=== PATIENT | female | born 1930 | race Caucasian/White ===

== ENCOUNTER 2016-05-05 07:53 | Emergency (ER) | payer OTHER ==
[2016-05-05 07:58] VITALS: BP 165/114; O2SAT 92
--- NOTE | 2016-05-05 08:16 | EDPHY ---
H & P Time Seen by Provider: 05/05/16 08:13 HPI/ROS: CHIEF COMPLAINT: Having problems breathing HISTORY OF PRESENT ILLNESS: This 86-year-old woman does not have a history of lung disease or heart disease. She has had a cough over the last week and has been exposed to a small child with similar symptoms. She used to smoke but does not anymore. Today she awakened with dyspnea and feeling she is having trouble breathing which is not changed by exertion or position. Her cough is nonproductive. It is not associated with chest pain or leg swelling or fever or chills. Symptoms mild to moderate. REVIEW OF SYSTEMS: Eye: no change in vision ENT: no sore throat Cardiac: no chest pain or syncope Pulmonary: HPI, no hemoptysis Abdomen: no vomiting, diarrhea, abdominal pain Musculoskeletal: no back pain or leg pain Skin: no rash Neuro: no headache Constitutional: no fever : no urinary symptoms A comprehensive 10 point review of systems is otherwise negative aside from elements mentioned in the history of present illness. PAST MEDICAL HISTORY: Hypertension and cataract surgery Social history: Currently nonsmoker General Appearance: Alert and conversant, cooperative. Eyes: No scleral icterus. ENT, Mouth: Normal mucous membranes. Normal pharynx without trismus or stridor. Respiratory: Slight expiratory wheezes but normal respiratory effort no focal lung sounds. Cardiovascular: Regular rate and rhythm. Gastrointestinal: Abdomen is soft and non tender. Neurological: Alert and oriented x3. Normally conversant. Face symmetric, normal movement and sensation in all extremities. Skin: Warm and dry, no rashes. Musculoskeletal: No peripheral edema and no joint swelling. No calf tenderness. Psychiatric: Not agitated. Emergency Department course/MDM: Chest x-ray, EKG, labs to include troponin and D-dimer. DuoNeb. Flu testing. 1011: EKG shows sinus rhythm without ischemic changes, D-dimer slightly elevated and CT angiogram discussed and consented 1110: Results discussed with patient and with Dr. Leavitt from surgery will come to see the patient, she does not have any gastrointestinal symptoms so significance of CT finding is unclear to me. Seen by Dr. Leavitt in the emergency department. He feels the CT finding does not require emergent surgical evaluation or hospitalization. Likely URI. Mild bronchospasm. Vital signs normal at discharge. Patient states she is comfortable with outpatient treatment and follow-up. Smoking Status: Former smoker Constitutional: Initial Vital Signs Temperature (C) 36.6 C 05/05/16 07:55 Heart Rate 89 05/05/16 07:55 Respiratory Rate 18 05/05/16 07:55 Blood Pressure 165/114 H 05/05/16 07:55 O2 Sat (%) 92 05/05/16 07:55 O2 Delivery Mode Room Air Allergies/Adverse Reactions: No Known Allergies Allergy (Unverified 05/05/16 07:55) Home Medications: Medication Instructions Recorded Dont Remember 05/05/16 Medical Decision Making - Diagnostics EKG Interpretation: 12-lead EKG interpreted by me; official reading is in trace master. My interpretation is sinus rhythm, no acute ischemic changes. Rate 74. Imaging: CT per Lash[place] no PE, has question of diverticulum versus posterior perforation from stomach 1104am. Reviewed by me. Differential Diagnosis: Differential diagnosis considered for shortness of breath including but not limited to pulmonary infectious process, COPD, asthma, pulmonary embolus and congestive heart failure. - Data Points Laboratory Results: Laboratory Results 05/05/16 09:30 05/05/16 09:30 05/05/16 05/05/16 05/05/16 09:30 09:30 09:30 WBC RBC Hgb Hct MCV MCH MCHC RDW Plt Count MPV Neut % (Auto) Lymph % (Auto) Wood[place] % (Auto) Eos % (Auto) Baso % (Auto) Nucleat RBC Rel Count Absolute Neuts (auto) Absolute Lymphs (auto) Absolute Monos (auto) Absolute Eos (auto) Absolute Basos (auto) Absolute Nucleated RBC Immature Gran % Immature Gran # D-Dimer 0.55 ug/mLFEU H ug/mLFEU (0.00-0.50) Sodium 137 mEq/L mEq/L (134-144) Potassium 5.1 mEq/L mEq/L (3.5-5.2) Chloride 102 mEq/L mEq/L (97-110) Carbon Dioxide 29 mEq/l mEq/l (22-31) Anion Gap 6 mEq/L L mEq/L (8-16) BUN 13 mg/dL mg/dL (7-23) Creatinine 0.5 mg/dL L mg/dL (0.6-1.0) Estimated GFR > 60 Glucose 98 mg/dL mg/dL (70-100) Calcium 10.1 mg/dL mg/dL (8.5-10.4) Troponin I < 0.012 ng/mL ng/mL (0-0.034) Specimen Hemolysis 103 Influenza Typ A,B (DFA) NEGATIVE FOR FLU (NEGATIVE) 05/05/16 09:30 WBC 9.92 10^3/uL H 10^3/uL (3.80-9.50) RBC 4.64 10^6/uL 10^6/uL (4.18-5.33) Hgb 15.5 g/dL g/dL (12.6-16.3) Hct 44.7 % % (38.0-47.0) MCV 96.3 fL fL (81.5-99.8) MCH 33.4 pg pg (27.9-34.1) MCHC 34.7 g/dL g/dL (32.4-36.7) RDW 13.1 % % (11.5-15.2) Plt Count 277 10^3/uL 10^3/uL (150-400) MPV 9.6 fL fL (8.7-11.7) Neut % (Auto) 72.7 % % (39.3-74.2) Lymph % (Auto) 14.8 % L % (15.0-45.0) Woodward % (Auto) 5.3 % % (4.5-13.0) Eos % (Auto) 6.3 % % (0.6-7.6) Baso % (Auto) 0.5 % % (0.3-1.7) Nucleat RBC Rel Count 0.0 % % (0.0-0.2) Absolute Neuts (auto) 7.21 10^3/uL H 10^3/uL (1.70-6.50) Absolute Lymphs (auto) 1.47 10^3/uL 10^3/uL (1.00-3.00) Absolute Monos (auto) 0.53 10^3/uL 10^3/uL (0.30-0.80) Absolute Eos (auto) 0.62 10^3/uL H 10^3/uL (0.03-0.40) Absolute Basos (auto) 0.05 10^3/uL 10^3/uL (0.02-0.10) Absolute Nucleated RBC 0.00 10^3/uL 10^3/uL (0-0.01) Immature Gran % 0.4 % % (0.0-1.1) Immature Gran # 0.04 10^3/uL 10^3/uL (0.00-0.10) D-Dimer Sodium Potassium Chloride Carbon Dioxide Anion Gap BUN Creatinine Estimated GFR Glucose Calcium Troponin I Specimen Hemolysis Influenza Typ A,B (DFA) Medications Given: Discontinued Medications Albuterol Sulfate (Proventil Inh Prepack) 1 mdi TAKEHOME EDNOW ONE Stop: 05/05/16 11:51 Last Admin: 05/05/16 12:08 Dose: 1 mdi Albuterol/Ipratropium (Duoneb) 3 ml IH EDNOW ONE Stop: 05/05/16 08:28 Last Admin: 05/05/16 08:49 Dose: 3 ml Departure - Departure Disposition: Home, Routine, Self-Care Clinical Impression: Upper respiratory infection Qualifiers: URI type: unspecified viral URI Qualified Code(s): J06.9 - Acute upper respiratory infection, unspecified Condition: Good Instructions: Albuterol (By breathing), Upper Respiratory Infection (ED) Referrals: Chelsea Monteiro [Primary Care Provider] - As per Instructions
[2016-05-05] MEDS ORDERED: IPRATROPIUM/ALBUTEROL 3 ML DEYVIAL IH ONE (08:27)
[2016-05-05 09:46] LABS: % IMMATURE GRANULYOCYTES 0.4 % (0.0-1.1); ABSOLUTE IMMATURE GRANULOCYTES 0.04 10^3/uL (0.00-0.10); ADD DIFF? NO; ADD MORPH? NO; ADD SCAN? NO; ATYPICAL LYMPHOCYTE FLAG 0 (0-99); FRAGMENT RBC FLAG 0 (0-99); HEMATOCRIT 44.7 % (38.0-47.0); HEMOGLOBIN 15.5 g/dL (12.6-16.3); LEFT SHIFT FLG 0 (0-99); LIPEMIA HEMOLYSIS FLAG 90 (0-99); MEAN CELL HEMOGLOBIN 33.4 pg (27.9-34.1); MEAN CELL HEMOGLOBIN CONCENTR. 34.7 g/dL (32.4-36.7); MEAN CELL VOLUME 96.3 fL (81.5-99.8); MEAN PLATELET VOLUME 9.6 fL (8.7-11.7); PLATELET CLUMPS FLAG 0 (0-99); PLATELET COUNT 277 10^3/uL (150-400); RED BLOOD CELL COUNT 4.64 10^6/uL (4.18-5.33); RED CELL DISTRIBUTION WIDTH 13.1 % (11.5-15.2)
--- NOTE | 2016-05-05 09:47 | CPEKG ---
Heart Rate: 74 RR Interval: 811 P-R Interval: 180 QRSD Interval: 86 QT Interval: 372 QTC Interval: 413 QRS [place]: 17 T Wave [place]: 61 EKG Severity - ABNORMAL ECG - EKG Impression: SINUS RHYTHM Electronically Signed By: Louis Forrest 05-May-2016 12:06:41
[2016-05-05 09:53] LABS: SPECIMEN HEMOLYSIS 103
[2016-05-05 09:58] LABS: ANION GAP 6 mEq/L (8-16); CALCIUM 10.1 mg/dL (8.5-10.4); CARBON DIOXIDE 29 mEq/l (22-31); CHLORIDE 102 mEq/L (97-110); CREATININE 0.5 mg/dL (0.6-1.0); GLOMERULAR FILTRATION RATE > 60; GLUCOSE 98 mg/dL (70-100); POTASSIUM 5.1 mEq/L (3.5-5.2); SODIUM 137 mEq/L (134-144)
[2016-05-05 10:11] LABS: TROPONIN I < 0.012 ng/mL (0-0.034)
[2016-05-05] MEDS ORDERED: IOPAMIDOL (ISOVUE-370) 150 ML BTL IV ONE (10:27)
[2016-05-05] MEDS ORDERED: ALBUTEROL INH PREPACK MDI TAKEHOME ONE (11:50)
[2016-05-05 12:26] VITALS: PULSE 80; RESP 16; TEMP 98.1
--- NOTE | 2016-05-05 17:36 | GCON ---
This is an 86-year-old woman who has recently moved to [place] presents with 1 week of cough and acute shortness of breath. This morning, she was apprehensive about her shortness of breath and presented to the emergency room. Workup including chest x-ray and CT angiogram for pulmonary embolus were negative, but showed a possible perforation on the posterior aspect of her stomach. My evaluation of the CT scan, it is unclear whether this is a duodenal diverticulum, diverticulum of the stomach, mass in the stomach, or a contained perforation based on the limited views that we have. The patient denies any nausea, vomiting, any recent change in eating habits. She has no early satiety. No hematemesis. No other signs of upper abdominal discomfort. She would like to hold off on any further imaging studies or any other workup if possible today and would prefer to come back as an outpatient if at all possible. REVIEW OF SYSTEMS: Significant for a cough, otherwise negative. ALLERGIES: She has no known drug allergies. MEDICATIONS: She does not remember any of her home medications. PAST SURGICAL HISTORY: She denies any previous surgical history. SOCIAL HISTORY: Former smoker; quit many years ago. Denies alcohol use. She is , a stable relationship with her . Recently moved from [place]. PHYSICAL EXAMINATION: VITAL SIGNS: The patient has a temperature of 36.6, heart rate of 89, blood pressure of 165/114 with a respiratory rate of 18, saturation of 92% on room air. GENERAL: She is alert, oriented to person, place, and time. HEENT: Extraocular motions intact. Pupils are 4 mm and equal. She has no scleral icterus. Oropharynx is moist. NECK: She has no JVD , thyromegaly, or cervical adenopathy. Trachea is midline. LUNGS: Clear bilaterally. HEART: Regular heart tones. S1, S2 without murmur. ABDOMEN: Soft, nontender to palpation. No scars. No hepatosplenomegaly. EXTREMITIES: 2+/2+ femoral and radial pulses. She has no peripheral edema. Skin has normal turgor and tone. No adenopathy is noted cervical, supraclavicular, or inguinal. LABORATORY DATA: Review of her CT scan, personally, does not show a demarcation of this retroperitoneal air fluid level; possible duodenal diverticulum is there. White blood cell count is 9.9 without a left shift, hemoglobin 15, hematocrit 44, platelet count of 277. D-dimer 0.55. Sodium 137 , potassium 5.1, chloride 102, bicarb of 29, BUN of 13, creatinine is 0.5, glucose of 98, calcium of 10.1. Troponin is 0.012. 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 I would recommend followup with formal GI study. CT scan of the abdomen and pelvis would be best. The patient declines any further work up today. I have given her my card as well as a followup visit, and my office will be giving her a call, and I have advised the patient also to return for any increase of any gastrointestinal symptoms, any increased shortness of breath, any malaise. Patient and her verbalized understanding. /[id number]/MODL MTDD
== END 2016-05-05 12:26 | disposition home or self-care (01) ==
DX: J06.9 Acute upper respiratory infection, unspecified (principal); I10 Essential (primary) hypertension; Z87.891 Personal history of nicotine dependence
CPT/HCPCS: 71020; 71275; 93005; 99285; Q9967

== ENCOUNTER → 2016-05-23 | Outpatient (CLI) | payer OTHER | LOC: FIMAGING 12:01 | PROVIDERS: ATTEND Family Medicine Geriatric Medicine | DX: K25.5 Chronic or unspecified gastric ulcer with perforation (principal); K31.4 Gastric diverticulum; K57.32 Diverticulitis of large intestine without perforation or abscess without bleeding ==

== ENCOUNTER → 2016-06-07 | Outpatient (CLI) | payer OTHER | LOC: FIMAGING 09:50 | DX: Z12.31 Encounter for screening mammogram for malignant neoplasm of breast (principal) | CPT/HCPCS: G0202 ==

== ENCOUNTER → 2016-11-26 | Outpatient (CLI) | payer OTHER | LOC: FIMAGING 12:49 | PROVIDERS: ATTEND Nurse Practitioner Family | DX: K38.9 Disease of appendix, unspecified (principal); K57.30 Diverticulosis of large intestine without perforation or abscess without bleeding; K59.00 Constipation, unspecified; I71.4 Abdominal aortic aneurysm, without rupture ==

== ENCOUNTER 2016-12-20 09:05 | Inpatient (IN) | payer OTHER ==
[2016-12-20 10:56] LABS: PLATELET COUNT 219 10^3/uL (150-400)
[2016-12-20] MEDS ORDERED: cefOXitin SODIUM 2 GM in D5W 100 ML IV ONE (11:26)
--- NOTE | 2016-12-20 11:27 | PDHPUP ---
History & Physical Update H&P update statement: This history and physical update is based on an assessment of the patient which was completed after admission or registration (within 24 hours), but prior to the surgery/procedure. H&P update: H&P reviewed & patient examined, no change in patient's condition since H&P completed
[2016-12-20] MEDS ORDERED: LR 1,000 ML IV ONE (11:32)
[2016-12-20] MEDS ORDERED: PROPOFOL/EMULSION 500 MG/50 ML BOTTLE IV ONE (11:46)
[2016-12-20] MEDS ORDERED: fentaNYL 100 MCG/2 ML INJ ONE ×2 (11:46→12:14)
[2016-12-20] MEDS ORDERED: DEXMEDETOMIDINE HCL 200 MCG/2 ML VIAL IV ONE (12:23)
[2016-12-20] MEDS ORDERED: ROCURONIUM 50 MG/5 ML VIAL ONE (12:29)
[2016-12-20] MEDS ORDERED: LIDOCAINE 2% 5 ML SDV ONE (12:29)
[2016-12-20] MEDS ORDERED: ONDANSETRON 4 MG/2 ML VIAL ONE (12:29)
[2016-12-20] MEDS ORDERED: SUGAMMADEX SODIUM 200 MG/2 ML VIAL IVP ONE (12:29)
--- NOTE | 2016-12-20 12:30 | PDANEPAE ---
ANE Past Medical History - Cardiovascular History Hx Hypertension: Yes Hx Arrhythmias: No Hx Chest Pain: No Hx Coronary Artery / Peripheral Vascular Disease: No Hx CHF / Valvular Disease: No Hx Palpitations: No - Pulmonary History Hx COPD: No Hx Asthma/Reactive Airway Disease: No Hx Recent Upper Respiratory Infection: No Hx Oxygen in Use at Home: No Hx Sleep Apnea: No Sleep Apnea Screening Result - Last Documented: Negative - Neurologic History Hx Cerebrovascular Accident: No Hx Seizures: No Hx Dementia: No - Endocrine History Hx Diabetes: No - Renal History Hx Renal Disorders: Yes Renal History Comment: STRESS URGENCY - Liver History Hx Hepatic Disorders: No - Neurological & Psychiatric Hx Hx Neurological and Psychiatric Disorders: No - Cancer History Hx Cancer: No - Congenital Disorder History Hx Congenital Disorders: No - GI History Hx Gastrointestinal Disorders: Yes Gastrointestinal History Comment: TESTING SHOWS MASS COLON REGION. CONSTIPATION. PREV REMVL COLON POLYPS - Other Health History Other Health History: GLAUCOMA. MACULAR DEGENERATION - Surgical History Prior Surgeries: BROOKE CATARACT. COLONOSCOPY ANE Review of Systems Review of Systems: - Exercise capacity METS (RN): 4 METS ANE Patient History - Allergies Allergies/Adverse Reactions: No Known Allergies Allergy (Verified 12/19/16 15:57) - Home Medications Home Medications: Amlodipine Besylate/Benazepril [Amlodipine-Benazepril 5-20 mg] 1 each PO DAILY 12/19/16 [Last Taken 12/19/16] Aspirin [Aspirin 81mg (*)] 81 mg PO DAILY 12/19/16 [Last Taken 12/16/16] Brimonidine 0.15% [ALPHAGAN P 0.15% (RX)] 1 drops EACHEYE BID 12/19/16 [Last Taken 12/20/16] C/E/Zn/Cu/OM3/DHA/EPA/LUT/ZEAX [Preservision Areds 2 Softgel] 2 each PO BID 02/23 [Last Taken 12/19/16] Calcium Carbonate [Oyster Shell Calcium 500 mg (*)] 500 mg PO BID 12/19/16 [ Last Taken Unknown] Herbals/Supplements -Info Only 1 ea PO DAILY 12/19/16 [Last Taken 12/19/16] Multivitamins [Multivitamin (*)] 1 each PO DAILY 12/19/16 [Last Taken 12/15/16] Propranolol HCl [Inderal Xl] 80 mg PO DAILY@20 12/19/16 [Last Taken 12/19/16] Simvastatin [Zocor] 20 mg PO DAILY@20 12/19/16 [Last Taken 12/19/16] Travoprost Z 0.004% [Travatan Z 0.004% (*)] 1 drops EACHEYE HS 12/19/16 [Last Taken 12/20/16] - NPO status NPO Since - Liquids (Date): 12/19/16 NPO Since - Solids (Date): 12/19/16 - Smoking Hx Smoking Status: Former smoker - Family Anes Hx Family Hx Anesthesia Complications: NEPHEW AT AGE 4 CODED ? RELATED TO [place] ANE Labs/Vital Signs - Labs Result Diagrams: 12/20/16 10:27 - Vital Signs Blood Pressure: 151/83 Heart Rate: 72 Respiratory Rate: 16 O2 Sat (%): 94 Height: 157.48 cm Weight: 64.41 kg ANE Physical Exam - Airway Neck exam: FROM Mallampati Score: Class 2 Mouth exam: normal dental/mouth exam - Pulmonary Pulmonary: no respiratory distress, no rales or rhonchi, clear to auscultation - Cardiovascular Cardiovascular: regular rate and rhythym, no murmur, rub, or gallop, pulses symmetric bilaterally ANE Anesthesia Plan Anesthesia Plan: general endotracheal anesthesia
[2016-12-20] MEDS ORDERED: DEXAMETHASONE 4 MG/ML VIAL IVP PRN (12:37)
[2016-12-20] MEDS ORDERED: ALBUTEROL 3 ML DEYVIAL IH PRN (12:37)
[2016-12-20] MEDS ORDERED: NALOXONE HCL 0.4 MG/ML INJ IVP PRN (12:37)
[2016-12-20] MEDS ORDERED: fentaNYL 100 MCG/2 ML INJ IVP PRN (12:37)
[2016-12-20] MEDS ORDERED: LR 500 ML IV PRN (12:37)
[2016-12-20] MEDS ORDERED: ONDANSETRON 4 MG/2 ML VIAL IVP PRN ×2 (12:37→16:01)
[2016-12-20] MEDS ORDERED: ENALAPRILAT DIHYDRATE 1.25 MG/ML VIAL IVP PRN (12:37)
[2016-12-20] MEDS ORDERED: ENALAPRILAT DIHYDRATE 1.25 MG/ML VIAL ONE (12:43)
[2016-12-20] MEDS ORDERED: BUPIVACAINE 0.5% 30 ML SDV ONE (12:43)
[2016-12-20] MEDS ORDERED: ACETAMINOPHEN 325 MG TAB PO PRN (16:01)
--- NOTE | 2016-12-20 16:09 | POSTOPPROG ---
Post Op Note Date of Operation: 12/20/16 Surgeon: Andrew Mccracken Anesthesiologist: Snehal Medeiros Anesthesia: GET(General Endotracheal) Pre-op Diagnosis: Appendiceal Neoplasm Post-op Diagnosis: Same Procedure: Lap R David Inf/Abcess present in the surg proc area at time of surgery?: No EBL: Minimal Specimen(s): Right colon
[2016-12-20] MEDS ORDERED: LR 1,000 ML IV SCH (16:30)
[2016-12-20] MEDS: HYDROmorphONE/DILAUDID 1 MG/ML INJ IVP PRN ×2 (17:45→18:49)
--- NOTE | 2016-12-20 18:48 | GOP ---
[f rep st] OPERATIVE REPORT DATE OF OPERATION: 12/20/2016 SURGEON: nAdrew Mccracken MD ANESTHESIA: General. 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 PROCEDURE PERFORMED: Laparoscopic right hemicolectomy. FINDINGS: Distal appendical lesion. 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 She is undergoing laparoscopic right hemicolectomy at this time. Risks and benefits were explained of bleeding, infection, open conversion, ureter injury, anastomotic leak, differential diagnoses as well as untoward cardiorespiratory complications. All questions were answered. She desires to proceed. DESCRIPTION OF PROCEDURE: General anesthesia was induced. The abdomen was pre- injected with 0.5% Marcaine with epinephrine. A vertical infraumbilical cutdown was created. A 10 mm trocar was placed under direct visualization. The abdomen was insufflated to 15 mmHg. Two additional 5 mm ports were placed in the hypogastrium and the left lower quadrant. Abdominal exploration showed normal peritoneal surfaces other than 1 granular nodular area along the cecal fold. No ascites was present. The omentum appeared normal. Visualized portions of the liver appeared normal as were remaining peritoneal surfaces. The pelvis also appeared normal. The area of question corresponded to a mass at the distal aspect of the appendix. This was focally adherent to the sigmoid colon mesentery as well as coursing back into the cecal mesentery itself. No appreciable adenopathy was identified. Using the LigaSure device, the colon was mobilized off the white line of T[place]t. The right ureter was identified and preserved throughout the dissection. The mass was divided off of the sigmoid colon mesentery. The colon was mobilized up to the hepatic flexure. Adhesions were lysed off the liver and gallbladder allowing for the colon to be easily brought down toward the pelvis without any undue tension. The ileocolic vessels were circumferentially encompassed and divided with the LigaSure device as was the remaining mesenteric dissection up to the level of the duodenum. The infraumbilical incision was partially extended. A wound protector was applied and the specimen brought ex vivo. The colon was transected using surgical staplers and a stapled sthm-od-[id number] anastomosis was created. Excellent luminal patency was assured. There was excellent blood flow noted at all cut edges. Hemostasis was assured. The visceral contents were returned back to the abdominal cavity. The midline fascia was closed with running Vicryl suture. The scope was reinserted in the abdominal cavity showing no evidence of bleeding and no torsion of the hookup. The sigmoid colon was reconfirmed normal at the site of mesenteric adherence. Trocars were removed under direct visualization. The wounds were closed with Monocryl sutures followed by Dermabond. The patient was taken to recovery room awake, uneventfully. /[id number]/MODL MTDD
[2016-12-20] MEDS: HYDROCODONE/APAP 5/325 TAB PO PRN ×2 (20:37→22:15)
[2016-12-20] MEDS: PROPRANOLOL SR 80 MG CAP PO SCH (20:37)
[2016-12-20] MEDS: cefOXitin SODIUM 1 GM in D5W 50 ML IV SCH (21:35)
[2016-12-20] MEDS: BRIMONIDINE 0.15% 5 ML OPHT.BTL EACHEYE SCH (21:40)
[2016-12-20] MEDS: ATORVASTATIN CALCIUM 10 MG TAB PO SCH (21:40)
[2016-12-20] MEDS: TRAVOPROST Z 0.004% 2.5 ML OPHT.BTL EACHEYE SCH (22:06)
[2016-12-20] MEDS: IBUPROFEN 600 MG TAB PO SCH (22:06)
[2016-12-21] MEDS: HYDROCODONE/APAP 5/325 TAB PO PRN ×5 (01:40→21:33)
[2016-12-21] MEDS: HYDROmorphONE/DILAUDID 1 MG/ML INJ IVP PRN (02:30)
[2016-12-21] MEDS: cefOXitin SODIUM 1 GM in D5W 50 ML IV SCH ×2 (03:37→07:28)
[2016-12-21] MEDS: IBUPROFEN 600 MG TAB PO SCH ×3 (06:01→20:32)
[2016-12-21] MEDS ORDERED: cefOXitin SODIUM 1 GM in D5W 50 ML IV SCH (09:00)
[2016-12-21] MEDS: ASPIRIN 81 MG CHEWABLE TAB PO SCH (09:33)
[2016-12-21] MEDS: AMLODIPINE BESYLATE 5/BENAZEPRIL 20MG 1 EACH CAP PO SCH (09:33)
--- NOTE | 2016-12-21 10:08 | SOAPPROG ---
SOAP Progress Note Assessment/Plan: Assessment:pod#1 s/p lap r ja. doing great. pain controlled. no nausea. some ambulation. small void with catheter out. afebrile. comfortable. abd soft, dist, incis clean. doing well. adv diet. buffcap. po meds. ambulate in halls. family at bedside. Plan: 12/21/16 10:07 Objective: Vital Signs Temp Pulse Resp BP Pulse Ox 37.1 C 79 18 118/58 L 90 L 12/21/16 09:27 12/21/16 09:27 12/21/16 09:27 12/21/16 09:33 12/21/16 09:27 Laboratory Results 12/21/16 04:48 12/21/16 04:48 12/20/16 12/21/16 12/22/16 05:59 05:59 05:59 Intake Total 1670 Output Total 995 Balance 675 ICD10 Worksheet Patient Problems: Problems Problem Status Onset Appendiceal tumor Acute - ICD10 Problem Qualifiers (1) Appendiceal tumor
[2016-12-21] MEDS: BRIMONIDINE 0.15% 5 ML OPHT.BTL EACHEYE SCH ×2 (10:50→20:35)
--- NOTE | 2016-12-21 17:18 | ASMTCMCOM ---
CM Note CM Note Notes: Patient will most likely discharge home Independent when medically clear. Case management will follow. Date Signed: 12/21/2016 05:18 PM Electronically Signed By:MYCHAL Carroll
[2016-12-21] MEDS: PROPRANOLOL SR 80 MG CAP PO SCH (20:31)
[2016-12-21] MEDS: CALCIUM CARBONATE 500 MG CHEWABLE TAB PO PRN ×2 (20:31→21:52)
[2016-12-21] MEDS: ATORVASTATIN CALCIUM 10 MG TAB PO SCH (20:31)
[2016-12-21] MEDS: TRAVOPROST Z 0.004% 2.5 ML OPHT.BTL EACHEYE SCH (20:35)
[2016-12-22] MEDS: HYDROCODONE/APAP 5/325 TAB PO PRN ×2 (02:01→13:47)
[2016-12-22] MEDS: CALCIUM CARBONATE 500 MG CHEWABLE TAB PO PRN ×2 (02:06→08:06)
[2016-12-22] MEDS: IBUPROFEN 600 MG TAB PO SCH ×3 (05:19→22:42)
[2016-12-22] MEDS ORDERED: ONDANSETRON 4 MG/2 ML VIAL ONE (05:59)
[2016-12-22] MEDS ORDERED: NS BOLUS 1000 ML (Wide open) IV ONE (06:00)
[2016-12-22] MEDS: ONDANSETRON 4 MG/2 ML VIAL IVP PRN ×2 (06:06→14:56)
[2016-12-22] MEDS ORDERED: ONDANSETRON 4 MG/2 ML VIAL IVP ONE (08:30)
[2016-12-22] MEDS: D5W 1/2 NS W/ 20 KCl/L 1,000 ML IV SCH ×2 (08:51→19:28)
[2016-12-22] MEDS: AMLODIPINE BESYLATE 5/BENAZEPRIL 20MG 1 EACH CAP PO SCH (09:16)
[2016-12-22] MEDS: ASPIRIN 81 MG CHEWABLE TAB PO SCH (09:17)
--- NOTE | 2016-12-22 11:18 | SOAPPROG ---
SOAP Progress Note Assessment/Plan: Assessment:pod#2 s/p lap r ja. rough night. nausea. no flatus. pain adeq controlled. some ambulation. voiding ok - smaller volume - bolus given earlier today am. afebrile, vss. uncomfortable. abd soft, incr dist, incis clean. approp tenderness. postop ileus. restart ivf. diet as able. supportive care. antiemetics prn. d/w staff and daughter Plan: 12/21/16 10:07 12/22/16 11:16 Objective: Vital Signs Temp Pulse Resp BP Pulse Ox 36.6 C 75 16 112/60 98 12/22/16 08:01 12/22/16 08:01 12/22/16 08:01 12/22/16 08:01 12/22/16 08:01 Laboratory Results 12/21/16 04:48 12/21/16 04:48 12/21/16 12/22/16 12/23/16 05:59 05:59 05:59 Intake Total 1670 2400 Output Total 995 100 50 Balance 675 2300 -50 ICD10 Worksheet Patient Problems: Problems Problem Status Onset Appendiceal tumor Acute - ICD10 Problem Qualifiers (1) Appendiceal tumor
[2016-12-22] MEDS: BRIMONIDINE 0.15% 5 ML OPHT.BTL EACHEYE SCH ×2 (15:33→22:45)
[2016-12-22] MEDS: HYDROmorphONE/DILAUDID 1 MG/ML INJ IVP PRN ×2 (16:19→20:06)
[2016-12-22] MEDS ORDERED: LORazepam 0.5 MG TAB PO ONE (21:15)
[2016-12-22] MEDS: TRAVOPROST Z 0.004% 2.5 ML OPHT.BTL EACHEYE SCH (22:14)
--- NOTE | 2016-12-22 22:18 | SOAPPROG ---
SOAP Progress Note Assessment/Plan: Assessment:called to see patient regarding acute pain earlier this evening. nauseated. no flatus - sensation of gas only. received one dose of ativan since call. afebrile, vs unchanged. uop 600 - bladder scan 40. resting comfortably at present time. abd dist, soft, min tenderness. no rebound or guarding. moved easily for xray just prior to my arrival. kub with gastric distention, ileus pattern, approp free air 2 days postop. prob acute gastric distention/ileus rather than anast leak - clinically feeling better now. will add reglan. NG if worsens or vomits. follow serial exams. d/w nursing staff and daughter (via phone). pod#2 s/p lap r ja. rough night. nausea. no flatus. pain adeq controlled. some ambulation. voiding ok - smaller volume - bolus given earlier today am. afebrile, vss. uncomfortable. abd soft, incr dist, incis clean. approp tenderness. postop ileus. restart ivf. diet as able. supportive care. antiemetics prn. d/w staff and daughter Plan: 12/21/16 10:07 12/22/16 11:16 12/22/16 22:14 Objective: Vital Signs Temp Pulse Resp BP Pulse Ox 36.4 C 85 16 131/80 H 95 12/22/16 20:37 12/22/16 20:37 12/22/16 20:37 12/22/16 20:37 12/22/16 20:37 Laboratory Results 12/21/16 04:48 12/21/16 04:48 12/21/16 12/22/16 12/23/16 05:59 05:59 05:59 Intake Total 1670 2400 500 Output Total 995 100 600 Balance 675 2300 -100 ICD10 Worksheet Patient Problems: Problems Problem Status Onset Appendiceal tumor Acute - ICD10 Problem Qualifiers (1) Appendiceal tumor
[2016-12-22] MEDS: ATORVASTATIN CALCIUM 10 MG TAB PO SCH (22:41)
[2016-12-22] MEDS: METOCLOPRAMIDE 10 MG/2 ML VIAL IVP SCH (23:10)
[2016-12-22] MEDS: PROPRANOLOL SR 80 MG CAP PO SCH (23:21)
[2016-12-23] MEDS: D5W 1/2 NS W/ 20 KCl/L 1,000 ML IV SCH (04:09)
[2016-12-23 04:31] LABS: PLATELET COUNT 157 10^3/uL (150-400)
[2016-12-23] MEDS: IBUPROFEN 600 MG TAB PO SCH ×3 (05:11→20:17)
[2016-12-23] MEDS: METOCLOPRAMIDE 10 MG/2 ML VIAL IVP SCH ×3 (05:11→19:31)
[2016-12-23] MEDS ORDERED: NS 1,000 ML IV SCH (07:00)
--- NOTE | 2016-12-23 07:16 | CPEKG ---
Heart Rate: 141 RR Interval: 426 QRSD Interval: 84 QT Interval: 300 QTC Interval: 460 QRS [place]: 44 T Wave [place]: 33 EKG Severity - ABNORMAL ECG - EKG Impression: ATRIAL FIBRILLATION EKG Impression: MULTIFORM VENTRICULAR PREMATURE COMPLEXES EKG Impression: MINIMAL ST DEPRESSION, INFERIOR LEADS EKG Impression: ATRIAL FIBRILLATION IS NEW IN COMPARISON TO PRIOR Electronically Signed By: Figueroa Pereira 26-Dec-2016 13:46:36
[2016-12-23] MEDS ORDERED: METOPROLOL TARTRATE 5 MG/5 ML INJ ONE (07:26)
[2016-12-23] MEDS ORDERED: MAGNESIUM SULF 2 GM/WATER 50 ML IV ONE (07:45)
[2016-12-23] MEDS ORDERED: METOPROLOL TARTRATE 5 MG/5 ML INJ IVP ONE (07:45)
[2016-12-23] MEDS ORDERED: METOPROLOL TARTRATE 5 MG/5 ML INJ IV ONE (07:45)
--- NOTE | 2016-12-23 07:45 | SOAPPROG ---
SOAP Progress Note Assessment/Plan: Assessment:pod#3 s/p lap r ja - patient with new onset tachy just prior to my floor arrival - patient with c/o mild nausea. no cp or sob. min abd pain. afebrile bp 120's. p 140's (EKG atrial fib). resting quietly. heart tachy. lungs clear. abd dist, tympanitic, soft, min tender. incis clean. Na 127. WBC 8 with left shift/bands. postop afib -HD normal at present - will transfer to tele - check troponin - cards eval (saw Dr. Stone preop) - lopressor given on floor for initial numbers. Hyponatremia - fluids changed to normal saline, fluid restriction. Abd dist - ileus, left shift/bandemia, ?leak - will reassess later this am after afib addressed - if any concern, will consider CT vs lap re-exploration. called to see patient regarding acute pain earlier this evening. nauseated. no flatus - sensation of gas only. received one dose of ativan since call. afebrile, vs unchanged. uop 600 - bladder scan 40. resting comfortably at present time. abd dist, soft, min tenderness. no rebound or guarding. moved easily for xray just prior to my arrival. kub with gastric distention, ileus pattern, approp free air 2 days postop. prob acute gastric distention/ileus rather than anast leak - clinically feeling better now. will add reglan. NG if worsens or vomits. follow serial exams. d/w nursing staff and daughter (via phone). pod#2 s/p lap r ja. rough night. nausea. no flatus. pain adeq controlled. some ambulation. voiding ok - smaller volume - bolus given earlier today am. afebrile, vss. uncomfortable. abd soft, incr dist, incis clean. approp tenderness. postop ileus. restart ivf. diet as able. supportive care. antiemetics prn. d/w staff and daughter Plan: 12/21/16 10:07 12/22/16 11:16 12/22/16 22:14 12/23/16 07:39 Objective: Vital Signs Temp Pulse Resp BP Pulse Ox 36.4 C 128 H 16 104/67 96 12/23/16 04:56 12/23/16 07:34 12/23/16 07:34 12/23/16 07:34 12/23/16 07:34 Laboratory Results 12/23/16 04:10 12/23/16 04:10 12/22/16 12/23/16 12/24/16 05:59 05:59 05:59 Intake Total 2400 1950 Output Total 100 700 200 Balance 2300 1250 -200 ICD10 Worksheet Patient Problems: Problems Problem Status Onset Appendiceal tumor Acute - ICD10 Problem Qualifiers (1) Appendiceal tumor
[2016-12-23] MEDS: ASPIRIN 81 MG CHEWABLE TAB PO SCH (08:50)
[2016-12-23] MEDS: BRIMONIDINE 0.15% 5 ML OPHT.BTL EACHEYE SCH ×2 (08:55→22:40)
[2016-12-23] MEDS: HYDROCODONE/APAP 5/325 TAB PO PRN ×3 (09:20→20:18)
[2016-12-23] MEDS: AMLODIPINE BESYLATE 5/BENAZEPRIL 20MG 1 EACH CAP PO SCH (09:24)
[2016-12-23] MEDS ORDERED: DILTIAZEM 125 MG in D5W 125 ML IV SCH (09:45)
[2016-12-23] MEDS ORDERED: DILTIAZEM 25 MG/5 ML VIAL IVP ONE (09:45)
[2016-12-23] MEDS ORDERED: AMIODARONE HCL 100 ML IV ONE ×2 (10:11→11:00)
[2016-12-23] MEDS ORDERED: PROPRANOLOL SR 80 MG CAP PO ONE (10:30)
[2016-12-23] MEDS ORDERED: AMIODARONE HCL 200 ML IV ONE (11:36)
--- NOTE | 2016-12-23 11:58 | GCON ---
[f rep st] CONSULTATION CARDIOLOGY CONSULT. DATE OF CONSULTATION: 12/23/2016 PRIMARY CLOSED CIRCUIT SCREEN WATCHER: Luis Stone MD. SURGEON: Andrew Mccracken MD CHIEF COMPLAINT: Atrial fibrillation. HISTORY OF PRESENT ILLNESS: We were asked by Dr. Mccracken to visit with the patient. The patient is an [age]-year-old female with past medical history of hypertension and dyslipidemia, but no known coronary d isease or arrhythmia. She was seen by Dr. Stone on December 16 for preoperative cardiac evaluation rica or to planned surgical resection of a pelvic mass. At that time, she was stable with no cardiovascul ar symptoms and had a normal EKG. 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 Pura coronado has not felt well in terms of nausea and has eaten very little since surgery. She reports that she has not passed gas or had a bowel movement. Early this morning, she was found to be tachycardiac an d EKG confirmed atrial fibrillation with rapid ventricular response. She was therefore transferred t o telemetry for further evaluation and management. Upon my evaluation, she reports that is just, in general, uncomfortable. She cannot clarify further. She currently denies chest pressure, angina, or lightheadedness. ALLERGIES: No known drug allergies. PAST MEDICAL HISTORY: 1. Hypertension. 2. Dyslipidemia. 3. Essential tremor. 4. Pelvic mass. OUTPATIENT MEDICATIONS: Amlodipine/benazepril 5/20 once daily, aspirin 81 mg daily, propranolol 80 m g daily, simvastatin 20 mg daily, Travatan Z eyedrops, calcium, fish oil, multivitamin. SOCIAL HISTORY: The patient does not smoke cigarettes. She does drink at least 2 glasses of wine ni ghtly and states that she never has a day when she does not drink. FAMILY HISTORY: Not applicable to the current case. PHYSICAL EXAM: VITAL SIGNS: Blood pressure 108/69, heart rate 123, oxygen saturation 99% on 2 L cheryle al cannula, respiratory rate 16. She is currently afebrile. GENERAL: Mildly ill-appearing fatigued, elderly woman. HEENT: Normocephalic, atraumatic. Sclerae clear and free of jaundice. Mucous membranes are moist. CARDIOVASCULAR: JVP is less than 10. Nava tids equal 2+ bilaterally without bruit, tachy irregular rhythm without S3 or murmur. LUNGS: Bibasi lar rales, otherwise clear to auscultation without wheezes or rhonchi. ABDOMEN: Mildly distended. Decreased bowel sounds, but the bowel sounds are present. Minimally tender diffusely. Her laparosco pic incision appears clean, dry and intact. EXTREMITIES: Warm and well perfused without cyanosis, c lubbing, or edema. NEURO: Alert and oriented x3 without gross focal neurologic deficits. Appropria te mood and affect. LABORATORY DATA: White count 8 with a slight left shift. Hematocrit 33.5, platelets 157. Sodium 12 7, potassium 4.6, chloride 95, bicarb 25, BUN 33, creatinine 0.9, and calcium is 10.6, magnesium 1.6. Troponin is negative and TSH is normal. EKG reviewed by me shows atrial fibrillation with rapid ventricular response. No ischemic changes. Echocardiogram is pending. ASSESSMENT AND PLAN: An 86-year-old female with new onset atrial fibrillation on postoperative day 3 status post right hemicolectomy. She is hemodynamically stable, but appears generally uncomfortable . Would like to avoid cardioversion as I think she has a high likelihood of recurrence given her louie oing issues with nausea and relatively recent surgery. 1. Atrial fibrillation: She is currently on a diltiazem drip. She has occasional sinus beats on te lemetry. We will try a single bolus of IV amiodarone. I think this is safe as her atrial fibrillati on has started within the past couple of hours. We will also give her oral beta magdalena. It is poss ible that the combination of missing a dose of beta magdalena, her daily drinking, and postoperative st ate triggered the atrial fibrillation. I have discussed with Dr. Mccracken. He would like to wait a few m ore hours before starting anticoagulation in case he needs to go back to the operating room to make s ure there is no anastomotic leak. Echocardiogram is pending. Ideally she would be a candidate for l louie-term Eliquis therapy when she is stable from a surgical standpoint. TSH is normal. She may requ lee some treatment for alcohol withdrawal, although at this point, she does appear stable, but before she would be on Eliquis, we could use IV heparin once cleared by Dr. Mccracken. 2. Hypertension: Currently well controlled. Start oral beta blockers. 3. Hyponatremia: This may be related to postoperative fluid resuscitation. She is now fluid restri cted and her IV fluids have been changed to normal saline. 4. Dyslipidemia: She takes atorvastatin as an outpatient. The case discussed with Dr. Andrew Mccracken as well as the patient's family. We will follow with you. Perez villalta for this consult. /[id number]/MODL
[2016-12-23] MEDS: CALCIUM CARBONATE 500 MG CHEWABLE TAB PO PRN (12:26)
--- NOTE | 2016-12-23 13:35 | SOAPPROG ---
SOAP Progress Note Assessment/Plan: Assessment:up in chair - cardioverted with meds - apprec cards assist here. no abd c/o. no chest c/o. bp 120. p 90 - reg. abd soft, nontender. labs pending. will reassess later today - lower suspicion for leak remains. assuming continued progress, ok to start heparin this tennille - i will return later today to determine. d/w dr. frazier, nursing staff and family. pod#3 s/p lap r ja - patient with new onset tachy just prior to my floor arrival - patient with c/o mild nausea. no cp or sob. min abd pain. afebrile bp 120's. p 140's (EKG atrial fib). resting quietly. heart tachy. lungs clear. abd dist, tympanitic, soft, min tender. incis clean. Na 127. WBC 8 with left shift/bands. postop afib -HD normal at present - will transfer to tele - check troponin - cards eval (saw Dr. Stone preop) - lopressor given on floor for initial numbers. Hyponatremia - fluids changed to normal saline, fluid restriction. Abd dist - ileus, left shift/bandemia, ?leak - will reassess later this am after afib addressed - if any concern, will consider CT vs lap re-exploration. called to see patient regarding acute pain earlier this evening. nauseated. no flatus - sensation of gas only. received one dose of ativan since call. afebrile, vs unchanged. uop 600 - bladder scan 40. resting comfortably at present time. abd dist, soft, min tenderness. no rebound or guarding. moved easily for xray just prior to my arrival. kub with gastric distention, ileus pattern, approp free air 2 days postop. prob acute gastric distention/ileus rather than anast leak - clinically feeling better now. will add reglan. NG if worsens or vomits. follow serial exams. d/w nursing staff and daughter (via phone). pod#2 s/p lap r ja. rough night. nausea. no flatus. pain adeq controlled. some ambulation. voiding ok - smaller volume - bolus given earlier today am. afebrile, vss. uncomfortable. abd soft, incr dist, incis clean. approp tenderness. postop ileus. restart ivf. diet as able. supportive care. antiemetics prn. d/w staff and daughter Plan: 12/21/16 10:07 12/22/16 11:16 12/22/16 22:14 12/23/16 07:39 12/23/16 13:34 Objective: Vital Signs Temp Pulse Resp BP Pulse Ox 36.6 C 74 16 127/51 H 92 12/23/16 12:00 12/23/16 12:00 12/23/16 12:00 12/23/16 12:00 12/23/16 12:00 Laboratory Results 12/23/16 04:10 12/23/16 04:10 12/22/16 12/23/16 12/24/16 05:59 05:59 05:59 Intake Total 2400 1950 150 Output Total 100 700 901 Balance 2300 1250 -751 ICD10 Worksheet Patient Problems: Problems Problem Status Onset Appendiceal tumor Acute - ICD10 Problem Qualifiers (1) Appendiceal tumor
--- NOTE | 2016-12-23 13:35 | ECHO ---
[email or web address] [address] [address] Main: [phone] Fax: Transthoracic Echocardiogram Name: JAMEE GUZMAN MR#: [id number] Study Date: 12/23/2016 Study Time: 10:31 AM Date of : 1930 Age: 86 year(s) Height: 157.5 cm (62 in.) Weight: 64.41 kg (142 lb.) BSA: 1.65 m2 Gender: Female Examination: Echo Indication: Atrial Fibrillation Image Quality: Technically Difficult Contrast: Requested by: Araseli Kelly BP: 108 mmHg/69 mmHg Heart Rate: Rhythm: Indication: Atrial Fibrillation Procedure Staff Market Development Executive: Sugey Monterroso Reading Physician: Araseli Kelly Requesting Provider: Conclusions: Normal size left ventricle. Normal global systolic LV function. The ejection fraction is visually estimated to be 60 %. All scored wall segments are normal. The left atrium is mildly dilated. Mild to moderate mitral regurgitation. Mild tricuspid regurgitation is present. The pulmonary artery pressure is normal. There is no previous echocardiogram for comparison. Measurements: Chambers Valvular Assessment AV/MV Valvular Assessment TV/PV Normal Normal Normal Name Value Range Name Value Range Name Value Range Ao Marissa (MM): 2.5 cm (2.2 cm-3.7 AV Vmax: 1.29 m/s (1 m/s-1.7 TR Vmax: 2.66 mm/s ( - ) cm) m/s) TR PGmax: 28 mmHg ( - ) LVDd (2D): 3.8 cm (3.9 cm-5.3 AV maxP mmHg ( - ) syst. PAP: 33 mmHg ( - ) cm) LVOT Vmax: 0.87 m/s (0.7 m/s-1.1 PV Vmax: 0.63 m/s (0.6 m/s-0.9 LVDs (2D): 2.8 cm (2.1 cm-4 m/s) m/s) cm) MV E Vmax: 0.91 m/s ( - ) PV PGmax: 2 mmHg ( - ) LVEF (2D): 54 (>=54 %) MV A Vmax: 1.03 m/s ( - ) Visual EF: 60 % MV E/A: 0.88 ( - ) Continued Measurements: Chambers Valvular Assessment AV/MV Valvular Assessment TV/PV Name Value Name Value Name Value LADs Lon.5 cm MV DecTime: 187 m/s CVP (est.): 5 mmHg LA Area: 21.1 cm2 MV E/E' Lateral: 12.60 Patient: JAMEE GUZMAN Study Date: 12/23/2016 Page 1 of 2 10:31 AM LA Volume: 59 ml LA Volume Index: 35.8 ml/m2 Additional Vessels Name Value Ao Ascendin.0 cm Findings: Left Ventricle: Normal size left ventricle. Normal global systolic LV function. The ejection fraction is visually estimated to be 60 %. All scored wall segments are normal. Right Ventricle: Normal size right ventricle. Normal RV function. Left Atrium: The left atrium is mildly dilated. Right Atrium: The right atrium is not well visualized. Mitral Valve: The mitral valve is normal in appearance and function. Mild to moderate mitral regurgitation. Aortic Valve: The aortic valve is tri-leaflet. There is no aortic valve regurgitation. No aortic valve stenosis is present. Tricuspid Valve: The tricuspid valve is normal in appearance and function. Mild tricuspid regurgitation is present. The pulmonary artery pressure is normal. Pulmonic Valve: The pulmonic valve is normal in appearance and function. Aorta: The aorta is normal. Normal size aortic root measuring 2.5 cm. Normal size ascending aorta measuring 3.0 cm. Pericardium: No pericardial effusion. (No Signature Object) Wall Motion Scores -1 - Not Scored, 0 - Unknown, 1 - Normal or hyperkinesia, 2 - Hypokinesia, 3 - Akinesia, 4 - Dyskinesia, 5 - Aneurysm Patient: JAMEE GUZMAN Study Date: 12/23/2016 Page 2 of 2 10:31 AM [id number]
--- NOTE | 2016-12-23 13:35 | ECHO ---
[email or web address] [address] [address] Main: [phone] Fax: Transthoracic Echocardiogram Name: JAMEE GUZMAN MR#: [id number] Study Date: 12/23/2016 Study Time: 10:31 AM Date of : 1930 Age: 86 year(s) Height: 157.5 cm (62 in.) Weight: 64.41 kg (142 lb.) BSA: 1.65 m2 Gender: Female Examination: Echo Indication: Atrial Fibrillation Image Quality: Technically Difficult Contrast: Requested by: Araseli Kelly BP: 108 mmHg/69 mmHg Heart Rate: Rhythm: Indication: Atrial Fibrillation Procedure Staff Plasterer Stucco: Sugey Monterroso Reading Physician: Araseli Kelly Requesting Provider: Conclusions: Normal size left ventricle. Normal global systolic LV function. The ejection fraction is visually estimated to be 60 %. All scored wall segments are normal. The left atrium is mildly dilated. Mild to moderate mitral regurgitation. Mild tricuspid regurgitation is present. The pulmonary artery pressure is normal. There is no previous echocardiogram for comparison. Measurements: Chambers Valvular Assessment AV/MV Valvular Assessment TV/PV Normal Normal Normal Name Value Range Name Value Range Name Value Range Ao Marissa (MM): 2.5 cm (2.2 cm-3.7 AV Vmax: 1.29 m/s (1 m/s-1.7 TR Vmax: 2.66 mm/s ( - ) cm) m/s) TR PGmax: 28 mmHg ( - ) LVDd (2D): 3.8 cm (3.9 cm-5.3 AV maxP mmHg ( - ) syst. PAP: 33 mmHg ( - ) cm) LVOT Vmax: 0.87 m/s (0.7 m/s-1.1 PV Vmax: 0.63 m/s (0.6 m/s-0.9 LVDs (2D): 2.8 cm (2.1 cm-4 m/s) m/s) cm) MV E Vmax: 0.91 m/s ( - ) PV PGmax: 2 mmHg ( - ) LVEF (2D): 54 (>=54 %) MV A Vmax: 1.03 m/s ( - ) Visual EF: 60 % MV E/A: 0.88 ( - ) Continued Measurements: Chambers Valvular Assessment AV/MV Valvular Assessment TV/PV Name Value Name Value Name Value LADs Lon.5 cm MV DecTime: 187 m/s CVP (est.): 5 mmHg LA Area: 21.1 cm2 MV E/E' Lateral: 12.60 Patient: JAMEE GUZMAN Study Date: 12/23/2016 Page 1 of 2 10:31 AM LA Volume: 59 ml LA Volume Index: 35.8 ml/m2 Additional Vessels Name Value Ao Ascendin.0 cm Findings: Left Ventricle: Normal size left ventricle. Normal global systolic LV function. The ejection fraction is visually estimated to be 60 %. All scored wall segments are normal. Right Ventricle: Normal size right ventricle. Normal RV function. Left Atrium: The left atrium is mildly dilated. Right Atrium: The right atrium is not well visualized. Mitral Valve: The mitral valve is normal in appearance and function. Mild to moderate mitral regurgitation. Aortic Valve: The aortic valve is tri-leaflet. There is no aortic valve regurgitation. No aortic valve stenosis is present. Tricuspid Valve: The tricuspid valve is normal in appearance and function. Mild tricuspid regurgitation is present. The pulmonary artery pressure is normal. Pulmonic Valve: The pulmonic valve is normal in appearance and function. Aorta: The aorta is normal. Normal size aortic root measuring 2.5 cm. Normal size ascending aorta measuring 3.0 cm. Pericardium: No pericardial effusion. (No Signature Object) Wall Motion Scores -1 - Not Scored, 0 - Unknown, 1 - Normal or hyperkinesia, 2 - Hypokinesia, 3 - Akinesia, 4 - Dyskinesia, 5 - Aneurysm Patient: JAMEE GUZMAN Study Date: 12/23/2016 Page 2 of 2 10:31 AM [id number]
--- NOTE | 2016-12-23 13:35 | ECHO ---
[email or web address] [address] [address] Main: [phone] Fax: Transthoracic Echocardiogram Name: JAMEE GUZMAN MR#: [id number] Study Date: 12/23/2016 Study Time: 10:31 AM Date of : 1930 Age: 86 year(s) Height: 157.5 cm (62 in.) Weight: 64.41 kg (142 lb.) BSA: 1.65 m2 Gender: Female Examination: Echo Indication: Atrial Fibrillation Image Quality: Technically Difficult Contrast: Requested by: Araseli Kelly BP: 108 mmHg/69 mmHg Heart Rate: Rhythm: Indication: Atrial Fibrillation Procedure Staff Dietary Services Director: Sugey Monterroso Reading Physician: Arsaeli Kelly Requesting Provider: Conclusions: Normal size left ventricle. Normal global systolic LV function. The ejection fraction is visually estimated to be 60 %. All scored wall segments are normal. The left atrium is mildly dilated. Mild to moderate mitral regurgitation. Mild tricuspid regurgitation is present. The pulmonary artery pressure is normal. There is no previous echocardiogram for comparison. Measurements: Chambers Valvular Assessment AV/MV Valvular Assessment TV/PV Normal Normal Normal Name Value Range Name Value Range Name Value Range Ao Marissa (MM): 2.5 cm (2.2 cm-3.7 AV Vmax: 1.29 m/s (1 m/s-1.7 TR Vmax: 2.66 mm/s ( - ) cm) m/s) TR PGmax: 28 mmHg ( - ) LVDd (2D): 3.8 cm (3.9 cm-5.3 AV maxP mmHg ( - ) syst. PAP: 33 mmHg ( - ) cm) LVOT Vmax: 0.87 m/s (0.7 m/s-1.1 PV Vmax: 0.63 m/s (0.6 m/s-0.9 LVDs (2D): 2.8 cm (2.1 cm-4 m/s) m/s) cm) MV E Vmax: 0.91 m/s ( - ) PV PGmax: 2 mmHg ( - ) LVEF (2D): 54 (>=54 %) MV A Vmax: 1.03 m/s ( - ) Visual EF: 60 % MV E/A: 0.88 ( - ) Continued Measurements: Chambers Valvular Assessment AV/MV Valvular Assessment TV/PV Name Value Name Value Name Value LADs Lon.5 cm MV DecTime: 187 m/s CVP (est.): 5 mmHg LA Area: 21.1 cm2 MV E/E' Lateral: 12.60 Patient: JAMEE GUZMAN Study Date: 12/23/2016 Page 1 of 2 10:31 AM LA Volume: 59 ml LA Volume Index: 35.8 ml/m2 Additional Vessels Name Value Ao Ascendin.0 cm Findings: Left Ventricle: Normal size left ventricle. Normal global systolic LV function. The ejection fraction is visually estimated to be 60 %. All scored wall segments are normal. Right Ventricle: Normal size right ventricle. Normal RV function. Left Atrium: The left atrium is mildly dilated. Right Atrium: The right atrium is not well visualized. Mitral Valve: The mitral valve is normal in appearance and function. Mild to moderate mitral regurgitation. Aortic Valve: The aortic valve is tri-leaflet. There is no aortic valve regurgitation. No aortic valve stenosis is present. Tricuspid Valve: The tricuspid valve is normal in appearance and function. Mild tricuspid regurgitation is present. The pulmonary artery pressure is normal. Pulmonic Valve: The pulmonic valve is normal in appearance and function. Aorta: The aorta is normal. Normal size aortic root measuring 2.5 cm. Normal size ascending aorta measuring 3.0 cm. Pericardium: No pericardial effusion. (No Signature Object) Wall Motion Scores -1 - Not Scored, 0 - Unknown, 1 - Normal or hyperkinesia, 2 - Hypokinesia, 3 - Akinesia, 4 - Dyskinesia, 5 - Aneurysm Patient: JAMEE GUZMAN Study Date: 12/23/2016 Page 2 of 2 10:31 AM [id number]
[2016-12-23] MEDS ORDERED: ALTEPLASE 2 MG VIAL IVP PRN (16:17)
[2016-12-23] MEDS ORDERED: AMIODARONE HCL 540 MG in D5W 300 ML IV ONE (17:30)
--- NOTE | 2016-12-23 18:10 | SOAPPROG ---
SOAP Progress Note Assessment/Plan: Assessment:noon labs difficult to obtain -all IV attempts blown - awaiting PICC. patient in bed, confused, comfortable. back in NSR. abd soft, nontender. repeat Na pending (unclear legitimacy of earlier pm labs - na 117, gluc 570). will repeat KUB after PICC. hospitalist consult to assist with med mgmnt. further plans to follow. d/w dr frazier up in chair - cardioverted with meds - apprec cards assist here. no abd c/o. no chest c/o. bp 120. p 90 - reg. abd soft, nontender. labs pending. will reassess later today - lower suspicion for leak remains. assuming continued progress, ok to start heparin this tennille - i will return later today to determine. d/w dr. frazier, nursing staff and family. pod#3 s/p lap r ja - patient with new onset tachy just prior to my floor arrival - patient with c/o mild nausea. no cp or sob. min abd pain. afebrile bp 120's. p 140's (EKG atrial fib). resting quietly. heart tachy. lungs clear. abd dist, tympanitic, soft, min tender. incis clean. Na 127. WBC 8 with left shift/bands. postop afib -HD normal at present - will transfer to tele - check troponin - cards eval (saw Dr. Stone preop) - lopressor given on floor for initial numbers. Hyponatremia - fluids changed to normal saline, fluid restriction. Abd dist - ileus, left shift/bandemia, ?leak - will reassess later this am after afib addressed - if any concern, will consider CT vs lap re-exploration. called to see patient regarding acute pain earlier this evening. nauseated. no flatus - sensation of gas only. received one dose of ativan since call. afebrile, vs unchanged. uop 600 - bladder scan 40. resting comfortably at present time. abd dist, soft, min tenderness. no rebound or guarding. moved easily for xray just prior to my arrival. kub with gastric distention, ileus pattern, approp free air 2 days postop. prob acute gastric distention/ileus rather than anast leak - clinically feeling better now. will add reglan. NG if worsens or vomits. follow serial exams. d/w nursing staff and daughter (via phone). pod#2 s/p lap r ja. rough night. nausea. no flatus. pain adeq controlled. some ambulation. voiding ok - smaller volume - bolus given earlier today am. afebrile, vss. uncomfortable. abd soft, incr dist, incis clean. approp tenderness. postop ileus. restart ivf. diet as able. supportive care. antiemetics prn. d/w staff and daughter Plan: 12/21/16 10:07 12/22/16 11:16 12/22/16 22:14 12/23/16 07:39 12/23/16 13:34 12/23/16 18:07 12/23/16 18:10 Objective: Vital Signs Temp Pulse Resp BP Pulse Ox 36.6 C 75 18 130/56 H 90 L 12/23/16 16:00 12/23/16 16:00 12/23/16 16:00 12/23/16 16:00 12/23/16 16:00 Laboratory Results 12/23/16 04:10 12/23/16 15:30 12/22/16 12/23/16 12/24/16 05:59 05:59 05:59 Intake Total 2400 1950 450 Output Total 722 436 7184 Balance 2300 1250 -576 ICD10 Worksheet Patient Problems: Problems Problem Status Onset Appendiceal tumor Acute - ICD10 Problem Qualifiers (1) Appendiceal tumor
[2016-12-23 19:32] LABS: PLATELET COUNT 195 10^3/uL (150-400)
[2016-12-23] MEDS: PROPRANOLOL SR 80 MG CAP PO SCH (20:18)
[2016-12-23] MEDS: ATORVASTATIN CALCIUM 10 MG TAB PO SCH (20:18)
--- NOTE | 2016-12-23 20:31 | PDGENHP ---
History and Physical - Chief Complaint Acute abdominal pain - History of Present Illness Primary service: General surgery, Dr. Andrew Mccracken Primary synthetic department supervisor: Dr. 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 Andrew Mccracken on 12/20/2016. The patient experienced some pain located in the abdomen following her surgery, it has been alleviated well today with 2 doses of [place]. She has had some associated postoperative ileus with no bowel movements, reduced flatus. She has also had resultant poor oral intake of solids and liquids, secondary to abdominal discomfort exacerbated by eating or drinking. She has not been taking a significant amount of free water. She experienced postoperative atrial fibrillation with rapid ventricular response, and this was managed with amiodarone drip, reintroduction of patient's beta- magdalena, she has chemically cardioverted into a normal sinus mechanism. Her sister does note some cognitive slowing but overall the patient is interacting in a similar fashion to her baseline. Of note, the patient had labs this afternoon which demonstrated severely worsening hyponatremia and hyperglycemia, and Dr. Mccracken consulted us for further assessment. History Information - Allergies/Home Medication List Allergies/Adverse Reactions: No Known Allergies Allergy (Verified 12/19/16 15:57) Home Medications: Amlodipine Besylate/Benazepril [Amlodipine-Benazepril 5-20 mg] 1 each PO DAILY 12/19/16 [Last Taken 12/19/16] Aspirin [Aspirin 81mg (*)] 81 mg PO DAILY 12/19/16 [Last Taken 12/16/16] Brimonidine 0.15% [ALPHAGAN P 0.15% (RX)] 1 drops EACHEYE BID 12/19/16 [Last Taken 12/20/16] C/E/Zn/Cu/OM3/DHA/EPA/LUT/ZEAX [Preservision Areds 2 Softgel] 2 each PO BID 02/23 [Last Taken 12/19/16] Calcium Carbonate [Oyster Shell Calcium 500 mg (*)] 500 mg PO BID 12/19/16 [ Last Taken Unknown] Herbals/Supplements -Info Only 1 ea PO DAILY 12/19/16 [Last Taken 12/19/16] Multivitamins [Multivitamin (*)] 1 each PO DAILY 12/19/16 [Last Taken 12/15/16] Propranolol HCl [Inderal Xl] 80 mg PO DAILY@20 12/19/16 [Last Taken 12/19/16] Simvastatin [Zocor] 20 mg PO DAILY@20 12/19/16 [Last Taken 12/19/16] Travoprost Z 0.004% [Travatan Z 0.004% (*)] 1 drops EACHEYE HS 12/19/16 [Last Taken 12/20/16] I have personally reviewed and updated: family history, medical history, social history, surgical history - Past Medical History hypertension, hyperlipidemia Additional medical history: Benign essential tremor, beta-magdalena baseline - Surgical History Additional surgical history: 12/20/2014 right hemicolectomy - Family History Additional family history: No family history of end-stage renal disease or electrolyte abnormalities - Social History Smoking Status: Former smoker Alcohol Use: Other (Patient has 2 alcoholic beverages nightly, she has never experienced acute alcohol withdrawal) Drug Use: None Additional social history: 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 Review of Systems Review of Systems: ROS: 10pt was reviewed & negative except for what was stated in HPI & below Constitutional: Reports: weakness Gastrointestinal: Reports: abdominal pain, constipation Neurological: Reports: other (Mild cognitive slowing) Physical Exam Physical Exam: Temp Pulse Resp BP Pulse Ox 36.6 C 74 16 127/91 H 90 L 12/23/16 20:00 12/23/16 20:00 12/23/16 20:00 12/23/16 20:00 12/23/16 20:00 O2 (L/minute) 2 Constitutional: no apparent distress, not in pain, obese, No uncomfortable Eyes: PERRL, anicteric sclera, EOMI Ears, Nose, Mouth, Throat: hearing normal, other (Dry mucous membranes) Cardiovascular: regular rate and rhythym, no murmur, rub, or gallop, No edema Respiratory: no respiratory distress, no rales or rhonchi, clear to auscultation , reduced air movement (Bilateral bases) Gastrointestinal: tenderness (Very mild tenderness to moderate palpation) , distension (Moderately), No normoactive bowel sounds (Hypoactive bowel sounds) , No guarding Skin: other (Surgical site is nonerythematous, no surrounding ecchymoses, no wound breakdown, very minimal tenderness) Neurologic: AAOx3, sensation intact bilaterally, other (No tremulousness in the upper extremities but she does intermittently have an intention tremor), No weakness, No asterixes Psychiatric: interacting appropriately, not anxious, not encephalopathic, thought process linear, other (Concentration 09/13, she does have some mild cognitive delay) Lab Data & Imaging Review 12/23/16 19:20 12/23/16 19:20 WBC 7.22 10^3/uL (3.80-9.50) 12/23/16 19:20 RBC 3.63 10^6/uL (4.18-5.33) L 12/23/16 19:20 Hgb 11.9 g/dL (12.6-16.3) L 12/23/16 19:20 Hct 34.3 % (38.0-47.0) L 12/23/16 19:20 MCV 94.5 fL (81.5-99.8) 12/23/16 19:20 MCH 32.8 pg (27.9-34.1) 12/23/16 19:20 MCHC 34.7 g/dL (32.4-36.7) 12/23/16 19:20 RDW 13.2 % (11.5-15.2) 12/23/16 19:20 Plt Count 195 10^3/uL (150-400) 12/23/16 19:20 MPV 10.4 fL (8.7-11.7) 12/23/16 19:20 Neut % (Auto) Not Reported 12/23/16 19:20 Lymph % (Auto) Not Reported 12/23/16 19:20 [place] % (Auto) Not Reported 12/23/16 19:20 Eos % (Auto) Not Reported 12/23/16 19:20 Baso % (Auto) Not Reported 12/23/16 19:20 Nucleat RBC Rel Count 0.0 % (0.0-0.2) 12/23/16 19:20 Absolute Neuts (auto) Not Reported 12/23/16 19:20 Absolute Lymphs (auto) Not Reported 12/23/16 19:20 Absolute Monos (auto) Not Reported 12/23/16 19:20 Absolute Eos (auto) Not Reported 12/23/16 19:20 Absolute Basos (auto) Not Reported 12/23/16 19:20 Absolute Nucleated RBC 0.00 10^3/uL (0-0.01) 12/23/16 19:20 Immature Gran % Not Reported 12/23/16 19:20 Seg Neutrophils % 61 % 12/23/16 19:20 Band Neutrophils % 21 % 12/23/16 19:20 Lymphocytes % 8 % 12/23/16 19:20 Monocytes % 9 % 12/23/16 19:20 Eosinophils % 1 % 12/23/16 19:20 Immature Gran # Not Reported 12/23/16 19:20 Absolute Seg Neuts 4.40 10^/uL (1.70-6.50) 12/23/16 19:20 Absolute Band Neuts 1.52 10^3/uL (0.00-0.70) H 12/23/16 19:20 Absolute Lymphocytes 0.58 10^3/uL (1.00-3.00) L 12/23/16 19:20 Absolute Monocytes 0.65 10^3/uL (0.30-0.80) 12/23/16 19:20 Absolute Eosinophils 0.07 10^3/uL (0.03-0.40) 12/23/16 19:20 RBC/WBC/PLT Morphology NORMAL (NORMAL) 12/23/16 19:20 Platelet Estimate ADEQUATE (ADEQ) 12/23/16 19:20 Sodium 126 mEq/L (134-144) L 12/23/16 19:20 Potassium 4.3 mEq/L (3.5-5.2) 12/23/16 19:20 Chloride 92 mEq/L (97-110) L D 12/23/16 19:20 Carbon Dioxide 27 mEq/l (22-31) 12/23/16 19:20 Anion Gap 7 mEq/L (8-16) L 12/23/16 19:20 BUN 30 mg/dL (7-23) H 12/23/16 19:20 Creatinine 0.8 mg/dL (0.6-1.0) 12/23/16 19:20 Estimated GFR > 60 12/23/16 19:20 Glucose 88 mg/dL (70-100) D 12/23/16 19:20 POC Glucose 95 mg/dL (70-100) 12/22/16 06:11 Calcium 11.3 mg/dL (8.5-10.4) H 12/23/16 19:20 Magnesium 2.1 mg/dL (1.6-2.3) 12/23/16 19:20 Troponin I < 0.012 ng/mL (0.000-0.034) 12/23/16 15:30 TSH 1.590 uIU/mL (0.465-4.680) 12/23/16 04:10 Visualized and Interpreted EKG results: Yes EKG Interpretation: Positive for: other (Atrial fibrillation without any ST depressions) Assessment & Plan Assessment: 86-year-old female presents with appendiceal tumor, complicated by acute atrial fibrillation with rapid ventricular response and worsening hyponatremia Plan: 1. Hyponatremia. Acute, worsening, new problem this provider, further workup indicated. Patient's serum sodium level was normal on presentation and review of outside records from 05/05/2016 demonstrates a normal baseline of 137 -suspect that her decline during this hospitalization has been secondary to poor oral intake as well as some hypovolemia postoperatively -I discussed with Dr. Andrew Mccracken, and he reported to me that the labs were being rechecked with PICC line placement, and I have followed up those labs which do demonstrate that the lab earlier this afternoon was most likely an error -she is currently receiving normal saline at 75 cc an hour, and this can continue at this rate -I would recommend repeating serum sodium level overnight to determine whether it is improving or declining, and adjust the fluids at that time -we can also get a urine sodium level to ascertain whether the patient is experiencing an SIADH response, or if she is purely hypo-perfusing 2. Atrial fibrillation. Acute rapid ventricular response, provoked postoperatively in the setting of hypovolemia and surgical pain, currently in normal sinus mechanism on telemetry -appreciate Cardiology consultation by Dr. Araseli Kelly -continue amiodarone drip at her discretion -patient continues on propranolol beta-magdalena dosing from home -further use of systemic anticoagulation at the discretion of Dr. Kelly and Dr. Mccracken, may not be indicated if the patient was experiencing acute provoked episode and she does not have any further subsequent paroxysmal event, may warrant outpatient 30 day or longer monitoring 3. Acute blood loss anemia. Anticipated postop, patient does not have any evidence of ongoing bleeding, hemoglobin level stable at 11.9, continue to monitor 4. Suspected atelectasis. Reduced air movement bilateral bases, placed on incentive spirometer, SpO2 63% on room air, continue to monitor closely and get chest x-ray to evaluate for overt effusions if worsening 5. Suspected postoperative ileus. Hypoactive bowel sounds, not passing significant flatus, under the management of Dr. Mccracken -abdominal x-ray obtained this evening I discussed medical [id number] and code status with the patient, she wishes for her and child to be her medical power of assistant prosecuting attorney and for her resuscitation status to be listed as do not resuscitate while she is in the hospital. The Hospital Medicine service will continue to consult in this patient's daily care.
[2016-12-23] MEDS ORDERED: FUROSEMIDE 40 MG/4 ML VIAL IVP ONE (21:09)
[2016-12-23] MEDS ORDERED: FUROSEMIDE 40 MG/4 ML VIAL ONE (21:11)
[2016-12-23] MEDS ORDERED: fentaNYL 250 MCG/5 ML INJ ONE (22:09)
[2016-12-23] MEDS ORDERED: PROPOFOL/EMULSION 500 MG/50 ML BOTTLE IV ONE (22:10)
--- NOTE | 2016-12-23 22:10 | SOAPPROG ---
SOAP Progress Note Assessment/Plan: Assessment:repeat wbc 7, na 126, kub with persistent subdiaph air, sent for CT - rectosigmoid colon leak. patient with resp distress after moving from CT back to room - stat team called - bipap placed - tx ICU - NG placed. needs re- exploration - suspect leak from devascularized sigmoid colon where mass initially adherent. d/w sister at bedside and dtr via phone. code status had been discussed at length pre-op with family. will proceed with all appropriate periop measures. if care were to become futile, she would like to consider withdrawal of any life sustaining measures. plan d/w dr. mims - appreciative of medicine involvement this evening. noon labs difficult to obtain -all IV attempts blown - awaiting PICC. patient in bed, confused, comfortable. back in NSR. abd soft, nontender. repeat Na pending (unclear legitimacy of earlier pm labs - na 117, gluc 570). will repeat KUB after PICC. hospitalist consult to assist with med mgmnt. further plans to follow. d/w dr frazier up in chair - cardioverted with meds - apprec cards assist here. no abd c/o. no chest c/o. bp 120. p 90 - reg. abd soft, nontender. labs pending. will reassess later today - lower suspicion for leak remains. assuming continued progress, ok to start heparin this tennille - i will return later today to determine. d/w dr. frazier, nursing staff and family. pod#3 s/p lap r ja - patient with new onset tachy just prior to my floor arrival - patient with c/o mild nausea. no cp or sob. min abd pain. afebrile bp 120's. p 140's (EKG atrial fib). resting quietly. heart tachy. lungs clear. abd dist, tympanitic, soft, min tender. incis clean. Na 127. WBC 8 with left shift/bands. postop afib -HD normal at present - will transfer to tele - check troponin - cards eval (saw Dr. Stone preop) - lopressor given on floor for initial numbers. Hyponatremia - fluids changed to normal saline, fluid restriction. Abd dist - ileus, left shift/bandemia, ?leak - will reassess later this am after afib addressed - if any concern, will consider CT vs lap re-exploration. called to see patient regarding acute pain earlier this evening. nauseated. no flatus - sensation of gas only. received one dose of ativan since call. afebrile, vs unchanged. uop 600 - bladder scan 40. resting comfortably at present time. abd dist, soft, min tenderness. no rebound or guarding. moved easily for xray just prior to my arrival. kub with gastric distention, ileus pattern, approp free air 2 days postop. prob acute gastric distention/ileus rather than anast leak - clinically feeling better now. will add reglan. NG if worsens or vomits. follow serial exams. d/w nursing staff and daughter (via phone). pod#2 s/p lap r ja. rough night. nausea. no flatus. pain adeq controlled. some ambulation. voiding ok - smaller volume - bolus given earlier today am. afebrile, vss. uncomfortable. abd soft, incr dist, incis clean. approp tenderness. postop ileus. restart ivf. diet as able. supportive care. antiemetics prn. d/w staff and daughter Plan: 12/21/16 10:07 12/22/16 11:16 12/22/16 22:14 12/23/16 07:39 12/23/16 13:34 12/23/16 18:07 12/23/16 18:10 12/23/16 22:06 12/23/16 22:10 Objective: Vital Signs Temp Pulse Resp BP Pulse Ox 36.6 C 74 16 127/91 H 90 L 12/23/16 20:00 12/23/16 20:00 12/23/16 20:00 12/23/16 20:00 12/23/16 20:00 Laboratory Results 12/23/16 19:20 12/23/16 19:20 12/22/16 12/23/16 12/24/16 05:59 05:59 05:59 Intake Total 2400 1950 675 Output Total 524 896 8539 Balance 2300 1250 -351 ICD10 Worksheet Patient Problems: Problems Problem Status Onset Appendiceal tumor Acute - ICD10 Problem Qualifiers (1) Appendiceal tumor
[2016-12-23] MEDS ORDERED: ERTAPENEM 1 GM in NS 100 ML IV ONE (22:15)
[2016-12-23] MEDS: TRAVOPROST Z 0.004% 2.5 ML OPHT.BTL EACHEYE SCH (22:40)
[2016-12-23] MEDS ORDERED: NOREPINEPHRINE/NS 500 ML IV ONE (23:00)
[2016-12-23] MEDS: IPRATROPIUM/ALBUTEROL 3 ML DEYVIAL IH SCH (23:01)
[2016-12-23] MEDS ORDERED: NALOXONE HCL 0.4 MG/ML INJ IVP PRN (23:14)
[2016-12-23] MEDS ORDERED: LABETALOL HCL 5 MG/ML 20 ML MDV IVP PRN (23:14)
[2016-12-23] MEDS ORDERED: fentaNYL 100 MCG/2 ML INJ IVP PRN (23:14)
--- NOTE | 2016-12-23 23:20 | PDANEPAE ---
ANE History of Present Illness 86 year old woman with necrotic bowel for laparotomy and bowel resection. Recent resection secondary to tumor. Now with necrotic bowel. In ICU in respiratory distress and decreased mental status. ANE Past Medical History - Cardiovascular History Hx Hypertension: Yes Hx Arrhythmias: Yes Hx Chest Pain: No Hx Coronary Artery / Peripheral Vascular Disease: No Hx CHF / Valvular Disease: No Hx Palpitations: No - Pulmonary History Hx COPD: No Hx Asthma/Reactive Airway Disease: No Hx Recent Upper Respiratory Infection: No Hx Oxygen in Use at Home: No Hx Sleep Apnea: No Sleep Apnea Screening Result - Last Documented: Negative - Neurologic History Hx Cerebrovascular Accident: No Hx Seizures: No Hx Dementia: No - Endocrine History Hx Diabetes: No - Renal History Hx Renal Disorders: Yes Renal History Comment: STRESS URGENCY - Liver History Hx Hepatic Disorders: No - Neurological & Psychiatric Hx Hx Neurological and Psychiatric Disorders: No - Cancer History Hx Cancer: No - Congenital Disorder History Hx Congenital Disorders: No - GI History Hx Gastrointestinal Disorders: Yes Gastrointestinal History Comment: TESTING SHOWS MASS COLON REGION. CONSTIPATION. PREV REMVL COLON POLYPS - Other Health History Other Health History: GLAUCOMA. MACULAR DEGENERATION - Surgical History Prior Surgeries: BROOKE CATARACT. COLONOSCOPY ANE Review of Systems Review of Systems: - Exercise capacity METS (RN): 4 METS ANE Patient History - Allergies Allergies/Adverse Reactions: No Known Allergies Allergy (Verified 12/19/16 15:57) - Home Medications Home Medications: Amlodipine Besylate/Benazepril [Amlodipine-Benazepril 5-20 mg] 1 each PO DAILY 12/19/16 [Last Taken 12/19/16] Aspirin [Aspirin 81mg (*)] 81 mg PO DAILY 12/19/16 [Last Taken 12/16/16] Brimonidine 0.15% [ALPHAGAN P 0.15% (RX)] 1 drops EACHEYE BID 12/19/16 [Last Taken 12/20/16] C/E/Zn/Cu/OM3/DHA/EPA/LUT/ZEAX [Preservision Areds 2 Softgel] 2 each PO BID 02/23 [Last Taken 12/19/16] Calcium Carbonate [Oyster Shell Calcium 500 mg (*)] 500 mg PO BID 12/19/16 [ Last Taken Unknown] Herbals/Supplements -Info Only 1 ea PO DAILY 12/19/16 [Last Taken 12/19/16] Multivitamins [Multivitamin (*)] 1 each PO DAILY 12/19/16 [Last Taken 12/15/16] Propranolol HCl [Inderal Xl] 80 mg PO DAILY@20 12/19/16 [Last Taken 12/19/16] Simvastatin [Zocor] 20 mg PO DAILY@20 12/19/16 [Last Taken 12/19/16] Travoprost Z 0.004% [Travatan Z 0.004% (*)] 1 drops EACHEYE HS 12/19/16 [Last Taken 12/20/16] - NPO status NPO Since - Liquids (Date): 12/19/16 NPO Since - Solids (Date): 12/19/16 - Smoking Hx Smoking Status: Former smoker - Alcohol Use Alcohol Use: Other (Patient has 2 alcoholic beverages nightly, she has never experienced acute alcohol withdrawal) - Family Anes Hx Family Hx Anesthesia Complications: NEPHEW AT AGE 4 CODED ? RELATED TO [place] ANE Labs/Vital Signs - Labs Result Diagrams: 12/23/16 19:20 12/23/16 19:20 - Vital Signs Blood Pressure: 128/97 Heart Rate: 126 Respiratory Rate: 26 O2 Sat (%): 100 Height: 157.48 cm Weight: 64.41 kg ANE Physical Exam - Airway Mallampati Score: Class 2 - Pulmonary Pulmonary: respiratory distress - Cardiovascular Cardiovascular: regular rate and rhythym - ASA Status ASA Status: IV, E
--- NOTE | 2016-12-24 00:25 | POSTOPPROG ---
Post Op Note Date of Operation: 12/24/16 Surgeon: Andrew Mccracken [employer] Architect: Juan Leavitt Anesthesiologist: Sarai Siddiqi Anesthesia: GET(General Endotracheal) Pre-op Diagnosis: Peritonitis Post-op Diagnosis: Ischemic colitis Procedure: Ex lap, left hemicolectomy with end colostomy, splenic flexure mobilization Findings: Necrotic left colon from splenic flexure to rectosigmoid junction Inf/Abcess present in the surg proc area at time of surgery?: Yes Depth: Organ Space EBL: Minimal Total fluids administered: 3L Complications: No immediate Specimen(s): left colon with proximal and distal margins
[2016-12-24] MEDS ORDERED: PROPOFOL/EMULSION 1,000 MG/100 ML BOTTLE IV ONE (00:47)
[2016-12-24] MEDS: NS 1,000 ML IV SCH (00:53)
[2016-12-24] MEDS: PROPOFOL/EMULSION 100 ML IV SCH ×2 (00:54→19:36)
[2016-12-24] MEDS: fentaNYL/NACL 100 ML IV SCH (00:55)
[2016-12-24] MEDS: FAMOTIDINE 20 MG/NACL 50 ML IV SCH ×3 (00:55→20:34)
[2016-12-24] MEDS: IPRATROPIUM/ALBUTEROL 3 ML DEYVIAL IH SCH (01:38)
[2016-12-24] MEDS: IBUPROFEN 600 MG TAB PO SCH (02:16)
[2016-12-24] MEDS: ASPIRIN 81 MG CHEWABLE TAB PO SCH (02:17)
[2016-12-24] MEDS: ALBUTEROL 200 PUFFS/18 GM MDI IH SCH ×5 (04:16→20:32)
--- NOTE | 2016-12-24 04:36 | GOP ---
[f rep st] OPERATIVE REPORT DATE OF OPERATION: 12/22/2016 SURGEON: Andrew Mccracken MD [employer] TECHNICIAN: Juan Leavitt MD. ANESTHESIA: General. ANESTHESIOLOGIST: Sarai Siddiqi MD PREOPERATIVE DIAGNOSIS: Peritonitis. POSTOPERATIVE DIAGNOSIS: Ischemic colitis. PROCEDURE PERFORMED: 1. Exploratory laparotomy. 2. Left hemicolectomy with end colostomy. 3. Splenic flexure mobilization. FINDINGS: 1. Ischemic colitis. 2. Intact prior ileocolic anastomosis with a nicely vascularized right colon and transverse colon. INDICATIONS: 86-year-old female, 3 days status post a laparoscopic right hemicolectomy for an appendiceal neoplasm. Postoperatively, the patient has developed atrial fibrillation with new hyponatremia today. Repeat KUB shows persistent free intraabdominal air, more than expected compared to prior day's films, despite no abdominal complaints. A rectal contrast CT shows contrast extravasation to the abdominal cavity through the descending colon. She is undergoing an exploratory laparotomy at this time. Risks and benefits were explained of bleeding, infection, need for stoma placement, respiratory failure , need for prolonged ventilation, as well as others. All questions were entertained. Her family consents for her to proceed. DESCRIPTION OF PROCEDURE: General anesthesia was induced. The patient became immediately hypotense after induction. Additional fluids and pressors were provided. The abdomen was explored through a midline vertical laparotomy. A large volume of free air was encountered. Foul smelling feculent ascites was present. This fluid was all evacuated from the abdominal cavity. There was no significant stool noted throughout. Immediately evident was a completely necrotic left colon starting from the level of the splenic flexure coursing toward the rectosigmoid junction. The small bowel was run from the ligament of Treitz showing only fibrinous exudative changes only. The proximal colon and ileocolonic anastomosis were pink and viable without evidence of leak. The left colon was mobilized off the white line of [place]. The rectosigmoid colon was bluntly encompassed and transected with a LILLIANA 75 stapler. The mesenteric dissection was divided using the ultrasonic dissector down toward the level of the splenic flexure where the bowel was beginning to show faint areas of viability. The splenic flexure was completely mobilized, allowing for this to be further elevated from the retroperitoneum. At approximately the mid to descending transverse colon, the bowel appeared pink, healthy, and viable. After having completed the mesenteric dissection, the splenic flexure was also noted to be pinking up nicely. This portion of bowel was ultimately chosen for colostomy placement. The prior left mid abdominal trocar incision was reopened. The rectus muscle was partially divided and the opening stretched to 2 finger breaths. The colon was easily brought ex vivo. The abdomen was copiously irrigated with 6 L of fluid until clear. The colon was secured to the underside of the abdominal wall with multiple interrupted Vicryl sutures. The rectosigmoid junction was transected back further a couple centimeters given the poor viability of the initially chosen cut segment. This was tagged with 2 Prolene sutures for possible future identification if indicated. The omentum was replaced over the visceral contents. The midline fascia was closed with a running PDS suture, followed by skin vin. The colostomy was matured with multiple interrupted Vicryl sutures. The stoma itself appeared pink and viable at this point. A colostomy appliance was applied. The patient had hemodynamically normalized rapidly after excision of the necrotic segment of colon. She was taken to the intensive care unit intubated, in serious condition. /[id number]/MODL MTDD
[2016-12-24] MEDS: NOREPINEPHRINE/NS 500 ML IV SCH ×3 (05:10→19:35)
[2016-12-24] MEDS ORDERED: PROTOCOL POTASSIUM 1 DOSE MISC PRN (05:46)
[2016-12-24] MEDS ORDERED: PROTOCOL MAGNESIUM 1 DOSE IV PRN (05:46)
[2016-12-24] MEDS ORDERED: MAGNESIUM SULF 1 GM/DEXTROSE 100 ML IV ONE ×2 (05:47→09:07)
[2016-12-24] MEDS: POTASSIUM Cl (KCl) 100 ML IV SCH ×3 (05:56→09:41)
[2016-12-24] MEDS: BRIMONIDINE 0.15% 5 ML OPHT.BTL EACHEYE SCH ×2 (09:33→20:36)
[2016-12-24] MEDS: ERTAPENEM 1 GM in NS 100 ML IV SCH (09:37)
[2016-12-24] MEDS ORDERED: NS 1,900 ML IV ONE (10:45)
--- NOTE | 2016-12-24 14:32 | PDCARPN ---
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 Her course was complicated by postoperative ileus, atrial fibrillation with rapid ventricular response, and acute respiratory failure and sepsis related to anastomotic leak and requirement for reoperation on 12/24 and left hemicolectomy. Left ventricular ejection fraction is preserved. Troponins have been negative. 1. Atrial fibrillation: She initially responded yesterday to IV amiodarone. She is now in an out of atrial fibrillation. Given her hypotension I would continue the IV amiodarone, but we are likely not going to be able to use diltiazem or metoprolol for rate control. She is currently not anticoagulated due to recent surgery. Once she is stable from that standpoint, would consider IV heparin. 2. Right hemicolectomy on December 20 and reoperation for ischemic colitis on December 24. Complicated by respiratory failure and sepsis. Under the care of Dr. Mccracken, Dr. Anthony, and Hospital Medicine. On antibiotic therapy and, at this point, single pressor. 3. Respiratory failure: Currently managed with ventilator. 4. Hyponatremia: This is improving. Followed by Hospital Medicine. 5. History of alcohol use daily: Alcohol withdrawal may have contributed to atrial fibrillation. 12/24/16 14:37 Subjective: Intubated and sedated. Reviewed/Discussed With: family (Dr. Anthony), other Objective: Vital Signs (8 Hrs) Temp Pulse Resp BP Pulse Ox 12/24/16 13:00 88 16 96/49 L 98 12/24/16 12:00 37.3 C 73 16 96/48 L 100 12/24/16 11:51 81 16 96 12/24/16 09:00 36.4 C 81 16 101/51 L 94 12/24/16 08:00 127 H 14 97 12/24/16 07:00 128 H 16 90/59 L 95 Intake/Output (24 Hrs) 12/23/16 12/24/16 12/25/16 05:59 05:59 05:59 Intake Total 1950 3007 Output Total 700 1875 160 Balance 3530 -4507 -160 Intake: Oral (ml) 850 IV Infused (ml) 1100 3007 Amiodarone HCl 100 ml @ 200 600 mls/hr IV ONCE ONE Rx #:[id number] Amiodarone HCl 200 ml @ 200 33.333 mls/hr IV ONCE ONE Rx#:[id number] Amiodarone HCl 540 mg In 65 D5w 300 ml @ 16.667 mls/ hr IV ONCE ONE Rx#: [id number] D5W 1/2 NS W/ 20 KCl/L 1, 1100 000 ml @ 125 mls/hr IV CONT [facility]ERA Rx#:[id number] Magnesium Sulf 2 gm/Water 50 50 ml @ 50 mls/hr IV ONCE ONE Rx#:[id number] Norepinephrine/Ns 500 ml 623 @ Per Protocol IV ONCALL ONE Rx#:[id number] Ns 1,000 ml @ 75 mls/hr 225 IV CONT MEERA Rx#: [id number] Ns 1,000 ml @ 75 mls/hr 1600 IV CONT MEERA Rx#: [id number] Propofol/Emulsion 100 ml 20 @ Titrate IV CONT [facility] Rx# :[id number] fentaNYL/NACL 100 ml @ As 24 Directed IV CONT [facility] Rx# :[id number] Output: Urine (ml) 700 2326 160 Bedside Commode 100 1025 Catheter 1300 160 Incontinence 1 Toilet 600 Emesis (ml) 400 NG Tube Output (ml) 2800 Left Naris Stomach [place] 2800 Sump Other: Weight 64.41 kg Number of Voids Bedside Commode 1 1 Incontinence 1 1 Toilet 1 Number of Stools Colostomy 0 Bladder Scan Volume (ml) Toilet 44 Intubated and sedated. Appears comfortable Tachycardic regular rhythm without murmur. No S3 lungs clear anteriorly and laterally. No edema Review chest x-ray: CHF. Intubated. Result Diagrams: 12/24/16 05:00 12/24/16 05:00 Cardiac Labs: Cardiac Lab Results (72 Hrs) 12/24/16 12/23/16 12/23/16 05:00 15:30 07:15 Troponin I < 0.012 < 0.012 < 0.012 12/23/16 04:10 Troponin I Cancelled Telemetry: Paroxysmal atrial fibrillation with rapid ventricular response. Periods of sinus rhythm. Echocardiogram: Reviewed by me. Normal LV systolic function with normal wall motion. Mild to moderate mitral regurgitation. Mild tricuspid regurgitation with normal estimated pulmonary pressure. ICD10 Worksheet Patient Problems: Problems Problem Status Onset Appendiceal tumor Acute
--- NOTE | 2016-12-24 14:32 | PDCARPN ---
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 Her course was complicated by postoperative ileus, atrial fibrillation with rapid ventricular response, and acute respiratory failure and sepsis related to anastomotic leak and requirement for reoperation on 12/24 and left hemicolectomy. Left ventricular ejection fraction is preserved. Troponins have been negative. 1. Atrial fibrillation: She initially responded yesterday to IV amiodarone. She is now in an out of atrial fibrillation. Given her hypotension I would continue the IV amiodarone, but we are likely not going to be able to use diltiazem or metoprolol for rate control. She is currently not anticoagulated due to recent surgery. Once she is stable from that standpoint, would consider IV heparin. 2. Right hemicolectomy on December 20 and reoperation for ischemic colitis on December 24. Complicated by respiratory failure and sepsis. Under the care of Dr. Mccracken, Dr. Anthony, and Hospital Medicine. On antibiotic therapy and, at this point, single pressor. 3. Respiratory failure: Currently managed with ventilator. 4. Hyponatremia: This is improving. Followed by Hospital Medicine. 5. History of alcohol use daily: Alcohol withdrawal may have contributed to atrial fibrillation. 12/24/16 14:37 Subjective: Intubated and sedated. Reviewed/Discussed With: family (Dr. Anthony), other Objective: Vital Signs (8 Hrs) Temp Pulse Resp BP Pulse Ox 12/24/16 13:00 88 16 96/49 L 98 12/24/16 12:00 37.3 C 73 16 96/48 L 100 12/24/16 11:51 81 16 96 12/24/16 09:00 36.4 C 81 16 101/51 L 94 12/24/16 08:00 127 H 14 97 12/24/16 07:00 128 H 16 90/59 L 95 Intake/Output (24 Hrs) 12/23/16 12/24/16 12/25/16 05:59 05:59 05:59 Intake Total 1950 3007 Output Total 700 0336 160 Balance 4160 -2656 -160 Intake: Oral (ml) 850 IV Infused (ml) 1100 3007 Amiodarone HCl 100 ml @ 200 600 mls/hr IV ONCE ONE Rx #:[id number] Amiodarone HCl 200 ml @ 200 33.333 mls/hr IV ONCE ONE Rx#:[id number] Amiodarone HCl 540 mg In 65 D5w 300 ml @ 16.667 mls/ hr IV ONCE ONE Rx#: [id number] D5W 1/2 NS W/ 20 KCl/L 1, 1100 000 ml @ 125 mls/hr IV CONT [facility] Rx#:[id number] Magnesium Sulf 2 gm/Water 50 50 ml @ 50 mls/hr IV ONCE ONE Rx#:[id number] Norepinephrine/Ns 500 ml 623 @ Per Protocol IV ONCALL ONE Rx#:[id number] Ns 1,000 ml @ 75 mls/hr 225 IV CONT [facility] Rx#: [id number] Ns 1,000 ml @ 75 mls/hr 1600 IV CONT [facility] Rx#: [id number] Propofol/Emulsion 100 ml 20 @ Titrate IV CONT [facility] Rx# :[id number] fentaNYL/NACL 100 ml @ As 24 Directed IV CONT [facility] Rx# :[id number] Output: Urine (ml) 700 2326 160 Bedside Commode 100 1025 Catheter 1300 160 Incontinence 1 Toilet 600 Emesis (ml) 400 NG Tube Output (ml) 2800 Left Naris Stomach [place] 2800 Sump Other: Weight 64.41 kg Number of Voids Bedside Commode 1 1 Incontinence 1 1 Toilet 1 Number of Stools Colostomy 0 Bladder Scan Volume (ml) Toilet 44 Intubated and sedated. Appears comfortable Tachycardic regular rhythm without murmur. No S3 lungs clear anteriorly and laterally. No edema Review chest x-ray: CHF. Intubated. Result Diagrams: 12/24/16 05:00 12/24/16 05:00 Cardiac Labs: Cardiac Lab Results (72 Hrs) 12/24/16 12/23/16 12/23/16 05:00 15:30 07:15 Troponin I < 0.012 < 0.012 < 0.012 12/23/16 04:10 Troponin I Cancelled Telemetry: Paroxysmal atrial fibrillation with rapid ventricular response. Periods of sinus rhythm. Echocardiogram: Reviewed by me. Normal LV systolic function with normal wall motion. Mild to moderate mitral regurgitation. Mild tricuspid regurgitation with normal estimated pulmonary pressure. ICD10 Worksheet Patient Problems: Problems Problem Status Onset Appendiceal tumor Acute
--- NOTE | 2016-12-24 14:32 | PDCARPN ---
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 Her course was complicated by postoperative ileus, atrial fibrillation with rapid ventricular response, and acute respiratory failure and sepsis related to anastomotic leak and requirement for reoperation on 12/24 and left hemicolectomy. Left ventricular ejection fraction is preserved. Troponins have been negative. 1. Atrial fibrillation: She initially responded yesterday to IV amiodarone. She is now in an out of atrial fibrillation. Given her hypotension I would continue the IV amiodarone, but we are likely not going to be able to use diltiazem or metoprolol for rate control. She is currently not anticoagulated due to recent surgery. Once she is stable from that standpoint, would consider IV heparin. 2. Right hemicolectomy on December 20 and reoperation for ischemic colitis on December 24. Complicated by respiratory failure and sepsis. Under the care of Dr. Mccracken, Dr. Anthony, and Hospital Medicine. On antibiotic therapy and, at this point, single pressor. 3. Respiratory failure: Currently managed with ventilator. 4. Hyponatremia: This is improving. Followed by Hospital Medicine. 5. History of alcohol use daily: Alcohol withdrawal may have contributed to atrial fibrillation. 12/24/16 14:37 Subjective: Intubated and sedated. Reviewed/Discussed With: family (Dr. Anthony), other Objective: Vital Signs (8 Hrs) Temp Pulse Resp BP Pulse Ox 12/24/16 13:00 88 16 96/49 L 98 12/24/16 12:00 37.3 C 73 16 96/48 L 100 12/24/16 11:51 81 16 96 12/24/16 09:00 36.4 C 81 16 101/51 L 94 12/24/16 08:00 127 H 14 97 12/24/16 07:00 128 H 16 90/59 L 95 Intake/Output (24 Hrs) 12/23/16 12/24/16 12/25/16 05:59 05:59 05:59 Intake Total 1950 3007 Output Total 700 5347 160 Balance 5860 -8878 -160 Intake: Oral (ml) 850 IV Infused (ml) 1100 3007 Amiodarone HCl 100 ml @ 200 600 mls/hr IV ONCE ONE Rx #:[id number] Amiodarone HCl 200 ml @ 200 33.333 mls/hr IV ONCE ONE Rx#:[id number] Amiodarone HCl 540 mg In 65 D5w 300 ml @ 16.667 mls/ hr IV ONCE ONE Rx#: [id number] D5W 1/2 NS W/ 20 KCl/L 1, 1100 000 ml @ 125 mls/hr IV CONT [facility] Rx#:[id number] Magnesium Sulf 2 gm/Water 50 50 ml @ 50 mls/hr IV ONCE ONE Rx#:[id number] Norepinephrine/Ns 500 ml 623 @ Per Protocol IV ONCALL ONE Rx#:[id number] Ns 1,000 ml @ 75 mls/hr 225 IV CONT [facility] Rx#: [id number] Ns 1,000 ml @ 75 mls/hr 1600 IV CONT [facility] Rx#: [id number] Propofol/Emulsion 100 ml 20 @ Titrate IV CONT [facility] Rx# :[id number] fentaNYL/NACL 100 ml @ As 24 Directed IV CONT [facility] Rx# :[id number] Output: Urine (ml) 700 2326 160 Bedside Commode 100 1025 Catheter 1300 160 Incontinence 1 Toilet 600 Emesis (ml) 400 NG Tube Output (ml) 2800 Left Naris Stomach [place] 2800 Sump Other: Weight 64.41 kg Number of Voids Bedside Commode 1 1 Incontinence 1 1 Toilet 1 Number of Stools Colostomy 0 Bladder Scan Volume (ml) Toilet 44 Intubated and sedated. Appears comfortable Tachycardic regular rhythm without murmur. No S3 lungs clear anteriorly and laterally. No edema Review chest x-ray: CHF. Intubated. Result Diagrams: 12/24/16 05:00 12/24/16 05:00 Cardiac Labs: Cardiac Lab Results (72 Hrs) 12/24/16 12/23/16 12/23/16 05:00 15:30 07:15 Troponin I < 0.012 < 0.012 < 0.012 12/23/16 04:10 Troponin I Cancelled Telemetry: Paroxysmal atrial fibrillation with rapid ventricular response. Periods of sinus rhythm. Echocardiogram: Reviewed by me. Normal LV systolic function with normal wall motion. Mild to moderate mitral regurgitation. Mild tricuspid regurgitation with normal estimated pulmonary pressure. ICD10 Worksheet Patient Problems: Problems Problem Status Onset Appendiceal tumor Acute
--- NOTE | 2016-12-24 14:54 | HOSPPROG ---
Hospitalist Progress Note Assessment/Plan: * Septic shock -on high dose Levophed, consider add vasopressin -lactate elevated - give appropriate fluid bolus -send BC, although has already been on Invanz * Acute respiratory failure s/p intubation -witnesses aspiration event due to emesis in CT * Colon perf s/p colostomy/washout - suspect peritonitis as source of sepsis * Afib -IV amiodarone per cardiology * Cancer of appendix s/p laparoscopic hemicolectomy * Pancytopenia - suspect due to sepsis * Etoh - no evidence for withdrawal * Essential tremor -holding propranolol due to hypotension * Hyponatremia -given acuity of drop and recovery suspect low risk CC time - 45 minutes Subjective: Critically ill overnight, now on high dose pressors, intubated, clammy. Septic shock had not been declared. Objective: Vital Signs Temp Pulse Resp BP Pulse Ox 37.3 C 88 16 96/49 L 98 12/24/16 12:00 12/24/16 13:00 12/24/16 13:00 12/24/16 13:00 12/24/16 13:00 Microbiology 12/24/16 13:40 - Final Sputum, Induced/Suctioned Laboratory Results 12/24/16 05:00 12/24/16 05:00 12/23/16 12/24/16 12/25/16 05:59 05:59 05:59 Intake Total 1950 3007 Output Total 700 5522 160 Balance 1250 -7207 -160 - Physical Exam Constitutional: no apparent distress, appears nourished, not in pain, other ( intubated, sedated) Cardiovascular: regular rate and rhythym, no murmur, rub, or gallop Respiratory: no respiratory distress, no rales or rhonchi, clear to auscultation Gastrointestinal: soft, non-tender abdomen, distension, No normoactive bowel sounds, No ascites, No guarding, No rebound Skin: no rashes or abrasions, no fluctuance, no induration Psychiatric: encephalopathic, poor insight, poor judgement, poor memory, No interacting appropriately, No agitated ICD10 Worksheet Patient Problems: Problems Problem Status Onset Appendiceal tumor Acute
[2016-12-24] MEDS ORDERED: ALBUMIN 5% 500 ML BOTTLE IV ONE (15:17)
[2016-12-24] MEDS ORDERED: ALBUMIN 5% 250 ML IV ONE (15:30)
[2016-12-24] MEDS ORDERED: AMIODARONE A.FIB-18HR INFSN (ORDER 3/3) IV SCH (15:30)
--- NOTE | 2016-12-24 15:38 | ASMTCMCOM ---
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 Had a resection of the colon, perforation, wash out, colostomy, post op afib and ileus, hyponatremia, anemia, vented. Patient has a hx of ETOH, HTN, HLD. Seriously ill- Appraiser Timber at bedside this afternoon. Patient's sister is MPOA at this time. Date Signed: 12/24/2016 03:37 PM Electronically Signed By:Ewa Oliver LCSW
--- NOTE | 2016-12-24 15:38 | ASMTCMCOM ---
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 Had a resection of the colon, perforation, wash out, colostomy, post op afib and ileus, hyponatremia, anemia, vented. Patient has a hx of ETOH, HTN, HLD. Seriously ill- Fellmongering Machine Operator at bedside this afternoon. Patient's sister is MPOA at this time. Date Signed: 12/24/2016 03:37 PM Electronically Signed By:Ewa Oliver LCSW
--- NOTE | 2016-12-24 15:40 | GCON ---
[f rep st] CONSULTATION A PULMONARY CRITICAL CARE CONSULTATION. DATE OF CONSULTATION: 12/24/2016 REASON FOR CONSULTATION: Acute respiratory failure, sepsis following ischemic bowel with perforation and peritonitis, and associated bowel resection. HISTORY: The patient is an 86-year-old, who was admitted to the hospital on the . She had an appendiceal neoplasm, and was operated on at that time. Her postoperative course was characterized by persistent abdominal pain and ileus, atrial fibrillation with a rapid ventricular response. She was seen by Cardiology,and placed on amiodarone and converted. Yesterday, she acutely decompensated secondary to bowel perforation and peritonitis. She was taken to the operating room where an ischemic bowel segment was found and resected. A colostomy was required. She returned to the intensive care unit on the ventilator, and has remained on this. She does have a history of multiple medical problems as outlined below. Blood pressures since her admission to the intensive care unit have been low consistent with sepsis. She is on norepinephrine. She is being treated with Invanz. Amiodarone has recently been stopped. PAST MEDICAL HISTORY: Remarkable for systemic hypertension, a benign essential tremor, and hyperlipidemia. ALLERGIES: Drug allergies: None known. SOCIAL HISTORY: She is with a supportive family. She did smoke cigarettes in the past, not recently. She does have a couple of drinks per night, no problems per se with alcohol. 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 FAMILY HISTORY: Noncontributory. REVIEW OF SYSTEMS: Unobtainable. PHYSICAL EXAMINATION: GENERAL: An elderly woman who is sedated, on the ventilator. She appears comfortable. VITAL SIGNS: She is currently on 60% FiO2. Blood pressure is approximately 100/50, respiratory rate 16, heart rate 88, alternating between normal sinus rhythm and atrial fibrillation. Saturations are 96%. She is afebrile. CVP is 10. A Landry catheter is in place with adequate urine output currently. HEENT: Remarkable for an oral endotracheal tube and an NG tube to suction. Pupils appear equal. NECK: Unremarkable for lymphadenopathy or thyromegaly. There is no jugular venous distention. A PICC line is in place. CHEST: Clear bilaterally. Breath sounds are diminished at the bases. The heart tones are distant. The rhythm is irregular. There is no obvious gallop. ABDOMEN: Postoperative, distended, and quiet. A colostomy is present without air or stool at this time. A Landry catheter is in place. Current output is about 35 mL/h. EXTREMITIES: Unremarkable for edema, obvious cords. SCDs are in place. NEUROLOGIC: Difficult to assess at this time secondary to sedation. IMAGING: Chest x-ray shows right basilar atelectasis, infiltrate, and/or pleural effusion. There is minimal atelectasis of left base. There is possibly some vascular plethora versus hypoventilatory change. The endotracheal tube is somewhat deep, approximately 2 cm above the main byron. A PICC line and NG tube are in place. LABORATORY: Arterial blood gas on 60%, rate of 16 and a tidal volume of 600 shows a pH of 7.41, pCO2 of 29, and pO2 of 78. White blood cell count is 1300, hematocrit 32.6. Platelets are 148,000. Sodium is 131, up from 117 two days ago. Potassium is 3.1, BUN 25 with a creatinine of 0.8. Glucose is 65. Calcium is 9.1, magnesium 1.6. Troponin is negative. One blood culture has been obtained. No peritoneal cultures are reported. A sputum culture will be obtained. ASSESSMENT: 1. Ischemic bowel with perforation, peritonitis, and abdominal sepsis. The patient is on norepinephrine, and is being started on the sepsis protocol with appropriate fluids being given. Lactate is 2.4, MVO2 reportedly 36? 2. Hypotension secondary to sepsis and issues as outlined above. She is now on the sepsis protocol. Antibiotics would appear to be appropriate. Antifungal coverage may need to be considered. 3. Acute respiratory failure. Also secondary to #1 above. However, the patient does have infiltrates/consolidation at the right base, possibly consistent with pneumonia. Query possible aspiration. Bronchodilator treatments will be given, antibiotics will be continued. A sputum culture will be requested. 4. Hyponatremia. Improving. Sodium is currently 131, up from a low of 117. She is being given normal saline currently. Sodium will be followed. 5. Leukopenia. White blood cell count has dropped to 1.33, secondary to sepsis. This will be followed. 6. Acute blood-loss anemia. Delusional issues with intravenous fluids are also playing a role. Hematocrit will be followed. 7. Metabolic: Hypokalemia. Electrolyte replacement. will be ordered. Blood sugar is borderline low, also probably secondary to sepsis. This will be followed. D5 normal saline will be considered. PLAN AND RECOMMENDATIONS: The patient will be aggressively supported in the intensive care unit. Ventilatory support will be maintained. CVP will be monitored. Norepinephrine will be continued and titrated to keep a mean arterial pressure of approximately 65. A 2nd pressor may need to be considered. Intravenous fluids will be continued with colloid given if needed. I would like to keep her CVP approximately 12. A sputum culture will be obtained. Bronchopulmonary therapies will be continued. She will be sedated per ventilatory protocol. Laboratory, chest x-ray, and blood gas will all be followed. Greater than 1 hour of critical care time spent directly with the patient. Further plans and recommendations will be made based on her progress over the next 12-24 hours. /[id number]/MODL MTDD
--- NOTE | 2016-12-24 15:49 | SOAPPROG ---
SOAP Progress Note Assessment/Plan: Assessment:patient returned to OR last tennille for ischemic colitis 3 days s/p lap r ja for an appendiceal neoplasm. her anastomosis/r colon was intact - her watershed left colic artery colon distribution was completely ischemic. she remains intubated, sedated, hemodynamically labile overnight. afebrile. BP 90' s - on levophed. p 70-80. uop 2L. heart regular. lungs clear. abd soft, dist. dressing dry. stoma pink. ext scd. wbc 1. cont supportive care for now, invanz, pressors, ivf, vent. care plan reviewed with dr. graham and nursing staff as well as family at bedside. will be ok to restart heparin in the next 1- 2 days from my [facility]. Plan: 12/21/16 10:07 12/22/16 11:16 12/22/16 22:14 12/23/16 07:39 12/23/16 13:34 12/23/16 18:07 12/23/16 18:10 12/23/16 22:06 12/23/16 22:10 12/24/16 15:45 12/24/16 15:49 Objective: Vital Signs Temp Pulse Resp BP Pulse Ox 36.6 C 76 16 95/41 L 97 12/24/16 14:00 12/24/16 15:25 12/24/16 15:25 12/24/16 14:00 12/24/16 15:25 Microbiology 12/24/16 13:40 - Final Sputum, Induced/Suctioned Laboratory Results 12/24/16 05:00 12/23/16 12/24/16 12/25/16 05:59 05:59 05:59 Intake Total 0742 3009 Output Total 700 5526 310 Balance 1250 -2519 -310 ICD10 Worksheet Patient Problems: Problems Problem Status Onset Appendiceal tumor Acute - ICD10 Problem Qualifiers (1) Appendiceal tumor
[2016-12-24] MEDS ORDERED: ACETAMINOPHEN 325 MG TAB TUBE PRN (16:00)
[2016-12-24] MEDS ORDERED: HYDROCODONE/APAP 5/325 TAB TUBE PRN (16:00)
[2016-12-24] MEDS ORDERED: POTASSIUM Cl (KCl) 50 ML IV SCH (16:15)
[2016-12-24] MEDS: POTASSIUM Cl (KCl) 20 MEQ in D5W 50 ML IV SCH ×2 (16:24→17:47)
[2016-12-24] MEDS ORDERED: ALBUMIN 5% 500 ML IV ONE (16:30)
[2016-12-24] MEDS: VASOPRESSIN/DEXTROSE 250 ML IV SCH (19:36)
[2016-12-24] MEDS ORDERED: FUROSEMIDE 40 MG/4 ML VIAL IVP ONE (20:10)
[2016-12-24] MEDS: TRAVOPROST Z 0.004% 2.5 ML OPHT.BTL EACHEYE SCH (20:36)
[2016-12-25] MEDS: ALBUTEROL 200 PUFFS/18 GM MDI IH SCH ×4 (00:14→11:42)
[2016-12-25] MEDS: VASOPRESSIN/DEXTROSE 250 ML IV SCH ×2 (03:57→14:22)
[2016-12-25] MEDS: AMIODARONE HCL 200 ML IV SCH ×3 (03:57→15:39)
[2016-12-25 05:46] LABS: PLATELET COUNT 116 10^3/uL (150-400)
[2016-12-25] MEDS ORDERED: MAGNESIUM SULF 2 GM/WATER 50 ML IV ONE (07:58)
[2016-12-25] MEDS: NS 1,000 ML IV SCH (08:28)
[2016-12-25] MEDS: FAMOTIDINE 20 MG/NACL 50 ML IV SCH ×2 (08:42→21:59)
[2016-12-25] MEDS: PROPOFOL/EMULSION 100 ML IV SCH ×2 (08:55→20:05)
[2016-12-25] MEDS: ERTAPENEM 1 GM in NS 100 ML IV SCH (09:04)
[2016-12-25] MEDS: POTASSIUM Cl (KCl) 50 ML IV SCH ×6 (09:44→21:02)
[2016-12-25] MEDS: BRIMONIDINE 0.15% 5 ML OPHT.BTL EACHEYE SCH ×2 (10:19→21:10)
[2016-12-25] MEDS ORDERED: D10W 1,000 ML IV PRN (10:43)
[2016-12-25] MEDS: ASPIRIN 81 MG CHEWABLE TAB TUBE SCH (10:53)
[2016-12-25] MEDS: fentaNYL/NACL 100 ML IV SCH (11:09)
[2016-12-25] MEDS: MICAFUNGIN NA 100 MG in NS 100 ML IV SCH (11:27)
[2016-12-25 11:47] LABS: PLATELET COUNT 117 10^3/uL (150-400)
[2016-12-25] MEDS: ENOXAPARIN 40 MG/0.4 ML SYR SC SCH (11:51)
[2016-12-25 11:52] LABS: INR 1.37 (0.83-1.16); PROTIME(PATIENT) 16.9 SEC (12.0-15.0)
--- NOTE | 2016-12-25 12:29 | PDCARPN ---
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 Her course was complicated by postoperative ileus, atrial fibrillation with rapid ventricular response, and acute respiratory failure and sepsis related ischemic colitis requiring left hemicolectomy on 12/24. Left ventricular ejection fraction is preserved. Troponins have been negative. 1. Atrial fibrillation: continues to have brief periods of NSR and rapid AF. Given her hypotension I would continue the IV amiodarone, and we are likely not going to be able to use diltiazem or metoprolol for rate control. Consider digoxin IV if continued difficulty with rate control. She is currently not anticoagulated due to recent surgery. Once she is stable from that standpoint, would consider IV heparin. 2. Right hemicolectomy on December 20 and reoperation for ischemic colitis on December 24. Complicated by respiratory failure and sepsis. Under the care of Dr. Mccracken, Dr. Anthony, and Hospital Medicine. On antibiotic therapy and, at this point, single pressor. 3. Respiratory failure: apparently aspirated in CT. Currently managed with ventilator. 4. Hyponatremia: This has resolved 5. History of alcohol use daily 12/25/16 12:26 Subjective: intubated and sedated Reviewed/Discussed With: family, multidisciplinary team Objective: Vital Signs (8 Hrs) Temp Pulse Resp BP Pulse Ox 12/25/16 12:00 36.9 C 124 H 16 121/89 H 96 12/25/16 11:42 103 H 16 97 12/25/16 11:00 128 H 16 119/74 96 12/25/16 10:48 154/95 H 12/25/16 10:00 111 H 14 115/96 H 96 12/25/16 09:00 126 H 16 96/67 L 94 12/25/16 08:11 130 H 16 98 12/25/16 07:00 37.1 C 129 H 16 104/57 L 98 12/25/16 06:00 116 H 16 118/88 H 98 12/25/16 05:00 110 H 16 94/52 L 97 Intake/Output (24 Hrs) 12/24/16 12/25/16 12/26/16 05:59 05:59 05:59 Intake Total 6468 9874 Output Total [address] [place], [place] [address] 5517 Intake: IV Infused (ml) 3007 5529 Albumin 5% 500 ml @ As 500 Directed IV ONCE ONE Rx#: [id number] Amiodarone HCl 100 ml @ 200 600 mls/hr IV ONCE ONE Rx #:[id number] Amiodarone HCl 200 ml @ 200 33.333 mls/hr IV ONCE ONE Rx#:[id number] Amiodarone HCl 540 mg In 65 352 D5w 300 ml @ 16.667 mls/ hr IV ONCE ONE Rx#: [id number] Magnesium Sulf 2 gm/Water 50 50 ml @ 50 mls/hr IV ONCE ONE Rx#:[id number] Norepinephrine Bitartrate 104 16 mg In Ns 250 ml @ Per Protocol IV CONT MEERA Rx# :[id number] Norepinephrine/Ns 500 ml 244 @ Per Protocol IV CONT MEERA Rx#:[id number] Norepinephrine/Ns 500 ml 623 1746 @ Per Protocol IV ONCALL ONE Rx#:[id number] Ns 1,000 ml @ 125 mls/hr 1202 IV CONT MEERA Rx#: [id number] Ns 1,000 ml @ 75 mls/hr 225 IV CONT MEERA Rx#: [id number] Ns 1,000 ml @ 75 mls/hr 1600 830 IV CONT MEERA Rx#: [id number] Ns 1,900 ml @ 3800 mls/hr 1900 IV ONCE ONE Rx#: [id number] Propofol/Emulsion 100 ml 20 108 @ Titrate IV CONT MEERA Rx# :[id number] Vasopressin/Dextrose 250 249 ml @ 24 mls/hr IV CONT MEERA Rx#:[id number] fentaNYL/NACL 100 ml @ As 24 117 Directed IV CONT MEERA Rx# :[id number] Output: Urine (ml) 2326 1535 Bedside Commode 1025 Catheter 1300 1525 Colostomy 10 Incontinence 1 Emesis (ml) 400 NG Tube Output (ml) 2800 200 Left Naris Stomach [place] 2800 200 Sump OG Tube Output (ml) 100 Large Bore (>12 Setswana) 100 Non-weighted Oral Stomach Other: Weight 64.41 kg Number of Voids Bedside Commode 1 Incontinence 1 Number of Stools Colostomy 0 intubated and sedated IRreg, irreg tachy. No murmurs Lungs clear anteriorly (CXR with bilateral infiltrates No edema Decreased breath sounds Result Diagrams: 12/25/16 11:30 12/25/16 11:30 Cardiac Labs: Cardiac Lab Results (72 Hrs) 12/24/16 12/23/16 12/23/16 05:00 15:30 07:15 Troponin I < 0.012 < 0.012 < 0.012 12/23/16 04:10 Troponin I Cancelled Telemetry: AF with RVR ICD10 Worksheet Patient Problems: Problems Problem Status Onset Appendiceal tumor Acute
--- NOTE | 2016-12-25 12:29 | PDCARPN ---
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 Her course was complicated by postoperative ileus, atrial fibrillation with rapid ventricular response, and acute respiratory failure and sepsis related ischemic colitis requiring left hemicolectomy on 12/24. Left ventricular ejection fraction is preserved. Troponins have been negative. 1. Atrial fibrillation: continues to have brief periods of NSR and rapid AF. Given her hypotension I would continue the IV amiodarone, and we are likely not going to be able to use diltiazem or metoprolol for rate control. Consider digoxin IV if continued difficulty with rate control. She is currently not anticoagulated due to recent surgery. Once she is stable from that standpoint, would consider IV heparin. 2. Right hemicolectomy on December 20 and reoperation for ischemic colitis on December 24. Complicated by respiratory failure and sepsis. Under the care of Dr. Mccracken, Dr. Anthony, and Hospital Medicine. On antibiotic therapy and, at this point, single pressor. 3. Respiratory failure: apparently aspirated in CT. Currently managed with ventilator. 4. Hyponatremia: This has resolved 5. History of alcohol use daily 12/25/16 12:26 Subjective: intubated and sedated Reviewed/Discussed With: family, multidisciplinary team Objective: Vital Signs (8 Hrs) Temp Pulse Resp BP Pulse Ox 12/25/16 12:00 36.9 C 124 H 16 121/89 H 96 12/25/16 11:42 103 H 16 97 12/25/16 11:00 128 H 16 119/74 96 12/25/16 10:48 154/95 H 12/25/16 10:00 111 H 14 115/96 H 96 12/25/16 09:00 126 H 16 96/67 L 94 12/25/16 08:11 130 H 16 98 12/25/16 07:00 37.1 C 129 H 16 104/57 L 98 12/25/16 06:00 116 H 16 118/88 H 98 12/25/16 05:00 110 H 16 94/52 L 97 Intake/Output (24 Hrs) 12/24/16 12/25/16 12/26/16 05:59 05:59 05:59 Intake Total 7753 6893 Output Total [address] [place], [place] [address] 5517 Intake: IV Infused (ml) 3007 8251 Albumin 5% 500 ml @ As 500 Directed IV ONCE ONE Rx#: [id number] Amiodarone HCl 100 ml @ 200 600 mls/hr IV ONCE ONE Rx #:[id number] Amiodarone HCl 200 ml @ 200 33.333 mls/hr IV ONCE ONE Rx#:[id number] Amiodarone HCl 540 mg In 65 352 D5w 300 ml @ 16.667 mls/ hr IV ONCE ONE Rx#: [id number] Magnesium Sulf 2 gm/Water 50 50 ml @ 50 mls/hr IV ONCE ONE Rx#:[id number] Norepinephrine Bitartrate 104 16 mg In Ns 250 ml @ Per Protocol IV CONT MEERA Rx# :[id number] Norepinephrine/Ns 500 ml 244 @ Per Protocol IV CONT MEERA Rx#:[id number] Norepinephrine/Ns 500 ml 623 1746 @ Per Protocol IV ONCALL ONE Rx#:[id number] Ns 1,000 ml @ 125 mls/hr 1202 IV CONT MEERA Rx#: [id number] Ns 1,000 ml @ 75 mls/hr 225 IV CONT MEERA Rx#: [id number] Ns 1,000 ml @ 75 mls/hr 1600 830 IV CONT MEERA Rx#: [id number] Ns 1,900 ml @ 3800 mls/hr 1900 IV ONCE ONE Rx#: [id number] Propofol/Emulsion 100 ml 20 108 @ Titrate IV CONT MEERA Rx# :[id number] Vasopressin/Dextrose 250 249 ml @ 24 mls/hr IV CONT MEERA Rx#:[id number] fentaNYL/NACL 100 ml @ As 24 117 Directed IV CONT MEERA Rx# :[id number] Output: Urine (ml) 2326 1535 Bedside Commode 1025 Catheter 1300 1525 Colostomy 10 Incontinence 1 Emesis (ml) 400 NG Tube Output (ml) 2800 200 Left Naris Stomach [place] 2800 200 Sump OG Tube Output (ml) 100 Large Bore (>12 Greek) 100 Non-weighted Oral Stomach Other: Weight 64.41 kg Number of Voids Bedside Commode 1 Incontinence 1 Number of Stools Colostomy 0 intubated and sedated IRreg, irreg tachy. No murmurs Lungs clear anteriorly (CXR with bilateral infiltrates No edema Decreased breath sounds Result Diagrams: 12/25/16 11:30 12/25/16 11:30 Cardiac Labs: Cardiac Lab Results (72 Hrs) 12/24/16 12/23/16 12/23/16 05:00 15:30 07:15 Troponin I < 0.012 < 0.012 < 0.012 12/23/16 04:10 Troponin I Cancelled Telemetry: AF with RVR ICD10 Worksheet Patient Problems: Problems Problem Status Onset Appendiceal tumor Acute
--- NOTE | 2016-12-25 12:29 | PDCARPN ---
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 Her course was complicated by postoperative ileus, atrial fibrillation with rapid ventricular response, and acute respiratory failure and sepsis related ischemic colitis requiring left hemicolectomy on 12/24. Left ventricular ejection fraction is preserved. Troponins have been negative. 1. Atrial fibrillation: continues to have brief periods of NSR and rapid AF. Given her hypotension I would continue the IV amiodarone, and we are likely not going to be able to use diltiazem or metoprolol for rate control. Consider digoxin IV if continued difficulty with rate control. She is currently not anticoagulated due to recent surgery. Once she is stable from that standpoint, would consider IV heparin. 2. Right hemicolectomy on December 20 and reoperation for ischemic colitis on December 24. Complicated by respiratory failure and sepsis. Under the care of Dr. Mccracken, Dr. Anthony, and Hospital Medicine. On antibiotic therapy and, at this point, single pressor. 3. Respiratory failure: apparently aspirated in CT. Currently managed with ventilator. 4. Hyponatremia: This has resolved 5. History of alcohol use daily 12/25/16 12:26 Subjective: intubated and sedated Reviewed/Discussed With: family, multidisciplinary team Objective: Vital Signs (8 Hrs) Temp Pulse Resp BP Pulse Ox 12/25/16 12:00 36.9 C 124 H 16 121/89 H 96 12/25/16 11:42 103 H 16 97 12/25/16 11:00 128 H 16 119/74 96 12/25/16 10:48 154/95 H 12/25/16 10:00 111 H 14 115/96 H 96 12/25/16 09:00 126 H 16 96/67 L 94 12/25/16 08:11 130 H 16 98 12/25/16 07:00 37.1 C 129 H 16 104/57 L 98 12/25/16 06:00 116 H 16 118/88 H 98 12/25/16 05:00 110 H 16 94/52 L 97 Intake/Output (24 Hrs) 12/24/16 12/25/16 12/26/16 05:59 05:59 05:59 Intake Total 2874 3889 Output Total [address] [place], [place] [id number] 5517 Intake: IV Infused (ml) 3007 6107 Albumin 5% 500 ml @ As 500 Directed IV ONCE ONE Rx#: [id number] Amiodarone HCl 100 ml @ 200 600 mls/hr IV ONCE ONE Rx #:[id number] Amiodarone HCl 200 ml @ 200 33.333 mls/hr IV ONCE ONE Rx#:[id number] Amiodarone HCl 540 mg In 65 352 D5w 300 ml @ 16.667 mls/ hr IV ONCE ONE Rx#: [id number] Magnesium Sulf 2 gm/Water 50 50 ml @ 50 mls/hr IV ONCE ONE Rx#:[id number] Norepinephrine Bitartrate 104 16 mg In Ns 250 ml @ Per Protocol IV CONT MEERA Rx# :[id number] Norepinephrine/Ns 500 ml 244 @ Per Protocol IV CONT MEERA Rx#:[id number] Norepinephrine/Ns 500 ml 623 1746 @ Per Protocol IV ONCALL ONE Rx#:[id number] Ns 1,000 ml @ 125 mls/hr 1202 IV CONT MEERA Rx#: [id number] Ns 1,000 ml @ 75 mls/hr 225 IV CONT MEERA Rx#: [id number] Ns 1,000 ml @ 75 mls/hr 1600 830 IV CONT MEERA Rx#: [id number] Ns 1,900 ml @ 3800 mls/hr 1900 IV ONCE ONE Rx#: [id number] Propofol/Emulsion 100 ml 20 108 @ Titrate IV CONT MEERA Rx# :[id number] Vasopressin/Dextrose 250 249 ml @ 24 mls/hr IV CONT MEERA Rx#:[id number] fentaNYL/NACL 100 ml @ As 24 117 Directed IV CONT MEERA Rx# :[id number] Output: Urine (ml) 2326 1535 Bedside Commode 1025 Catheter 1300 1525 Colostomy 10 Incontinence 1 Emesis (ml) 400 NG Tube Output (ml) 2800 200 Left Naris Stomach [place] 2800 200 Sump OG Tube Output (ml) 100 Large Bore (>12 [place]) 100 Non-weighted Oral Stomach Other: Weight 64.41 kg Number of Voids Bedside Commode 1 Incontinence 1 Number of Stools Colostomy 0 intubated and sedated IRreg, irreg tachy. No murmurs Lungs clear anteriorly (CXR with bilateral infiltrates No edema Decreased breath sounds Result Diagrams: 12/25/16 11:30 12/25/16 11:30 Cardiac Labs: Cardiac Lab Results (72 Hrs) 12/24/16 12/23/16 12/23/16 05:00 15:30 07:15 Troponin I < 0.012 < 0.012 < 0.012 12/23/16 04:10 Troponin I Cancelled Telemetry: AF with RVR ICD10 Worksheet Patient Problems: Problems Problem Status Onset Appendiceal tumor Acute
--- NOTE | 2016-12-25 12:30 | GCON ---
[f rep st] CONSULTATION DATE OF CONSULTATION: 12/25/2016 PROVIDER REQUESTING CONSULTATION: Madisyn Figueroa MD. REASON FOR CONSULTATION: Sepsis. HISTORY OF PRESENT ILLNESS: An 86-year-old woman who was admitted to the hospital on February 19 to undergo lap laparotomy for right hemicolectomy for appendiceal neoplasm. Postoperatively, patient developed tachycardia and confusion approximately 2-3 days after surgery. Underwent a CT scan where she had witnessed aspiration requiring intubation. A CT scan showed extravasation of contrast. The patient was taken to the operating room that night, dated 12/24/2016, in which there was a large volume of free air identified, foul smelling feculent ascites, a necrotic left colon and underwent L hemicolectomy. White count was inappropriately low at time of surgery at 1.3. No cultures were taken in the OR. Patient was started on ertapenem perioperatively on 12/23 and patient received perioperative cefoxitin associated with initial surgery. Infectious Disease is asked to consult to help direct antibiotic therapy for sepsis due to peritonitis plus-minus aspiration pneumonia. PAST MEDICAL HISTORY: Hypertension, hyperlipidemia, benign essential tremor, on a beta magdalena. SURGICAL HISTORY: As per HPI. FAMILY HISTORY: Negative for prior renal disease. SOCIAL HISTORY: Former smoker. 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 Rare EtOH. They recently moved to [place] approximately 1 year ago. Patient's daughter and are at bedside and all data was reviewed with them. MEDICATIONS IN THE HOSPITAL: Currently ertapenem 1 g IV daily, Tylenol 650 NG tube q.6h via p.r.n., [place] 5/325 one to 2 per tube q.4 p.r.n., albuterol via vent 4 puffs q.4, amiodarone drip, Lipitor is on hold, Lovenox 40 subcu daily, fentanyl drip, vasopressin drip, propofol, fentanyl, norepinephrine drip, Zofran 4 mg IV push q.4h p.r.n., normal saline, travoprost 1 drop each eye. ALLERGIES: NKDA. REVIEW OF SYSTEMS: A complete 10-point review of systems was performed and is negative based on the review of records as well as history from the patient's daughter. Patient is unable to give a history due to sedation and intubation at the time of my exam. PHYSICAL EXAM: VITAL SIGNS: Blood pressure 119/74, HR 128 and irregular, respiratory rate 16, saturation 96% on FiO2 40%. GENERAL: This is a sedated, elderly woman lying in bed. HEENT: Pinpoint pupils that are reactive. No conjunctival hemorrhages. HEENT: ET tube, NG tube in place. NECK: Supple. CARDIOVASCULAR: Tachycardic, irregular. Systolic murmur. CHEST: Coarse breath sounds on the ventilator bilaterally. ABDOMEN: Slightly distended. Midline surgical incision is covered. Ostomy left lower quadrant with a small amount of fluid in the bag. No bowel sounds. EXTREMITIES: No clubbing, cyanosis, or edema noted. No joint swelling. SKIN: No rash was noted. NEUROLOGICAL: She is sedated but is spontaneously moving some of her extremities with an obvious upper extremity tremor. LABORATORY: White count 17,000, 16% neutrophils, 77% bands. Creatinine 0.8. Chest x-ray showed right lower lobe infiltrate. FiO2 is 40%. Hematocrit is 28 , platelets of 116, AST 25, ALT 31, alkaline phosphatase 66, total bili 1.9. ASSESSMENT AND PLAN: 86-year-old woman who recently had a right hemicolectomy for an appendiceal neoplasm whose course was complicated by severe sepsis due to a left-sided ischemic colitis and peritonitis. The patient remains critically ill on norepinephrine and vasopressin although minimal vent settings. Suspect typical pathogens associated with the gastrointestinal tract including Enterobacteriaceae, enterococcus and could also consider Anusha. The patient did have blood cultures that were collected at time of decompensation and are pending. Diagnosis 1. Peritonitis following right hemicolectomy and left-sided ischemic colitis. 2. Aspiration event. 3. Marked bandemia and thrombocytopenia. Likely related to sepsis. RECOMMENDATIONS: 1. Broaden antibiotic coverage to include Enterococcus. The patient has minimal risk for evolving ESBL E coli resistance or for PsA complicating abdominal infection. Therefore, would discontinue ertapenem and start standard dose Zosyn. At this point, there is no significant risk for Pseudomonas with minimal prior antibiotic exposure. In addition, patient is certainly at risk for yeast complicating a clinical picture and would start empiric coverage for yeast at this time. Would start micafungin. Fluconazole is relatively contraindicated in this setting with amiodarone therapy. 2. Continue to monitor blood cultures. TIME SPENT: 75 minutes with greater than 50% of the time spent with education and counseling of the patient's family including critical nature of her infection, risk of antibiotic use, including renal and liver toxicity as well as risk for C difficile. In addition, reviewed ongoing risks/complications from critical illness such as line infection, pneumonia, etc. Thank you for this consultation. We will continue to follow on a daily basis. /[id number]/MODL MTDD
[2016-12-25] MEDS: PIPERACILLIN/TAZO 3.375 GM/DEX 50 ML IV SCH ×2 (13:29→18:42)
--- NOTE | 2016-12-25 13:57 | ASMTCMCOM ---
CM Note CM Note Notes: Chart reviewed. Pt remains critically ill. Intubated. On multiple IV medications for support. To start TPN for nutritional support. NTBD. CM to follow. 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 Had a resection of the colon, perforation, wash out, colostomy, post op afib and ileus, hyponatremia, anemia, vented. Patient has a hx of ETOH, HTN, HLD. Seriously ill- Pulp House Supervisor at bedside this afternoon. Patient's sister is MPOA at this time. Page 1 of 1 Date Signed: 12/25/2016 01:56 PM Electronically Signed By:Denise Khan RN
--- NOTE | 2016-12-25 13:57 | ASMTCMCOM ---
CM Note CM Note Notes: Chart reviewed. Pt remains critically ill. Intubated. On multiple IV medications for support. To start TPN for nutritional support. NTBD. CM to follow. 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 Had a resection of the colon, perforation, wash out, colostomy, post op afib and ileus, hyponatremia, anemia, vented. Patient has a hx of ETOH, HTN, HLD. Seriously ill- Laundry Attendant at bedside this afternoon. Patient's sister is MPOA at this time. Page 1 of 1 Date Signed: 12/25/2016 01:56 PM Electronically Signed By:Denise Khan RN
[2016-12-25] MEDS: NOREPINEPHRINE BITARTRATE 16 MG in NS 250 ML IV SCH (14:02)
--- NOTE | 2016-12-25 14:39 | WOCRNPDOC ---
WOCRN Advanced Assessment Note - Skin Integrity Problem, Advanced Assess Left Knee Abrasion Dressing Type: Allevyn Life Dressing Description: Clean/Dry, Intact Exudate Amount: Scant Exudate Color: Reddish/Yellow Exudate Characteristic(s): Serosanguinous Integumentary Issue Intervention: Visualized Under Dressing [place] Wound Tissue: Erythema, Intact Skin Integrity Problem Comment: Patient with an abrasion to left knee received prior to admission. Orders for wound care placed. Wound care will not continue to follow this wound. Left Heel Dressing Type: Open to Air Skin Integrity Problem Comment: Patient with a large raised wart on the heel. Location of this wart raises concern for creating pressure to the heel area while the patient is confined to bed. Initiate bilateral heel boots as a preventative measure. Please reconsult wound care PRN with any new concerns.
--- NOTE | 2016-12-25 15:01 | PDINTPN ---
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 Peritonitis/abdominal sepsis: Antibiotics changed to Zosyn, Micafungin recheck added. Id following. Hypotension. On 2 pressors. CVP of 10-14 indicates adequate hydration. Acute respiratory failure. Secondary to the above. On ventilator 40%. Not weaning at this time. Has changes on x-ray consistent with aspiration pneumonia. Sputum negative thus far. May be developing pulmonary edema. Atrial fibrillation with rapid ventricular response. On amiodarone. Rapid rate tends to go up and down. Following for now. Cardiology also following. Anemia: Acute blood loss plus dilutional. Hematocrit stable at 27. No evidence of active bleeding currently. Metabolic: Hyponatremia. Improving. Leukopenia: Resolved. WBC now 18. DVT prophylaxis: On enoxaparin. Will need full-dose anticoagulation for stroke prevention with a peak atrial fibrillation at some point. Contraindicated now secondary to recent surgery. GI prophylaxis: Famotidine. Plan: Continue present care. Continue ventilatory support. Continue pressors. Continue antibiotics per Infectious Disease. Recheck chest x-ray this afternoon secondary to possible pulmonary edema. Lasix diuresis if indicated, may need drip. Continue amiodarone for atrial fibrillation. May need digoxin for better rate control, possibly low-dose beta-blockade?. Follow laboratory, chest x-ray, blood gas. 1 hour of critical care time spent directly with the patient. Discussed with the patient's family, RT, nursing, Infectious Disease, hospitalist, and the ICU multi disciplinary team. Subjective: Intubated, sedated, on the ventilator Objective: Vital Signs Temp Pulse Resp BP Pulse Ox 36.9 C 118 H 16 116/57 L 96 12/25/16 12:00 12/25/16 14:00 12/25/16 14:00 12/25/16 14:00 12/25/16 14:00 Microbiology 12/24/16 13:40 - Final Sputum, Induced/Suctioned Laboratory Results 12/25/16 11:30 12/25/16 11:30 12/24/16 12/25/16 12/26/16 05:59 05:59 05:59 Intake Total 3007 7352 Output Total 5534 9095 350 Balance -2519 5517 -350 PT 16.9 SEC (12.0-15.0) H 12/25/16 11:30 INR 1.37 (0.83-1.16) H 12/25/16 11:30 Laboratory Tests 12/25/16 12/25/16 12/25/16 05:40 11:30 11:30 PT 16.9 H INR 1.37 H APTT 33.1 pCO2 30 L pO2 76 H Total CO2 16 L ABG pH 7.33 L O2 Concentration % 50 Actual Respiration Rate 16 Tidal Volume 600 PEEP 5 Pressure Support 7 Calcium 7.8 L Phosphorus 2.4 L D Magnesium 1.7 Total Bilirubin 1.0 AST 25 ALT 25 Albumin 2.1 L CXR: Bibasilar pulmonary infiltrates, right greater than left. Lines and tubes in good position. Physical Exam - Physical Exam General Appearance: other (Sedated, on the ventilator.) EENT: PERRL/EOMI, ET tube, other (NG tube to suction) Neck: normal inspection (No obvious her venous, difficult to assess. CVP is 14. ) Respiratory: lungs clear (Anteriorly), decreased breath sounds (At bases), rales (Some basilar rales), other (Developed frothy secretions as the day progressed.) Cardiac/Chest: irregularly irregular (Atrial fibrillation with a ventricular response of approximately 110) Abdomen: other (Postoperative changes), No normal bowel sounds, No non-tender, No soft Pelvic Exam: other (Landry catheter in place, adequate urine output but somewhat decreased today. Did get Lasix last night.) Skin: warm/dry, pallor Neuro/Psych: no motor/sensory deficits (Moves all extremities), cognition abnormalities (Difficult to assess) ICD10 Worksheet Patient Problems: Problems Problem Status Onset Appendiceal tumor Acute
[2016-12-25] MEDS ORDERED: POTASSIUM Cl (KCl) 100 ML IV ONE (15:15)
--- NOTE | 2016-12-25 15:17 | HOSPPROG ---
Hospitalist Progress Note Assessment/Plan: * Septic shock due to peritonitis -remains on high dose levophed + vasopressin -lactate remains elevated - continue to follow -d/w Dr. Lagunas - IV Zosyn + IV micafungin * Acute respiratory failure s/p intubation * Aspiration PNA -witnessed aspiration event prior to OR * Colon perf (ischemic colitis) s/p colostomy/washout * Afib -IV amiodarone * Cancer of appendix s/p laparoscopic hemicolectomy * Pancytopenia - suspect due to sepsis - resolving * Etoh - no evidence for withdrawal * Essential tremor -holding propranolol due to hypotension * Hyponatremia -given acuity of drop and recovery suspect low risk cc time : 35 minutes Subjective: remains critically ill, 2 pressors, lactate still elevated Objective: Vital Signs Temp Pulse Resp BP Pulse Ox 36.9 C 118 H 16 116/57 L 96 12/25/16 12:00 12/25/16 14:00 12/25/16 14:00 12/25/16 14:00 12/25/16 14:00 Microbiology 12/24/16 13:40 - Final Sputum, Induced/Suctioned Laboratory Results 12/25/16 11:30 12/25/16 11:30 12/24/16 12/25/16 12/26/16 05:59 05:59 05:59 Intake Total 3007 7352 Output Total 5526 1835 350 Balance -2519 5517 -350 PT 16.9 SEC (12.0-15.0) H 12/25/16 11:30 INR 1.37 (0.83-1.16) H 12/25/16 11:30 - Physical Exam Constitutional: no apparent distress, appears nourished, not in pain, other (on vent) Cardiovascular: regular rate and rhythym, no murmur, rub, or gallop Respiratory: no respiratory distress, no rales or rhonchi, clear to auscultation Gastrointestinal: distension, No tenderness, No hepatosplenomegally Skin: no rashes or abrasions, no fluctuance, no induration Neurologic: No AAOx3 Psychiatric: encephalopathic, poor insight, poor judgement, poor memory, other ( intubated and sedated), No agitated ICD10 Worksheet Patient Problems: Problems Problem Status Onset Appendiceal tumor Acute
[2016-12-25] MEDS ORDERED: FUROSEMIDE 40 MG/4 ML VIAL IVP ONE (15:18)
[2016-12-25] MEDS ORDERED: DIGOXIN 500 MCG/2 ML AMP IVP ONE (15:45)
[2016-12-25] MEDS ORDERED: D50W 25 GM/50 ML SYR IVP PRN (15:54)
[2016-12-25] MEDS: LEVALBUTEROL INHALER 200 PUFFS/15 GM MDI IH SCH ×2 (16:03→19:51)
[2016-12-25] MEDS: INSULIN REGULAR HUMAN 100 UNIT/ML SC SCH (17:23)
--- NOTE | 2016-12-25 17:31 | SOAPPROG ---
SOAP Progress Note Assessment/Plan: Assessment: pod#2 s/p left colectomy/Kristal's procedure for ischemic colitis, pod#5 s/p lap r ja - benign mucinous appendiceal neoplasm. no overnight events. still on pressors. FiO2 down to 40%. intubated, sedated. abd soft, min dist. incis clean. stoma pink. NG - gastric. CV - afib, apprec cards input , ok to anticoag with heparin anytime from my vantage point - no evidence of bleeding. resp - asp pneum after CT - oxygen req less today - wean as able. GI - s/p resection - no postop issues noted - will consider starting tube feeds later this week if still vented/stoma productive - H2 blockade. - hyponatremia improved. ID - in zosyn, micafungin per ID reccs. Heme - decr Hb dilutional - no need for transfusion consideration. Plan: 12/21/16 10:07 12/22/16 11:16 12/22/16 22:14 12/23/16 07:39 12/23/16 13:34 12/23/16 18:07 12/23/16 18:10 12/23/16 22:06 12/23/16 22:10 12/24/16 15:45 12/24/16 15:49 12/25/16 17:26 Objective: Vital Signs Temp Pulse Resp BP Pulse Ox 37.2 C 145 H 15 114/54 L 97 12/25/16 16:00 12/25/16 17:00 12/25/16 17:00 12/25/16 17:00 12/25/16 17:00 Microbiology 12/24/16 13:40 - Final Sputum, Induced/Suctioned Laboratory Results 12/25/16 11:30 12/25/16 11:30 12/24/16 12/25/16 12/26/16 05:59 05:59 05:59 Intake Total 3399 7383 Output Total 7902 1835 410 Balance -7479 5517 -410 PT 16.9 SEC (12.0-15.0) H 12/25/16 11:30 INR 1.37 (0.83-1.16) H 12/25/16 11:30 ICD10 Worksheet Patient Problems: Problems Problem Status Onset Appendiceal tumor Acute - ICD10 Problem Qualifiers (1) Appendiceal tumor
--- NOTE | 2016-12-25 17:31 | SOAPPROG ---
SOAP Progress Note Assessment/Plan: Assessment: pod#2 s/p left colectomy/Kristal's procedure for ischemic colitis, pod#5 s/p lap r ja - benign mucinous appendiceal neoplasm. no overnight events. still on pressors. FiO2 down to 40%. intubated, sedated. abd soft, min dist. incis clean. stoma pink. NG - gastric. CV - afib, apprec cards input , ok to anticoag with heparin anytime from my vantage point - no evidence of bleeding. resp - asp pneum after CT - oxygen req less today - wean as able. GI - s/p resection - no postop issues noted - will consider starting tube feeds later this week if still vented/stoma productive - H2 blockade. - hyponatremia improved. ID - in zosyn, micafungin per ID reccs. Heme - decr Hb dilutional - no need for transfusion consideration. Plan: 12/21/16 10:07 12/22/16 11:16 12/22/16 22:14 12/23/16 07:39 12/23/16 13:34 12/23/16 18:07 12/23/16 18:10 12/23/16 22:06 12/23/16 22:10 12/24/16 15:45 12/24/16 15:49 12/25/16 17:26 Objective: Vital Signs Temp Pulse Resp BP Pulse Ox 37.2 C 145 H 15 114/54 L 97 12/25/16 16:00 12/25/16 17:00 12/25/16 17:00 12/25/16 17:00 12/25/16 17:00 Microbiology 12/24/16 13:40 - Final Sputum, Induced/Suctioned Laboratory Results 12/25/16 11:30 12/25/16 11:30 12/24/16 12/25/16 12/26/16 05:59 05:59 05:59 Intake Total 0675 7377 Output Total 4988 1835 410 Balance -8349 5517 -410 PT 16.9 SEC (12.0-15.0) H 12/25/16 11:30 INR 1.37 (0.83-1.16) H 12/25/16 11:30 ICD10 Worksheet Patient Problems: Problems Problem Status Onset Appendiceal tumor Acute - ICD10 Problem Qualifiers (1) Appendiceal tumor
--- NOTE | 2016-12-25 17:31 | SOAPPROG ---
SOAP Progress Note Assessment/Plan: Assessment: pod#2 s/p left colectomy/Kristal's procedure for ischemic colitis, pod#5 s/p lap r ja - benign mucinous appendiceal neoplasm. no overnight events. still on pressors. FiO2 down to 40%. intubated, sedated. abd soft, min dist. incis clean. stoma pink. NG - gastric. CV - afib, apprec cards input , ok to anticoag with heparin anytime from my vantage point - no evidence of bleeding. resp - asp pneum after CT - oxygen req less today - wean as able. GI - s/p resection - no postop issues noted - will consider starting tube feeds later this week if still vented/stoma productive - H2 blockade. - hyponatremia improved. ID - in zosyn, micafungin per ID reccs. Heme - decr Hb dilutional - no need for transfusion consideration. Plan: 12/21/16 10:07 12/22/16 11:16 12/22/16 22:14 12/23/16 07:39 12/23/16 13:34 12/23/16 18:07 12/23/16 18:10 12/23/16 22:06 12/23/16 22:10 12/24/16 15:45 12/24/16 15:49 12/25/16 17:26 Objective: Vital Signs Temp Pulse Resp BP Pulse Ox 37.2 C 145 H 15 114/54 L 97 12/25/16 16:00 12/25/16 17:00 12/25/16 17:00 12/25/16 17:00 12/25/16 17:00 Microbiology 12/24/16 13:40 - Final Sputum, Induced/Suctioned Laboratory Results 12/25/16 11:30 12/25/16 11:30 12/24/16 12/25/16 12/26/16 05:59 05:59 05:59 Intake Total 9292 7361 Output Total 1281 1835 410 Balance -4819 5517 -410 PT 16.9 SEC (12.0-15.0) H 12/25/16 11:30 INR 1.37 (0.83-1.16) H 12/25/16 11:30 ICD10 Worksheet Patient Problems: Problems Problem Status Onset Appendiceal tumor Acute - ICD10 Problem Qualifiers (1) Appendiceal tumor
[2016-12-25] MEDS: TRAVOPROST Z 0.004% 2.5 ML OPHT.BTL EACHEYE SCH (21:11)
[2016-12-26] MEDS: INSULIN REGULAR HUMAN 100 UNIT/ML SC SCH ×5 (00:12→23:20)
[2016-12-26] MEDS: PIPERACILLIN/TAZO 3.375 GM/DEX 50 ML IV SCH ×4 (00:13→18:03)
[2016-12-26] MEDS: AMIODARONE HCL 200 ML IV SCH (01:22)
[2016-12-26] MEDS: NS 1,000 ML IV SCH (01:47)
[2016-12-26] MEDS: POTASSIUM Cl (KCl) 50 ML IV SCH ×5 (01:48→21:23)
[2016-12-26] MEDS: fentaNYL/NACL 100 ML IV SCH ×2 (03:12→19:55)
[2016-12-26] MEDS: LEVALBUTEROL INHALER 200 PUFFS/15 GM MDI IH SCH ×4 (04:31→20:05)
[2016-12-26 06:02] LABS: PLATELET COUNT 92 10^3/uL (150-400)
[2016-12-26 06:11] LABS: INR 1.18 (0.83-1.16)
[2016-12-26] MEDS ORDERED: K PHOS 20 MMOL in D5W 250 ML IV ONE (09:00)
[2016-12-26] MEDS ORDERED: MAGNESIUM SULF 1 GM/DEXTROSE 100 ML IV ONE (09:11)
[2016-12-26] MEDS ORDERED: POTASSIUM Cl (KCl) 100 ML IV ONE (09:11)
--- NOTE | 2016-12-26 09:15 | SOAPPROG ---
SOAP Progress Note Assessment/Plan: Assessment/Plan: POD#3/6 s/p Renner's and right colectomy from ischemic bowel and appediceal tumor. Ventilator with goo p[arameters No ostomy output Ostomy viable Incision c/d Abd benign Leucocytosis rebound from og of 1 now 25 up from 18 yesterday U/O >0.5mg/kg/hr MAP >70 on levophed (acctively weaning) Afib moderately well controlled with amiodarone ID consulted Supportive care Continue Zosyn Await TF while on high dose vasopressive meds R brachial thrombosis likely due to PICC and intravascular vol depletion - start heparin gtt no bolus today 12/26/16 09:15 Objective: Vital Signs Temp Pulse Resp BP Pulse Ox 36.8 C 90 16 175/75 H 99 12/26/16 08:00 12/26/16 08:29 12/26/16 08:29 12/26/16 08:00 12/26/16 08:29 Microbiology 12/24/16 13:40 - Final Sputum, Induced/Suctioned Laboratory Results 12/26/16 05:45 12/26/16 05:45 12/25/16 12/26/16 12/27/16 05:59 05:59 05:59 Intake Total 7352 3609.9 Output Total 1835 3045 Balance 5517 564.9 PT 15.0 SEC (12.0-15.0) 12/26/16 05:45 INR 1.18 (0.83-1.16) H 12/26/16 05:45 ICD10 Worksheet Patient Problems: Problems Problem Status Onset Appendiceal tumor Acute
[2016-12-26] MEDS: BRIMONIDINE 0.15% 5 ML OPHT.BTL EACHEYE SCH ×2 (09:31→21:27)
[2016-12-26] MEDS: ENOXAPARIN 40 MG/0.4 ML SYR SC SCH (09:31)
[2016-12-26] MEDS: PROPOFOL/EMULSION 100 ML IV SCH (09:38)
[2016-12-26] MEDS ORDERED: AMIODARONE A.FIB-18HR INFSN (ORDER 3/3) IV SCH (10:00)
--- NOTE | 2016-12-26 11:18 | ASMTCMCOM ---
CM Note CM Note Notes: Chart reviewed. Met with family as they have questions regarding getting home care for patient's , Given list of agencies and directed to contact his PCP to provide orders. Confirmed advanced directives in chart. Discussed probable length of inpatient stay. Sister concerned about insurance notifications, CM to follow. Date Signed: 12/26/2016 11:18 AM Electronically Signed By:Denise Khan RN
--- NOTE | 2016-12-26 11:44 | WOCRNPDOC ---
WOCRN Advanced Assessment Note - Skin Integrity Problem, Advanced Assess Coccyx Unknown Dressing Type: Allevyn Life Exudate Amount: None Exudate Color: [place] Integumentary Issue Intervention: Visualized Under Dressing Yola Wound Tissue: Non-blanching Wound Bed Color: [place] Wound Bed Constitution: Smooth Tissue Site Measurement - Head-to-Toe Length X Width X Depth (cm): 1cmx0.8cmx0.1cm Pressure Injury Stage: Stage 2 Pressure Injury Present on Admit: No Skin Integrity Problem Comment: Patient with a partial thickness opening to to coccyx. Skin dry and non-blanching. Preventive measures in place. Wound care will round again late next week.
[2016-12-26] MEDS: HEPARIN/DEXTROSE 500 ML IV SCH (11:45)
[2016-12-26 11:46] LABS: PLATELET COUNT 92 10^3/uL (150-400)
--- NOTE | 2016-12-26 11:51 | PDINTPN ---
Product Marketing Director Progress Note Assessment/Plan: Assessment: Ischemic bowel, status post resection. Peritonitis/abdominal sepsis: On Zosyn, Micafungin. Id following. Hypotension. Improving. On vasopressin alone at this point in time. Weaning this down slowly.. Acute respiratory failure. Secondary to the above. On ventilator 40%. Can start CPAP wean. Has changes on x-ray consistent with aspiration pneumonia. Sputum negative thus far. No evidence of pulmonary edema. Atrial fibrillation with slow rates now. In sinus at times.. On amiodarone. Rapid rate tends to go up and down. Cardiology following. Anemia: Acute blood loss plus dilutional. Hematocrit stable at 25. No evidence of active bleeding currently. DVT: Catheter associated right upper extremity. Full-dose anticoagulation will be started with the PICC line catheter left in. Metabolic: Hyponatremia. Improving. Leukopenia: Resolved. WBC now 18. DVT prophylaxis: On enoxaparin. Will need full-dose anticoagulation for stroke prevention with a peak atrial fibrillation at some point. Contraindicated now secondary to recent surgery. GI prophylaxis: Famotidine. Nutrition: TPN to start today. Will need another line on the left. Plan: Continue present care. Continue ventilatory support, but start short CPAP trials. Continue vasopressin, wean as tolerated. Continue antibiotics per Infectious Disease. Continue intermittent Lasix diuresis as Is/Os indicate. Continue amiodarone for atrial fibrillation. Start full-dose aspirin today per follow closely for bleed. Repeat H/H this afternoon. Follow laboratory, chest x-ray, blood gas. 45 min of critical care time spent directly with the patient. Discussed with the patient's family, RT, nursing, hospitalist, and the ICU multi disciplinary team. Subjective: Sedated, on ventilator Objective: Vital Signs Temp Pulse Resp BP Pulse Ox 36.9 C 56 L 16 138/58 H 98 12/26/16 11:00 12/26/16 11:00 12/26/16 11:00 12/26/16 11:00 12/26/16 11:00 Microbiology 12/24/16 13:40 - Final Sputum, Induced/Suctioned Laboratory Results 12/26/16 11:35 12/26/16 05:45 12/25/16 12/26/16 12/27/16 05:59 05:59 05:59 Intake Total 7394 3609.9 Output Total 1835 3045 Balance 5517 564.9 PT 15.0 SEC (12.0-15.0) 12/26/16 05:45 INR 1.18 (0.83-1.16) H 12/26/16 05:45 Laboratory Tests 12/26/16 12/26/16 12/26/16 04:46 05:45 05:45 pCO2 27 L pO2 98 H ABG pH 7.43 ABG O2 Saturation 98 H VBG Lactic Acid 1.4 D O2 Concentration % 40 Actual Respiration Rate 16 Calcium 8.2 L Phosphorus 1.6 L D Magnesium 1.6 Total Bilirubin 1.1 AST 25 ALT 31 NT-Pro-B Natriuret Pep 5940 H Albumin 2.0 L CXR: None today Right upper extremity venous ultrasound: Positive for catheter associated DVT Physical Exam - Physical Exam General Appearance: other (Sedated, on the ventilator) EENT: PERRL/EOMI, ET tube, other (NG to suction) Neck: normal inspection Respiratory: lungs clear (Anteriorly), decreased breath sounds (At bases) Cardiac/Chest: regular rate, rhythm (Atrial fibrillation hers to have resolved. Bradycardic at times.) Abdomen: distended (Dressed), other (Colostomy with little output.), No normal bowel sounds (Decreased bowel sounds, some present) Pelvic Exam: other (Landry catheter is in place. Improving urinary output.) Skin: normal color, warm/dry Extremities: pedal edema (Trace) Neuro/Psych: no motor/sensory deficits, No cognition abnormalities ICD10 Worksheet Patient Problems: Problems Problem Status Onset Appendiceal tumor Acute
[2016-12-26 11:55] LABS: INR 1.18 (0.83-1.16)
[2016-12-26] MEDS: MICAFUNGIN NA 100 MG in NS 100 ML IV SCH (12:56)
--- NOTE | 2016-12-26 14:02 | PDCARPN ---
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 Her course was complicated by postoperative ileus, atrial fibrillation with rapid ventricular response, and acute respiratory failure and sepsis related ischemic colitis requiring left hemicolectomy on 12/24. Left ventricular ejection fraction is preserved. Troponins have been negative. 1. Atrial fibrillation: Currently in sinus rhythm on IV amiodarone. Would continue this. IV heparin has been started for her right upper extremity DVT and this is also appropriate for her atrial arrhythmia. 2. Right hemicolectomy on December 20 and reoperation for ischemic colitis on December 24. Complicated by respiratory failure and sepsis. Under the care of Dr. Mccracken, Dr. Anthony, and Hospital Medicine. 3. Respiratory failure: apparently aspirated in CT. Currently managed with ventilator. 4. Hyponatremia: This has resolved 5. History of alcohol use daily We will sign off. Please call questions. 12/26/16 14:05 Subjective: Intubated and sedated Reviewed/Discussed With: family Objective: Vital Signs (8 Hrs) Temp Pulse Resp BP Pulse Ox 12/26/16 13:00 57 L 16 115/46 L 99 12/26/16 12:30 58 L 16 99 12/26/16 12:00 66 13 117/93 H 99 12/26/16 11:00 36.9 C 56 L 16 138/58 H 98 12/26/16 10:00 36.9 C 61 16 127/54 H 99 12/26/16 09:00 62 16 119/53 L 98 12/26/16 08:29 90 16 99 12/26/16 08:00 36.8 C 92 416 H 175/75 H 12/26/16 07:00 36.4 C 90 16 129/65 H 99 12/26/16 06:00 86 16 103/53 L 99 Intake/Output (24 Hrs) 12/25/16 12/26/16 12/27/16 05:59 05:59 05:59 Intake Total 7352 3609.9 914.9 Output Total 1835 3045 775 Balance 5517 564.9 139.9 Intake: IV Infused (ml) 7352 3609.9 914.9 Albumin 5% 500 ml @ As 500 Directed IV ONCE ONE Rx#: [id number] Amiodarone HCl 200 ml @ 187 112 16.667 mls/hr IV CONT MEERA Rx#:[id number] Amiodarone HCl 540 mg In 352 206 D5w 300 ml @ 16.667 mls/ hr IV ONCE ONE Rx#: [id number] Magnesium Sulf 1 gm/ 107 Dextrose 100 ml @ 100 mls /hr IV ONCE ONE Rx#: [id number] Norepinephrine Bitartrate 104 254 42.8 16 mg In Ns 250 ml @ Per Protocol IV CONT MEERA Rx# :[id number] Norepinephrine/Ns 500 ml 244 @ Per Protocol IV CONT MEERA Rx#:[id number] Norepinephrine/Ns 500 ml 1746 @ Per Protocol IV ONCALL ONE Rx#:[id number] Ns 1,000 ml @ 125 mls/hr 1202 2307 483 IV CONT MEERA Rx#: [id number] Ns 1,000 ml @ 75 mls/hr 830 IV CONT MEERA Rx#: [id number] Ns 1,900 ml @ 3800 mls/hr 1900 IV ONCE ONE Rx#: [id number] POTASSIUM Cl (KCl) 100 ml 100 @ 100 mls/hr IV ONCE ONE Rx#:[id number] Propofol/Emulsion 100 ml 108 150.9 36.7 @ Titrate IV CONT MEERA Rx# :[id number] Vasopressin/Dextrose 250 249 379 ml @ 24 mls/hr IV CONT MEERA Rx#:[id number] fentaNYL/NACL 100 ml @ As 117 126 33.4 Directed IV CONT MEERA Rx# :[id number] Output: Urine (ml) 1535 2845 775 Catheter 1525 2835 775 Colostomy 10 10 NG Tube Output (ml) 200 200 Left Naris Stomach [place] 200 200 Sump OG Tube Output (ml) 100 Large Bore (>12 [place]) 100 Non-weighted Oral Stomach Other: Weight 73.9 kg Dated Regular rate and rhythm without murmur or gallop Lungs anteriorly Positive bowel sounds 1+ pedal edema and bilateral hand edema Result Diagrams: 12/26/16 11:35 12/26/16 05:45 Cardiac Labs: Cardiac Lab Results (72 Hrs) 12/24/16 12/23/16 05:00 15:30 Troponin I < 0.012 < 0.012 Telemetry: Normal sinus rhythm ICD10 Worksheet Patient Problems: Problems Problem Status Onset Appendiceal tumor Acute
--- NOTE | 2016-12-26 14:02 | PDCARPN ---
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 Her course was complicated by postoperative ileus, atrial fibrillation with rapid ventricular response, and acute respiratory failure and sepsis related ischemic colitis requiring left hemicolectomy on 12/24. Left ventricular ejection fraction is preserved. Troponins have been negative. 1. Atrial fibrillation: Currently in sinus rhythm on IV amiodarone. Would continue this. IV heparin has been started for her right upper extremity DVT and this is also appropriate for her atrial arrhythmia. 2. Right hemicolectomy on December 20 and reoperation for ischemic colitis on December 24. Complicated by respiratory failure and sepsis. Under the care of Dr. Mccracken, Dr. Anthony, and Hospital Medicine. 3. Respiratory failure: apparently aspirated in CT. Currently managed with ventilator. 4. Hyponatremia: This has resolved 5. History of alcohol use daily We will sign off. Please call questions. 12/26/16 14:05 Subjective: Intubated and sedated Reviewed/Discussed With: family Objective: Vital Signs (8 Hrs) Temp Pulse Resp BP Pulse Ox 12/26/16 13:00 57 L 16 115/46 L 99 12/26/16 12:30 58 L 16 99 12/26/16 12:00 66 13 117/93 H 99 12/26/16 11:00 36.9 C 56 L 16 138/58 H 98 12/26/16 10:00 36.9 C 61 16 127/54 H 99 12/26/16 09:00 62 16 119/53 L 98 12/26/16 08:29 90 16 99 12/26/16 08:00 36.8 C 92 416 H 175/75 H 12/26/16 07:00 36.4 C 90 16 129/65 H 99 12/26/16 06:00 86 16 103/53 L 99 Intake/Output (24 Hrs) 12/25/16 12/26/16 12/27/16 05:59 05:59 05:59 Intake Total 7352 3609.9 914.9 Output Total 1835 3045 775 Balance 5517 564.9 139.9 Intake: IV Infused (ml) 7352 3609.9 914.9 Albumin 5% 500 ml @ As 500 Directed IV ONCE ONE Rx#: [id number] Amiodarone HCl 200 ml @ 187 112 16.667 mls/hr IV CONT MEERA Rx#:[id number] Amiodarone HCl 540 mg In 352 206 D5w 300 ml @ 16.667 mls/ hr IV ONCE ONE Rx#: [id number] Magnesium Sulf 1 gm/ 107 Dextrose 100 ml @ 100 mls /hr IV ONCE ONE Rx#: [id number] Norepinephrine Bitartrate 104 254 42.8 16 mg In Ns 250 ml @ Per Protocol IV CONT MEERA Rx# :[id number] Norepinephrine/Ns 500 ml 244 @ Per Protocol IV CONT MEERA Rx#:[id number] Norepinephrine/Ns 500 ml 1746 @ Per Protocol IV ONCALL ONE Rx#:[id number] Ns 1,000 ml @ 125 mls/hr 1202 2307 483 IV CONT MEERA Rx#: [id number] Ns 1,000 ml @ 75 mls/hr 830 IV CONT MEERA Rx#: [id number] Ns 1,900 ml @ 3800 mls/hr 1900 IV ONCE ONE Rx#: [id number] POTASSIUM Cl (KCl) 100 ml 100 @ 100 mls/hr IV ONCE ONE Rx#:[id number] Propofol/Emulsion 100 ml 108 150.9 36.7 @ Titrate IV CONT MEERA Rx# :[id number] Vasopressin/Dextrose 250 249 379 ml @ 24 mls/hr IV CONT MEERA Rx#:[id number] fentaNYL/NACL 100 ml @ As 117 126 33.4 Directed IV CONT MEERA Rx# :[id number] Output: Urine (ml) 1535 2845 775 Catheter 1525 2835 775 Colostomy 10 10 NG Tube Output (ml) 200 200 Left Naris Stomach [place] 200 200 Sump OG Tube Output (ml) 100 Large Bore (>12 [place]) 100 Non-weighted Oral Stomach Other: Weight 73.9 kg Dated Regular rate and rhythm without murmur or gallop Lungs anteriorly Positive bowel sounds 1+ pedal edema and bilateral hand edema Result Diagrams: 12/26/16 11:35 12/26/16 05:45 Cardiac Labs: Cardiac Lab Results (72 Hrs) 12/24/16 12/23/16 05:00 15:30 Troponin I < 0.012 < 0.012 Telemetry: Normal sinus rhythm ICD10 Worksheet Patient Problems: Problems Problem Status Onset Appendiceal tumor Acute
--- NOTE | 2016-12-26 14:02 | PDCARPN ---
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 Her course was complicated by postoperative ileus, atrial fibrillation with rapid ventricular response, and acute respiratory failure and sepsis related ischemic colitis requiring left hemicolectomy on 12/24. Left ventricular ejection fraction is preserved. Troponins have been negative. 1. Atrial fibrillation: Currently in sinus rhythm on IV amiodarone. Would continue this. IV heparin has been started for her right upper extremity DVT and this is also appropriate for her atrial arrhythmia. 2. Right hemicolectomy on December 20 and reoperation for ischemic colitis on December 24. Complicated by respiratory failure and sepsis. Under the care of Dr. Mccracken, Dr. Anthony, and Hospital Medicine. 3. Respiratory failure: apparently aspirated in CT. Currently managed with ventilator. 4. Hyponatremia: This has resolved 5. History of alcohol use daily We will sign off. Please call questions. 12/26/16 14:05 Subjective: Intubated and sedated Reviewed/Discussed With: family Objective: Vital Signs (8 Hrs) Temp Pulse Resp BP Pulse Ox 12/26/16 13:00 57 L 16 115/46 L 99 12/26/16 12:30 58 L 16 99 12/26/16 12:00 66 13 117/93 H 99 12/26/16 11:00 36.9 C 56 L 16 138/58 H 98 12/26/16 10:00 36.9 C 61 16 127/54 H 99 12/26/16 09:00 62 16 119/53 L 98 12/26/16 08:29 90 16 99 12/26/16 08:00 36.8 C 92 416 H 175/75 H 12/26/16 07:00 36.4 C 90 16 129/65 H 99 12/26/16 06:00 86 16 103/53 L 99 Intake/Output (24 Hrs) 12/25/16 12/26/16 12/27/16 05:59 05:59 05:59 Intake Total 7352 3609.9 914.9 Output Total 1835 3045 775 Balance 5517 564.9 139.9 Intake: IV Infused (ml) 7352 3609.9 914.9 Albumin 5% 500 ml @ As 500 Directed IV ONCE ONE Rx#: [id number] Amiodarone HCl 200 ml @ 187 112 16.667 mls/hr IV CONT MEERA Rx#:[id number] Amiodarone HCl 540 mg In 352 206 D5w 300 ml @ 16.667 mls/ hr IV ONCE ONE Rx#: [id number] Magnesium Sulf 1 gm/ 107 Dextrose 100 ml @ 100 mls /hr IV ONCE ONE Rx#: [id number] Norepinephrine Bitartrate 104 254 42.8 16 mg In Ns 250 ml @ Per Protocol IV CONT MEERA Rx# :[id number] Norepinephrine/Ns 500 ml 244 @ Per Protocol IV CONT MEERA Rx#:[id number] Norepinephrine/Ns 500 ml 1746 @ Per Protocol IV ONCALL ONE Rx#:[id number] Ns 1,000 ml @ 125 mls/hr 1202 2307 483 IV CONT MEERA Rx#: [id number] Ns 1,000 ml @ 75 mls/hr 830 IV CONT MEERA Rx#: [id number] Ns 1,900 ml @ 3800 mls/hr 1900 IV ONCE ONE Rx#: [id number] POTASSIUM Cl (KCl) 100 ml 100 @ 100 mls/hr IV ONCE ONE Rx#:[id number] Propofol/Emulsion 100 ml 108 150.9 36.7 @ Titrate IV CONT MEERA Rx# :[id number] Vasopressin/Dextrose 250 249 379 ml @ 24 mls/hr IV CONT MEERA Rx#:[id number] fentaNYL/NACL 100 ml @ As 117 126 33.4 Directed IV CONT MEERA Rx# :[id number] Output: Urine (ml) 1535 2845 775 Catheter 1525 2835 775 Colostomy 10 10 NG Tube Output (ml) 200 200 Left Naris Stomach [place] 200 200 Sump OG Tube Output (ml) 100 Large Bore (>12 [place]) 100 Non-weighted Oral Stomach Other: Weight 73.9 kg Dated Regular rate and rhythm without murmur or gallop Lungs anteriorly Positive bowel sounds 1+ pedal edema and bilateral hand edema Result Diagrams: 12/26/16 11:35 12/26/16 05:45 Cardiac Labs: Cardiac Lab Results (72 Hrs) 12/24/16 12/23/16 05:00 15:30 Troponin I < 0.012 < 0.012 Telemetry: Normal sinus rhythm ICD10 Worksheet Patient Problems: Problems Problem Status Onset Appendiceal tumor Acute
[2016-12-26] MEDS: NOREPINEPHRINE BITARTRATE 16 MG in NS 250 ML IV SCH (15:12)
--- NOTE | 2016-12-26 16:20 | HOSPPROG ---
Hospitalist Progress Note Assessment/Plan: * Septic shock due to peritonitis -weaning levophed -lactate normalized -IV Zosyn + IV micafungin * Acute respiratory failure s/p intubation * Aspiration PNA -witnessed aspiration event prior to OR * Colon perf (ischemic colitis) s/p colostomy/washout * Afib -IV amiodarone -anticoagulation with IV heparin initiating * Cancer of appendix s/p laparoscopic hemicolectomy * Volume overload -start lasix when off pressors * PICC line associated DVT -d/w surgery - okay to start IV heparin -serial HH while initiating anticoag to ensure stability * Pancytopenia - suspect due to sepsis - resolving * Etoh - no evidence for withdrawal * Essential tremor -holding propranolol due to hypotension * Hyponatremia -given acuity of drop and recovery suspect low risk Subjective: no events Objective: Vital Signs Temp Pulse Resp BP Pulse Ox 36.9 C 59 L 16 111/42 L 99 12/26/16 11:00 12/26/16 15:00 12/26/16 15:00 12/26/16 15:00 12/26/16 15:00 Microbiology 12/24/16 13:40 - Final Sputum, Induced/Suctioned Laboratory Results 12/26/16 11:35 12/26/16 05:45 12/25/16 12/26/16 12/27/16 05:59 05:59 05:59 Intake Total 7352 3609.9 914.9 Output Total 1835 3045 775 Balance 5517 564.9 139.9 PT 15.0 SEC (12.0-15.0) 12/26/16 11:35 INR 1.18 (0.83-1.16) H 12/26/16 11:35 tele - intermittent afib d/w Dr. Leavitt and Dr. Anthony regarding anticoagulation plan - Physical Exam Constitutional: no apparent distress, appears nourished, not in pain Cardiovascular: regular rate and rhythym, no murmur, rub, or gallop, edema Respiratory: no respiratory distress, no rales or rhonchi, clear to auscultation Skin: no rashes or abrasions, no fluctuance, no induration Neurologic: No AAOx3 Psychiatric: encephalopathic, No interacting appropriately, No agitated ICD10 Worksheet Patient Problems: Problems Problem Status Onset Appendiceal tumor Acute
--- NOTE | 2016-12-26 16:33 | PCMIDPN ---
Assessment/Plan: Assessment: Septic shock-peritonitis status post ischemic colitis in the left side following right hemicolectomy for appendiceal neoplasm. Currently covered on both Zosyn and micafungin. White blood cell count elevated but appropriately so. Bandemia seems to be alleviating. Will continue current regimen and follow lab markers as well as patient's clinical response. Plan: 1. Continue Zosyn and micafungin. 2. Follow clinical improvement. 3. Follow up lab values most notably leukocytosis. 12/26/16 16:30 12/26/16 16:33 Subjective: Patient is in bed in the ICU. She is intubated and sedated. Hemodynamically she is stable. On minimal support by ventilator. No fevers. Objective: Zosyn # 1 Micafungin # 2 Vital Signs Temp Pulse Resp BP Pulse Ox 36.9 C 58 L 16 103/45 L 99 12/26/16 11:00 12/26/16 16:00 12/26/16 16:00 12/26/16 16:00 12/26/16 16:00 Microbiology 12/24/16 13:40 - Final Sputum, Induced/Suctioned Laboratory Results 12/26/16 11:35 12/26/16 05:45 12/25/16 12/26/16 12/27/16 05:59 05:59 05:59 Intake Total 7352 3609.9 914.9 Output Total 1835 3045 775 Balance 5517 564.9 139.9 - Physical Exam General Appearance: WD/WN, other (Intubated and sedated) Respiratory: lungs clear, normal breath sounds, No respiratory distress Cardiac/Chest: regular rate, rhythm, No tachycardia Extremities: normal inspection Abdomen: soft, distended (Mildly), other (Postoperative changes) Skin: normal color, warm/dry, No rash ICD10 Worksheet Patient Problems: Problems Problem Status Onset Appendiceal tumor Acute
[2016-12-26] MEDS: TPN W/ FAMOTIDINE 1 EA BAG IV SCH (21:24)
[2016-12-26] MEDS: TRAVOPROST Z 0.004% 2.5 ML OPHT.BTL EACHEYE SCH (21:27)
[2016-12-27] MEDS: PIPERACILLIN/TAZO 3.375 GM/DEX 50 ML IV SCH ×4 (00:29→18:04)
[2016-12-27] MEDS: PROPOFOL/EMULSION 100 ML IV SCH ×3 (00:30→20:53)
[2016-12-27] MEDS ORDERED: POTASSIUM Cl (KCl) 50 ML IV ONE ×3 (01:07→21:53)
[2016-12-27] MEDS ORDERED: AMIODARONE HCL 200 ML IV SCH (05:00)
[2016-12-27] MEDS: LEVALBUTEROL INHALER 200 PUFFS/15 GM MDI IH SCH ×4 (05:01→20:29)
[2016-12-27 05:24] LABS: PLATELET COUNT 84 10^3/uL (150-400)
[2016-12-27 05:35] LABS: INR 1.25 (0.83-1.16); PROTIME(PATIENT) 15.7 SEC (12.0-15.0)
[2016-12-27] MEDS: INSULIN REGULAR HUMAN 100 UNIT/ML SC SCH ×3 (05:58→18:03)
[2016-12-27] MEDS: HEPARIN 10,000 UNIT/10 ML MDV IVP PRN (06:31)
--- NOTE | 2016-12-27 07:47 | SOAPPROG ---
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 no overnight events. still on low dose levo. FiO2 down to 40%. still sleepy when attempting to wean. intubated, sedated. abd soft, min dist. incis clean. stoma pink. NG - gastric. CV - afib, current NSR 60, apprec cards input, on heparin for afib/UE DVT. RESP - asp pneum after CT - wean as able. GI - s/p resection benign appendiceal mucinous tumor - no postop issues noted - TPN started yesterday - okay to start tube feeds if remaining vented via NGT else TPN - H2 blockade. - lytes improve. ID - on zosyn, micafungin per ID reccs. Heme - decr Hb/PLT dilutional - no need for transfusion consideration. Care plan reviewed with nursing staff and sister at bedside Plan: 12/21/16 10:07 12/22/16 11:16 12/22/16 22:14 12/23/16 07:39 12/23/16 13:34 12/23/16 18:07 12/23/16 18:10 12/23/16 22:06 12/23/16 22:10 12/24/16 15:45 12/24/16 15:49 12/25/16 17:26 12/27/16 07:44 Objective: Vital Signs Temp Pulse Resp BP Pulse Ox 36.9 C 62 17 96/52 L 97 12/27/16 06:00 12/27/16 06:00 12/27/16 06:00 12/27/16 06:00 12/27/16 06:00 Microbiology 12/24/16 13:40 - Final Sputum, Induced/Suctioned Laboratory Results 12/27/16 05:10 12/27/16 05:10 12/26/16 12/27/16 12/28/16 05:59 05:59 05:59 Intake Total 3609.9 4183.9 Output Total 3045 2520 Balance 564.9 1663.9 PT 15.7 SEC (12.0-15.0) H 12/27/16 05:10 INR 1.25 (0.83-1.16) H 12/27/16 05:10 ICD10 Worksheet Patient Problems: Problems Problem Status Onset Appendiceal tumor Acute - ICD10 Problem Qualifiers (1) Appendiceal tumor
[2016-12-27] MEDS: HEPARIN/DEXTROSE 500 ML IV SCH (08:19)
--- NOTE | 2016-12-27 08:44 | PCMIDPN ---
Assessment/Plan: # Septic shock due to peritonitis status post ischemic colitis in the left side following right hemicolectomy for appendiceal neoplasm. Peritonitis presumed to be polymicrobial GI keyur with some concern for Anusha. Generally would characterize patient has stable today. Expected leukocytosis/bandemia slowly improving. Anusha in sputum reflect colonization. Still w post op ileus --continue Zosyn and micafungin --duration of antibiotics based on response to therapy and evidence for source control medication zosyn 3.375gm IV q6h, #2 micafungin 100mg IV daily, #3 microbiology blood cx 12/24 (2) NGTD sputum cx: anusha Subjective: Patient converted from AFib yesterday. She remains on a small amount of pressors. No ostomy output Objective: Vital Signs Temp Pulse Resp BP Pulse Ox 36.7 C 61 16 94/64 L 98 12/27/16 08:00 12/27/16 08:26 12/27/16 08:26 12/27/16 08:00 12/27/16 08:26 Microbiology 12/24/16 13:40 - Final Sputum, Induced/Suctioned Laboratory Results 12/27/16 05:10 12/27/16 05:10 12/26/16 12/27/16 12/28/16 05:59 05:59 05:59 Intake Total 3609.9 4183.9 Output Total 3045 2520 Balance 564.9 1663.9 - Physical Exam General Appearance: other (sedated, intubated) EENT: pale conjunctiva, ET Tube, NG Tube, dry mucous membranes, No scleral icterus, No thrush Respiratory: coarse breath sounds, No accessory muscle use Neck: supple Cardiac/Chest: regular rate, rhythm Extremities: No swelling Abdomen: soft, other (midline incision healthy appearing, LLQ ostomy, bag empty , very occasional bowel sound) Pelvic Exam: bishop Skin: pallor, No rash - Line/s RUE PICC Lines: No drainage, No erythema LUE PICC Lines: No drainage, No erythema - Time Spent With Patient Time Spent with Patient: greater than 25 minutes (sister and daughter updated at bedside) Time Spent with Patient: Greater than 25 minutes spent on this patients care, greater than 50% of time spent counseling, educating, and coordinating care regarding the above mentioned plan. ICD10 Worksheet Patient Problems: Problems Problem Status Onset Appendiceal tumor Acute
[2016-12-27] MEDS ORDERED: K PHOS 10 MMOL in D5W 250 ML IV ONE (09:00)
[2016-12-27] MEDS: MICAFUNGIN NA 100 MG in NS 100 ML IV SCH (09:44)
[2016-12-27] MEDS: BRIMONIDINE 0.15% 5 ML OPHT.BTL EACHEYE SCH ×2 (09:45→23:07)
[2016-12-27] MEDS ORDERED: FUROSEMIDE 20 MG/2 ML VIAL IVP ONE (09:49)
[2016-12-27] MEDS: NS 1,000 ML IV SCH (10:14)
[2016-12-27] MEDS: FUROSEMIDE 100 MG in D5W 100 ML IV SCH ×2 (10:47→16:11)
--- NOTE | 2016-12-27 11:17 | ASMTCMCOM ---
CM Note CM Note Notes: Status remains the same. Plans to decrease sedation today , Sister had questions about insurance notificaion of hospitalization. Information relayed to daughter that insurance is notified and no current issues are identified. CM to follow. Chart reviewed. Pt remains critically ill. Intubated. On multiple IV medications for support. To start TPN for nutritional support. NTBD. CM to follow. 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 Had a resection of the colon, perforation, wash out, colostomy, post op afib and ileus, hyponatremia, anemia, vented. Patient has a hx of ETOH, HTN, HLD. Seriously ill- Personal Injury Specialist at bedside this afternoon. Patient's sister is MPOA at this time. Date Signed: 12/27/2016 11:16 AM Electronically Signed By:Denise Khan RN
--- NOTE | 2016-12-27 16:03 | PDINTPN ---
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 Peritonitis/abdominal sepsis: On Zosyn, Micafungin. Id following. Hypotension. Improving. On levo. Weaning this down slowly.. Acute respiratory failure. Secondary to the above. On ventilator 40%. To sedated to tolerate CPAP weans. Has changes on x-ray consistent with aspiration pneumonia and probable volume overload with effusion on the right. Sputum. No evidence of pulmonary edema. Atrial fibrillation with slower rates now. In sinus at times. IV amiodarone to stop today. Cardiology following. Anemia: Acute blood loss plus dilutional. Hematocrit stable at 23. No evidence of active bleeding with full-dose anticoagulation. With slowly decreasing hematocrit may need blood at some point. DVT: Catheter associated right upper extremity. Full-dose anticoagulation will be started with the PICC line catheter left in. Metabolic: Hyponatremia. Improving. Leukopenia: Resolved. WBC now 18. DVT: Catheter associated on right, On full-dose heparin. Hematocrit stable. No evidence of active bleeding GI prophylaxis: Famotidine. Nutrition: TPN. Can start some trickle feeds with Vivonex. Plan: Continue present care. Continue ventilatory support, but start short CPAP trials when tolerated. Continue Levophed, wean as tolerated. I will DC amiodarone today and start a Lasix drip. Start trickle feeds with Vivonex today at 15, do not advance. Continue antibiotics per Infectious Disease. Continue heparin drip/full-dose anticoagulation. Repeat H/H this afternoon. Follow laboratory, chest x-ray, blood gas. 45 min of critical care time spent directly with the patient. Discussed with the patient's family, RT, nursing, hospitalist, and the ICU multi disciplinary team. Subjective: Sedated, on the ventilator. Not significantly arousable or responsive. Objective: Vital Signs Temp Pulse Resp BP Pulse Ox 36.9 C 82 16 109/49 L 98 12/27/16 12:00 12/27/16 15:11 12/27/16 15:11 12/27/16 15:00 12/27/16 15:11 Microbiology 12/24/16 13:40 - Final Sputum, Induced/Suctioned Sputum Culture - Final Anusha Albicans Laboratory Results 12/27/16 05:10 12/27/16 11:30 12/26/16 12/27/16 12/28/16 05:59 05:59 05:59 Intake Total 3609.9 4183.9 Output Total 3045 2520 2350 Balance 564.9 1663.9 -2350 PT 15.7 SEC (12.0-15.0) H 12/27/16 05:10 INR 1.25 (0.83-1.16) H 12/27/16 05:10 Laboratory Tests 12/27/16 12/27/16 12/27/16 04:48 05:10 11:30 Heparin Anti-Xa, Unfract 0.40 pCO2 31 L pO2 84 H Total CO2 19 L ABG pH 7.38 O2 Concentration % 40 Actual Respiration Rate 16 Tidal Volume 600 Calcium 7.6 L Phosphorus 2.0 L D Magnesium 1.9 Total Bilirubin 1.1 AST 23 ALT 26 Albumin 1.7 L CXR: Increasing infiltrates/atelectasis/effusion on the right. Minimal changes at the left base. Lines and tubes in good position. Physical Exam - Physical Exam General Appearance: obtunded (Sedated), other (On ventilator) EENT: PERRL/EOMI, ET tube, other (NG tube) Neck: normal inspection (No JVD) Respiratory: lungs clear, decreased breath sounds, rales (At bases), other ( Consolidative changes at right base), No rhonchi, No wheezing Cardiac/Chest: irregularly irregular (AFib alternating with sinus rhythm with PACs) Abdomen: non-tender, soft, No normal bowel sounds (Decreased, present now.) Pelvic Exam: other (Landry catheter in place but input greater than output over the last 3 days by approximately 6 L) Skin: warm/dry, pallor Extremities: pedal edema, swelling (Anasarca present) Neuro/Psych: no motor/sensory deficits (Moves all extremities weekly), cognition abnormalities (Can't assess, likely intact) ICD10 Worksheet Patient Problems: Problems Problem Status Onset Appendiceal tumor Acute
--- NOTE | 2016-12-27 17:12 | HOSPPROG ---
Hospitalist Progress Note Assessment/Plan: * Septic shock due to peritonitis -weaning levophed -lactate normalized -IV Zosyn + IV micafungin * Colon perf (ischemic colitis) s/p colostomy/washout * Acute respiratory failure s/p intubation * Aspiration PNA -witnessed aspiration event prior to OR * Afib -IV amiodarone -IV heparin - seems to be tolerating - change to alternative agent soon * Cancer of appendix s/p laparoscopic hemicolectomy * Volume overload -IV lasix gtt * PICC line associated DVT -d/w surgery - okay to start IV heparin -serial HH while initiating anticoag to ensure stability * Pancytopenia - suspect due to sepsis - resolving * Etoh - no evidence for withdrawal * Essential tremor -holding propranolol due to hypotension * Hyponatremia -given acuity of drop and recovery suspect low risk Subjective: no events Objective: Vital Signs Temp Pulse Resp BP Pulse Ox 37.5 C 88 16 109/52 L 98 12/27/16 16:00 12/27/16 16:00 12/27/16 16:00 12/27/16 16:00 12/27/16 16:00 Microbiology 12/24/16 13:40 - Final Sputum, Induced/Suctioned Sputum Culture - Final Anusha Albicans Laboratory Results 12/27/16 05:10 12/27/16 11:30 12/26/16 12/27/16 12/28/16 05:59 05:59 05:59 Intake Total 3609.9 4183.9 258 Output Total 3045 2520 2350 Balance 564.9 1663.9 -2092 PT 15.7 SEC (12.0-15.0) H 12/27/16 05:10 INR 1.25 (0.83-1.16) H 12/27/16 05:10 d/w Dr. Anthony ICU rounds - lasix gtt today tele - NSR with some PAC - Physical Exam Constitutional: no apparent distress, appears nourished, not in pain Cardiovascular: regular rate and rhythym, no murmur, rub, or gallop, edema Respiratory: no respiratory distress, no rales or rhonchi, clear to auscultation Gastrointestinal: normoactive bowel sounds, soft, non-tender abdomen, no palpable masses Skin: no rashes or abrasions, no fluctuance, no induration Neurologic: No AAOx3 Psychiatric: encephalopathic, poor insight, poor judgement, poor memory, No interacting appropriately, No thought process linear, No agitated ICD10 Worksheet Patient Problems: Problems Problem Status Onset Appendiceal tumor Acute
[2016-12-27] MEDS ORDERED: DIGOXIN 500 MCG/2 ML AMP IVP ONE (17:45)
[2016-12-27] MEDS ORDERED: METOPROLOL TARTRATE 5 MG/5 ML INJ IVP ONE (17:45)
[2016-12-27] MEDS: TPN W/ FAMOTIDINE 1 EA BAG IV SCH (20:53)
[2016-12-27] MEDS: TRAVOPROST Z 0.004% 2.5 ML OPHT.BTL EACHEYE SCH (23:07)
[2016-12-28] MEDS: PIPERACILLIN/TAZO 3.375 GM/DEX 50 ML IV SCH ×5 (01:34→23:48)
[2016-12-28] MEDS: INSULIN REGULAR HUMAN 100 UNIT/ML SC SCH ×4 (01:49→18:38)
[2016-12-28] MEDS: fentaNYL/NACL 100 ML IV SCH ×2 (01:53→19:33)
[2016-12-28 03:32] LABS: PLATELET COUNT 116 10^3/uL (150-400)
[2016-12-28 03:57] LABS: INR 1.22 (0.83-1.16); PROTIME(PATIENT) 15.4 SEC (12.0-15.0)
[2016-12-28] MEDS ORDERED: POTASSIUM Cl (KCl) 50 ML IV ONE ×2 (05:02→08:41)
[2016-12-28] MEDS: LEVALBUTEROL INHALER 200 PUFFS/15 GM MDI IH SCH ×4 (06:05→21:14)
[2016-12-28] MEDS: NOREPINEPHRINE BITARTRATE 16 MG in NS 250 ML IV SCH (07:54)
[2016-12-28] MEDS ORDERED: MAGNESIUM SULF 1 GM/DEXTROSE 100 ML IV ONE (08:41)
[2016-12-28] MEDS: MICAFUNGIN NA 100 MG in NS 100 ML IV SCH (09:17)
--- NOTE | 2016-12-28 09:49 | PCMIDPN ---
Assessment/Plan: # Septic shock due to peritonitis status post ischemic colitis in the left side following right hemicolectomy for appendiceal neoplasm. Peritonitis presumed to be polymicrobial GI keyur with some concern for Anusha. continued general stability to slight improvement in lung mechanics. Expected leukocytosis/ bandemia stable and thrombocytopenia improving. Anusha in sputum reflect colonization. post op ileus unchanged --continue Zosyn and micafungin --duration of antibiotics based on response to therapy and evidence for source control medication zosyn 3.375gm IV q6h, #3 micafungin 100mg IV daily, #4 microbiology blood cx 12/24 (2) NGTD sputum cx: anusha Subjective: still on a bit of [place] 1 episode of a fib overnight Objective: Vital Signs Temp Pulse Resp BP Pulse Ox 37.4 C 88 44 H 104/44 L 98 12/28/16 09:16 12/28/16 09:01 12/28/16 09:01 12/28/16 09:01 12/28/16 08:46 Microbiology 12/24/16 13:40 - Final Sputum, Induced/Suctioned Sputum Culture - Final Anusha Albicans Laboratory Results 12/28/16 03:25 12/28/16 03:25 12/27/16 12/28/16 12/29/16 05:59 05:59 05:59 Intake Total 4183.9 2747.5 Output Total 2520 4785 550 Balance 1663.9 -2037.5 -550 General Appearance: Sedated, intubated but eyes open to verbal stimulation EENT: pale conjunctiva, ET Tube, NG Tube, dry mucous membranes, No scleral icterus, No thrush Respiratory: coarse breath sounds, No accessory muscle use Neck: supple Cardiac/Chest: regular rate, rhythm Extremities: anasarca Abdomen: soft, midline incision healthy appearing, LLQ ostomy, bag empty, no bowel sounds Pelvic Exam: bishop Skin: pallor, No rash RUE PICC No drainage, No erythema LUE PICC No drainage, No erythema Time Spent with Patient: greater than 25 minutes (sister, daughter and updated at bedside) Time Spent with Patient: Greater than 25 minutes spent on this patients care, greater than 50% of time spent counseling, educating, and coordinating care regarding the above mentioned plan. ICD10 Worksheet Patient Problems: Problems Problem Status Onset Appendiceal tumor Acute
--- NOTE | 2016-12-28 09:59 | HOSPPROG ---
Hospitalist Progress Note Assessment/Plan: DIAGNOSES: * Septic shock due to peritonitis -remains on levophed -IV Zosyn + IV micafungin * Colon perf (ischemic colitis) s/p colostomy/washout -some ileus remains * Acute respiratory failure s/p intubation -remains mech vent dependent -planned bronchoscopy today to assess secretions * Aspiration PNA -witnessed aspiration event prior to OR * Afib - had been sinus initially this am but went back on rapid AFib; is not currently on amiodarone -on IV heparin at this time * Cancer of appendix s/p laparoscopic hemicolectomy * Volume overload ez to resuscitation -IV lasix gtt * PICC line associated DVT -IV heparin at present * Pancytopenia - suspect due to sepsis - resolving * Etoh - no evidence for withdrawal * Essential tremor -holding propranolol due to hypotension * Hyponatremia, now resolved -given acuity of drop and recovery suspect low risk PLANS: at this time remains on vent pressor, but appears stablizing, may be able to wean those over next couple days or so continue current antibx, antifungal skin care will give some digoxin now, and depending on BP/pressor will consider some dilt or BB DVT/AFib treatment currently hep drip, may change to lovenox reviewed with Hong Anthony and Bebo also seen on multidisc rounds SUBJECTIVE: on vent, unable to communicate OBJECTIVE: vitals: Initially sinus rhythm this morning, now rapid atrial flutter, otherwise stable at present without fever 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: Initially sinus rhythm this morning but subsequently has now developed rapid atrial flutter exam: on vent,sedated vent pressures and volumes good, tube secured central line looks good skin warm dry, good cap refill still w quite a bit of diffuse edema resps per vent lungs clear heart reg abd soft CXR, my reading: still with bilateral infiltrates, tubes in good position EKG done just now, my reading of the tracing: Rapid atrial flutter rate at 160 Objective: Vital Signs Temp Pulse Resp BP Pulse Ox 37.4 C 88 44 H 104/44 L 98 12/28/16 09:16 12/28/16 09:01 12/28/16 09:01 12/28/16 09:01 12/28/16 08:46 Microbiology 12/24/16 13:40 - Final Sputum, Induced/Suctioned Sputum Culture - Final Anusha Albicans Laboratory Results 12/28/16 03:25 12/28/16 03:25 12/27/16 12/28/16 12/29/16 06:59 06:59 06:59 Intake Total 4183.9 2747.5 Output Total 2520 4704 550 Balance 1663.9 -2037.5 -550 PT 15.4 SEC (12.0-15.0) H 12/28/16 03:25 INR 1.22 (0.83-1.16) H 12/28/16 03:25 - Time Spent With Patient Time Spent with Patient: greater than 35 minutes Time Spent with Patient: Greater than 35 minutes spent on this patients care, greater than 50% of time spent counseling, educating, and coordinating care regarding the above mentioned plan. ICD10 Worksheet Patient Problems: Problems Problem Status Onset Appendiceal tumor Acute
--- NOTE | 2016-12-28 10:37 | SOAPPROG ---
SOAP Progress Note Assessment/Plan: Assessment/Plan: POD#5/8 s/p Renner's and right colectomy from ischemic bowel and appediceal tumor. Ventilator better mechanics CPAP trial 20 in today went well Minimal ostomy output Ostomy viable Incision c/d Abd benign Leucocytosis 20K stable from yesterday U/O >0.5mg/kg/hr (on Lasix gtt) Levophed off Afib stopped post levophed cessation Supportive care Continue Zosyn/Micafungin Start trickle TF start heparin gtt no bolus today 12/28/16 10:37 Objective: Vital Signs Temp Pulse Resp BP Pulse Ox 37.4 C 83 18 101/43 L 95 12/28/16 09:16 12/28/16 10:00 12/28/16 10:00 12/28/16 10:00 12/28/16 10:00 Microbiology 12/24/16 13:40 - Final Sputum, Induced/Suctioned Sputum Culture - Final Anusha Albicans Laboratory Results 12/28/16 03:25 12/28/16 03:25 12/27/16 12/28/16 12/29/16 05:59 05:59 05:59 Intake Total 4183.9 2747.5 Output Total 2520 4785 675 Balance 1663.9 -2037.5 -675 PT 15.4 SEC (12.0-15.0) H 12/28/16 03:25 INR 1.22 (0.83-1.16) H 12/28/16 03:25 ICD10 Worksheet Patient Problems: Problems Problem Status Onset Appendiceal tumor Acute
--- NOTE | 2016-12-28 11:32 | CPEKG ---
Heart Rate: 97 RR Interval: 619 QRSD Interval: 94 QT Interval: 380 QTC Interval: 483 QRS [place]: 36 T Wave [place]: 53 EKG Severity - ABNORMAL ECG - EKG Impression: A-FLUTTER W/ PREDOM 3:1 AV BLOCK, A-RATE 0 Electronically Signed By: Jeremias Ocasio 28-Dec-2016 19:26:57
[2016-12-28] MEDS ORDERED: DIGOXIN 100 MCG/ML AMP *PEDIATRIC IVP ONE (11:42)
[2016-12-28] MEDS ORDERED: DIGOXIN 500 MCG/2 ML AMP IVP ONE (12:00)
[2016-12-28] MEDS: BRIMONIDINE 0.15% 5 ML OPHT.BTL EACHEYE SCH ×2 (12:01→21:38)
--- NOTE | 2016-12-28 14:02 | PDINTPN ---
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 Peritonitis/abdominal sepsis: On Zosyn, Micafungin. Id following. Hypotension. Improving. On and off levo. Back on low-dose Levophed today for lower blood pressures associated with atrial flutter and diltiazem. Acute respiratory failure. Secondary to the above. On ventilator 40%. Starting to tolerate CPAP weans. Has changes on x-ray consistent with aspiration pneumonia and probable volume overload with effusion on the right. Sputum culture negative. No evidence of pulmonary edema. Atrial fibrillation/flutter, off and on. In sinus at times. Off amiodarone. Given 1 dose of metoprolol and digoxin this morning. Cardiology following. Volume overload: Improving output on Lasix drip. Anemia: Acute blood loss plus dilutional. Hematocrit improved at 30. No evidence of active bleeding with full-dose anticoagulation. DVT: Catheter associated right upper extremity. On full-dose heparin, right PICC line left in, also has a nor PICC line on the left.. Metabolic: Hyponatremia resolved. Leukopenia: Resolved. WBC now 20. DVT: Catheter associated on right, On full-dose heparin. Hematocrit stable. No evidence of active bleeding GI prophylaxis: Famotidine. Nutrition: TPN. Can start some trickle feeds with Vivonex. Plan: Continue present care. Continue ventilatory support, CPAP trials. Continue Levophed as needed for episodic lower blood pressures. Continue Lasix drip. Start trickle feeds with pivot today. Vivonex not available yesterday. Reglan if needed. Continue antibiotics per Infectious Disease. Continue antiarrhythmics. Continue heparin drip/full-dose anticoagulation. Follow H/H. Follow laboratory, chest x-ray, blood gas. 50 min of critical care time spent directly with the patient. Discussed with the patient's family, RT, nursing, hospitalist, and the ICU multi disciplinary team. Subjective: Arousable, responsive, able to tolerate CPAP times 40 minutes. Objective: Vital Signs Temp Pulse Resp BP Pulse Ox 37.4 C 76 16 98/39 L 98 12/28/16 09:16 12/28/16 13:38 12/28/16 13:38 12/28/16 13:38 12/28/16 13:38 Microbiology 12/24/16 13:40 - Final Sputum, Induced/Suctioned Sputum Culture - Final Anusha Albicans Laboratory Results 12/28/16 03:25 12/28/16 03:25 12/27/16 12/28/16 12/29/16 05:59 05:59 05:59 Intake Total 4183.9 2747.5 Output Total 2520 4785 1025 Balance 1663.9 -2037.5 -1025 PT 15.4 SEC (12.0-15.0) H 12/28/16 03:25 INR 1.22 (0.83-1.16) H 12/28/16 03:25 Laboratory Tests 12/28/16 12/28/16 03:25 06:25 pCO2 37 pO2 88 H ABG pH 7.39 O2 Concentration % 40 Actual Respiration Rate 16 Tidal Volume 600 PEEP 5 Pressure Support 7 Phosphorus 3.0 D Magnesium 1.6 Total Bilirubin 1.3 AST 25 ALT 27 Albumin 1.8 L CXR: About the same with right basilar greater than left basilar infiltrates. Physical Exam - Physical Exam General Appearance: no apparent distress, other (On ventilator) EENT: PERRL/EOMI, ET tube, other (NG) Neck: normal inspection (No obvious JVD) Respiratory: lungs clear (Anteriorly), decreased breath sounds Cardiac/Chest: other (Today alternating between normal sinus rhythm and atrial flutter with a rapid ventricular response initially. Put on a diltiazem drip. Decreased blood pressure with this, back on low-dose Levophed.) Abdomen: non-tender (Little tenderness at this point), soft (Softer), distended (Less distended), No normal bowel sounds (Rare bowel sounds) Pelvic Exam: other (Landry catheter in place with much better urine output since starting Lasix drip) Skin: warm/dry, pallor Extremities: pedal edema (1+), swelling (Anasarca present) Neuro/Psych: no motor/sensory deficits (Moves all extremities), No cognition abnormalities ICD10 Worksheet Patient Problems: Problems Problem Status Onset Appendiceal tumor Acute
[2016-12-28] MEDS ORDERED: LIDOCAINE 1% 300 MG/30 ML SDV MISC ONE (14:48)
[2016-12-28] MEDS ORDERED: LIDOCAINE 2% JELLY 5 ML TUBE TP ONE (14:48)
[2016-12-28] MEDS: PROPOFOL/EMULSION 100 ML IV SCH ×2 (15:51→19:52)
[2016-12-28] MEDS: HEPARIN/DEXTROSE 500 ML IV SCH (17:37)
[2016-12-28] MEDS: TPN W/ FAMOTIDINE 1 EA BAG IV SCH (19:54)
--- NOTE | 2016-12-28 21:09 | GPN ---
[f rep st] PROCEDURE NOTE DATE OF PROCEDURE: 12/28/2016 PROCEDURE PERFORMED: Therapeutic bronchoscopy. INDICATIONS: Persistent infiltrates in a patient on a ventilator with pneumonia and abdominal sepsis . PROCEDURE NOTE: The procedure was performed in the patient's room in the intensive care unit. Infor med consent was obtained from the family. Appropriate time-out was performed. There was felt to be no risk of any communicable respiratory pathogens that could be aerosolized. N95 masks were not worn . Approximately 10 cc of 1% lidocaine was used for topical airway anesthesia. No additional conscio us sedation was needed, as the patient was on propofol and fentanyl at the time of the procedure. The fiberoptic bronchoscope was advanced via an adaptor on the end of the patient's endotracheal tube and into the distal trachea. There were relatively thick, mucoid secretions in the trachea and in t he mainstem bronchi. These were removed with suction and lavage prior to good visualization of the a irways. Once these were removed, the lower tracheobronchial tree was visualized. All areas were see n to at least the segmental level. There were scattered secretions found bilaterally. These were re moved with suction and lavage. A sputum trap sample was obtained. The patient tolerated the procedure well. There were no complications. Vital signs and oxygen satur ations on the ventilator were stable throughout the procedure. IMPRESSION: Moderate, relatively thick secretions were found and removed with suction and lavage. Thais schmidt were sent. /[id number]/MODL
[2016-12-28] MEDS: TRAVOPROST Z 0.004% 2.5 ML OPHT.BTL EACHEYE SCH (21:38)
[2016-12-28] MEDS: FUROSEMIDE 100 MG in D5W 100 ML IV SCH (21:41)
[2016-12-29] MEDS: INSULIN REGULAR HUMAN 100 UNIT/ML SC SCH ×4 (00:01→17:35)
[2016-12-29] MEDS ORDERED: POTASSIUM Cl (KCl) 50 ML IV ONE ×3 (01:25→18:03)
[2016-12-29] MEDS: LEVALBUTEROL INHALER 200 PUFFS/15 GM MDI IH SCH ×4 (04:33→20:58)
[2016-12-29] MEDS: PIPERACILLIN/TAZO 3.375 GM/DEX 50 ML IV SCH ×3 (06:27→17:35)
[2016-12-29] MEDS ORDERED: MAGNESIUM SULF 1 GM/DEXTROSE 100 ML IV ONE (07:53)
[2016-12-29] MEDS: PROPOFOL/EMULSION 100 ML IV SCH ×2 (08:59→20:20)
[2016-12-29] MEDS: MICAFUNGIN NA 100 MG in NS 100 ML IV SCH (09:15)
--- NOTE | 2016-12-29 09:37 | PCMIDPN ---
Assessment/Plan: # Septic shock due to peritonitis status post ischemic colitis in the left side following right hemicolectomy for appendiceal neoplasm. Peritonitis presumed to be polymicrobial GI keyur with some concern for Anusha. Gradual improvement , with improved hemodynamics and respiratory mechanics on vent. Bowel function has not returned --continue Zosyn and micafungin --duration of antibiotics based on response to therapy and evidence for source control --if persistent leukocytosis and slow to resume bowel function, may need repeat CT scan to eval for abscess # Concern for wound infection with purulent Distal wound drainage and lower abdominal erythema - suspect needs opening. --wound opened by surgery and culture sent medication zosyn 3.375gm IV q6h, #4 micafungin 100mg IV daily, #5 microbiology blood cx 12/24 (2) NGTD sputum cx: anusha Subjective: distal wound drainage started overnight low level pressor requirement persists Objective: Vital Signs Temp Pulse Resp BP Pulse Ox 37.9 C 81 17 99/66 L 100 12/29/16 08:00 12/29/16 09:00 12/29/16 09:00 12/29/16 09:00 12/29/16 09:00 Microbiology 12/28/16 16:30 Gram Stain - Final Lung Right Lower Lobe - Bronchial Washings Laboratory Results 12/28/16 03:25 12/29/16 05:25 12/28/16 12/29/16 12/30/16 05:59 05:59 05:59 Intake Total 2747.5 4649.8 Output Total 4785 4380 730 Balance -2037.5 269.8 -730 General Appearance: Sedated, intubated but eyes open to verbal stimulation EENT: pale conjunctiva, ET Tube, NG Tube, No scleral icterus, No thrush Respiratory: coarse breath sounds, No accessory muscle use Neck: supple Cardiac/Chest: regular rate, rhythm Extremities: anasarca Abdomen: soft, midline incision with purulent drainage distally and erythema over lower part of abdomen/inguinal area; L sided ostomy pink, no output Pelvic Exam: bishop Skin: pallor, No rash RUE PICC No drainage, No erythema LUE PICC No drainage, No erythema ICD10 Worksheet Patient Problems: Problems Problem Status Onset Appendiceal tumor Acute
[2016-12-29 10:59] LABS: PLATELET COUNT 190 10^3/uL (150-400)
[2016-12-29] MEDS: HEPARIN/DEXTROSE 500 ML IV SCH (11:02)
[2016-12-29] MEDS: BRIMONIDINE 0.15% 5 ML OPHT.BTL EACHEYE SCH ×2 (12:12→21:36)
--- NOTE | 2016-12-29 12:57 | SOAPPROG ---
SOAP Progress Note Assessment/Plan: Assessment/Plan: POD#6/9 s/p Renner's and right colectomy from ischemic bowel and appendiceal tumor. Ventilator better mechanics CPAP trials CXR better today Minimal ostomy output Ostomy viable Incision inferior drainage. dependent edema Wound opened cx sent Leucocytosis 20K stable from yesterday U/O >0.5mg/kg/hr (on Lasix gtt) Levophed back on Supportive care Continue Zosyn/Micafungin Started trickle TF heparin gtt at goal CT tomorrow with full feeds oral contrast 12/28/16 10:37 12/29/16 12:49 Objective: Vital Signs Temp Pulse Resp BP Pulse Ox 37.6 C 78 16 90/42 L 96 12/29/16 12:00 12/29/16 12:00 12/29/16 12:00 12/29/16 12:00 12/29/16 12:00 Microbiology 12/28/16 16:30 Gram Stain - Final Lung Right Lower Lobe - Bronchial Washings Laboratory Results 12/29/16 10:50 12/29/16 10:50 12/28/16 12/29/16 12/30/16 05:59 05:59 05:59 Intake Total 2747.5 4649.8 Output Total 4785 4380 930 Balance -2037.5 269.8 -930 PT 15.4 SEC (12.0-15.0) H 12/28/16 03:25 INR 1.22 (0.83-1.16) H 12/28/16 03:25 ICD10 Worksheet Patient Problems: Problems Problem Status Onset Appendiceal tumor Acute
--- NOTE | 2016-12-29 14:07 | PDINTPN ---
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 Peritonitis/abdominal sepsis: On Zosyn, Micafungin. Id following. Possible infection in the lower aspect of the wound. Opened, per surgery. Hypotension. Improving. On and off levo.. Acute respiratory failure. Day 6 on ventilator. Secondary to the above. On ventilator 40%. Tolerating longer CPAP weans. CXR improving, consistent with aspiration pneumonia and probable volume overload with effusion on the right. Sputum culture negative. No evidence of pulmonary edema. Status post therapeutic bronchoscopy 12/28. Culture negative to date, NOS. Atrial fibrillation/flutter, off and on. In sinus at times. Off amiodarone. Off diltiazem. Cardiology following. Volume overload: Improving output on Lasix drip. Weight down 4 kg over the last several days but still 10 kg up compared with baseline weight. Anemia: Acute blood loss plus dilutional. Hematocrit 23, down today. No evidence of active obvious bleeding but she is on full-dose anticoagulation. For repeat H&H this afternoon. DVT: Catheter associated right upper extremity. On full-dose heparin, right PICC line left in, also has a nor PICC line on the left. Metabolic: Hyponatremia resolved. Leukopenia: Resolved. WBC now 20, remains high possibly secondary to ongoing abdominal inflammation/infection. DVT: Catheter associated on right, On full-dose heparin. Hematocrit stable. No evidence of active bleeding GI prophylaxis: Famotidine. Nutrition: TPN plus trickle feeds per NG. However had large residuals this morning.. Plan: Continue present care. Continue ventilatory support, advance CPAP trials. Continue Levophed if needed for episodic lower blood pressures. Continue Lasix drip. Continue trickle feeds, will add Reglan. Continue antibiotics per Infectious Disease. Surgery has opened the lower part of the incision, sent culture. Follow chest x-ray, blood gas and laboratory. Hope to extubate in the next several days. I do not think she will need a tracheostomy. 40 min of critical care time spent directly with the patient. Discussed with the patient's family, RT, nursing, hospitalist, and the ICU multi disciplinary team. Subjective: Sedated but arouses. Tolerating longer CPAP trials. Objective: Vital Signs Temp Pulse Resp BP Pulse Ox 37.7 C 73 16 111/42 L 98 12/29/16 13:00 12/29/16 13:00 12/29/16 13:00 12/29/16 13:00 12/29/16 13:00 Microbiology 12/28/16 16:30 Gram Stain - Final Lung Right Lower Lobe - Bronchial Washings Laboratory Results 12/29/16 10:50 12/29/16 10:50 12/28/16 12/29/16 12/30/16 05:59 05:59 05:59 Intake Total 2747.5 4649.8 73 Output Total 4785 4380 1050 Balance -2037.5 269.8 -977 PT 15.4 SEC (12.0-15.0) H 12/28/16 03:25 INR 1.22 (0.83-1.16) H 12/28/16 03:25 Laboratory Tests 12/29/16 12/29/16 12/29/16 05:25 05:42 10:50 Heparin Anti-Xa, Unfract 0.35 pCO2 46 H pO2 75 Total CO2 28 H ABG pH 7.39 O2 Concentration % 40 Actual Respiration Rate 36 PEEP 5 Pressure Support 7 CPAP YES Calcium 7.2 L Total Bilirubin 1.5 H AST 33 ALT 32 Albumin 1.9 L CXR: Improving bibasilar infiltrates/atelectasis/effusions, right greater than left. Lines and tubes in acceptable position. Physical Exam - Physical Exam General Appearance: no apparent distress, other (Sedated, arouses) EENT: PERRL/EOMI, ET tube, other (NG) Neck: normal inspection (No obvious JVD) Respiratory: lungs clear (Anteriorly), decreased breath sounds (At bases), rales (Few), No rhonchi, No wheezing Cardiac/Chest: regular rate, rhythm Abdomen: non-tender, soft, other (Surgical incision with some drainage at the lower aspect: Serous comma brownish. Colostomy with only a small amount of stool.), No normal bowel sounds (Decreased, some present) Pelvic Exam: other (Landry catheter in place. Good urine output. Output greater than input on Lasix drip.) Extremities: pedal edema, swelling (Improving. Weight down 4 kg compared with the last few days however still up 10 kg overall.) Neuro/Psych: no motor/sensory deficits (Moves all extremities equally), No cognition abnormalities (Responsive and appropriate at times with sedation less. ) ICD10 Worksheet Patient Problems: Problems Problem Status Onset Appendiceal tumor Acute
--- NOTE | 2016-12-29 17:13 | HOSPPROG ---
Hospitalist Progress Note Assessment/Plan: DIAGNOSES: * Septic shock due to peritonitis -remains on levophed -IV Zosyn + IV micafungin * Colon perf (ischemic colitis) s/p colostomy/washout -some ileus remains * Acute respiratory failure s/p intubation -remains mech vent dependent -planned bronchoscopy today to assess secretions * Aspiration PNA -witnessed aspiration event prior to OR * Afib - had been sinus initially this am but went back on rapid AFib; is not currently on amiodarone -on IV heparin at this time * Cancer of appendix s/p laparoscopic hemicolectomy * Volume overload ez to resuscitation -IV lasix gtt * PICC line associated DVT -IV heparin at present * Pancytopenia - suspect due to sepsis - resolving * Etoh - no evidence for withdrawal * Essential tremor -holding propranolol due to hypotension * Hyponatremia, now resolved -given acuity of drop and recovery suspect low risk PLANS: at this time remains on vent, pressor, continue attempts to wean from both not yet tolerating tube feeds but will continue diuresis and attempts to get tube feeds going continue current antibx, antifungal skin care will give some digoxin now, and depending on BP/pressor will consider some dilt or BB DVT/AFib treatment currently hep drip, may change to lovenox reviewed with Hong Anthony also seen on multidisc rounds SUBJECTIVE: on vent, unable to communicate has tolerated a 2hour trial of cpap on vent today still dependent on pressor for BPs making ok urine has been having significant residuals w attempts at trickling NG feed OBJECTIVE: vitals: no fever, bps requiring pressor support, 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: Initially sinus rhythm this morning but subsequently has now developed rapid atrial flutter exam: on vent, partly sedated vent pressures and volumes good, tube secured central line looks good skin warm dry, good cap refill still w quite a bit of diffuse edema resps per vent lungs clear heart reg abd soft CXR, my reading: slight decrease in infiltrates Objective: Vital Signs Temp Pulse Resp BP Pulse Ox 36.8 C 80 16 94/37 L 98 12/29/16 16:00 12/29/16 17:00 12/29/16 17:00 12/29/16 17:00 12/29/16 17:00 Microbiology 12/28/16 16:30 Gram Stain - Final Lung Right Lower Lobe - Bronchial Washings Laboratory Results 12/29/16 10:50 12/29/16 10:50 12/28/16 12/29/16 12/30/16 06:59 06:59 06:59 Intake Total 2747.5 4649.8 73 Output Total 4785 4380 1370 Balance -2037.5 269.8 -1297 PT 15.4 SEC (12.0-15.0) H 12/28/16 03:25 INR 1.22 (0.83-1.16) H 12/28/16 03:25 - Time Spent With Patient Time Spent with Patient: greater than 35 minutes Time Spent with Patient: Greater than 35 minutes spent on this patients care, greater than 50% of time spent counseling, educating, and coordinating care regarding the above mentioned plan. ICD10 Worksheet Patient Problems: Problems Problem Status Onset Appendiceal tumor Acute
[2016-12-29] MEDS: METOCLOPRAMIDE 10 MG/2 ML VIAL IVP SCH (17:34)
[2016-12-29] MEDS: TPN W/ FAMOTIDINE 1 EA BAG IV SCH (20:20)
[2016-12-29] MEDS: fentaNYL/NACL 100 ML IV SCH (20:21)
[2016-12-29] MEDS: TRAVOPROST Z 0.004% 2.5 ML OPHT.BTL EACHEYE SCH (21:36)
[2016-12-30] MEDS: METOCLOPRAMIDE 10 MG/2 ML VIAL IVP SCH ×5 (00:15→23:54)
[2016-12-30] MEDS: PIPERACILLIN/TAZO 3.375 GM/DEX 50 ML IV SCH ×5 (00:15→23:54)
[2016-12-30] MEDS: NOREPINEPHRINE BITARTRATE 16 MG in NS 250 ML IV SCH (00:15)
[2016-12-30] MEDS: INSULIN REGULAR HUMAN 100 UNIT/ML SC SCH ×5 (00:26→23:56)
[2016-12-30] MEDS: HEPARIN/DEXTROSE 500 ML IV SCH ×2 (02:06→21:21)
[2016-12-30] MEDS: LEVALBUTEROL INHALER 200 PUFFS/15 GM MDI IH SCH ×4 (05:32→20:30)
[2016-12-30] MEDS: FUROSEMIDE 100 MG in D5W 100 ML IV SCH (05:36)
[2016-12-30 05:50] LABS: PLATELET COUNT 253 10^3/uL (150-400)
[2016-12-30 06:01] LABS: INR 1.37 (0.83-1.16); PROTIME(PATIENT) 16.9 SEC (12.0-15.0)
--- NOTE | 2016-12-30 07:37 | PDINTPN ---
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 Id following. Possible infection in the lower aspect of the wound. Opened, per surgery. * Hypotension. Improving. On and off levo.. * Acute respiratory failure. Day 7 on ventilator. Secondary to the above. On ventilator 40%. Tolerating longer CPAP weans. Chest x-ray pending. -not ready for extubation at this time * Atrial fibrillation/flutter, off and on. In sinus at times. Off amiodarone. Off diltiazem. Cardiology following. * Volume overload: Improving output on Lasix drip. Weight down 4 kg over the last several days but still 10 kg up compared with baseline weight. * Anemia: Acute blood loss plus dilutional. Transfused last night -follow * DVT: Catheter associated right upper extremity. On full-dose heparin, right PICC line left in, also has a nor PICC line on the left. * Metabolic: Stable * Leukopenia: Resolved. WBC now 20, remains high possibly secondary to ongoing abdominal inflammation/infection. * DVT: Catheter associated on right, On full-dose heparin. Hematocrit stable. No evidence of active bleeding * GI prophylaxis: Famotidine. * Nutrition: TPN plus trickle feeds per NG. However had large residuals this morning.. 35 minutes of critical care time spent with patient. Case discussed with Nursing and RT Subjective: Sedated on mechanical ventilation. Objective: Vital Signs Temp Pulse Resp BP Pulse Ox 36.7 C 61 16 124/52 H 98 12/30/16 04:00 12/30/16 07:00 12/30/16 07:00 12/30/16 07:00 12/30/16 07:00 Microbiology 12/29/16 12:45 Gram Stain - Final Abdomen - Aspirate 12/28/16 16:30 Gram Stain - Final Lung Right Lower Lobe - Bronchial Washings Laboratory Results 12/30/16 05:40 12/29/16 12/30/16 12/31/16 05:59 05:59 05:59 Intake Total 4649.8 2704 Output Total 4380 4195 Balance 269.8 -1491 PT 16.9 SEC (12.0-15.0) H 12/30/16 05:40 INR 1.37 (0.83-1.16) H 12/30/16 05:40 - Time Spent With Patient Time Spent With Patient: 35 minutes of critical care time spent with patient Physical Exam - Physical Exam General Appearance: no apparent distress, No alert EENT: PERRL/EOMI, ET tube Neck: non-tender, full range of motion Respiratory: crackles (Few basilar), No respiratory distress, No rhonchi Cardiac/Chest: normal peripheral pulses, regular rate, rhythm, systolic murmur Peripheral Pulses: 2+: carotid (R), carotid (L), femoral (R), femoral (L), dorsalis-pedis (R), dorsalis-pedis (L) Abdomen: distended, No normal bowel sounds, No non-tender Pelvic Exam: deferred Rectal: deferred Skin: normal color, warm/dry Neuro/Psych: other (Sedated), No alert ICD10 Worksheet Patient Problems: Problems Problem Status Onset Appendiceal tumor Acute
[2016-12-30] MEDS ORDERED: POTASSIUM Cl (KCl) 100 ML IV ONE (09:22)
[2016-12-30] MEDS: MICAFUNGIN NA 100 MG in NS 100 ML IV SCH (09:29)
[2016-12-30] MEDS: BRIMONIDINE 0.15% 5 ML OPHT.BTL EACHEYE SCH ×2 (09:30→21:03)
[2016-12-30] MEDS: PROPOFOL/EMULSION 100 ML IV SCH ×2 (10:00→20:27)
[2016-12-30] MEDS: ASPIRIN 81 MG CHEWABLE TAB TUBE SCH (10:30)
--- NOTE | 2016-12-30 12:29 | ASMTCMCOM ---
CM Note CM Note Notes: Patient doing c-pap trials today, NG to suction, to get a CT Scan of abdomen. Sister asked if she would like to attend a "Family Meeting"? She said that a Family Meeting might be better Friday, she would like to get some rest today. Date Signed: 12/30/2016 12:29 PM Electronically Signed By:Ewa Oliver LCSW
[2016-12-30] MEDS ORDERED: IOPAMIDOL (ISOVUE-300) 100 ML BTL ONE (13:25)
[2016-12-30] MEDS ORDERED: POTASSIUM Cl (KCl) 50 ML IV ONE ×2 (15:02→20:00)
[2016-12-30] MEDS: fentaNYL/NACL 100 ML IV SCH (15:27)
[2016-12-30] MEDS: HEPARIN 10,000 UNIT/10 ML MDV IVP PRN (15:57)
--- NOTE | 2016-12-30 16:50 | SOAPPROG ---
SOAP Progress Note Assessment/Plan: Assessment/Plan: POD#7/10 s/p Renner's and right colectomy from ischemic bowel and appendiceal tumor. Ventilator better mechanics CPAP trials CT pelvic collection without air. rectal contrast not extravasated Some ostomy output brown stool Ostomy viable Incision inferior drainage. dependent edema Wound opened cx sent minimal seropurulent drainage gm + rods on gm stain Leucocytosis 18K stable from yesterday U/O >0.5mg/kg/hr (on Lasix gtt) Levophed back on Anemia treated with transfusion to aid with vent wean and hemodynamic support Supportive care Continue Zosyn/Micafungin Started trickle TF heparin gtt at goal CT guided drainage of pelvic collection 12/28/16 10:37 12/29/16 12:49 12/30/16 16:47 Objective: Vital Signs Temp Pulse Resp BP Pulse Ox 36.8 C 66 16 88/33 L 99 12/30/16 16:00 12/30/16 16:00 12/30/16 16:00 12/30/16 16:00 12/30/16 16:00 Microbiology 12/28/16 16:30 Gram Stain - Final Lung Right Lower Lobe - Bronchial Washings 12/29/16 12:45 Gram Stain - Final Abdomen - Aspirate 12/24/16 15:30 Blood Culture - Final Blood 12/24/16 13:18 Blood Culture - Final Blood Laboratory Results 12/30/16 05:40 12/30/16 14:20 12/29/16 12/30/16 12/31/16 05:59 05:59 05:59 Intake Total 4649.8 2704 Output Total 4380 4195 1015 Balance 269.8 -1491 -1015 PT 16.9 SEC (12.0-15.0) H 12/30/16 05:40 INR 1.37 (0.83-1.16) H 12/30/16 05:40 ICD10 Worksheet Patient Problems: Problems Problem Status Onset Appendiceal tumor Acute
--- NOTE | 2016-12-30 17:38 | PCMIDPN ---
Assessment/Plan: Assessment: Septic shock-peritonitis status post ischemic colitis in the left side following right hemicolectomy for appendiceal neoplasm. Currently covered on both Zosyn and micafungin. White blood cell count continues to be elevated. Obtained abdominal pelvic CT scan which showed pelvic collection posterior to the rectal stump. Discussed with Dr. Mccracken in surgery. Will arrange for interventional Radiology to drain probably tomorrow. Plan: 1. Continue Zosyn and micafungin. 2. Arrange for IR drainage. 3. Follow up lab values most notably leukocytosis. Subjective: Patient remains intubated and sedated. Family is at bedside. No new changes. Continues to need a small amount of Levophed for pressure support Objective: Zosyn # 5 Micafungin # 6 Vital Signs Temp Pulse Resp BP Pulse Ox 36.8 C 66 16 88/33 L 99 12/30/16 16:00 12/30/16 16:00 12/30/16 16:00 12/30/16 16:00 12/30/16 16:00 Microbiology 12/28/16 16:30 Gram Stain - Final Lung Right Lower Lobe - Bronchial Washings 12/29/16 12:45 Gram Stain - Final Abdomen - Aspirate 12/24/16 15:30 Blood Culture - Final Blood 12/24/16 13:18 Blood Culture - Final Blood Laboratory Results 12/30/16 05:40 12/30/16 14:20 12/29/16 12/30/16 12/31/16 05:59 05:59 05:59 Intake Total 4649.8 2704 Output Total 4383 0119 1015 Balance 269.8 -1491 -1015 - Physical Exam General Appearance: WD/WN, alert, no apparent distress, non-toxic Respiratory: lungs clear, normal breath sounds, No respiratory distress Cardiac/Chest: regular rate, rhythm, No tachycardia Extremities: non-tender, normal inspection Skin: normal color, warm/dry, No rash ICD10 Worksheet Patient Problems: Problems Problem Status Onset Appendiceal tumor Acute
--- NOTE | 2016-12-30 17:47 | HOSPPROG ---
Hospitalist Progress Note Assessment/Plan: DIAGNOSES: * Septic shock due to peritonitis -remains on levophed -IV Zosyn + IV micafungin * Colon perf (ischemic colitis) s/p colostomy/washout -some ileus remains * Acute respiratory failure s/p intubation -remains mech vent dependent -planned bronchoscopy today to assess secretions * Aspiration PNA -witnessed aspiration event prior to OR * Afib - had been sinus initially this am but went back on rapid AFib; is not currently on amiodarone -on IV heparin at this time * Cancer of appendix s/p laparoscopic hemicolectomy * Volume overload ez to resuscitation -IV lasix gtt * PICC line associated DVT -IV heparin at present * Pancytopenia - suspect due to sepsis - resolving * Etoh - no evidence for withdrawal * Essential tremor -holding propranolol due to hypotension * Hyponatremia, now resolved -given acuity of drop and recovery suspect low risk PLANS: -CT scan of abdomen today to assess for any intraabd infection or other issues -at this time remains on vent, pressor, continue attempts to wean from both -not yet tolerating tube feeds so these stopped; continue tpn -continue current antibx, antifungal -skin care DVT/AFib treatment currently hep drip reviewed with Drs Vandana, Tree, and Harsha also seen on multidisc rounds SUBJECTIVE: on vent, unable to communicate again doing well w intermittent cpap still dependent on pressor for BPs making ok urine again last tennille had significant residuals w attempts at trickling NG feed OBJECTIVE: vitals: no fever, bps requiring pressor support, resps per vent pipe line repairer: atrial flutter exam: on vent, partly sedated vent pressures and volumes good, tube secured central line looks good skin warm dry, good cap refill still w quite a bit of diffuse edema resps per vent lungs clear heart reg abd soft Objective: Vital Signs Temp Pulse Resp BP Pulse Ox 36.8 C 66 16 88/33 L 99 12/30/16 16:00 12/30/16 16:00 12/30/16 16:00 12/30/16 16:00 12/30/16 16:00 Microbiology 12/28/16 16:30 Gram Stain - Final Lung Right Lower Lobe - Bronchial Washings 12/29/16 12:45 Gram Stain - Final Abdomen - Aspirate 12/24/16 15:30 Blood Culture - Final Blood 12/24/16 13:18 Blood Culture - Final Blood Laboratory Results 12/30/16 05:40 12/30/16 14:20 12/29/16 12/30/16 12/31/16 06:59 06:59 06:59 Intake Total 4649.8 2704 Output Total 4380 4195 1015 Balance 269.8 -1491 -1015 PT 16.9 SEC (12.0-15.0) H 12/30/16 05:40 INR 1.37 (0.83-1.16) H 12/30/16 05:40 - Time Spent With Patient Time Spent with Patient: greater than 35 minutes Time Spent with Patient: Greater than 35 minutes spent on this patients care, greater than 50% of time spent counseling, educating, and coordinating care regarding the above mentioned plan. ICD10 Worksheet Patient Problems: Problems Problem Status Onset Appendiceal tumor Acute
[2016-12-30] MEDS: TRAVOPROST Z 0.004% 2.5 ML OPHT.BTL EACHEYE SCH (21:02)
[2016-12-30] MEDS: TPN W/ FAMOTIDINE 1 EA BAG IV SCH (21:03)
[2016-12-31] MEDS: NOREPINEPHRINE BITARTRATE 16 MG in NS 250 ML IV SCH (00:18)
[2016-12-31] MEDS: LEVALBUTEROL INHALER 200 PUFFS/15 GM MDI IH SCH ×4 (04:15→20:45)
[2016-12-31] MEDS: FUROSEMIDE 100 MG in D5W 100 ML IV SCH (04:24)
[2016-12-31] MEDS: PIPERACILLIN/TAZO 3.375 GM/DEX 50 ML IV SCH ×4 (05:47→23:37)
[2016-12-31] MEDS: INSULIN REGULAR HUMAN 100 UNIT/ML SC SCH ×4 (05:47→23:43)
[2016-12-31] MEDS: METOCLOPRAMIDE 10 MG/2 ML VIAL IVP SCH ×4 (05:47→23:37)
[2016-12-31] MEDS: PROPOFOL/EMULSION 100 ML IV SCH ×2 (06:20→20:44)
[2016-12-31] MEDS: fentaNYL/NACL 100 ML IV SCH ×2 (06:20→20:44)
--- NOTE | 2016-12-31 08:50 | PDINTPN ---
Glass Science Engineer Progress Note Assessment/Plan: Assessment/Plan: * Peritonitis/abdominal sepsis: On Zosyn, Micafungin. Id following. Possible infection in the lower aspect of the wound. A CT scan of abdomen pelvis reveals small anterior abdominal fluid pocket, small amount of free fluid in the right mid abdomen. -to IR for drainage. * Hypotension. Improving. Off Levophed * Acute respiratory failure. Day 8 on ventilator. Secondary to the above. On ventilator 40%. Tolerating longer CPAP weans. Chest x-ray pending. -will assess for extubation with CPAP trial and weaning parameters once patient returns from Interventional Radiology. * Atrial fibrillation/flutter, off and on. In sinus at times. Off amiodarone. Off diltiazem. Cardiology following. * Volume overload: Improving output on Lasix drip. Weight down and chest x- ray improved * Anemia: Acute blood loss plus dilutional. -follow * DVT: Catheter associated right upper extremity. On full-dose heparin, right PICC line left in, also has a nor PICC line on the left. * Metabolic: Stable * Leukopenia: Resolved. WBC now 20, remains high possibly secondary to ongoing abdominal inflammation/infection. * DVT: Catheter associated on right, On full-dose heparin. Hematocrit stable. No evidence of active bleeding * GI prophylaxis: Famotidine. * Nutrition: TPN plus trickle feeds per NG. However had large residuals this morning.. 40 minutes of critical care time spent with patient. Case discussed with Nursing and RT and Subjective: Sitting up in chair. Appears somewhat uncomfortable. However she is breathing comfortably on the ventilator Objective: Vital Signs Temp Pulse Resp BP Pulse Ox 37.3 C 88 27 H 102/50 L 96 12/31/16 07:00 12/31/16 07:00 12/31/16 07:00 12/31/16 07:00 12/31/16 07:00 Microbiology 12/28/16 16:30 Gram Stain - Final Lung Right Lower Lobe - Bronchial Washings Bronchial Washings Culture - Final Anusha Albicans 12/29/16 12:45 Gram Stain - Final Abdomen - Aspirate 12/24/16 15:30 Blood Culture - Final Blood 12/24/16 13:18 Blood Culture - Final Blood Laboratory Results 12/31/16 05:45 12/30/16 12/31/16 01/01/17 05:59 05:59 05:59 Intake Total 2704 2267 Output Total 4192 3465 Balance -1491 -1198 PT 16.9 SEC (12.0-15.0) H 12/30/16 05:40 INR 1.37 (0.83-1.16) H 12/30/16 05:40 Laboratory Results 12/31/16 05:45 12/28/16 16:30 Gram Stain - Final Lung Right Lower Lobe - Bronchial Washings Bronchial Washings Culture - Final Anusha Albicans Chest [id number] by myself. Endotracheal tube is in good position. Left- sided PICC line in good position. Lung west appear clear with reduced pulmonary edema. - Time Spent With Patient Time Spent With Patient: 40 minutes of critical care time spent with patient Physical Exam - Physical Exam General Appearance: alert, mild distress EENT: PERRL/EOMI, ET tube Neck: non-tender, full range of motion Respiratory: crackles (Few basilar), No normal breath sounds, No respiratory distress, No accessory muscle use Cardiac/Chest: normal peripheral pulses, regular rate, rhythm, systolic murmur Peripheral Pulses: 2+: carotid (R), carotid (L), femoral (R), femoral (L), dorsalis-pedis (R), dorsalis-pedis (L) Abdomen: soft, No normal bowel sounds, No non-tender Pelvic Exam: deferred Rectal: deferred Skin: normal color, warm/dry Extremities: non-tender Neuro/Psych: alert ICD10 Worksheet Patient Problems: Problems Problem Status Onset Appendiceal tumor Acute
[2016-12-31] MEDS ORDERED: POTASSIUM Cl (KCl) 50 ML IV ONE (09:07)
[2016-12-31] MEDS: ASPIRIN 81 MG CHEWABLE TAB TUBE SCH (09:13)
[2016-12-31] MEDS: BRIMONIDINE 0.15% 5 ML OPHT.BTL EACHEYE SCH ×2 (09:14→20:45)
[2016-12-31] MEDS: MICAFUNGIN NA 100 MG in NS 100 ML IV SCH (09:14)
--- NOTE | 2016-12-31 09:43 | PCMIDPN ---
Assessment/Plan: Assessment/Plan: 1. Sepsis secondary to peritonitis/left ischemic colitis: - s/p ileostomy -Recent Ct abd reviewed. two collection posterior and anterior. For IR drainage of posterior drainage. Will order cultures to be sent to reevaluate culture data and ensure no adjustment are necessary. -wbc remains elevated, fluctuating. intermittent low grade temps. -gaps in coverage include mrsa, dosing for pseudomonas -care coordinated with Rn -care coordinated with medical billing service Micro: 12/24: blood cx ngtd 12/29: abdominal wound cx: 1+ GPR on GS, culture with ngtd Meds zosyn 3.375mg q6-12/25/16 micafungin 100mg daily- 12/25/16 -TPN s/p cefoxitin 3 bas 12/20-12/21 invanz 12/23-12/25 Subjective: Remains in icu, intubated, lightly sedated. on small amount of pressors. opens eyes and nods to questions. Denies abd pain. bishop. Objective: Vital Signs Temp Pulse Resp BP Pulse Ox 37.3 C 71 16 97/40 L 98 12/31/16 07:00 12/31/16 09:00 12/31/16 09:00 12/31/16 09:00 12/31/16 09:00 Microbiology 12/28/16 16:30 Gram Stain - Final Lung Right Lower Lobe - Bronchial Washings Bronchial Washings Culture - Final Anusha Albicans 12/29/16 12:45 Gram Stain - Final Abdomen - Aspirate 12/24/16 15:30 Blood Culture - Final Blood 12/24/16 13:18 Blood Culture - Final Blood Laboratory Results 12/31/16 05:45 12/31/16 08:15 12/30/16 12/31/16 01/01/17 05:59 05:59 05:59 Intake Total 7253 3409 Output Total 4850 2384 Balance -1491 -6108 - Physical Exam General Appearance: alert, no apparent distress EENT: ET Tube Respiratory: lungs clear Cardiac/Chest: regular rate, rhythm Extremities: No swelling Abdomen: normal bowel sounds, non-tender, soft, distended (mild), other ( incision site with serous drainage noted. mild erythema on edges, patchy. mild foul smell ) Skin: erythema (see below) ICD10 Worksheet Patient Problems: Problems Problem Status Onset Appendiceal tumor Acute
--- NOTE | 2016-12-31 09:43 | PCMIDPN ---
Assessment/Plan: Assessment/Plan: 1. Sepsis secondary to peritonitis/left ischemic colitis: - s/p ileostomy -Recent Ct abd reviewed. two collection posterior and anterior. For IR drainage of posterior drainage. Will order cultures to be sent to reevaluate culture data and ensure no adjustment are necessary. -wbc remains elevated, fluctuating. intermittent low grade temps. -gaps in coverage include mrsa, dosing for pseudomonas -care coordinated with Rn -care coordinated with dry roller Micro: 12/24: blood cx ngtd 12/29: abdominal wound cx: 1+ GPR on GS, culture with ngtd Meds zosyn 3.375mg q6-12/25/16 micafungin 100mg daily- 12/25/16 -TPN s/p cefoxitin 3 bas 12/20-12/21 invanz 12/23-12/25 Subjective: Remains in icu, intubated, lightly sedated. on small amount of pressors. opens eyes and nods to questions. Denies abd pain. bishop. Objective: Vital Signs Temp Pulse Resp BP Pulse Ox 37.3 C 71 16 97/40 L 98 12/31/16 07:00 12/31/16 09:00 12/31/16 09:00 12/31/16 09:00 12/31/16 09:00 Microbiology 12/28/16 16:30 Gram Stain - Final Lung Right Lower Lobe - Bronchial Washings Bronchial Washings Culture - Final Anusha Albicans 12/29/16 12:45 Gram Stain - Final Abdomen - Aspirate 12/24/16 15:30 Blood Culture - Final Blood 12/24/16 13:18 Blood Culture - Final Blood Laboratory Results 12/31/16 05:45 12/31/16 08:15 12/30/16 12/31/16 01/01/17 05:59 05:59 05:59 Intake Total 3572 1365 Output Total 8170 2504 Balance -1491 -0108 - Physical Exam General Appearance: alert, no apparent distress EENT: ET Tube Respiratory: lungs clear Cardiac/Chest: regular rate, rhythm Extremities: No swelling Abdomen: normal bowel sounds, non-tender, soft, distended (mild), other ( incision site with serous drainage noted. mild erythema on edges, patchy. mild foul smell ) Skin: erythema (see below) ICD10 Worksheet Patient Problems: Problems Problem Status Onset Appendiceal tumor Acute
--- NOTE | 2016-12-31 09:43 | PCMIDPN ---
Assessment/Plan: Assessment/Plan: 1. Sepsis secondary to peritonitis/left ischemic colitis: - s/p ileostomy -Recent Ct abd reviewed. two collection posterior and anterior. For IR drainage of posterior drainage. Will order cultures to be sent to reevaluate culture data and ensure no adjustment are necessary. -wbc remains elevated, fluctuating. intermittent low grade temps. -gaps in coverage include mrsa, dosing for pseudomonas -care coordinated with Rn -care coordinated with special education administrator Micro: 12/24: blood cx ngtd 12/29: abdominal wound cx: 1+ GPR on GS, culture with ngtd Meds zosyn 3.375mg q6-12/25/16 micafungin 100mg daily- 12/25/16 -TPN s/p cefoxitin 3 bas 12/20-12/21 invanz 12/23-12/25 Subjective: Remains in icu, intubated, lightly sedated. on small amount of pressors. opens eyes and nods to questions. Denies abd pain. bishop. Objective: Vital Signs Temp Pulse Resp BP Pulse Ox 37.3 C 71 16 97/40 L 98 12/31/16 07:00 12/31/16 09:00 12/31/16 09:00 12/31/16 09:00 12/31/16 09:00 Microbiology 12/28/16 16:30 Gram Stain - Final Lung Right Lower Lobe - Bronchial Washings Bronchial Washings Culture - Final Anusha Albicans 12/29/16 12:45 Gram Stain - Final Abdomen - Aspirate 12/24/16 15:30 Blood Culture - Final Blood 12/24/16 13:18 Blood Culture - Final Blood Laboratory Results 12/31/16 05:45 12/31/16 08:15 12/30/16 12/31/16 01/01/17 05:59 05:59 05:59 Intake Total 9101 1450 Output Total 1380 9903 Balance -1491 -4178 - Physical Exam General Appearance: alert, no apparent distress EENT: ET Tube Respiratory: lungs clear Cardiac/Chest: regular rate, rhythm Extremities: No swelling Abdomen: normal bowel sounds, non-tender, soft, distended (mild), other ( incision site with serous drainage noted. mild erythema on edges, patchy. mild foul smell ) Skin: erythema (see below) ICD10 Worksheet Patient Problems: Problems Problem Status Onset Appendiceal tumor Acute
[2016-12-31] MEDS ORDERED: ATROPINE SULFATE 1 MG/10 ML SYR ONE (13:04)
--- NOTE | 2016-12-31 14:04 | CPEKG ---
Heart Rate: 86 RR Interval: 698 P-R Interval: 160 QRSD Interval: 88 QT Interval: 356 QTC Interval: 426 P [place]: 37 QRS [place]: 48 T Wave [place]: 45 EKG Severity - NORMAL ECG - EKG Impression: SINUS RHYTHM EKG Impression: Possible left atrial abnormality EKG Impression: Some artifact EKG Impression: Resolution of atrial flutter since December 28, 2016 Electronically Signed By: David Mirza 31-Dec-2016 19:39:56
--- NOTE | 2016-12-31 14:47 | PDCARPN ---
Cardiology Progress Note Assessment/Plan: Called to see patient in the ICU after a Code Blue but in the CT scanner. She is an 86-year-old woman admitted for elective resection of appendiceal tumor. Postop course has been complicated by ischemic bowel and peritonitis. She was seen by the cardiology service earlier in her hospital stay for postoperative atrial fibrillation. Sinus rhythm was restored using intravenous amiodarone. She has not had any recurrent atrial fibrillation. She has no prior cardiac history. She does have issues of hypertension and hyperlipidemia. She was seen in our office by Dr. Stone for preoperative assessment prior to her surgery. She did not report any symptoms suggestive of angina, CHF, or arrhythmias. She was cleared for surgery on clinical grounds. Today, she was taken to the CT scanner for a study to assess her intra- abdominal fluid collections. She had been transferred from the stretcher to the CT table. As she was being placed supine, she was reported to have an asystolic event. She was pulseless and apneic. Immediate CPR was initiated and she received intravenous atropine. In less than 2 minutes, she had normal sinus rhythm with a good pulse. She is now in the ICU. Heart rate is in the 80s with a blood pressure of approximately 120 systolic. The nursing staff reports that she had some issues with bradycardia earlier today when her propofol was increased in anticipation of her trip to the CT scanner. In fact, atropine was taken preemptively with her to radiology. Unfortunately, her ICU telemetry does not allow for continuous data collection while she is off the unit. I reviewed her ICU telemetry full disclosure prior to and subsequent to the event in question. No significant arrhythmias identified. At the time I was assessing her , she was having a bedside echocardiogram performed. Preliminary review of that study reveals that she has normal to hyperdynamic LV systolic function without regional wall motion abnormalities. She has no significant valvular heart disease. Her current 12-lead ECG demonstrates sinus rhythm. There are no Q waves or conduction system disturbances. No ischemic ST-T wave changes. The cause of her asystole is unclear. Could have potentially been a profound vagal event. I had seen pauses up to 20 seconds in such circumstances. PE is a consideration. However, her right heart is not dilated on echo and a pulmonary embolism sufficient to cause asystole would not likely have responded to a single dose of atropine. Her ECG is not suggestive of underlying conduction system disease. Recommendation at this time is simply for continued monitoring. Her echocardiogram will be formally read shortly. No changes in medications at this time. 12/31/16 14:41 Subjective: Intubated and sedated. Reviewed/Discussed With: other (Bead Stringer and ICU nursing) Objective: Vital Signs (8 Hrs) Temp Pulse Resp BP Pulse Ox 12/31/16 11:25 79 100 12/31/16 11:00 75 16 107/29 L 100 12/31/16 10:00 77 16 102/49 L 100 12/31/16 09:00 71 16 97/40 L 98 12/31/16 08:30 90 97 12/31/16 08:00 85 16 95/43 L 96 12/31/16 07:00 37.3 C 88 27 H 102/50 L 96 Intake/Output (24 Hrs) 12/30/16 12/31/16 01/01/17 05:59 05:59 05:59 Intake Total 2704 2267 Output Total 4195 3465 450 Balance -1491 -1198 -450 Intake: IV Intake (ml) 200 IV Infused (ml) 2131 2267 Furosemide 100 mg In D5w 52 60 100 ml @ As Directed IV CONT MEERA Rx#:[id number] Heparin/Dextrose 500 ml @ 695 649 Per Protocol IV CONT MEERA Rx#:[id number] Norepinephrine Bitartrate 42 27 16 mg In Ns 250 ml @ Per Protocol IV CONT MEERA Rx# :[id number] Piperacillin/Tazo 3.375 100 200 gm/Dex 50 ml @ 100 mls/hr IV Q6HRS MEERA Rx#: [id number] Propofol/Emulsion 100 ml 159 185 @ Titrate IV CONT MEERA Rx# :[id number] TPN W/ Famotidine 1 ea IV 996 1002 DAILY21 MEERA Rx#: [id number] fentaNYL/NACL 100 ml @ As 87 144 Directed IV CONT MEERA Rx# :[id number] Tube Feeding (ml) 48 Tube Flush (ml) 25 Packed Red Blood Cells ( 300 ml) Output: Urine (ml) 3515 3190 450 Catheter 3515 3190 450 Colostomy 0 NG Tube Output (ml) 680 275 Left Naris Stomach [place] 680 275 Sump Other: Weight 72.3 kg 71.2 kg Result Diagrams: 12/31/16 05:45 12/31/16 12:00 Cardiac Labs: Cardiac Lab Results (72 Hrs) 12/31/16 13:42 Troponin I < 0.012 - Physical Exam Constitutional: other (Intubated patient in ICU.) Eyes: anicteric sclera Ears, Nose, Mouth, Throat: moist mucous membranes Cardiovascular: regular rate and rhythm, no murmurs, no rubs, no gallops Respiratory: clear to auscultate bilat (anteriorly) Gastrointestinal: no masses Skin: other (Mild generalized edema.) Neurologic: other (sedated.) ICD10 Worksheet Patient Problems: Problems Problem Status Onset Appendiceal tumor Acute
--- NOTE | 2016-12-31 14:47 | PDCARPN ---
Cardiology Progress Note Assessment/Plan: Called to see patient in the ICU after a Code Blue but in the CT scanner. She is an 86-year-old woman admitted for elective resection of appendiceal tumor. Postop course has been complicated by ischemic bowel and peritonitis. She was seen by the cardiology service earlier in her hospital stay for postoperative atrial fibrillation. Sinus rhythm was restored using intravenous amiodarone. She has not had any recurrent atrial fibrillation. She has no prior cardiac history. She does have issues of hypertension and hyperlipidemia. She was seen in our office by Dr. Stone for preoperative assessment prior to her surgery. She did not report any symptoms suggestive of angina, CHF, or arrhythmias. She was cleared for surgery on clinical grounds. Today, she was taken to the CT scanner for a study to assess her intra- abdominal fluid collections. She had been transferred from the stretcher to the CT table. As she was being placed supine, she was reported to have an asystolic event. She was pulseless and apneic. Immediate CPR was initiated and she received intravenous atropine. In less than 2 minutes, she had normal sinus rhythm with a good pulse. She is now in the ICU. Heart rate is in the 80s with a blood pressure of approximately 120 systolic. The nursing staff reports that she had some issues with bradycardia earlier today when her propofol was increased in anticipation of her trip to the CT scanner. In fact, atropine was taken preemptively with her to radiology. Unfortunately, her ICU telemetry does not allow for continuous data collection while she is off the unit. I reviewed her ICU telemetry full disclosure prior to and subsequent to the event in question. No significant arrhythmias identified. At the time I was assessing her , she was having a bedside echocardiogram performed. Preliminary review of that study reveals that she has normal to hyperdynamic LV systolic function without regional wall motion abnormalities. She has no significant valvular heart disease. Her current 12-lead ECG demonstrates sinus rhythm. There are no Q waves or conduction system disturbances. No ischemic ST-T wave changes. The cause of her asystole is unclear. Could have potentially been a profound vagal event. I had seen pauses up to 20 seconds in such circumstances. PE is a consideration. However, her right heart is not dilated on echo and a pulmonary embolism sufficient to cause asystole would not likely have responded to a single dose of atropine. Her ECG is not suggestive of underlying conduction system disease. Recommendation at this time is simply for continued monitoring. Her echocardiogram will be formally read shortly. No changes in medications at this time. 12/31/16 14:41 Subjective: Intubated and sedated. Reviewed/Discussed With: other (Turning Machine Set Up Operator and ICU nursing) Objective: Vital Signs (8 Hrs) Temp Pulse Resp BP Pulse Ox 12/31/16 11:25 79 100 12/31/16 11:00 75 16 107/29 L 100 12/31/16 10:00 77 16 102/49 L 100 12/31/16 09:00 71 16 97/40 L 98 12/31/16 08:30 90 97 12/31/16 08:00 85 16 95/43 L 96 12/31/16 07:00 37.3 C 88 27 H 102/50 L 96 Intake/Output (24 Hrs) 12/30/16 12/31/16 01/01/17 05:59 05:59 05:59 Intake Total 2704 2267 Output Total 4195 3465 450 Balance -1491 -1198 -450 Intake: IV Intake (ml) 200 IV Infused (ml) 2131 2267 Furosemide 100 mg In D5w 52 60 100 ml @ As Directed IV CONT MEERA Rx#:[id number] Heparin/Dextrose 500 ml @ 695 649 Per Protocol IV CONT MEERA Rx#:[id number] Norepinephrine Bitartrate 42 27 16 mg In Ns 250 ml @ Per Protocol IV CONT MEERA Rx# :[id number] Piperacillin/Tazo 3.375 100 200 gm/Dex 50 ml @ 100 mls/hr IV Q6HRS MEERA Rx#: [id number] Propofol/Emulsion 100 ml 159 185 @ Titrate IV CONT MEERA Rx# :[id number] TPN W/ Famotidine 1 ea IV 996 1002 DAILY21 MEERA Rx#: [id number] fentaNYL/NACL 100 ml @ As 87 144 Directed IV CONT MEERA Rx# :[id number] Tube Feeding (ml) 48 Tube Flush (ml) 25 Packed Red Blood Cells ( 300 ml) Output: Urine (ml) 3515 3190 450 Catheter 3515 3190 450 Colostomy 0 NG Tube Output (ml) 680 275 Left Naris Stomach [place] 680 275 Sump Other: Weight 72.3 kg 71.2 kg Result Diagrams: 12/31/16 05:45 12/31/16 12:00 Cardiac Labs: Cardiac Lab Results (72 Hrs) 12/31/16 13:42 Troponin I < 0.012 - Physical Exam Constitutional: other (Intubated patient in ICU.) Eyes: anicteric sclera Ears, Nose, Mouth, Throat: moist mucous membranes Cardiovascular: regular rate and rhythm, no murmurs, no rubs, no gallops Respiratory: clear to auscultate bilat (anteriorly) Gastrointestinal: no masses Skin: other (Mild generalized edema.) Neurologic: other (sedated.) ICD10 Worksheet Patient Problems: Problems Problem Status Onset Appendiceal tumor Acute
--- NOTE | 2016-12-31 14:47 | PDCARPN ---
Cardiology Progress Note Assessment/Plan: Called to see patient in the ICU after a Code Blue but in the CT scanner. She is an 86-year-old woman admitted for elective resection of appendiceal tumor. Postop course has been complicated by ischemic bowel and peritonitis. She was seen by the cardiology service earlier in her hospital stay for postoperative atrial fibrillation. Sinus rhythm was restored using intravenous amiodarone. She has not had any recurrent atrial fibrillation. She has no prior cardiac history. She does have issues of hypertension and hyperlipidemia. She was seen in our office by Dr. Stone for preoperative assessment prior to her surgery. She did not report any symptoms suggestive of angina, CHF, or arrhythmias. She was cleared for surgery on clinical grounds. Today, she was taken to the CT scanner for a study to assess her intra- abdominal fluid collections. She had been transferred from the stretcher to the CT table. As she was being placed supine, she was reported to have an asystolic event. She was pulseless and apneic. Immediate CPR was initiated and she received intravenous atropine. In less than 2 minutes, she had normal sinus rhythm with a good pulse. She is now in the ICU. Heart rate is in the 80s with a blood pressure of approximately 120 systolic. The nursing staff reports that she had some issues with bradycardia earlier today when her propofol was increased in anticipation of her trip to the CT scanner. In fact, atropine was taken preemptively with her to radiology. Unfortunately, her ICU telemetry does not allow for continuous data collection while she is off the unit. I reviewed her ICU telemetry full disclosure prior to and subsequent to the event in question. No significant arrhythmias identified. At the time I was assessing her , she was having a bedside echocardiogram performed. Preliminary review of that study reveals that she has normal to hyperdynamic LV systolic function without regional wall motion abnormalities. She has no significant valvular heart disease. Her current 12-lead ECG demonstrates sinus rhythm. There are no Q waves or conduction system disturbances. No ischemic ST-T wave changes. The cause of her asystole is unclear. Could have potentially been a profound vagal event. I had seen pauses up to 20 seconds in such circumstances. PE is a consideration. However, her right heart is not dilated on echo and a pulmonary embolism sufficient to cause asystole would not likely have responded to a single dose of atropine. Her ECG is not suggestive of underlying conduction system disease. Recommendation at this time is simply for continued monitoring. Her echocardiogram will be formally read shortly. No changes in medications at this time. 12/31/16 14:41 Subjective: Intubated and sedated. Reviewed/Discussed With: other (Applications Engineering Manager and ICU nursing) Objective: Vital Signs (8 Hrs) Temp Pulse Resp BP Pulse Ox 12/31/16 11:25 79 100 12/31/16 11:00 75 16 107/29 L 100 12/31/16 10:00 77 16 102/49 L 100 12/31/16 09:00 71 16 97/40 L 98 12/31/16 08:30 90 97 12/31/16 08:00 85 16 95/43 L 96 12/31/16 07:00 37.3 C 88 27 H 102/50 L 96 Intake/Output (24 Hrs) 12/30/16 12/31/16 01/01/17 05:59 05:59 05:59 Intake Total 2704 2267 Output Total 4195 3465 450 Balance -1491 -1198 -450 Intake: IV Intake (ml) 200 IV Infused (ml) 2131 2267 Furosemide 100 mg In D5w 52 60 100 ml @ As Directed IV CONT MEERA Rx#:[id number] Heparin/Dextrose 500 ml @ 695 649 Per Protocol IV CONT MEERA Rx#:[id number] Norepinephrine Bitartrate 42 27 16 mg In Ns 250 ml @ Per Protocol IV CONT MEERA Rx# :[id number] Piperacillin/Tazo 3.375 100 200 gm/Dex 50 ml @ 100 mls/hr IV Q6HRS MEERA Rx#: [id number] Propofol/Emulsion 100 ml 159 185 @ Titrate IV CONT MEERA Rx# :[id number] TPN W/ Famotidine 1 ea IV 996 1002 DAILY21 MEERA Rx#: [id number] fentaNYL/NACL 100 ml @ As 87 144 Directed IV CONT MEERA Rx# :[id number] Tube Feeding (ml) 48 Tube Flush (ml) 25 Packed Red Blood Cells ( 300 ml) Output: Urine (ml) 3515 3190 450 Catheter 3515 3190 450 Colostomy 0 NG Tube Output (ml) 680 275 Left Naris Stomach Todd 680 275 Sump Other: Weight 72.3 kg 71.2 kg Result Diagrams: 12/31/16 05:45 12/31/16 12:00 Cardiac Labs: Cardiac Lab Results (72 Hrs) 12/31/16 13:42 Troponin I < 0.012 - Physical Exam Constitutional: other (Intubated patient in ICU.) Eyes: anicteric sclera Ears, Nose, Mouth, Throat: moist mucous membranes Cardiovascular: regular rate and rhythm, no murmurs, no rubs, no gallops Respiratory: clear to auscultate bilat (anteriorly) Gastrointestinal: no masses Skin: other (Mild generalized edema.) Neurologic: other (sedated.) ICD10 Worksheet Patient Problems: Problems Problem Status Onset Appendiceal tumor Acute
[2016-12-31] MEDS ORDERED: ALBUMIN 5% 500 ML IV ONE (15:15)
--- NOTE | 2016-12-31 15:34 | ASMTCMCOM ---
CM Note CM Note Notes: Patient continues to be intubated but was following commands, A & O. "Family Meeting" today with her daughter, Dali, sister Karley and , Dhaval. 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 Family very concerned about the surgery and would like a 2nd opinion. Patient Rep involved. CM to continue to follow for discharge needs. Date Signed: 12/31/2016 03:34 PM Electronically Signed By:Ewa Oliver LCSW
--- NOTE | 2016-12-31 16:18 | SOAPPROG ---
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 patient coded momentarily while attempting CT guided drainage of pelvic abscess. still requiring intermittent low dose levo. FiO2 down to 40%. tolerating CPAP well. currently sitting up, comfortable. intubated. alert. abd soft, min dist. lower incision vin further removed. no further purulence, seromurky fluid in wound. no dehiscence noted. stoma pink. NG - gastric. CV - afib, current NSR 60, ECHO normal per verbal report, apprec cards input, on heparin for afib/ UE DVT - held for drainage. RESP - asp pneum after CT - wean as able - will plan for extubation in am if tolerates morning CPAP - rest today given code episode. GI - s/p resection benign appendiceal mucinous tumor - wound partially opened distally, cont TPN, TF when able, H2 blockade. - lytes normal. ID - on zosyn, micafungin per ID reccs. Heme - decr Hb/PLT dilutional - no need for transfusion consideration. Care plan reviewed with nursing staff and sister at bedside. Family's frustrations/concerns noted and addressed. Plan: 12/21/16 10:07 12/22/16 11:16 12/22/16 22:14 12/23/16 07:39 12/23/16 13:34 12/23/16 18:07 12/23/16 18:10 12/23/16 22:06 12/23/16 22:10 12/24/16 15:45 12/24/16 15:49 12/25/16 17:26 12/27/16 07:44 12/31/16 16:12 Objective: Vital Signs Temp Pulse Resp BP Pulse Ox 37.3 C 79 16 107/29 L 100 12/31/16 07:00 12/31/16 11:25 12/31/16 11:00 12/31/16 11:00 12/31/16 11:25 Microbiology 12/29/16 12:45 Gram Stain - Final Abdomen - Aspirate 12/31/16 12:25 Fungal Culture - Final Abdomen - Aspirate 12/31/16 12:25 Gram Stain - Final Abdomen - Aspirate Body Fluid Culture - Final 12/28/16 16:30 Gram Stain - Final Lung Right Lower Lobe - Bronchial Washings Bronchial Washings Culture - Final Anusha Albicans Laboratory Results 12/31/16 05:45 12/31/16 12:00 12/30/16 12/31/16 01/01/17 05:59 05:59 05:59 Intake Total 2704 2267 Output Total 4195 3465 450 Balance -1491 -1198 -450 PT 16.9 SEC (12.0-15.0) H 12/30/16 05:40 INR 1.37 (0.83-1.16) H 12/30/16 05:40 ICD10 Worksheet Patient Problems: Problems Problem Status Onset Appendiceal tumor Acute - ICD10 Problem Qualifiers (1) Appendiceal tumor
[2016-12-31] MEDS: POTASSIUM Cl (KCl) 50 ML IV SCH ×3 (16:20→17:26)
--- NOTE | 2016-12-31 17:04 | ECHO ---
[email or web address] [place] [id number] Main: [phone] Fax: Transthoracic Echocardiogram Name: JAMEE GUZMAN MR#: [id number] Study Date: 12/31/2016 Study Time: 01:47 PM Date of : 1930 Age: 86 year(s) Height: ( ) Weight: ( ) BSA: Gender: Female Examination: Limited Echo Indication: S/P Cor Image Quality: Technically Difficult Contrast: Requested by: Lemuel Ross BP: 115 mmHg/44 mmHg Heart Rate: Rhythm: Indication: S/P Cor Procedure Staff Museum Registrar: Sugey Monterroso Reading Physician: Jeremias Ocasio Requesting Provider: Measurements: Chambers Valvular Assessment AV/MV Valvular Assessment TV/PV Normal Normal Normal Name Value Range Name Value Range Name Value Range Ao Marissa (MM): 3.2 cm (2.2 cm-3.7 cm) LVDd (MM): 4.1 cm (3.9 cm-5.3 cm) LVDs (MM): 2.6 cm (2 cm-3.8 cm) LVEF (MM): 68 (>=55 %) Continued Measurements: Findings: Left Ventricle: LV cavity size appears small with grossly normal systolic function. It is difficult to rule out regional wall motion abnormalities due to poor endocardial definition.. Right Ventricle: Not well visualized.. Mitral Valve: There is mild thickening of the mitral valve leaflets. Aortic Valve: The aortic valve is tri-leaflet. Pericardium: No pericardial effusion. Patient: JAMEE GUZMAN Study Date: 12/31/2016 Page 1 of 2 01:47 PM (No Signature Object) Patient: JAMEE GUZMAN Study Date: 12/31/2016 Page 2 of 2 01:47 PM [id number]
--- NOTE | 2016-12-31 17:04 | ECHO ---
[email or web address] [place] [id number] Main: [phone] Fax: Transthoracic Echocardiogram Name: JAMEE GUZMAN MR#: [id number] Study Date: 12/31/2016 Study Time: 01:47 PM Date of : 1930 Age: 86 year(s) Height: ( ) Weight: ( ) BSA: Gender: Female Examination: Limited Echo Indication: S/P Cor Image Quality: Technically Difficult Contrast: Requested by: Lemuel Ross BP: 115 mmHg/44 mmHg Heart Rate: Rhythm: Indication: S/P Cor Procedure Staff Ear Mold Laboratory Technician: Sugey Monterroso Reading Physician: Jeremias Ocasio Requesting Provider: Measurements: Chambers Valvular Assessment AV/MV Valvular Assessment TV/PV Normal Normal Normal Name Value Range Name Value Range Name Value Range Ao Marissa (MM): 3.2 cm (2.2 cm-3.7 cm) LVDd (MM): 4.1 cm (3.9 cm-5.3 cm) LVDs (MM): 2.6 cm (2 cm-3.8 cm) LVEF (MM): 68 (>=55 %) Continued Measurements: Findings: Left Ventricle: LV cavity size appears small with grossly normal systolic function. It is difficult to rule out regional wall motion abnormalities due to poor endocardial definition.. Right Ventricle: Not well visualized.. Mitral Valve: There is mild thickening of the mitral valve leaflets. Aortic Valve: The aortic valve is tri-leaflet. Pericardium: No pericardial effusion. Patient: JAMEE GUZMAN Study Date: 12/31/2016 Page 1 of 2 01:47 PM (No Signature Object) Patient: JAMEE GUZMAN Study Date: 12/31/2016 Page 2 of 2 01:47 PM [id number]
--- NOTE | 2016-12-31 17:04 | ECHO ---
[email or web address] [place] [id number] Main: [phone] Fax: Transthoracic Echocardiogram Name: JAMEE GUZMAN MR#: [id number] Study Date: 12/31/2016 Study Time: 01:47 PM Date of : 1930 Age: 86 year(s) Height: ( ) Weight: ( ) BSA: Gender: Female Examination: Limited Echo Indication: S/P Cor Image Quality: Technically Difficult Contrast: Requested by: Lemuel Ross BP: 115 mmHg/44 mmHg Heart Rate: Rhythm: Indication: S/P Cor Procedure Staff Codifier: Sugey Monterroso Reading Physician: Jeremias Ocasio Requesting Provider: Measurements: Chambers Valvular Assessment AV/MV Valvular Assessment TV/PV Normal Normal Normal Name Value Range Name Value Range Name Value Range Ao Marissa (MM): 3.2 cm (2.2 cm-3.7 cm) LVDd (MM): 4.1 cm (3.9 cm-5.3 cm) LVDs (MM): 2.6 cm (2 cm-3.8 cm) LVEF (MM): 68 (>=55 %) Continued Measurements: Findings: Left Ventricle: LV cavity size appears small with grossly normal systolic function. It is difficult to rule out regional wall motion abnormalities due to poor endocardial definition.. Right Ventricle: Not well visualized.. Mitral Valve: There is mild thickening of the mitral valve leaflets. Aortic Valve: The aortic valve is tri-leaflet. Pericardium: No pericardial effusion. Patient: JAMEE GUZMAN Study Date: 12/31/2016 Page 1 of 2 01:47 PM (No Signature Object) Patient: JAMEE GUZMAN Study Date: 12/31/2016 Page 2 of 2 01:47 PM [id number]
[2016-12-31] MEDS: HEPARIN 10,000 UNIT/10 ML MDV IVP PRN (19:00)
--- NOTE | 2016-12-31 19:26 | HOSPPROG ---
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 * Septic shock due to peritonitis -remains on levophed -IV Zosyn + IV micafungin * Colon perf (ischemic colitis) s/p colostomy/washout -some ileus remains and she has been unable to take tube feeds but is moving some small amount of stool through to her ostomy * Acute respiratory failure s/p intubation -remains mech vent dependent * Aspiration PNA -witnessed aspiration event prior to OR * Afib - had been sinus initially this am but went back on rapid AFib; is not currently on amiodarone -on IV heparin at this time * Cancer of appendix s/p laparoscopic hemicolectomy * Volume overload ez to resuscitation -IV lasix gtt * PICC line associated DVT -IV heparin at present * Pancytopenia - suspect due to sepsis - resolving * Etoh - no evidence for withdrawal * Essential tremor -holding propranolol due to hypotension PLANS: -at this time remains on vent at least partly due to her overall level of illness with infection and other complications -not yet tolerating tube feeds so these stopped; continue tpn -continue current antibx, antifungal -skin care -continue current treatment for atrial fibrillation rate control -will need to determine a different approach toward doing with her in abdominal abscesses in the require surgical approach. -DVT/AFib treatment currently hep drip reviewed with Dr Ross also seen on multidisc rounds SUBJECTIVE: on vent, unable to communicate her symptoms Through the early day the patient did well with a long CPAP. On the vent. She remained hemodynamically stable. The patient was taken to CT scan today in order to attempt CT-guided percutaneous drainage of intra-abdominal abscesses. She had received some propofol and upon being supine for her study she promptly became asystolic. This was treated with CPR and she rapidly gained pulse pack within 20 seconds. She was already on mechanical ventilator so there was no respiratory issues. She has remained hemodynamically and rhythm rios stable since this time. The CT scan procedure was not performed and the patient was returned to her room. OBJECTIVE: vitals: no fever, bps now better off pressor support, resps per vent (see above under subjective) surveillance system monitor: atrial flutter exam: (prior to CT) on vent, partly sedated vent pressures and volumes good, tube secured central line looks good skin warm dry, good cap refill still w quite a bit of diffuse edema resps per vent lungs clear heart reg abd soft Objective: Vital Signs Temp Pulse Resp BP Pulse Ox 37.2 C 73 16 132/69 H 100 12/31/16 18:00 12/31/16 18:00 12/31/16 18:00 12/31/16 18:00 12/31/16 18:00 Microbiology 12/29/16 12:45 Gram Stain - Final Abdomen - Aspirate 12/31/16 12:25 Fungal Culture - Final Abdomen - Aspirate 12/31/16 12:25 Gram Stain - Final Abdomen - Aspirate Body Fluid Culture - Final 12/28/16 16:30 Gram Stain - Final Lung Right Lower Lobe - Bronchial Washings Bronchial Washings Culture - Final Anusha Albicans Laboratory Results 12/31/16 05:45 12/30/16 12/31/16 01/01/17 06:59 06:59 06:59 Intake Total 2704 2267 2063 Output Total 4195 3465 1750 Balance -1491 -1198 313 PT 16.9 SEC (12.0-15.0) H 12/30/16 05:40 INR 1.37 (0.83-1.16) H 12/30/16 05:40 - Time Spent With Patient Time Spent with Patient: greater than 35 minutes Time Spent with Patient: Greater than 35 minutes spent on this patients care, greater than 50% of time spent counseling, educating, and coordinating care regarding the above mentioned plan. ICD10 Worksheet Patient Problems: Problems Problem Status Onset Appendiceal tumor Acute
[2016-12-31] MEDS: TRAVOPROST Z 0.004% 2.5 ML OPHT.BTL EACHEYE SCH (20:45)
[2016-12-31] MEDS: TPN W/ FAMOTIDINE 1 EA BAG IV SCH (22:00)
[2017-01-01] MEDS: POTASSIUM Cl (KCl) 50 ML IV SCH ×6 (02:05→20:07)
[2017-01-01] MEDS: PROPOFOL/EMULSION 100 ML IV SCH ×2 (03:31→20:28)
[2017-01-01] MEDS: LEVALBUTEROL INHALER 200 PUFFS/15 GM MDI IH SCH ×4 (05:16→20:06)
[2017-01-01] MEDS: PIPERACILLIN/TAZO 3.375 GM/DEX 50 ML IV SCH ×3 (05:29→17:51)
[2017-01-01] MEDS: METOCLOPRAMIDE 10 MG/2 ML VIAL IVP SCH ×3 (05:29→17:51)
[2017-01-01 05:39] LABS: PLATELET COUNT 373 10^3/uL (150-400)
[2017-01-01] MEDS ORDERED: POTASSIUM Cl (KCl) 50 ML IV ONE (06:14)
[2017-01-01] MEDS: INSULIN REGULAR HUMAN 100 UNIT/ML SC SCH ×3 (06:16→17:47)
[2017-01-01] MEDS: HEPARIN 10,000 UNIT/10 ML MDV IVP PRN (06:47)
--- NOTE | 2017-01-01 08:14 | PDINTPN ---
Gynecological Assistant Progress Note Assessment/Plan: Assessment/Plan: * Peritonitis/abdominal sepsis: On Zosyn, Micafungin. Id following. Possible infection in the lower aspect of the wound. A CT scan of abdomen pelvis reveals small anterior abdominal fluid pocket, small amount of free fluid in the right mid abdomen. -will hold of IR trip today * Hypotension. Improved. Off pressors * Acute respiratory failure. Day 9 on ventilator. Secondary to the above. On ventilator 40%. Tolerating longer CPAP weans. Chest x-ray pending. -will assess for extubation with CPAP trial and weaning parameters . * Atrial fibrillation/flutter, off and on. In sinus at times. Off amiodarone. Off diltiazem. Cardiology following. * Status post cor with asystole-this required 1 amp of atropine and chest compressions. No further episodes since yesterday. Cardiology following * Volume overload-markedly improved. Lasix drip is off. * Anemia: Acute blood loss plus dilutional. -follow * DVT: Catheter associated right upper extremity. On full-dose heparin, right PICC line left in, also has a nor PICC line on the left. * Metabolic: Stable * Leukopenia: Resolved. WBC now 20, remains high possibly secondary to ongoing abdominal inflammation/infection. * DVT: Catheter associated on right, On full-dose heparin. Hematocrit stable. No evidence of active bleeding * GI prophylaxis: Famotidine. * Nutrition: TPN 35 minutes of critical care time spent with patient. Case discussed with Nursing and RT and Subjective: Sitting up in chair. Awake and alert. Comfortable on mechanical ventilation. Objective: Vital Signs Temp Pulse Resp BP Pulse Ox 37.5 C 68 16 96/37 L 99 01/01/17 04:00 01/01/17 07:00 01/01/17 07:00 01/01/17 07:00 01/01/17 07:00 Microbiology 12/31/16 18:30 Gram Stain - Final Abdomen - Swab 12/29/16 12:45 Gram Stain - Final Abdomen - Aspirate 12/31/16 12:25 Fungal Culture - Final Abdomen - Aspirate 12/31/16 12:25 Gram Stain - Final Abdomen - Aspirate Body Fluid Culture - Final Laboratory Results 01/01/17 05:30 01/01/17 05:30 12/31/16 01/01/17 01/02/17 05:59 05:59 05:59 Intake Total 2266 3554 Output Total 3465 2550 Balance -1198 1004 PT 16.9 SEC (12.0-15.0) H 12/30/16 05:40 INR 1.37 (0.83-1.16) H 12/30/16 05:40 Laboratory Results 01/01/17 05:30 01/01/17 05:30 01/01/17 05:30 Calcium 7.6 mg/dL L mg/dL (8.5 - 10.4) Phosphorus 3.3 mg/dL D mg/dL (2.5 - 4.5) Magnesium 2.3 mg/dL mg/dL (1.6 - 2.3) - Time Spent With Patient Time Spent With Patient: 35 minutes of critical care time spent with patient and family Physical Exam - Physical Exam General Appearance: alert, no apparent distress EENT: PERRL/EOMI, ET tube Neck: non-tender, full range of motion Respiratory: crackles (Few), No respiratory distress, No wheezing Cardiac/Chest: normal peripheral pulses, regular rate, rhythm, systolic murmur Peripheral Pulses: 2+: carotid (R), carotid (L), femoral (R), femoral (L), dorsalis-pedis (R), dorsalis-pedis (L) Abdomen: No non-tender Pelvic Exam: deferred Rectal: deferred Skin: normal color, warm/dry Extremities: normal range of motion, non-tender, normal inspection, normal capillary refill Neuro/Psych: alert ICD10 Worksheet Patient Problems: Problems Problem Status Onset Appendiceal tumor Acute
[2017-01-01] MEDS: HEPARIN 25,000 UNIT in D5W 500 ML IV SCH ×2 (08:15→17:05)
[2017-01-01] MEDS: MICAFUNGIN NA 100 MG in NS 100 ML IV SCH (08:38)
--- NOTE | 2017-01-01 09:33 | HOSPPROG ---
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 * Septic shock due to peritonitis -remains on levophed -IV Zosyn + IV micafungin * Colon perf (ischemic colitis) s/p colostomy/washout -some ileus remains and she has been unable to take tube feeds but is moving some small amount of stool through to her ostomy * Acute respiratory failure s/p intubation -remains mech vent dependent * Aspiration PNA -witnessed aspiration event prior to OR * Afib - had been sinus initially this am but went back on rapid AFib; is not currently on amiodarone -on IV heparin at this time * Cancer of appendix s/p laparoscopic hemicolectomy * Volume overload ez to resuscitation -IV lasix gtt * PICC line associated DVT -IV heparin at present * Pancytopenia - suspect due to sepsis - resolving * Etoh - no evidence for withdrawal * Essential tremor -holding propranolol due to hypotension PLANS: -will need to determine a different approach toward her intra-abdominal abscesses and may require surgical approach. -remains stable from a lung standpoint but likely too weak w her other illnesses for extubation, may need trach -not yet tolerating tube feeds so these stopped; continue tpn -continue current antibx, antifungal -skin care -continue current treatment for atrial fibrillation rate control -DVT/AFib treatment currently hep drip reviewed with Dr Ross also seen on multidisc rounds SUBJECTIVE: on vent, unable to communicate her symptoms Has done another long CPAP period this am no acute events overnight,no arrythmia OBJECTIVE: vitals: T max 37.5, bps remain good off pressor, on cpap via vent now resp mildly labored; wean parameters suggest significant weakness monitoring and evaluation advisor: back in NSR good rate exam: on vent w cpa, tube secured wide awake central line looks good skin warm dry, good cap refill lungs clear as best I can hear, very shallow resp heart reg abd soft abd still w some distension, tender Lab data: Hg dropped today to 7.5 sugars and renal fxn good Objective: Vital Signs Temp Pulse Resp BP Pulse Ox 37.1 C 97 27 H 132/68 H 96 01/01/17 08:00 01/01/17 09:00 01/01/17 09:00 01/01/17 09:00 01/01/17 09:00 Microbiology 12/31/16 18:30 Gram Stain - Final Abdomen - Swab 12/29/16 12:45 Gram Stain - Final Abdomen - Aspirate 12/31/16 12:25 Fungal Culture - Final Abdomen - Aspirate 12/31/16 12:25 Gram Stain - Final Abdomen - Aspirate Body Fluid Culture - Final Laboratory Results 01/01/17 05:30 01/01/17 05:30 12/31/16 01/01/17 01/02/17 06:59 06:59 06:59 Intake Total 2267 3554 Output Total 3465 2550 250 Balance -1198 1004 -250 PT 16.9 SEC (12.0-15.0) H 12/30/16 05:40 INR 1.37 (0.83-1.16) H 12/30/16 05:40 - Time Spent With Patient Time Spent with Patient: greater than 35 minutes Time Spent with Patient: Greater than 35 minutes spent on this patients care, greater than 50% of time spent counseling, educating, and coordinating care regarding the above mentioned plan. ICD10 Worksheet Patient Problems: Problems Problem Status Onset Appendiceal tumor Acute
--- NOTE | 2017-01-01 10:28 | PCMIDPN ---
Assessment/Plan: # Septic shock due to peritonitis status post ischemic colitis in the left side following right hemicolectomy for appendiceal neoplasm. Peritonitis presumed to be polymicrobial GI keyur with some concern for Anusha. Some gradual improvement, with improved hemodynamics and respiratory mechanics on vent but continued foul smelling drainage from wound, bowel function has not returned, several abscess, with dominant 9x6cm abscess in pelvis on CT, persistent leukocytosis and low grade fever, leaving us with ongoing concerns about source control --surgical consult today, defer to their eval regarding appropriate modality of drainage - discussed concerns for needed better drainage, but weighed against concern would ppt another cardiac event --continue zosyn, micafungin covering for standard enterics, including anusha. Gap in coverage more R GNR: PsA, steno, etc. --follow wound cultures medication zosyn 3.375gm IV q6h, #7 micafungin 100mg IV daily, #8 microbiology blood cx 12/24 (2) NGTD sputum cx: anusha wound aspirate 12/29 1+ GPR wound swab 12/31: 1+ GNR Subjective: patient had cardiac event when IR attempted to place drain remains off of pressors difficult weaning from vent follows simple commands Objective: Vital Signs Temp Pulse Resp BP Pulse Ox 37.1 C 84 16 96/54 L 95 01/01/17 08:00 01/01/17 10:00 01/01/17 10:00 01/01/17 10:00 01/01/17 10:00 Microbiology 12/31/16 18:30 Gram Stain - Final Abdomen - Swab 12/29/16 12:45 Gram Stain - Final Abdomen - Aspirate 12/31/16 12:25 Fungal Culture - Final Abdomen - Aspirate 12/31/16 12:25 Gram Stain - Final Abdomen - Aspirate Body Fluid Culture - Final Laboratory Results 01/01/17 05:30 01/01/17 05:30 12/31/16 01/01/17 01/02/17 05:59 05:59 05:59 Intake Total 2267 3554 Output Total 3465 2550 310 Balance -1198 1004 -310 Tm 38.1 General Appearance: Sedated, intubated but eyes open to verbal stimulation, follow commands EENT: pale conjunctiva, ET Tube, NG Tube, No scleral icterus, No thrush Respiratory: coarse breath sounds, No accessory muscle use Neck: supple Cardiac/Chest: regular rate, rhythm Extremities: anasarca Abdomen: soft, midline incision with purulent drainage distally and erythema over lower part of incision; L sided ostomy pink, no output Pelvic Exam: bishop Skin: pallor, No rash RUE PICC No drainage, No erythema LUE PICC No drainage, No erythema ICD10 Worksheet Patient Problems: Problems Problem Status Onset Appendiceal tumor Acute
[2017-01-01] MEDS: BRIMONIDINE 0.15% 5 ML OPHT.BTL EACHEYE SCH ×2 (11:17→20:38)
[2017-01-01] MEDS: ASPIRIN 81 MG CHEWABLE TAB TUBE SCH (11:17)
[2017-01-01] MEDS ORDERED: ATROPINE SULFATE 1 MG/10 ML SYR ONE (12:55)
--- NOTE | 2017-01-01 13:56 | SOAPPROG ---
SOAP Progress Note Assessment/Plan: Assessment/Plan: - 86yo F s/p RHC, LHC, a-fib, cardiac arrest. - Full note dictated for transfer of care. [facility] happy to take over surgical care at family request, case discussed with Dr Mccracken - Plans for the day - Abdominal wound opened the remainder of the length, fascia appears intact. Packing with 1/4 strength Dakins to help clean the area up - Abdomen otherwise appears soft, WBC 18 from 21 - Agree with Dr Lagunas that we need source control. Given recent cardiac arrest in CT I dont feel she is stable for OR and would want to proceed with another attempt at perc drainage if possible, will assess for this tomorrow versus Friday - Will discuss with Dr Ross but if fails vent wean again today I feel she would benefit from trach. 01/01/17 13:52 Subjective: Following commands Objective: Vital Signs Temp Pulse Resp BP Pulse Ox 36.8 C 57 L 16 124/41 H 99 01/01/17 12:00 01/01/17 13:00 01/01/17 13:00 01/01/17 13:00 01/01/17 13:00 Microbiology 12/31/16 18:30 Gram Stain - Final Abdomen - Swab 12/29/16 12:45 Gram Stain - Final Abdomen - Aspirate 12/31/16 12:25 Fungal Culture - Final Abdomen - Aspirate 12/31/16 12:25 Gram Stain - Final Abdomen - Aspirate Body Fluid Culture - Final Laboratory Results 01/01/17 05:30 01/01/17 11:54 12/31/16 01/01/17 01/02/17 05:59 05:59 05:59 Intake Total 2267 3554 Output Total 3465 2550 505 Balance -1198 1004 -505 PT 16.9 SEC (12.0-15.0) H 12/30/16 05:40 INR 1.37 (0.83-1.16) H 12/30/16 05:40 ICD10 Worksheet Patient Problems: Problems Problem Status Onset Appendiceal tumor Acute
--- NOTE | 2017-01-01 14:32 | GHP ---
[f rep st] HISTORY AND PHYSICAL DATE OF ADMISSION: 12/20/2016 CHIEF COMPLAINT: Transfer of care. HISTORY OF PRESENT ILLNESS: This is an 86-year-old female who has been admitted to the hospital now since the of this month. Briefly, the patient was evaluated by my colleague, Dr. Mccracken, on an outpatient basis, where at that time CT scan imaging performed incidentally found a mass in the cecum. The patient was subsequently taken to the operating room on the , where she underwent laparoscopic right colectomy for what, at that time, was an appendiceal neoplasm. The surgery went well. The patient was subsequently transferred from the operative suite to the general medical floor. 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 After that, the patient was subsequently progressing but decompensated over the next few days and had a repeat CT scan of her abdomen and pelvis performed on the evening of the , which showed contrast extravasation felt to represent a leak, and the patient was subsequently taken back to the operating room that evening for exploration, where the left colon was found to be necrotic, likely secondary to ischemic colitis from the level of the splenic flexure to the rectosigmoid junction. The anastomosis at that point in time was intact. The left colon was subsequently removed, the rectal stump was oversewn, and the distal transverse colon was subsequently brought out as an end colostomy. In the interim, the patient also developed new-onset rapid atrial fibrillation and was subsequently converted to normal sinus rhythm with amiodarone after a Cardiology consult. Since that time, she has remained intubated, on and off pressors, and in critical condition in the intensive care unit with consultations from Cardiology, Infectious Disease, and Pulmonology. The patient was taken down to the CT scanner 2 days ago, where a new pelvic fluid collection was identified, which was rim enhancing. She was subsequently taken down for CT-guided drainage yesterday, and at that time, it appears as though the patient had a cardiac arrest and did receive chest compressions and did end up getting a perfusing rhythm. She was subsequently brought back to the intensive care unit where cardiac workup was found to be unremarkable since then. In addition, the patient also has a superficial wound infection, which has been packed. She has a persistent leukocytosis and continues to have issues weaning off the ventilator. On my examination today, the patient is able to follow commands. She does squeeze my hand. She wiggles her toes. She does not really wince to deep abdominal palpation. She has been afebrile pretty much for her entire admission. PAST MEDICAL HISTORY: Hypertension, hypercholesterolemia, benign tremor, new- onset atrial fibrillation, cardiac arrest. PAST SURGICAL HISTORY: Laparoscopic right hemicolectomy performed on the , subsequent left colectomy performed on the , with end distal transverse colostomy and Kristal's procedure. ALLERGIES: None. REVIEW OF SYSTEMS: A full 10-point review was performed via chart review and family, and unless explicitly stated above, is otherwise negative. CURRENT MEDICATIONS: Reviewed in [facility]. FAMILY HISTORY: Noncontributory. SOCIAL HISTORY: Patient is retired, lives with her . Unclear whether or not she was a smoker. Does endorse occasional alcohol. No recreational drugs. PHYSICAL EXAMINATION: VITAL SIGNS: Temperature 36.8, blood pressure 118/42, heart rate 57. She remains on the ventilator at 40% FiO2. CONSTITUTIONAL: She does not appear to be in distress. She appears comfortable. She is ventilated but responsive. EYES: Pupils are equal, round, and reactive to light and accommodation. She has anicteric sclerae. Her extraocular movements appear intact. EARS, NOSE, MOUTH AND THROAT: She has moist mucous membranes. The ET tube is in appropriate position. Her hearing appears to be normal. She does not have any oral mucosal ulcers. CARDIOVASCULAR: She does appear to be in sinus rhythm, without any murmurs. RESPIRATORY: She has coarse lung sounds bilaterally, with equal breath sounds on either side, with adequate chest rise. GI: She has hypoactive bowel sounds. She is soft, minimally distended and nontender. She has a midline abdominal wound, which is completely open. The fascia was interrogated and is intact. SKIN: Warm, massive amount of edema throughout her entire body. Normal color. No rashes. MUSCULOSKELETAL: She appears to have full muscle strength and normal joint range of motion. NEUROLOGIC: She is alert and oriented. Does not appear as though she has any weakness. PSYCH: She is following commands. She does not appear anxious or encephalopathic. LYMPH, HEME, AND IMMUNOLOGIC: She has no cervical, supraclavicular or groin lymphadenopathy. LABS: Today, leukocytosis to 18,000. This is down from 20,000 yesterday. H and H 7.5 and 22.5, platelets 373. Heparin levels are normal. Chemistry is fairly unremarkable. Blood glass shows a normal pH, with a mildly elevated CO2 at 48. IMAGING: All of the patient's imaging was personally reviewed reviewed, including her CT scan from the emergency department, which initially found the mass to the CT scan prior to her take back, including the CT scan performed on the . The most recent CT scan does show a loculated fluid collection within the pelvis. There was also some nonspecific, nonenhancing fluid in the anterior lower abdomen which is less suspicious. ASSESSMENT AND PLAN: An 86-year-old female, status post right hemicolectomy with subsequent ischemic colitis, status post take back for left colectomy, now with end transverse colostomy and Kristal's pouch; status post atrial fibrillation, now converted with amiodarone; status post cardiac arrest in CT scanner, remaining critically ill in the intensive care unit. I have discussed this case with her operative surgeon, Dr. Alo Mccracken. Myself and partners from [facility] will plan to take over care from the surgical aspects for this patient moving forward. PROBLEM LIST: 1. Septic shock. The patient remains on and off pressors, currently off Levophed. She also is on broad-spectrum IV antibiotics, including Zosyn and micafungin. She does have a rim-enhancing abdominal abscess in the pelvis, which I do feel should be drained; however, given the patient's cardiac arrest in CT scanner, I would like her to be stable from a cardiac standpoint before proceeding back to imaging for this. The remainder of her abdomen at this point is soft. I do not see any other reasons which would prompt me for an urgent take back for a wash-out given the fact that the patient is now 8 days after, and I do not, at this point in time, feel her heart would be able to tolerate the stresses of an additional laparotomy. I feel that we should progress from percutaneous drainage when stable, and if requires it, reoperation and washout, but her abdomen is not her most pressing issue at this time. 2. Acute respiratory failure, status post intubation. She remains mechanically ventilator dependent. She is on low FiO2 but typically fails her weaning trials, I just dont think she is strong enough to successfully wean. Will discuss with the plow and boring machine tender, Dr. Ross, but I do feel though as if she continues to fail these wean trials, that tracheostomy would be in her best benefit. 3. Atrial fibrillation, in and out of atrial fibrillation, on amiodarone. She is also on an IV heparin drip. Continue cardiology management of this. She also had an episode of bradycardia into the 40s earlier today which was unprovoked. At this time, I feel her cardiac status is her most pressing and tenuous issue and focus on this needs to be primary. Cont to medically support as necessary. 4. Superficial wound infection. I opened the remainder of the vin at bedside today. The superior portion of the wound had some purulent fluid, as well as some fat necrosis as well. The fascia was probed and appears to be intact. I do not see any signs of evisceration. Will plan to wash this out with quarter-strength Dakin's, likely end up ultimately placing a wound VAC to the site. Dispo: Status remains critical. I discussed my findings with the patients daughter and and plans for management at this time. Will plan to re- eval for perc drainage in next day or so when she is possibly more stable from cardiac standpoint. /[id number]/MODL MTDD
[2017-01-01] MEDS: SODIUM HYPOCHLORITE (DAKINS 1/4 STR) 120 ML BTL TP SCH ×2 (16:15→20:38)
[2017-01-01] MEDS: fentaNYL/NACL 100 ML IV SCH (17:07)
[2017-01-01] MEDS: TPN W/ FAMOTIDINE 1 EA BAG IV SCH (20:37)
[2017-01-01] MEDS: TRAVOPROST Z 0.004% 2.5 ML OPHT.BTL EACHEYE SCH (20:38)
[2017-01-02] MEDS: METOCLOPRAMIDE 10 MG/2 ML VIAL IVP SCH ×4 (00:09→17:59)
[2017-01-02] MEDS: PIPERACILLIN/TAZO 3.375 GM/DEX 50 ML IV SCH ×4 (00:09→17:57)
[2017-01-02] MEDS: INSULIN REGULAR HUMAN 100 UNIT/ML SC SCH ×4 (00:18→18:12)
[2017-01-02] MEDS: fentaNYL/NACL 100 ML IV SCH ×2 (00:20→14:44)
[2017-01-02] MEDS: PROPOFOL/EMULSION 100 ML IV SCH (03:54)
[2017-01-02] MEDS: LEVALBUTEROL INHALER 200 PUFFS/15 GM MDI IH SCH ×4 (04:23→20:36)
[2017-01-02] MEDS: HEPARIN 25,000 UNIT in D5W 500 ML IV SCH ×2 (05:35→09:19)
[2017-01-02 06:16] LABS: PLATELET COUNT 528 10^3/uL (150-400)
--- NOTE | 2017-01-02 09:11 | PDINTPN ---
Transcription Manager Progress Note Assessment/Plan: Assessment/Plan: * Peritonitis/abdominal sepsis: On Zosyn, Micafungin. Id following. Possible infection in the lower aspect of the wound. A CT scan of abdomen pelvis reveals small anterior abdominal fluid pocket, small amount of free fluid in the right mid abdomen. -will schedule Interventional Radiology drainage for source control * Hypotension-on low-dose Levophed * Acute respiratory failure. Day 10 on ventilator. Secondary to the above. On ventilator 40%. -will schedule tracheostomy for tomorrow * Atrial fibrillation/flutter, off and on. In sinus at times. Off amiodarone. Off diltiazem. * Status post cor with asystole-this required 1 amp of atropine and chest compressions. No further episodes since yesterday. Cardiology following * Volume overload-markedly improved. Lasix drip is off. * Anemia: Acute blood loss plus dilutional. -follow * DVT: Catheter associated right upper extremity. On full-dose heparin, right PICC line left in, also has a nor PICC line on the left. * Metabolic: Stable * Leukopenia: Resolved. WBC now 20, remains high possibly secondary to ongoing abdominal inflammation/infection. * DVT: Catheter associated on right, On full-dose heparin. Hematocrit stable. No evidence of active bleeding * GI prophylaxis: Famotidine. * Nutrition: TPN 40 minutes of critical care time spent with patient. Case discussed with Nursing, surgery, RT and family Subjective: Sedated on mechanical ventilation Objective: Vital Signs Temp Pulse Resp BP Pulse Ox 38.3 C 64 16 132/34 H 99 01/02/17 07:00 01/02/17 08:45 01/02/17 08:45 01/02/17 08:00 01/02/17 08:45 Microbiology 12/31/16 18:30 Gram Stain - Final Abdomen - Swab 12/29/16 12:45 Gram Stain - Final Abdomen - Aspirate Body Fluid Culture - Final Enterococcus Faecium Laboratory Results 01/02/17 05:20 01/02/17 05:20 01/01/17 01/02/17 01/03/17 05:59 05:59 05:59 Intake Total 3554 3127.1 Output Total 2550 2285 Balance 1004 842.1 PT 16.9 SEC (12.0-15.0) H 12/30/16 05:40 INR 1.37 (0.83-1.16) H 12/30/16 05:40 Chest [id number] by myself. Endotracheal tube is in good position. Bilateral pleural effusions are appreciated. Some evidence of pulmonary edema is present - Time Spent With Patient Time Spent With Patient: 40 minutes of critical care time spent with patient Physical Exam - Physical Exam General Appearance: other (Sedated), No alert EENT: PERRL/EOMI, ET tube Neck: non-tender, full range of motion, supple Respiratory: crackles (Bibasilar), No respiratory distress, No wheezing Cardiac/Chest: normal peripheral pulses, regular rate, rhythm, systolic murmur Peripheral Pulses: 2+: carotid (R), carotid (L), femoral (R), femoral (L), dorsalis-pedis (R), dorsalis-pedis (L) Abdomen: soft, other (Midline wound), No non-tender Pelvic Exam: deferred Rectal: deferred Skin: normal color, warm/dry Extremities: normal range of motion, non-tender, normal inspection, normal capillary refill Neuro/Psych: No alert ICD10 Worksheet Patient Problems: Problems Problem Status Onset Appendiceal tumor Acute
[2017-01-02] MEDS: MICAFUNGIN NA 100 MG in NS 100 ML IV SCH (09:13)
[2017-01-02] MEDS: ASPIRIN 81 MG CHEWABLE TAB TUBE SCH (09:15)
[2017-01-02] MEDS: BRIMONIDINE 0.15% 5 ML OPHT.BTL EACHEYE SCH ×2 (09:16→20:45)
[2017-01-02] MEDS: SODIUM HYPOCHLORITE (DAKINS 1/4 STR) 120 ML BTL TP SCH ×2 (09:16→20:46)
--- NOTE | 2017-01-02 12:00 | ASMTCMCOM ---
CM Note CM Note Notes: Chart reviewed. Discussed in rounds. Family wishes to pursue another meeting tomorrow to review poc. Meeting to be held at [address] Ross and Dr. Rodriguez. Attempted to reach daughter Ann. YUNG for her to call CM at [phone]. in room and physician spoke to him directly regarding meeting and plan to place tracheostomy later tomorrow morning. CM to follow. Date Signed: 01/02/2017 11:59 AM Electronically Signed By:Denise Khan RN
--- NOTE | 2017-01-02 12:00 | ASMTCMCOM ---
CM Note CM Note Notes: Chart reviewed. Discussed in rounds. Family wishes to pursue another meeting tomorrow to review poc. Meeting to be held at [address] Ross and Dr. Rodriguez. Attempted to reach daughter Ann. YUNG for her to call CM at [phone]. in room and physician spoke to him directly regarding meeting and plan to place tracheostomy later tomorrow morning. CM to follow. Date Signed: 01/02/2017 11:59 AM Electronically Signed By:Denise Khan RN
--- NOTE | 2017-01-02 12:00 | ASMTCMCOM ---
CM Note CM Note Notes: Chart reviewed. Discussed in rounds. Family wishes to pursue another meeting tomorrow to review poc. Meeting to be held at [address] Ross and Dr. Rodriguez. Attempted to reach daughter Ann. YUNG for her to call CM at [phone]. in room and physician spoke to him directly regarding meeting and plan to place tracheostomy later tomorrow morning. CM to follow. Date Signed: 01/02/2017 11:59 AM Electronically Signed By:Denise Khan RN
--- NOTE | 2017-01-02 12:42 | PDCARPN ---
Cardiology Progress Note Assessment/Plan: Asystolic Arrest on 12/31- recovered quickly after IV atropine and chest compressions for less than 2 minutes. Possibly parasympathetically mediated. No further pauses. No evidence of underlying conduction system disease on her baseline 12-lead ECG. No episodes of high-grade AV block on telemetry. No indication at this time to consider pacemaker. Continue to monitor. Paroxysmal Atrial Fibrillation/Flutter-loaded with IV amiodarone earlier in her hospital course. GI route currently unavailable. Had recurrent atrial flutter with adequate rate control occurring approximately 19:40 last pm and lasting for a few minutes. Could reinstitute IV amiodarone if she has recurrent atrial arrhythmias. Would start tablet form of amiodarone once GI route is available. Not currently a candidate for systemic anticoagulation. 01/02/17 12:34 Subjective: Intubated and sedated. Reviewed/Discussed With: family Objective: Vital Signs (8 Hrs) Temp Pulse Resp BP Pulse Ox 01/02/17 11:23 66 16 99 01/02/17 11:00 70 16 105/35 L 98 01/02/17 10:00 69 16 134/41 H 98 01/02/17 09:00 63 16 119/38 L 99 01/02/17 08:45 64 16 99 01/02/17 08:00 63 16 132/34 H 99 01/02/17 07:00 38.3 C 64 16 119/39 L 99 01/02/17 06:00 69 16 120/42 L 99 01/02/17 05:00 67 16 109/37 L 98 Intake/Output (24 Hrs) 01/01/17 01/02/17 01/03/17 05:59 05:59 05:59 Intake Total 3554 3127.1 Output Total 2550 2285 250 Balance 1004 842.1 -250 Intake: IV Intake (ml) 1801 721 IV Infused (ml) 1753 2406.1 Albumin 5% 500 ml @ As 500 Directed IV ONCE ONE Rx#: [id number] Heparin/Dextrose 500 ml @ 641 885 Per Protocol IV CONT [facility] Rx#:[id number] Norepinephrine Bitartrate 14.1 16 mg In Ns 250 ml @ Per Protocol IV CONT [facility] Rx# :[id number] Propofol/Emulsion 100 ml 134 279 @ Titrate IV CONT [facility] Rx# :[id number] TPN W/ Famotidine 1 ea IV 428 1036 DAILY21 [facility] Rx#: [id number] fentaNYL/NACL 100 ml @ As 50 192 Directed IV CONT [facility] Rx# :[id number] Tube Feeding (ml) 0 Tube Flush (ml) 0 Output: Urine (ml) 2349 1984 250 Catheter 2350 1880 Colostomy 105 250 NG Tube Output (ml) 100 300 Left Naris Stomach [place] 100 300 Sump OG Tube Output (ml) 100 Large Bore (>12 Thai) 100 Non-weighted Oral Stomach Other: Weight 71.2 kg 75.7 kg 73 kg Result Diagrams: 01/02/17 05:20 01/02/17 05:20 Cardiac Labs: Cardiac Lab Results (72 Hrs) 12/31/16 13:42 Troponin I < 0.012 - Physical Exam Constitutional: other (Ill appearing woman intubated in ICU.) Eyes: anicteric sclera Ears, Nose, Mouth, Throat: moist mucous membranes Cardiovascular: regular rate and rhythm, no murmurs, no rubs, no gallops Respiratory: clear to auscultate bilat (anteriorly) Skin: no rashes, no edema Neurologic: other (Sedated) ICD10 Worksheet Patient Problems: Problems Problem Status Onset Appendiceal tumor Acute
--- NOTE | 2017-01-02 12:42 | PDCARPN ---
Cardiology Progress Note Assessment/Plan: Asystolic Arrest on 12/31- recovered quickly after IV atropine and chest compressions for less than 2 minutes. Possibly parasympathetically mediated. No further pauses. No evidence of underlying conduction system disease on her baseline 12-lead ECG. No episodes of high-grade AV block on telemetry. No indication at this time to consider pacemaker. Continue to monitor. Paroxysmal Atrial Fibrillation/Flutter-loaded with IV amiodarone earlier in her hospital course. GI route currently unavailable. Had recurrent atrial flutter with adequate rate control occurring approximately 19:40 last pm and lasting for a few minutes. Could reinstitute IV amiodarone if she has recurrent atrial arrhythmias. Would start tablet form of amiodarone once GI route is available. Not currently a candidate for systemic anticoagulation. 01/02/17 12:34 Subjective: Intubated and sedated. Reviewed/Discussed With: family Objective: Vital Signs (8 Hrs) Temp Pulse Resp BP Pulse Ox 01/02/17 11:23 66 16 99 01/02/17 11:00 70 16 105/35 L 98 01/02/17 10:00 69 16 134/41 H 98 01/02/17 09:00 63 16 119/38 L 99 01/02/17 08:45 64 16 99 01/02/17 08:00 63 16 132/34 H 99 01/02/17 07:00 38.3 C 64 16 119/39 L 99 01/02/17 06:00 69 16 120/42 L 99 01/02/17 05:00 67 16 109/37 L 98 Intake/Output (24 Hrs) 01/01/17 01/02/17 01/03/17 05:59 05:59 05:59 Intake Total 3554 3127.1 Output Total 2550 2285 250 Balance 1004 842.1 -250 Intake: IV Intake (ml) 1801 721 IV Infused (ml) 1753 2406.1 Albumin 5% 500 ml @ As 500 Directed IV ONCE ONE Rx#: [id number] Heparin/Dextrose 500 ml @ 641 885 Per Protocol IV CONT [facility] Rx#:[id number] Norepinephrine Bitartrate 14.1 16 mg In Ns 250 ml @ Per Protocol [facility] Rx# :[id number] Propofol/Emulsion 100 ml 134 279 @ Titrate IV [facility] Rx# :[id number] TPN W/ Famotidine 1 ea IV 428 1036 DAILY21 [facility] Rx#: [id number] fentaNYL/NACL 100 ml @ As 50 192 Directed IV CONT [facility] Rx# :[id number] Tube Feeding (ml) 0 Tube Flush (ml) 0 Output: Urine (ml) 2349 1984 250 Catheter 2350 1880 Colostomy 105 250 NG Tube Output (ml) 100 300 Left Naris Stomach [place] 100 300 Sump OG Tube Output (ml) 100 Large Bore (>12 [place]) 100 Non-weighted Oral Stomach Other: Weight 71.2 kg 75.7 kg 73 kg Result Diagrams: 01/02/17 05:20 01/02/17 05:20 Cardiac Labs: Cardiac Lab Results (72 Hrs) 12/31/16 13:42 Troponin I < 0.012 - Physical Exam Constitutional: other (Ill appearing woman intubated in ICU.) Eyes: anicteric sclera Ears, Nose, Mouth, Throat: moist mucous membranes Cardiovascular: regular rate and rhythm, no murmurs, no rubs, no gallops Respiratory: clear to auscultate bilat (anteriorly) Skin: no rashes, no edema Neurologic: other (Sedated) ICD10 Worksheet Patient Problems: Problems Problem Status Onset Appendiceal tumor Acute
--- NOTE | 2017-01-02 12:42 | PDCARPN ---
Cardiology Progress Note Assessment/Plan: Asystolic Arrest on 12/31- recovered quickly after IV atropine and chest compressions for less than 2 minutes. Possibly parasympathetically mediated. No further pauses. No evidence of underlying conduction system disease on her baseline 12-lead ECG. No episodes of high-grade AV block on telemetry. No indication at this time to consider pacemaker. Continue to monitor. Paroxysmal Atrial Fibrillation/Flutter-loaded with IV amiodarone earlier in her hospital course. GI route currently unavailable. Had recurrent atrial flutter with adequate rate control occurring approximately 19:40 last pm and lasting for a few minutes. Could reinstitute IV amiodarone if she has recurrent atrial arrhythmias. Would start tablet form of amiodarone once GI route is available. Not currently a candidate for systemic anticoagulation. 01/02/17 12:34 Subjective: Intubated and sedated. Reviewed/Discussed With: family Objective: Vital Signs (8 Hrs) Temp Pulse Resp BP Pulse Ox 01/02/17 11:23 66 16 99 01/02/17 11:00 70 16 105/35 L 98 01/02/17 10:00 69 16 134/41 H 98 01/02/17 09:00 63 16 119/38 L 99 01/02/17 08:45 64 16 99 01/02/17 08:00 63 16 132/34 H 99 01/02/17 07:00 38.3 C 64 16 119/39 L 99 01/02/17 06:00 69 16 120/42 L 99 01/02/17 05:00 67 16 109/37 L 98 Intake/Output (24 Hrs) 01/01/17 01/02/17 01/03/17 05:59 05:59 05:59 Intake Total 3554 3127.1 Output Total 2550 2285 250 Balance 1004 842.1 -250 Intake: IV Intake (ml) 1801 721 IV Infused (ml) 1753 2406.1 Albumin 5% 500 ml @ As 500 Directed IV ONCE ONE Rx#: [id number] Heparin/Dextrose 500 ml @ 641 885 Per Protocol IV CONT MEERA Rx#:[id number] Norepinephrine Bitartrate 14.1 16 mg In Ns 250 ml @ Per Protocol IV CONT MEERA Rx# :[id number] Propofol/Emulsion 100 ml 134 279 @ Titrate IV CONT MEERA Rx# :[id number] TPN W/ Famotidine 1 ea IV 428 1036 [id number] [facility]#: [id number] fentaNYL/NACL 100 ml @ As 50 192 Directed IV CONT [facility] Rx# :[id number] Tube Feeding (ml) 0 Tube Flush (ml) 0 Output: Urine (ml) 2349 1984 250 Catheter 2350 1880 Colostomy 105 250 NG Tube Output (ml) 100 300 Left Naris Stomach [place] 100 300 Sump OG Tube Output (ml) 100 Large Bore (>12 [place]) 100 Non-weighted Oral Stomach Other: Weight 71.2 kg 75.7 kg 73 kg Result Diagrams: 01/02/17 05:20 01/02/17 05:20 Cardiac Labs: Cardiac Lab Results (72 Hrs) 12/31/16 13:42 Troponin I < 0.012 - Physical Exam Constitutional: other (Ill appearing woman intubated in ICU.) Eyes: anicteric sclera Ears, Nose, Mouth, Throat: moist mucous membranes Cardiovascular: regular rate and rhythm, no murmurs, no rubs, no gallops Respiratory: clear to auscultate bilat (anteriorly) Skin: no rashes, no edema Neurologic: other (Sedated) ICD10 Worksheet Patient Problems: Problems Problem Status Onset Appendiceal tumor Acute
--- NOTE | 2017-01-02 13:15 | WOCRNPDOC ---
WOCRN Advanced Assessment Note - Skin Integrity Problem, Advanced Assess Generalized Abdomen Surgical Wound/Incision Dressing Type: Allevyn Life Dressing Description: Clean/Dry, Intact Exudate Amount: Scant Exudate Color: Clear, Yellow Exudate Characteristic(s): Serous Integumentary Issue Intervention: Visualized Under Dressing [place] Wound Tissue: Blanching, Erythema Wound Bed Color: [place] Wound Bed Constitution: Smooth Tissue (100%) Site Measurement - Head-to-Toe Length X Width X Depth (cm): 0.7cmx0.7cmx0.1cm Pressure Injury Stage: Stage 2 Pressure Injury Present on Admit: No Skin Integrity Problem Comment: Patient turned to right side with assistance of ROMULO Brady. Skin to coccyx pink and blanching with partial thickness opening to coccyx. Wound bed measured and decrease in size of wound noted. Continue with current plan. Wound care will round again late next week.
[2017-01-02] MEDS ORDERED: LIDOCAINE 1% 300 MG/30 ML SDV ONE (15:02)
[2017-01-02] MEDS ORDERED: PROPOFOL/EMULSION 500 MG/50 ML BOTTLE IV ONE (16:22)
--- NOTE | 2017-01-02 16:24 | PCMIDPN ---
Assessment/Plan: Assessment: Septic shock-peritonitis status post ischemic colitis in the left side following right hemicolectomy for appendiceal neoplasm. Currently covered on both Zosyn and micafungin. White blood cell count continues to be elevated. attempt at initial interventional radiology drain of pelvic collection complicated by cardiac asystole caused by unknown event. Patient does not appear to of suffered long-term effect from this episode. Agree with repeat attempt to drain pelvic collection once cleared by Cardiology. Plan: 1. Continue Zosyn and micafungin. 2. Arrange for IR drainage. 3. Follow up lab values most notably leukocytosis. 01/02/17 17:11 Subjective: Patient remains intubated. She is able to communicate with nurses and family members. no significant overnight events. Objective: Zosyn # 8 Micafungin # 9 Vital Signs Temp Pulse Resp BP Pulse Ox 38.1 C 68 16 138/61 H 98 01/02/17 15:58 01/02/17 15:58 01/02/17 15:58 01/02/17 15:58 01/02/17 15:58 Microbiology 12/31/16 18:30 Gram Stain - Final Abdomen - Swab 12/29/16 12:45 Gram Stain - Final Abdomen - Aspirate Body Fluid Culture - Final Enterococcus Faecium Laboratory Results 01/02/17 05:20 01/02/17 12:10 01/01/17 01/02/17 01/03/17 05:59 05:59 05:59 Intake Total 3554 3127.1 Output Total 2550 2285 250 Balance 1004 842.1 -250 - Physical Exam General Appearance: WD/WN, no apparent distress, non-toxic Respiratory: lungs clear, normal breath sounds, No respiratory distress Cardiac/Chest: regular rate, rhythm, No tachycardia Skin: normal color, warm/dry, No rash ICD10 Worksheet Patient Problems: Problems Problem Status Onset Appendiceal tumor Acute
--- NOTE | 2017-01-02 17:28 | PDANEPAE ---
ANE History of Present Illness 86 year old gravely ill woman with pelvic abscess for drain placement with CT guidance. ANE Past Medical History - Cardiovascular History Hx Hypertension: Yes Hx Arrhythmias: Yes Hx Chest Pain: No Hx Coronary Artery / Peripheral Vascular Disease: No Hx CHF / Valvular Disease: No Hx Palpitations: No - Pulmonary History Hx COPD: No Hx Asthma/Reactive Airway Disease: No Hx Recent Upper Respiratory Infection: No Hx Oxygen in Use at Home: No Hx Sleep Apnea: No Sleep Apnea Screening Result - Last Documented: Negative - Neurologic History Hx Cerebrovascular Accident: No Hx Seizures: No Hx Dementia: No - Endocrine History Hx Diabetes: No - Renal History Hx Renal Disorders: Yes Renal History Comment: STRESS URGENCY - Liver History Hx Hepatic Disorders: No - Neurological & Psychiatric Hx Hx Neurological and Psychiatric Disorders: No - Cancer History Hx Cancer: No - Congenital Disorder History Hx Congenital Disorders: No - GI History Hx Gastrointestinal Disorders: Yes Gastrointestinal History Comment: TESTING SHOWS MASS COLON REGION. CONSTIPATION. PREV REMVL COLON POLYPS - Other Health History Other Health History: GLAUCOMA. MACULAR DEGENERATION - Surgical History Prior Surgeries: BROOKE CATARACT. COLONOSCOPY ANE Review of Systems Review of Systems: - Exercise capacity METS (RN): 4 METS ANE Patient History - Allergies Allergies/Adverse Reactions: No Known Allergies Allergy (Verified 12/19/16 15:57) - Home Medications Home Medications: Amlodipine Besylate/Benazepril [Amlodipine-Benazepril 5-20 mg] 1 each PO DAILY 12/19/16 [Last Taken 12/19/16] Aspirin [Aspirin 81mg (*)] 81 mg PO DAILY 12/19/16 [Last Taken 12/16/16] Brimonidine 0.15% [ALPHAGAN P 0.15% (RX)] 1 drops EACHEYE BID 12/19/16 [Last Taken 12/20/16] C/E/Zn/Cu/OM3/DHA/EPA/LUT/ZEAX [Preservision Areds 2 Softgel] 2 each PO BID 02/23 [Last Taken 12/19/16] Calcium Carbonate [Oyster Shell Calcium 500 mg (*)] 500 mg PO BID 12/19/16 [ Last Taken Unknown] Herbals/Supplements -Info Only 1 ea PO DAILY 12/19/16 [Last Taken 12/19/16] Multivitamins [Multivitamin (*)] 1 each PO DAILY 12/19/16 [Last Taken 12/15/16] Propranolol HCl [Inderal Xl] 80 mg PO DAILY@20 12/19/16 [Last Taken 12/19/16] Simvastatin [Zocor] 20 mg PO DAILY@20 12/19/16 [Last Taken 12/19/16] Travoprost Z 0.004% [Travatan Z 0.004% (*)] 1 drops EACHEYE HS 12/19/16 [Last Taken 12/20/16] - NPO status NPO Since - Liquids (Date): 01/01/17 NPO Since - Liquids (Time): 00:00 NPO Since - Solids (Date): 01/01/17 NPO Since - Solids (Time): 00:00 - Smoking Hx Smoking Status: Former smoker - Alcohol Use Alcohol Use: Other (Patient has 2 alcoholic beverages nightly, she has never experienced acute alcohol withdrawal) - Family Anes Hx Family Hx Anesthesia Complications: NEPHEW AT AGE 4 CODED ? RELATED TO [place] ANE Labs/Vital Signs - Labs Result Diagrams: 01/02/17 05:20 01/02/17 12:10 - Vital Signs Blood Pressure: 138/61 Heart Rate: 68 Respiratory Rate: 16 O2 Sat (%): 98 Height: 157.48 cm Weight: 73 kg ANE Physical Exam - Airway Mallampati Score: Class 2 Mouth exam: ETT in situ - Pulmonary Pulmonary: no rales or rhonchi - Cardiovascular Cardiovascular: regular rate and rhythym - ASA Status ASA Status: IV
[2017-01-02] MEDS ORDERED: NALOXONE HCL 0.4 MG/ML INJ IVP PRN (17:29)
--- NOTE | 2017-01-02 17:29 | POSTANESTH ---
Post Anesthetic Evaluation Cardiovascular Status: Similar to Pre-Op Cond Respiratory Status: Requires Airway Assist Level of Consciousness/Mental Status: Other, See Comment Pain Control: Adequate, Prn Tx Ordered Nausea/Vomiting Control: Adequate, Prn Tx Ordered Complications Possibly Related to Anesthesia: None Noted (Patient with ongoing sedation with propofol and fentanyl.)
--- NOTE | 2017-01-02 18:46 | HOSPPROG ---
Hospitalist Progress Note Assessment/Plan: This patient initially presented for elective surgery for enlarging appendeceal mass. This was complicated by ischemic bowel and peritonitis requiring reoperation, and has had multiple other complications since then. DIAGNOSES: * large intra-abdominal abscess s/p perctaneous drain palcement 01/02 * Septic shock due to peritonitis, remains on low dose pressor -remains on levophed -IV Zosyn + IV micafungin * Asystole with brief CPR during attempt ad abscess drainage 12/31 * Colon perf (ischemic colitis) s/p colostomy/washout -some ileus remains and she has been unable to take tube feeds but is moving some small amount of stool through to her ostomy * Acute respiratory failure s/p intubation -remains mech vent dependent; plan for tracheostomy 01/03 * Aspiration PNA -witnessed aspiration event prior to OR * Surgical Wound infection * Afib - had been sinus initially this am but went back on rapid AFib; is not currently on amiodarone -on IV heparin at this time * 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) * Volume overload due to resuscitation -resolved after IV lasix gtt * PICC line associated DVT -IV heparin at present * Pancytopenia - suspect due to sepsis - resolving * Etoh - no evidence for withdrawal * Essential tremor -holding propranolol due to hypotension PLANS: -remains stable from a lung standpoint but likely too weak w her other illnesses for extubation, plan for tracheostomy 01/03 -not yet tolerating tube feeds so these stopped; continue tpn -percutaneous drain now in place for pelvic abscess -continue current antibx, antifungal -skin care -continue current treatment for atrial fibrillation rate control -DVT/AFib treatment currently hep drip reviewed with Dr Ross and Dr Cantor also seen on multidisc rounds SUBJECTIVE: on vent, unable to communicate her symptoms Has done another long CPAP period this am no acute events overnight,no arrythmia OBJECTIVE: vitals: T max 38.1 bps remain good off pressor, on cpap via vent now resp mildly labored; wean parameters suggest significant weakness quality assurance monitor: back in NSR good rate exam: on vent w cpa, tube secured wide awake central line looks good skin warm dry, good cap refill lungs clear as best I can hear, very shallow resp heart reg abd soft abd still w some distension, drainage from inferior protion of her incision Objective: Vital Signs Temp Pulse Resp BP Pulse Ox 38.1 C 84 16 94/44 L 97 01/02/17 15:58 01/02/17 18:00 01/02/17 18:00 01/02/17 18:00 01/02/17 18:00 Microbiology 12/31/16 18:30 Gram Stain - Final Abdomen - Swab 12/29/16 12:45 Gram Stain - Final Abdomen - Aspirate Body Fluid Culture - Final Enterococcus Faecium Laboratory Results 01/02/17 05:20 01/02/17 18:00 01/01/17 01/02/17 01/03/17 06:59 06:59 06:59 Intake Total 3554 3127.1 1133 Output Total 2550 2285 1780 Balance 1004 842.1 -647 PT 16.9 SEC (12.0-15.0) H 12/30/16 05:40 INR 1.37 (0.83-1.16) H 12/30/16 05:40 - Time Spent With Patient Time Spent with Patient: greater than 35 minutes Time Spent with Patient: Greater than 35 minutes spent on this patients care, greater than 50% of time spent counseling, educating, and coordinating care regarding the above mentioned plan. ICD10 Worksheet Patient Problems: Problems Problem Status Onset Appendiceal tumor Acute
[2017-01-02] MEDS: TRAVOPROST Z 0.004% 2.5 ML OPHT.BTL EACHEYE SCH (20:45)
[2017-01-02] MEDS: TPN W/ FAMOTIDINE 1 EA BAG IV SCH (20:45)
[2017-01-03] MEDS: INSULIN REGULAR HUMAN 100 UNIT/ML SC SCH ×5 (00:30→23:44)
[2017-01-03] MEDS: PIPERACILLIN/TAZO 3.375 GM/DEX 50 ML IV SCH ×5 (00:34→23:30)
[2017-01-03] MEDS: METOCLOPRAMIDE 10 MG/2 ML VIAL IVP SCH ×5 (00:34→23:31)
[2017-01-03] MEDS: HEPARIN 10,000 UNIT/10 ML MDV IVP PRN (01:26)
[2017-01-03] MEDS: fentaNYL/NACL 100 ML IV SCH ×2 (01:35→13:49)
[2017-01-03] MEDS: PROPOFOL/EMULSION 100 ML IV SCH ×3 (01:36→23:30)
[2017-01-03] MEDS: HEPARIN 25,000 UNIT in D5W 500 ML IV SCH (04:01)
[2017-01-03] MEDS: LEVALBUTEROL INHALER 200 PUFFS/15 GM MDI IH SCH ×4 (04:57→20:02)
[2017-01-03] MEDS: BRIMONIDINE 0.15% 5 ML OPHT.BTL EACHEYE SCH ×2 (08:14→20:59)
[2017-01-03] MEDS: MICAFUNGIN NA 100 MG in NS 100 ML IV SCH (08:14)
--- NOTE | 2017-01-03 09:53 | ASMTCMCOM ---
CM Note CM Note Notes: Family Meeting held in conference room on . Dr. Ross, Chris York from [facility] [employer], RN collins Le, Thelma Graf marketing segment manager,this RN and family in attendance. , daughter, two sisters and niece. Family discussed concerns regarding how to measure pt's progress, indications for further surgery, indications for tracheostomy placement, current ostomy viablity and function and potential outlook for step down. Physicians answered questions with plan in place to wean sedation for SNIFF test to see if extubation without a tracheostomy may be possible. Surgeon reported on status of drain placement and the current status of her bowels. Dolores, the patient's daughter also responded to the question of what would her mother want if she could speak. Dolores reports her mother and father has discussed a previous DNR order but when they discussed surgery they agreed to proceed and treat arising complications. The daughter is feeling that at this point the medical interventions may be beyond treatment of reasonable complications. The family is not ready to make any definitive changes in the provision of care just yet but will take everything into consideration and may plan another meeting with the physicians at some point in the next few days. Current plan of care consists of weaning blood pressure supportive medications and sedation to enable extubation, The family is aware the situation is too premature to regard entertaining discharge discussion. Sister Voicing concerns about insurance coverage. Will speak to financial services to reach out to family.CM to follow. Date Signed: 01/03/2017 09:52 AM Electronically Signed By:Denise Khan RN
--- NOTE | 2017-01-03 09:53 | ASMTCMCOM ---
CM Note CM Note Notes: Family Meeting held in conference room on . Dr. Ross, Chris York from [facility] [employer], RN collins Le, Thelma Graf associate store manager,this RN and family in attendance. , daughter, two sisters and niece. Family discussed concerns regarding how to measure pt's progress, indications for further surgery, indications for tracheostomy placement, current ostomy viablity and function and potential outlook for step down. Physicians answered questions with plan in place to wean sedation for SNIFF test to see if extubation without a tracheostomy may be possible. Surgeon reported on status of drain placement and the current status of her bowels. Dolores, the patient's daughter also responded to the question of what would her mother want if she could speak. Dolores reports her mother and father has discussed a previous DNR order but when they discussed surgery they agreed to proceed and treat arising complications. The daughter is feeling that at this point the medical interventions may be beyond treatment of reasonable complications. The family is not ready to make any definitive changes in the provision of care just yet but will take everything into consideration and may plan another meeting with the physicians at some point in the next few days. Current plan of care consists of weaning blood pressure supportive medications and sedation to enable extubation, The family is aware the situation is too premature to regard entertaining discharge discussion. Sister Voicing concerns about insurance coverage. Will speak to financial services to reach out to family.CM to follow. Date Signed: 01/03/2017 09:52 AM Electronically Signed By:Densie Khan RN
--- NOTE | 2017-01-03 09:53 | ASMTCMCOM ---
CM Note CM Note Notes: Family Meeting held in conference room on . Dr. Ross, Chris York from [facility] [employer], RN collins Le, Thelma Graf assistant fitness manager,this RN and family in attendance. , daughter, two sisters and niece. Family discussed concerns regarding how to measure pt's progress, indications for further surgery, indications for tracheostomy placement, current ostomy viablity and function and potential outlook for step down. Physicians answered questions with plan in place to wean sedation for SNIFF test to see if extubation without a tracheostomy may be possible. Surgeon reported on status of drain placement and the current status of her bowels. Dolores, the patient's daughter also responded to the question of what would her mother want if she could speak. Dolores reports her mother and father has discussed a previous DNR order but when they discussed surgery they agreed to proceed and treat arising complications. The daughter is feeling that at this point the medical interventions may be beyond treatment of reasonable complications. The family is not ready to make any definitive changes in the provision of care just yet but will take everything into consideration and may plan another meeting with the physicians at some point in the next few days. Current plan of care consists of weaning blood pressure supportive medications and sedation to enable extubation, The family is aware the situation is too premature to regard entertaining discharge discussion. Sister Voicing concerns about insurance coverage. Will speak to financial services to reach out to family.CM to follow. Date Signed: 01/03/2017 09:52 AM Electronically Signed By:Denise Khan RN
--- NOTE | 2017-01-03 09:59 | PDINTPN ---
Retail Support Specialist Progress Note Assessment/Plan: Assessment/Plan: * Peritonitis/abdominal sepsis: On Zosyn, Micafungin. Id following. Possible infection in the lower aspect of the wound. Successful drainage of fluid collection. * Hypotension-on low-dose Levophed * Acute respiratory failure. Day 11 on ventilator. Secondary to the above. On ventilator 40%. -vital capacity was good this morning. Patient was unable to perform a negative inspiratory force. -will hold tracheostomy for now. * Atrial fibrillation/flutter, off and on. In sinus at times. Seems to go into atrial fibrillation with any sort of stress. * Status post cor with asystole-this required 1 amp of atropine and chest compressions. No further episodes since yesterday. Cardiology following * Volume overload-markedly improved. Lasix drip is off. * Anemia: Acute blood loss plus dilutional. -follow * DVT: Catheter associated right upper extremity. On full-dose heparin, right PICC line left in, also has a nor PICC line on the left. * Metabolic: Stable * Leukopenia: Resolved. WBC now 20, remains high possibly secondary to ongoing abdominal inflammation/infection. * DVT: Catheter associated on right, On full-dose heparin. Hematocrit stable. No evidence of active bleeding * GI prophylaxis: Famotidine. * Nutrition: TPN 45 minutes of critical care time spent with patient. Case discussed with Nursing, surgery, RT and family during family meeting Subjective: Sedated on mechanical ventilation. Objective: Vital Signs Temp Pulse Resp BP Pulse Ox 37.3 C 61 16 113/39 L 100 01/03/17 07:00 01/03/17 08:33 01/03/17 08:33 01/03/17 08:00 01/03/17 08:33 Microbiology 01/02/17 Unknown Gram Stain - Final Pelvis - Aspirate 12/31/16 18:30 Gram Stain - Final Abdomen - Swab Laboratory Results 01/02/17 05:20 01/03/17 05:00 01/02/17 01/03/17 01/04/17 05:59 05:59 05:59 Intake Total 3127.1 2483.6 Output Total 2285 3160 200 Balance 842.1 -676.4 -200 PT 16.9 SEC (12.0-15.0) H 12/30/16 05:40 INR 1.37 (0.83-1.16) H 12/30/16 05:40 Laboratory Results 01/02/17 05:20 01/03/17 05:00 01/03/17 05:00 Phosphorus 3.4 mg/dL mg/dL (2.5 - 4.5) Magnesium 2.5 mg/dL H mg/dL (1.6 - 2.3) 01/02/17 Unknown Gram Stain - Final Pelvis - Aspirate Anaerobic Culture - Pending 12/31/16 18:30 Gram Stain - Final Abdomen - Swab Wound Culture - Preliminary Escherichia Coli Chest [id number] by myself. Endotracheal tube is in good position. Bilateral lower lobe infiltrates are appreciated possible right pleural effusion. PICC lines in good position. - Time Spent With Patient Time Spent With Patient: 45 minutes of critical care time spent with the patient Physical Exam - Physical Exam General Appearance: mild distress, No alert EENT: PERRL/EOMI, ET tube Neck: non-tender, full range of motion Respiratory: crackles (Bibasilar), No respiratory distress, No wheezing Cardiac/Chest: normal peripheral pulses, regular rate, rhythm, extra beats Abdomen: normal bowel sounds, non-tender, soft Pelvic Exam: deferred Rectal: deferred Skin: normal color, warm/dry Neuro/Psych: No alert ICD10 Worksheet Patient Problems: Problems Problem Status Onset Appendiceal tumor Acute
[2017-01-03] MEDS: ASPIRIN 81 MG CHEWABLE TAB TUBE SCH (10:14)
[2017-01-03] MEDS: SODIUM HYPOCHLORITE (DAKINS 1/4 STR) 120 ML BTL TP SCH ×2 (10:15→20:59)
[2017-01-03 10:45] LABS: PLATELET COUNT 667 10^3/uL (150-400)
[2017-01-03] MEDS ORDERED: AMIODARONE HCL 100 ML IV ONE (10:54)
[2017-01-03] MEDS ORDERED: NOREPINEPHRINE/NS 500 ML IV SCH (11:00)
--- NOTE | 2017-01-03 12:01 | SOAPPROG ---
SOAP Progress Note Assessment/Plan: Assessment/Plan: - 86yo F s/p RHC, LHC, a-fib, cardiac arrest. - Still in and out of a-fib, pressures are stable. On hep gtt - abd remains soft, midline wound packed with W-D 1/4 Dakins. - Perc drain successfully placed transgluteal into pelvic collection yesterday, Cx pending but fluid is clear and not grossly purulent. - WBC down to 15 today, perc drainage helpful in obtaining source control. - Holding off on trach today, her vital capacity was reassuring but she gets very anxious when sedation is weaned. - Plan: see how she does over the weekend as far as vent is concerned. She was made DNR today meaning no chest compressions if her heart were to stop again but family wants to maintain ETT and pressors if needed. Will eval next week whether or not candidate for trach. Daughter Ivette expressed concerns that her mother would not want to continue care but hesitant to want to withdraw. I anticipate that we will have a better idea of LT prognosis next week. - Dr Pratt to see patient tomorrow. 01/01/17 13:52 01/03/17 11:56 Subjective: Following commands, squeezes my hand. Objective: Vital Signs Temp Pulse Resp BP Pulse Ox 37.3 C 66 16 115/34 L 100 01/03/17 07:00 01/03/17 10:00 01/03/17 10:00 01/03/17 09:00 01/03/17 10:00 Microbiology 12/31/16 18:30 Gram Stain - Final Abdomen - Swab 01/02/17 Unknown Gram Stain - Final Pelvis - Aspirate Laboratory Results 01/03/17 10:30 01/03/17 05:00 01/02/17 01/03/17 01/04/17 05:59 05:59 05:59 Intake Total 3127.1 2483.6 Output Total 2285 3160 200 Balance 842.1 -676.4 -200 PT 16.9 SEC (12.0-15.0) H 12/30/16 05:40 INR 1.37 (0.83-1.16) H 12/30/16 05:40 ICD10 Worksheet Patient Problems: Problems Problem Status Onset Appendiceal tumor Acute
--- NOTE | 2017-01-03 12:26 | PDCARPN ---
Cardiology Progress Note Assessment/Plan: Asystolic Arrest on 12/31- recovered quickly after IV atropine and chest compressions for less than 2 minutes. Possibly parasympathetically mediated. No further pauses. No evidence of underlying conduction system disease on her baseline 12-lead ECG. No episodes of high-grade AV block on telemetry. No indication at this time to consider pacemaker. Continue to monitor. Paroxysmal Atrial Fibrillation/Flutter-loaded with IV amiodarone earlier in her hospital course. GI route currently unavailable. Had recurrent atrial flutter with adequate rate control in the evening of 01/01 and another episode last pm with RVR. Will give a 150 mg dose of amiodarone today. Can periodically repeat PRN for recurrences. Would start tablet form of amiodarone once GI route is available. On IV heparin. 01/03/17 12:27 Subjective: Intubated and sedated. Reviewed/Discussed With: family Objective: Vital Signs (8 Hrs) Temp Pulse Resp BP Pulse Ox 01/03/17 11:51 61 16 100 01/03/17 10:00 66 16 100 01/03/17 09:00 65 16 115/34 L 100 01/03/17 08:33 61 16 100 01/03/17 08:00 65 16 113/39 L 100 01/03/17 07:00 37.3 C 63 16 111/35 L 100 01/03/17 06:36 64 111/38 L 01/03/17 06:34 90/40 L 01/03/17 05:56 66 16 112/42 L 99 01/03/17 05:00 37.2 C 62 16 127/48 H 100 01/03/17 04:59 59 L 16 100 Intake/Output (24 Hrs) 01/02/17 01/03/17 01/04/17 05:59 05:59 05:59 Intake Total 3127.1 2483.6 Output Total 2285 3160 200 Balance 842.1 -676.4 -200 Intake: IV Intake (ml) 721 202 IV Infused (ml) 2406.1 2221.6 Heparin 25,000 unit In 705 D5w 500 ml @ As Directed IV CONT MEERA Rx#: [id number] Heparin/Dextrose 500 ml @ 885 Per Protocol IV CONT MEERA Rx#:[id number] Norepinephrine Bitartrate 14.1 46 16 mg In Ns 250 ml @ Per Protocol IV CONT MEERA Rx# :[id number] Propofol/Emulsion 100 ml 279 296 @ Titrate IV CONT MEERA Rx# :[id number] TPN W/ Famotidine 1 ea IV 1036 994 DAILY21 MEERA Rx#: [id number] fentaNYL/NACL 100 ml @ As 192 180.6 Directed IV CONT MEERA Rx# :[id number] Tube Feeding (ml) 0 Tube Flush (ml) 0 60 Output: Urine (ml) 1985 2550 200 Catheter 1880 2300 200 Colostomy 105 250 Liquid Stool (ml) 50 Colostomy 50 NG Tube Output (ml) 300 300 Left Naris Stomach [place] 300 300 Sump VITOR Drain Output (ml) 260 Right Posterior Buttock 140 Right Posterior Abdulkadir 120 Youssef Other: Weight 75.7 kg 75.1 kg Result Diagrams: 01/03/17 10:30 01/03/17 05:00 Cardiac Labs: Cardiac Lab Results (72 Hrs) 12/31/16 13:42 Troponin I < 0.012 - Physical Exam Constitutional: other (Intubated and sedated.) Eyes: anicteric sclera Ears, Nose, Mouth, Throat: moist mucous membranes Cardiovascular: regular rate and rhythm, no murmurs, no gallops Respiratory: clear to auscultate bilat (anteriorly) Gastrointestinal: no masses Skin: no rashes, no edema Neurologic: other (sedated) ICD10 Worksheet Patient Problems: Problems Problem Status Onset Appendiceal tumor Acute
--- NOTE | 2017-01-03 12:26 | PDCARPN ---
Cardiology Progress Note Assessment/Plan: Asystolic Arrest on 12/31- recovered quickly after IV atropine and chest compressions for less than 2 minutes. Possibly parasympathetically mediated. No further pauses. No evidence of underlying conduction system disease on her baseline 12-lead ECG. No episodes of high-grade AV block on telemetry. No indication at this time to consider pacemaker. Continue to monitor. Paroxysmal Atrial Fibrillation/Flutter-loaded with IV amiodarone earlier in her hospital course. GI route currently unavailable. Had recurrent atrial flutter with adequate rate control in the evening of 01/01 and another episode last pm with RVR. Will give a 150 mg dose of amiodarone today. Can periodically repeat PRN for recurrences. Would start tablet form of amiodarone once GI route is available. On IV heparin. 01/03/17 12:27 Subjective: Intubated and sedated. Reviewed/Discussed With: family Objective: Vital Signs (8 Hrs) Temp Pulse Resp BP Pulse Ox 01/03/17 11:51 61 16 100 01/03/17 10:00 66 16 100 01/03/17 09:00 65 16 115/34 L 100 01/03/17 08:33 61 16 100 01/03/17 08:00 65 16 113/39 L 100 01/03/17 07:00 37.3 C 63 16 111/35 L 100 01/03/17 06:36 64 111/38 L 01/03/17 06:34 90/40 L 01/03/17 05:56 66 16 112/42 L 99 01/03/17 05:00 37.2 C 62 16 127/48 H 100 01/03/17 04:59 59 L 16 100 Intake/Output (24 Hrs) 01/02/17 01/03/17 01/04/17 05:59 05:59 05:59 Intake Total 3127.1 2483.6 Output Total 2285 3160 200 Balance 842.1 -676.4 -200 Intake: IV Intake (ml) 721 202 IV Infused (ml) 2406.1 2221.6 Heparin 25,000 unit In 705 D5w 500 ml @ As Directed IV CONT MEERA Rx#: [id number] Heparin/Dextrose 500 ml @ 885 Per Protocol IV CONT MEERA Rx#:[id number] Norepinephrine Bitartrate 14.1 46 16 mg In Ns 250 ml @ Per Protocol IV CONT MEERA Rx# :[id number] Propofol/Emulsion 100 ml 279 296 @ Titrate IV CONT MEERA Rx# :[id number] TPN W/ Famotidine 1 ea IV 1036 994 DAILY21 MEERA Rx#: [id number] fentaNYL/NACL 100 ml @ As 192 180.6 Directed IV CONT MEERA Rx# :[id number] Tube Feeding (ml) 0 Tube Flush (ml) 0 60 Output: Urine (ml) 1985 2550 200 Catheter 1880 2300 200 Colostomy 105 250 Liquid Stool (ml) 50 Colostomy 50 NG Tube Output (ml) 300 300 Left Naris Stomach [place] 300 300 Sump VITOR Drain Output (ml) 260 Right Posterior Buttock 140 Right Posterior Abdulkadir 120 Youssef Other: Weight 75.7 kg 75.1 kg Result Diagrams: 01/03/17 10:30 01/03/17 05:00 Cardiac Labs: Cardiac Lab Results (72 Hrs) 12/31/16 13:42 Troponin I < 0.012 - Physical Exam Constitutional: other (Intubated and sedated.) Eyes: anicteric sclera Ears, Nose, Mouth, Throat: moist mucous membranes Cardiovascular: regular rate and rhythm, no murmurs, no gallops Respiratory: clear to auscultate bilat (anteriorly) Gastrointestinal: no masses Skin: no rashes, no edema Neurologic: other (sedated) ICD10 Worksheet Patient Problems: Problems Problem Status Onset Appendiceal tumor Acute
--- NOTE | 2017-01-03 12:26 | PDCARPN ---
Cardiology Progress Note Assessment/Plan: Asystolic Arrest on 12/31- recovered quickly after IV atropine and chest compressions for less than 2 minutes. Possibly parasympathetically mediated. No further pauses. No evidence of underlying conduction system disease on her baseline 12-lead ECG. No episodes of high-grade AV block on telemetry. No indication at this time to consider pacemaker. Continue to monitor. Paroxysmal Atrial Fibrillation/Flutter-loaded with IV amiodarone earlier in her hospital course. GI route currently unavailable. Had recurrent atrial flutter with adequate rate control in the evening of 01/01 and another episode last pm with RVR. Will give a 150 mg dose of amiodarone today. Can periodically repeat PRN for recurrences. Would start tablet form of amiodarone once GI route is available. On IV heparin. 01/03/17 12:27 Subjective: Intubated and sedated. Reviewed/Discussed With: family Objective: Vital Signs (8 Hrs) Temp Pulse Resp BP Pulse Ox 01/03/17 11:51 61 16 100 01/03/17 10:00 66 16 100 01/03/17 09:00 65 16 115/34 L 100 01/03/17 08:33 61 16 100 01/03/17 08:00 65 16 113/39 L 100 01/03/17 07:00 37.3 C 63 16 111/35 L 100 01/03/17 06:36 64 111/38 L 01/03/17 06:34 90/40 L 01/03/17 05:56 66 16 112/42 L 99 01/03/17 05:00 37.2 C 62 16 127/48 H 100 01/03/17 04:59 59 L 16 100 Intake/Output (24 Hrs) 01/02/17 01/03/17 01/04/17 05:59 05:59 05:59 Intake Total 3127.1 2483.6 Output Total 2285 3160 200 Balance 842.1 -676.4 -200 Intake: IV Intake (ml) 721 202 IV Infused (ml) 2406.1 2221.6 Heparin 25,000 unit In 705 D5w 500 ml @ As Directed IV CONT MEERA Rx#: [id number] Heparin/Dextrose 500 ml @ 885 Per Protocol IV CONT MEERA Rx#:[id number] Norepinephrine Bitartrate 14.1 46 16 mg In Ns 250 ml @ Per Protocol IV CONT MEERA Rx# :[id number] Propofol/Emulsion 100 ml 279 296 @ Titrate IV CONT MEERA Rx# :[id number] TPN W/ Famotidine 1 ea IV 1036 994 DAILY21 MEERA Rx#: [id number] fentaNYL/NACL 100 ml @ As 192 180.6 Directed IV CONT MEERA Rx# :[id number] Tube Feeding (ml) 0 Tube Flush (ml) 0 60 Output: Urine (ml) 1985 2550 200 Catheter 1880 2300 200 Colostomy 105 250 Liquid Stool (ml) 50 Colostomy 50 NG Tube Output (ml) 300 300 Left Naris Stomach [place] 300 300 Sump VITOR Drain Output (ml) 260 Right Posterior Buttock 140 Right Posterior Abdulkadir 120 Youssef Other: Weight 75.7 kg 75.1 kg Result Diagrams: 01/03/17 10:30 01/03/17 05:00 Cardiac Labs: Cardiac Lab Results (72 Hrs) 12/31/16 13:42 Troponin I < 0.012 - Physical Exam Constitutional: other (Intubated and sedated.) Eyes: anicteric sclera Ears, Nose, Mouth, Throat: moist mucous membranes Cardiovascular: regular rate and rhythm, no murmurs, no gallops Respiratory: clear to auscultate bilat (anteriorly) Gastrointestinal: no masses Skin: no rashes, no edema Neurologic: other (sedated) ICD10 Worksheet Patient Problems: Problems Problem Status Onset Appendiceal tumor Acute
--- NOTE | 2017-01-03 13:36 | HOSPPROG ---
Hospitalist Progress Note Assessment/Plan: 86 y/o female new to my care 01/03 initially presented for elective surgery for enlarging appendiceal mass. This was complicated by ischemic bowel and peritonitis requiring reoperation, and has had multiple other complications since then. * large intra-abdominal abscess s/p perctaneous drain palcement 01/02 * Septic shock due to peritonitis, remains on low dose pressor -remains on levophed -IV Zosyn + IV micafungin * Asystole with brief CPR during attempt ad abscess drainage 12/31 * Colon perf (ischemic colitis) s/p colostomy/washout -some ileus remains and she has been unable to take tube feeds but is moving some small amount of stool through to her ostomy * Acute respiratory failure s/p intubation -remains mech vent dependent; plan for tracheostomy 01/03 * Aspiration PNA -witnessed aspiration event prior to OR * Surgical Wound infection * Afib -cardiology note was reviewed and appreciated * 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) * Volume overload due to resuscitation (resolved) * PICC line associated DVT -IV heparin at present * Pancytopenia - suspect due to sepsis - resolving * Etoh - no evidence for withdrawal * Essential tremor -holding propranolol due to hypotension PLANS: -remains stable from a lung standpoint but likely too weak w her other illnesses for extubation, plan for tracheostomy -not yet tolerating tube feeds so these stopped; continue tpn -percutaneous drain now in place for pelvic abscess -continue current antibx, antifungal -skin care -continue current treatment for atrial fibrillation rate control -DVT/AFib treatment currently hep drip reviewed with Dr Ross and seen on multidisc rounds Subjective: intubated Objective: Vital Signs Temp Pulse Resp BP Pulse Ox 37 C 64 16 130/46 H 100 01/03/17 12:00 01/03/17 12:00 01/03/17 12:00 01/03/17 12:00 01/03/17 12:00 Microbiology 12/31/16 18:30 Gram Stain - Final Abdomen - Swab 01/02/17 Unknown Gram Stain - Final Pelvis - Aspirate Laboratory Results 01/03/17 10:30 01/03/17 12:00 01/02/17 01/03/17 01/04/17 05:59 05:59 05:59 Intake Total 3127.1 2483.6 Output Total 2285 3160 500 Balance 842.1 -676.4 -500 PT 16.9 SEC (12.0-15.0) H 12/30/16 05:40 INR 1.37 (0.83-1.16) H 12/30/16 05:40 - Physical Exam Constitutional: chronically ill appearing Eyes: PERRL, anicteric sclera, EOMI Ears, Nose, Mouth, Throat: moist mucous membranes, hearing normal, ears appear normal, no oral mucosal ulcers Cardiovascular: regular rate and rhythym, no murmur, rub, or gallop, No edema Respiratory: no respiratory distress, no rales or rhonchi, clear to auscultation , reduced air movement (bilat bases) Gastrointestinal: soft, non-tender abdomen, no palpable masses, No normoactive bowel sounds (hypoactive bowel sounds) Genitourinary: bishop in urethra Skin: warm, no induration, No rash Neurologic: other (sedated; aaox0) ICD10 Worksheet Patient Problems: Problems Problem Status Onset Appendiceal tumor Acute
--- NOTE | 2017-01-03 18:05 | PCMIDPN ---
Assessment/Plan: Assessment/Plan: * Septic shock associated with peritonitis post ischemic colitis: Status post repeat percutaneous drainage yesterday with serosanguineous fluid noted. G stain negative with culture pending. Recent wound culture with growth of bacillus which is of unclear significance. Prior aspirate however did show gram -positive rods on Gram stain which could be authorization representative of bacillus although this did not grow. Given continued severe illness, will add vancomycin with monitoring of renal function as this is typical antibiotic therapy for bacillus. Await repeat culture. Continue Zosyn and micafungin. Clinical findings and plan were discussed with patient's family earlier today. 01/03/17 18:02 Subjective: Intubated and sedated. Patient had percutaneous drainage of pelvic collection yesterday yielding serosanguineous fluid. Objective: Vital Signs Temp Pulse Resp BP Pulse Ox 37.0 C 65 16 127/45 H 99 01/03/17 14:00 01/03/17 17:00 01/03/17 17:00 01/03/17 17:00 01/03/17 17:00 Microbiology 12/31/16 18:30 Gram Stain - Final Abdomen - Swab 01/02/17 Unknown Gram Stain - Final Pelvis - Aspirate Laboratory Results 01/03/17 10:30 01/02/17 01/03/17 01/04/17 05:59 05:59 05:59 Intake Total 3127.1 2483.6 1460 Output Total 2285 3160 805 Balance 842.1 -676.4 655 Zosyn # 9 Micafungin # 10 Norepinephrine drip Pelvic fluid collection Gram stain negative with culture pending Wound culture from 12/31/2016 with growth of E coli and bacillus species - Physical Exam General Appearance: other (Intubated, sedated) EENT: ET Tube, No scleral icterus Cardiac/Chest: regular rate, rhythm Abdomen: distended, other (Midline incision open with packing in place; no surrounding erythema; VITOR drain with minimal serosanguineous output) Skin: No rash ICD10 Worksheet Patient Problems: Problems Problem Status Onset Appendiceal tumor Acute
[2017-01-03] MEDS: VANCOMYCIN HCL/NORMAL SALINE 250 ML IV SCH (18:19)
[2017-01-03] MEDS: TPN W/ FAMOTIDINE 1 EA BAG IV SCH (20:58)
[2017-01-03] MEDS: HEPARIN/DEXTROSE 500 ML IV SCH (20:58)
[2017-01-03] MEDS: TRAVOPROST Z 0.004% 2.5 ML OPHT.BTL EACHEYE SCH (20:59)
[2017-01-04] MEDS: fentaNYL/NACL 100 ML IV SCH ×3 (02:03→23:37)
[2017-01-04] MEDS: LEVALBUTEROL INHALER 200 PUFFS/15 GM MDI IH SCH ×4 (04:51→21:27)
[2017-01-04] MEDS: PROPOFOL/EMULSION 100 ML IV SCH (05:02)
[2017-01-04] MEDS: PIPERACILLIN/TAZO 3.375 GM/DEX 50 ML IV SCH ×4 (05:13→23:37)
[2017-01-04] MEDS: INSULIN REGULAR HUMAN 100 UNIT/ML SC SCH ×3 (05:13→17:51)
[2017-01-04] MEDS: METOCLOPRAMIDE 10 MG/2 ML VIAL IVP SCH ×4 (05:13→23:37)
[2017-01-04] MEDS: BRIMONIDINE 0.15% 5 ML OPHT.BTL EACHEYE SCH ×2 (08:54→22:09)
[2017-01-04] MEDS: SODIUM HYPOCHLORITE (DAKINS 1/4 STR) 120 ML BTL TP SCH ×2 (08:55→21:59)
[2017-01-04] MEDS: MICAFUNGIN NA 100 MG in NS 100 ML IV SCH (08:55)
--- NOTE | 2017-01-04 09:10 | PDINTPN ---
Dimensional Engineer Progress Note Assessment/Plan: Assessment/Plan: * Peritonitis/abdominal sepsis: On Zosyn, Micafungin. Id following. Possible infection in the lower aspect of the wound. Successful drainage of fluid collection. * Hypotension-on low-dose Levophed * Acute respiratory failure. Day 12 on ventilator. Secondary to the above. On ventilator 40%. -will assess weaning parameters and attempt to CPAP trial later on today -will hold tracheostomy for now. * Atrial fibrillation/flutter, off and on. In sinus at times. Seems to go into atrial fibrillation with any sort of stress. * Status post cor with asystole-this required 1 amp of atropine and chest compressions. No further episodes * Volume overload-markedly improved. Lasix drip is off. * Sedation-will discontinue propofol and try patient on Precedex to assess for extubation * Anemia: Acute blood loss plus dilutional. -follow * DVT: Catheter associated right upper extremity. On full-dose heparin, right PICC line left in, also has a nor PICC line on the left. * Metabolic: Stable * Leukopenia: Resolved. WBC now 20, remains high possibly secondary to ongoing abdominal inflammation/infection. * GI prophylaxis: Famotidine. * Nutrition: TPN 35 minutes of critical care time spent with patient. Case discussed with Nursing, surgery, RT Subjective: Sedated on mechanical ventilation Objective: Vital Signs Temp Pulse Resp BP Pulse Ox 37.3 C 70 16 102/33 L 100 01/04/17 07:54 01/04/17 08:10 01/04/17 08:10 01/04/17 07:54 01/04/17 08:10 Microbiology 12/31/16 18:30 Gram Stain - Final Abdomen - Swab 01/02/17 Unknown Gram Stain - Final Pelvis - Aspirate Laboratory Results 01/03/17 10:30 01/03/17 17:30 01/03/17 01/04/17 01/05/17 05:59 05:59 05:59 Intake Total 2483.6 3327.1 Output Total 3160 2060 250 Balance -676.4 1267.1 -250 PT 16.9 SEC (12.0-15.0) H 12/30/16 05:40 INR 1.37 (0.83-1.16) H 12/30/16 05:40 Chest s-dse-yrpfugte by myself. Endotracheal tube in good position. PICC lines appear stable. Lung feels somewhat improved - Time Spent With Patient Time Spent With Patient: 35 minutes of critical care time spent with patient Physical Exam - Physical Exam General Appearance: No alert (Sedated) EENT: PERRL/EOMI, ET tube Neck: non-tender, full range of motion Respiratory: crackles (Bibasilar), No accessory muscle use, No stridor, No wheezing Cardiac/Chest: normal peripheral pulses, regular rate, rhythm, systolic murmur, extra beats Abdomen: soft, No normal bowel sounds (Diminished), No non-tender Pelvic Exam: deferred Rectal: deferred Skin: normal color, warm/dry Extremities: non-tender Neuro/Psych: No alert ICD10 Worksheet Patient Problems: Problems Problem Status Onset Appendiceal tumor Acute
--- NOTE | 2017-01-04 10:40 | SOAPPROG ---
SOAP Progress Note Assessment/Plan: Assessment: 86-year-old female currently hospitalized with complications related to a recent hemicolectomy. Apparently, she suffered a bradycardic arrest and has subsequently experienced intermittent episodes of atrial fibrillation. She has been treated with intermittent boluses of amiodarone and most recently is in sinus rhythm. Currently she is on minimal pressor support. She is systemic LE anticoagulated with heparin given her upper extremity DVT. There are considerations being given to potentially withdrawal of care due to her prolonged hospitalization and overall poor prognosis. Plan: At this point, she is in sinus rhythm. She has received intermittent boluses of amiodarone previously. Currently, on I would recommend maintaining her current therapy with IV heparin. Additional boluses of amiodarone can be given if needed for recurrent atrial arrhythmias. 01/04/17 10:38 Subjective: Patient was seen and examined. Her previously dictated consult from Dr. Ocasio was reviewed. I also reviewed her previous echocardiogram. In looking at telemetry she has been in sinus rhythm since the 02 of January. She has not experienced any pauses. She is hemodynamically stable with minimal pressor support. Objective: Vital Signs Temp Pulse Resp BP Pulse Ox 37.3 C 64 16 94/33 L 98 01/04/17 07:54 01/04/17 10:00 01/04/17 10:00 01/04/17 10:00 01/04/17 10:00 Microbiology 12/31/16 18:30 Gram Stain - Final Abdomen - Swab Wound Culture - Final Escherichia Coli Bacillus Not Cereus/Anthracis 01/02/17 Unknown Gram Stain - Final Pelvis - Aspirate Laboratory Results 01/03/17 10:30 01/03/17 17:30 01/03/17 01/04/17 01/05/17 05:59 05:59 05:59 Intake Total 2483.6 3327.1 Output Total 3160 2060 350 Balance -676.4 1267.1 -350 PT 16.9 SEC (12.0-15.0) H 12/30/16 05:40 INR 1.37 (0.83-1.16) H 12/30/16 05:40 Physical Exam - Physical Exam General Appearance: WD/WN, other (Intubated, sedated) Respiratory: lungs clear (Anterior exam) Cardiac/Chest: regular rate, rhythm, No edema, No gallop, No JVD ICD10 Worksheet Patient Problems: Problems Problem Status Onset Appendiceal tumor Acute
[2017-01-04] MEDS: DEXMEDETOMIDINE HCL 400 MCG in NS 100 ML IV SCH ×3 (10:43→21:50)
--- NOTE | 2017-01-04 11:31 | SOAPPROG ---
SOAP Progress Note Assessment/Plan: Assessment: 86yo F with complicated hospital course, including right hemicolectomy, left hemicolectomy, a-fib, and cardiac arrest requiring CPR Intubated and sedated Midline dressing in place Ostomy with min overlying fibrin, pink mucosa beneath. No output yet VITOR min serous fluid IV Zosyn, Micafungin. Appreciate intensivists, cardiology, ID, hospitalists Dispo: cont ICU. Seen c Dr. Pratt. S: intubated and sedated, resting comfortably O: Lying in bed, sedated, comfortable Breath sounds decreased at bases bilaterally Regular rate and rhythm Hypoactive bowel sounds throughout, softly distended. Midline in dressing in place. VITOR Drain with scant serous fluid [place] clear yellow urine Objective: Vital Signs Temp Pulse Resp BP Pulse Ox 37.3 C 73 16 102/39 L 100 01/04/17 07:54 01/04/17 11:00 01/04/17 11:00 01/04/17 11:00 01/04/17 11:00 Microbiology 01/02/17 Unknown Gram Stain - Final Pelvis - Aspirate 12/31/16 18:30 Gram Stain - Final Abdomen - Swab Wound Culture - Final Escherichia Coli Bacillus Not Cereus/Anthracis Laboratory Results 01/03/17 10:30 01/03/17 17:30 01/03/17 01/04/17 01/05/17 05:59 05:59 05:59 Intake Total 2483.6 3327.1 Output Total 3160 2060 350 Balance -676.4 1267.1 -350 PT 16.9 SEC (12.0-15.0) H 12/30/16 05:40 INR 1.37 (0.83-1.16) H 12/30/16 05:40 ICD10 Worksheet Patient Problems: Problems Problem Status Onset Appendiceal tumor Acute
--- NOTE | 2017-01-04 13:19 | HOSPPROG ---
Hospitalist Progress Note Assessment/Plan: 86 y/o female new to my care 01/03 initially presented for elective surgery for enlarging appendiceal mass. This was complicated by ischemic bowel and peritonitis requiring reoperation, and has had multiple other complications since then. * large intra-abdominal abscess s/p perctaneous drain palcement 01/02 * Septic shock due to peritonitis, remains on low dose pressor -remains on levophed -IV Zosyn + IV micafungin * Asystole with brief CPR during attempt ad abscess drainage 12/31 * Colon perf (ischemic colitis) s/p colostomy/washout -some ileus remains and she has been unable to take tube feeds but is moving some small amount of stool through to her ostomy * Acute respiratory failure s/p intubation -remains mech vent dependent; plan for tracheostomy if not able to wean off of went * Aspiration PNA -witnessed aspiration event prior to OR * Surgical Wound infection * Afib -cardiology note was reviewed and appreciated * 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) * Volume overload due to resuscitation (resolved) * PICC line associated DVT -IV heparin at present * Pancytopenia - suspect due to sepsis - resolving * Etoh - no evidence for withdrawal * Essential tremor -holding propranolol due to hypotension PLANS: -remains stable from a lung standpoint but likely too weak w her other illnesses for extubation, plan for tracheostomy -percutaneous drain now in place for pelvic abscess -continue current antibx, antifungal -skin care -continue current treatment for atrial fibrillation rate control -DVT/AFib treatment currently hep drip reviewed with Dr Ross and seen on multidisc rounds Subjective: intubated and sedated Objective: Vital Signs Temp Pulse Resp BP Pulse Ox 37.4 C 66 16 112/41 L 100 01/04/17 12:00 01/04/17 12:00 01/04/17 12:00 01/04/17 12:00 01/04/17 12:00 Microbiology 01/02/17 Unknown Gram Stain - Final Pelvis - Aspirate 12/31/16 18:30 Gram Stain - Final Abdomen - Swab Wound Culture - Final Escherichia Coli Bacillus Not Cereus/Anthracis Laboratory Results 01/03/17 10:30 01/03/17 17:30 01/03/17 01/04/17 01/05/17 05:59 05:59 05:59 Intake Total 2483.6 3327.1 Output Total 3160 2060 500 Balance -676.4 1267.1 -500 PT 16.9 SEC (12.0-15.0) H 12/30/16 05:40 INR 1.37 (0.83-1.16) H 12/30/16 05:40 - Physical Exam Constitutional: chronically ill appearing Eyes: PERRL, anicteric sclera Ears, Nose, Mouth, Throat: moist mucous membranes, no oral mucosal ulcers Cardiovascular: regular rate and rhythym, no murmur, rub, or gallop Respiratory: no respiratory distress, no rales or rhonchi, clear to auscultation Gastrointestinal: soft, non-tender abdomen, no palpable masses, other ( hypoactive bowel sounds), No guarding, No rebound Genitourinary: bishop in urethra Skin: no rashes or abrasions, no fluctuance, no induration Neurologic: other (not following commands) Psychiatric: encephalopathic ICD10 Worksheet Patient Problems: Problems Problem Status Onset Appendiceal tumor Acute
[2017-01-04] MEDS ORDERED: TEARS/DEXTRAN 70/HYPROMELLOSE 15 ML OPHT.BTL EACHEYE PRN (17:32)
[2017-01-04] MEDS: VANCOMYCIN HCL/NORMAL SALINE 250 ML IV SCH (17:50)
[2017-01-04] MEDS: HEPARIN/DEXTROSE 500 ML IV SCH ×2 (17:51→20:01)
--- NOTE | 2017-01-04 19:15 | PCMIDPN ---
Assessment/Plan: Assessment/Plan: * Septic shock associated with peritonitis post ischemic colitis: Cultures of serosanguineous fluid removed from repeat percutaneous drainage are no growth to date. Added vancomycin yesterday given growth of bacillus from wound culture although of unclear clinical significance. Continue micafungin and Zosyn. Continue to follow cultures as they mature. 01/04/17 19:12 Subjective: Weaned off pressors. Unsuccessful weaning trial earlier today with CPAP. Objective: Vital Signs Temp Pulse Resp BP Pulse Ox 37.2 C 60 16 125/43 H 100 01/04/17 16:00 01/04/17 18:00 01/04/17 18:00 01/04/17 18:00 01/04/17 18:00 Microbiology 01/02/17 Unknown Gram Stain - Final Pelvis - Aspirate 12/31/16 18:30 Gram Stain - Final Abdomen - Swab Wound Culture - Final Escherichia Coli Bacillus Not Cereus/Anthracis Laboratory Results 01/03/17 10:30 01/03/17 17:30 01/03/17 01/04/17 01/05/17 05:59 05:59 05:59 Intake Total 2483.6 3327.1 1730 Output Total 3160 2060 1160 Balance -676.4 1267.1 570 Zosyn # 10 Micafungin # 11 Vancomycin # 1 Pelvic fluid collection no growth to date Wound culture 12/31/2016 with growth of E coli and bacillus species - Physical Exam General Appearance: non-toxic EENT: ET Tube, No scleral icterus, No conjunctival petechiae Respiratory: coarse breath sounds Cardiac/Chest: regular rate, rhythm Abdomen: non-tender, other (Wound VAC in place centrally without erythema; VITOR bulb with old appearing blood) - Line/s RUE PICC Lines: No drainage, No erythema LUE PICC Lines: No drainage, No erythema ICD10 Worksheet Patient Problems: Problems Problem Status Onset Appendiceal tumor Acute
[2017-01-04] MEDS: TPN W/ FAMOTIDINE 1 EA BAG IV SCH (21:50)
[2017-01-04] MEDS: TRAVOPROST Z 0.004% 2.5 ML OPHT.BTL EACHEYE SCH (21:59)
[2017-01-05] MEDS: INSULIN REGULAR HUMAN 100 UNIT/ML SC SCH ×4 (01:10→18:11)
[2017-01-05] MEDS: DEXMEDETOMIDINE HCL 400 MCG in NS 100 ML IV SCH ×3 (03:34→17:25)
[2017-01-05] MEDS: LEVALBUTEROL INHALER 200 PUFFS/15 GM MDI IH SCH ×4 (04:19→20:17)
[2017-01-05] MEDS: PIPERACILLIN/TAZO 3.375 GM/DEX 50 ML IV SCH ×3 (05:02→17:22)
[2017-01-05] MEDS: METOCLOPRAMIDE 10 MG/2 ML VIAL IVP SCH ×3 (05:02→17:22)
[2017-01-05 06:04] LABS: PLATELET COUNT 952 10^3/uL (150-400)
[2017-01-05] MEDS: HEPARIN/DEXTROSE 500 ML IV SCH ×2 (07:13→18:34)
[2017-01-05] MEDS: fentaNYL/NACL 100 ML IV SCH ×2 (07:13→16:34)
[2017-01-05] MEDS: MICAFUNGIN NA 100 MG in NS 100 ML IV SCH (07:54)
[2017-01-05] MEDS: BRIMONIDINE 0.15% 5 ML OPHT.BTL EACHEYE SCH ×2 (07:55→22:23)
[2017-01-05] MEDS: SODIUM HYPOCHLORITE (DAKINS 1/4 STR) 120 ML BTL TP SCH ×2 (09:05→22:24)
--- NOTE | 2017-01-05 09:20 | PDINTPN ---
Time Study Observer Progress Note Assessment/Plan: Assessment/Plan: * Peritonitis/abdominal sepsis: On Zosyn, Micafungin. Id following. Possible infection in the lower aspect of the wound. Successful drainage of fluid collection. * Hypotension-on low-dose Levophed. Will wean * Acute respiratory failure. Day 13 on ventilator. Secondary to the above. On ventilator 40%. -will assess weaning parameters and attempt to CPAP trial later on today -will hold tracheostomy for now. * Atrial fibrillation/flutter, off and on. In sinus at times. Seems to go into atrial fibrillation with any sort of stress. * Status post cor with asystole-no further episodes * Volume overload-markedly improved. Lasix drip is off. * Sedation-will discontinue propofol and try patient on Precedex to assess for extubation * Anemia: Acute blood loss plus dilutional. -follow * DVT: Catheter associated right upper extremity. On full-dose heparin, right PICC line left in, also has a nor PICC line on the left. * Metabolic: Stable * Leukopenia: Resolved. WBC now 20, remains high possibly secondary to ongoing abdominal inflammation/infection. * GI prophylaxis: Famotidine. * Nutrition: TPN 40 minutes of critical care time spent with patient. Case discussed with Nursing, RT and family Subjective: Awake Objective: Vital Signs Temp Pulse Resp BP Pulse Ox 36.7 C 71 16 143/58 H 100 01/05/17 08:00 01/05/17 08:30 01/05/17 08:30 01/05/17 08:00 01/05/17 08:30 Microbiology 12/31/16 18:30 Gram Stain - Final Abdomen - Swab Wound Culture - Final Escherichia Coli Bacillus Not Anthracis/Cereus 01/02/17 Unknown Gram Stain - Final Pelvis - Aspirate Laboratory Results 01/05/17 05:40 01/05/17 05:40 01/04/17 01/05/17 01/06/17 05:59 05:59 05:59 Intake Total 3327.1 3656 Output Total 2060 3370 175 Balance 1267.1 286 -175 PT 16.9 SEC (12.0-15.0) H 12/30/16 05:40 INR 1.37 (0.83-1.16) H 12/30/16 05:40 Laboratory Results 01/05/17 05:40 01/05/17 05:40 12/31/16 18:30 Gram Stain - Final Abdomen - Swab Wound Culture - Preliminary Escherichia Coli Bacillus Species 12/31/16 18:30 Gram Stain - Final Abdomen - Swab Wound Culture - Final Escherichia Coli Bacillus Not Anthracis/Cereus Chest [id number] by myself. Endotracheal tube in good position. PICC lines in good position. Increased hazy density in the right midlung field Physical Exam - Physical Exam General Appearance: other (Awake) EENT: PERRL/EOMI, normal ENT inspection, ET tube Neck: non-tender, full range of motion Respiratory: crackles (Increased right base), No respiratory distress, No accessory muscle use Cardiac/Chest: normal peripheral pulses, regular rate, rhythm, systolic murmur Abdomen: normal bowel sounds, non-tender, soft Pelvic Exam: deferred Rectal: deferred Skin: normal color, warm/dry Extremities: non-tender Neuro/Psych: alert ICD10 Worksheet Patient Problems: Problems Problem Status Onset Appendiceal tumor Acute
--- NOTE | 2017-01-05 11:42 | SOAPPROG ---
SOAP Progress Note Assessment/Plan: Assessment: 86yo F with complicated hospital course, including right hemicolectomy, left hemicolectomy, a-fib, and cardiac arrest requiring CPR Intubated and sedated Midline dressing in place, just recently changed Ostomy with no output visible VITOR min serous fluid IV Zosyn, Micafungin, vanco added yesterday. Appreciate intensivists, cardiology, ID, hospitalists Dispo: cont ICU. weaning sedation and vent settings - family to decide what actions can be taken if she fails extubation. will hold off on aggressive wound care until definitive plan established. discussed c Dr. Pratt. S: intubated, resting comfortably O: Lying in bed, comfortable, opens eyes to sound of voices and moves extremities Breath sounds decreased at bases bilaterally Regular rate and rhythm Hypoactive bowel sounds throughout, softly distended. Midline in dressing in place. Ostomy pink mucosa, no gas or stool in appliance VITOR Drain with scant serous fluid Landry clear yellow urine Objective: Vital Signs Temp Pulse Resp BP Pulse Ox 36.7 C 70 26 H 123/41 H 100 01/05/17 08:00 01/05/17 10:10 01/05/17 10:00 01/05/17 10:00 01/05/17 10:00 Microbiology 12/31/16 18:30 Gram Stain - Final Abdomen - Swab Wound Culture - Final Escherichia Coli Bacillus Not Anthracis/Cereus 01/02/17 Unknown Gram Stain - Final Pelvis - Aspirate Laboratory Results 01/05/17 05:40 01/05/17 05:40 01/04/17 01/05/17 01/06/17 05:59 05:59 05:59 Intake Total 3327.1 3656 Output Total 2060 3370 175 Balance 1267.1 286 -175 PT 16.9 SEC (12.0-15.0) H 12/30/16 05:40 INR 1.37 (0.83-1.16) H 12/30/16 05:40 ICD10 Worksheet Patient Problems: Problems Problem Status Onset Appendiceal tumor Acute
--- NOTE | 2017-01-05 12:39 | HOSPPROG ---
Hospitalist Progress Note Assessment/Plan: 86 y/o female new to my care 01/03 initially presented for elective surgery for enlarging appendiceal mass. This was complicated by ischemic bowel and peritonitis requiring reoperation, and has had multiple other complications since then. * large intra-abdominal abscess s/p perctaneous drain palcement 01/02 * Septic shock due to peritonitis, remains on low dose pressor -IV Zosyn + IV micafungin * Asystole with brief CPR during attempt ad abscess drainage 12/31 * Colon perf (ischemic colitis) s/p colostomy/washout -some ileus remains and she has been unable to take tube feeds but is moving some small amount of stool through to her ostomy * Acute respiratory failure s/p intubation -remains mech vent dependent; plan for tracheostomy if not able to wean off of went. 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) * Volume overload due to resuscitation (resolved) * PICC line associated DVT -IV heparin at present * Pancytopenia - suspect due to sepsis - resolving * Etoh - no evidence for withdrawal * Essential tremor -holding propranolol due to hypotension PLANS: -remains stable from a lung standpoint but likely too weak w her other illnesses for extubation, plan for tracheostomy -percutaneous drain now in place for pelvic abscess -continue IV Zosyn + IV micafungin -skin care -continue current treatment for atrial fibrillation rate control -DVT/AFib treatment currently hep drip reviewed with Dr Ross and seen on multidisc rounds Subjective: intubated and sedated Objective: Vital Signs Temp Pulse Resp BP Pulse Ox 36.7 C 78 24 H 123/41 H 100 01/05/17 08:00 01/05/17 12:30 01/05/17 12:30 01/05/17 10:00 01/05/17 12:30 Microbiology 12/31/16 18:30 Gram Stain - Final Abdomen - Swab Wound Culture - Final Escherichia Coli Bacillus Not Anthracis/Cereus 01/02/17 Unknown Gram Stain - Final Pelvis - Aspirate Laboratory Results 01/05/17 05:40 01/05/17 05:40 01/04/17 01/05/17 01/06/17 05:59 05:59 05:59 Intake Total 3327.1 3656 Output Total 0 3370 475 Balance 1267.1 286 -475 PT 16.9 SEC (12.0-15.0) H 12/30/16 05:40 INR 1.37 (0.83-1.16) H 12/30/16 05:40 - Physical Exam Constitutional: chronically ill appearing Cardiovascular: regular rate and rhythym, no murmur, rub, or gallop Respiratory: no respiratory distress, no rales or rhonchi, clear to auscultation , reduced air movement (bilat bases) Gastrointestinal: normoactive bowel sounds, soft, non-tender abdomen, no palpable masses Genitourinary: bishop in urethra Skin: warm, normal color, No rash Neurologic: other (aaoxo; not following commands) ICD10 Worksheet Patient Problems: Problems Problem Status Onset Appendiceal tumor Acute
--- NOTE | 2017-01-05 14:18 | PCMIDPN ---
Assessment/Plan: Assessment/Plan: * Septic shock associated with peritonitis post ischemic colitis: Cultures of serosanguineous fluid removed from repeat percutaneous drainage remain no growth to date. Continue vancomycin, Zosyn and micafungin. Bacillus species isolated from wound culture of unclear significance although given overall illness have opted to treat at least for short course of therapy. Discussed with family risk of nephrotoxicity with vancomycin. Careful creatinine monitoring necessary as this toxicity may be more prominent with concomitant Zosyn use. Trough planned for this p.m.. 01/05/17 14:15 Subjective: Patient extubated this a.m.. Objective: Vital Signs Temp Pulse Resp BP Pulse Ox 36.7 C 78 25 H 115/69 98 01/05/17 12:30 01/05/17 12:30 01/05/17 12:30 01/05/17 12:30 01/05/17 12:30 Microbiology 12/31/16 18:30 Gram Stain - Final Abdomen - Swab Wound Culture - Final Escherichia Coli Bacillus Not Anthracis/Cereus 01/02/17 Unknown Gram Stain - Final Pelvis - Aspirate Laboratory Results 01/05/17 05:40 01/05/17 05:40 01/04/17 01/05/17 01/06/17 05:59 05:59 05:59 Intake Total 3327.1 3656 Output Total 2060 3370 475 Balance 1267.1 286 -475 Zosyn # 11 Micafungin # 12 Vancomycin # 2 Pelvic fluid culture no growth to date - Physical Exam General Appearance: non-toxic EENT: No scleral icterus Respiratory: other (Mildly increased respiratory effort) Cardiac/Chest: regular rate, rhythm Abdomen: non-tender, distended (Mild), other (Midline incision packed with scattered areas of necrosis at wound margins) - Line/s RUE PICC Lines: No drainage, No erythema LUE PICC Lines: No drainage, No erythema ICD10 Worksheet Patient Problems: Problems Problem Status Onset Appendiceal tumor Acute
[2017-01-05] MEDS ORDERED: IPRATROPIUM/ALBUTEROL 3 ML DEYVIAL IH PRN (14:39)
[2017-01-05] MEDS: VANCOMYCIN HCL/NORMAL SALINE 250 ML IV SCH (22:21)
[2017-01-05] MEDS: VANCOMYCIN 1.5 GM in D5W 250 ML IV SCH (22:24)
[2017-01-05] MEDS: TPN W/ FAMOTIDINE 1 EA BAG IV SCH (22:24)
[2017-01-05] MEDS: TRAVOPROST Z 0.004% 2.5 ML OPHT.BTL EACHEYE SCH (22:25)
[2017-01-06] MEDS: METOCLOPRAMIDE 10 MG/2 ML VIAL IVP SCH ×5 (01:21→23:36)
[2017-01-06] MEDS: PIPERACILLIN/TAZO 3.375 GM/DEX 50 ML IV SCH ×5 (01:21→23:36)
[2017-01-06] MEDS: INSULIN REGULAR HUMAN 100 UNIT/ML SC SCH ×4 (01:22→18:06)
[2017-01-06] MEDS: DEXMEDETOMIDINE HCL 400 MCG in NS 100 ML IV SCH ×5 (02:10→20:41)
[2017-01-06 04:26] LABS: PLATELET COUNT 965 10^3/uL (150-400)
[2017-01-06 04:31] LABS: INR 1.33 (0.83-1.16); PROTIME(PATIENT) 16.5 SEC (12.0-15.0)
[2017-01-06] MEDS: LEVALBUTEROL INHALER 200 PUFFS/15 GM MDI IH SCH ×2 (06:01→11:15)
[2017-01-06] MEDS: HEPARIN/DEXTROSE 500 ML IV SCH ×2 (06:30→17:13)
[2017-01-06] MEDS: MICAFUNGIN NA 100 MG in NS 100 ML IV SCH (08:25)
[2017-01-06] MEDS: fentaNYL/NACL 100 ML IV SCH ×2 (10:32→21:47)
[2017-01-06] MEDS: BRIMONIDINE 0.15% 5 ML OPHT.BTL EACHEYE SCH ×2 (10:34→20:43)
[2017-01-06] MEDS: SODIUM HYPOCHLORITE (DAKINS 1/4 STR) 120 ML BTL TP SCH ×2 (11:11→20:42)
[2017-01-06] MEDS ORDERED: FUROSEMIDE 40 MG/4 ML VIAL IVP ONE (14:05)
--- NOTE | 2017-01-06 14:10 | HOSPPROG ---
Hospitalist Progress Note Assessment/Plan: 86 yo F w resection of cecal mass. hosp course c/b cardiac arrest, L colon perforation, AF and picc asociated DVT sepsis: off pressors peritonitis: 2/2 left colon perforation on zosyn/micafungin abscess w enterococcus w no sensitivities wound infection: lang sens e coli picc associated clot: heparin gtt AF: last episode last evening on propranolol. heparion gtt physiologic stress related respiratory failure: multifactorial extubated give 40 of lasix today repeat cxr in AM code: dnr proph: anticoagulated dispo: inpt Subjective: extubated. case d/w dr blanco Objective: Vital Signs Temp Pulse Resp BP Pulse Ox 36.9 C 80 18 126/50 H 94 01/06/17 04:00 01/06/17 11:19 01/06/17 11:19 01/06/17 09:03 01/06/17 11:19 Microbiology 01/02/17 Unknown Gram Stain - Final Pelvis - Aspirate 12/31/16 18:30 Gram Stain - Final Abdomen - Swab Wound Culture - Final Escherichia Coli Bacillus Not Anthracis/Cereus Laboratory Results 01/06/17 04:00 01/06/17 04:00 01/05/17 01/06/17 01/07/17 05:59 05:59 05:59 Intake Total 3656 3362.7 Output Total 3370 2590 Balance 286 772.7 PT 16.5 SEC (12.0-15.0) H 01/06/17 04:00 INR 1.33 (0.83-1.16) H 01/06/17 04:00 - Physical Exam Constitutional: appears nourished, No no apparent distress Eyes: PERRL, anicteric sclera Ears, Nose, Mouth, Throat: moist mucous membranes, hearing normal Cardiovascular: regular rate and rhythym, no murmur, rub, or gallop Respiratory: other (rhonchorous anterolat w increased work of breathing) Gastrointestinal: distension, No normoactive bowel sounds, No soft, non-tender abdomen, No rebound Genitourinary: no bladder fullness, bishop in urethra Skin: warm Musculoskeletal: full muscle strength, no muscle tenderness Neurologic: AAOx3, sensation intact bilaterally ICD10 Worksheet Patient Problems: Problems Problem Status Onset Appendiceal tumor Acute
--- NOTE | 2017-01-06 15:50 | WOCRNPDOC ---
JAYCEECRPillo Advanced Assessment Note - Skin Integrity Problem, Advanced Assess Medial Abdomen Surgical Wound/Incision Dressing Type: ABD Pad, Kate Dressing Description: Clean/Dry, Intact Closure Description: Retention Sutures Exudate Amount: Scant Exudate Characteristic(s): Serosanguinous Integumentary Issue Intervention: Dressing Changed Yola Wound Tissue: Erythema Yola Wound Swelling: Moderate Wound Bed Color: Red, Yellow Wound Bed Constitution: Granulation Tissue, Smooth Tissue, Mixed Loose & Adhered Slough/Eschar (superior base of wound bed 40%) Site Measurement - Head-to-Toe Length X Width X Depth (cm): 11x5x4.5 Skin Integrity Problem Comment: Midline dehiscence. Moffett are fairly healthy mixed granulation/smooth tissue but superior 50% of wound base is slough. Cleaned with ns and gauze. Mastisol applied yola wound and then draped. Veraflo cleanse dressing to to wound bed. Gianna Perez RN performed vac change with wound RN Nat support. x4 pieces of clement foam. Vac veraflo with NS instillation began at 50 ml instillation for a 7 min soak time every 3.5 hours at -125 mm Hg continuous suction. There were several fluid leaks on the dressing that were patched. Explained settings to Zaheer SEBASTIAN and also recommended wound vac veraflo be stopped and a plain vac suction started if issues with leaks continue. Next vac change Tan. Alexandra FREY visualized wound bed.
--- NOTE | 2017-01-06 16:06 | ASMTCMCOM ---
CM Note CM Note Notes: Patient extubated Friday afternoon. Continues to have open wound-wound vac discussed in ICU rounds, NG to suction, Patient awake and agitated, up in chair part of the day. Therapies to begin, CM to follow for discharge needs. Date Signed: 01/06/2017 04:06 PM Electronically Signed By:Ewa Oliver LCSW
--- NOTE | 2017-01-06 16:10 | PDINTPN ---
Underground Repairer Progress Note Assessment/Plan: Assessment/plan: 86 F admitted electively 12/20/16 for resection of large appendiceal mass, complicated by perforation on 12/24 requiring left hemicolectomy and colostomy. Also complicating her stay has been septic shock from peritonitis, atrial fibrillation, a very brief asystolic event, aspieration requiring ETT, and a PICC- associated DVT. She h was apparently relatively stable and extubated (prior to my involvement). Of note, a family meeting 01/03 resulted in DNR status. * Respiratory failure from witnessed aspiration event. She was tachypneic this AM but restless and planning time in a chair to improve comfort. However, she received additional fentanyl during a dressing change and placement of a wound vac, resulting in increased RR and WOB. Her CXR 01/05 had reportedly increased Right mid lung consolidation, but looked relatively stable compared to 01/04 to me. An ABG is pending at this time, with thoughts of NIPPV, but her aspiration risk is quite high. She remains on Zosyn, lupe, and vanco with ID guidance. Beta -agonists not likely to help this situation and may make arrythmia issues worse. OK for PRN only. * Altered MS/delerium- she was previously on precedex for agitation which was helpful in that regard, but would hold it now 2/2 somnolence. Minimize fentanyl now as well. * Peritonitis- with perforated viscous. WBC is stable at 13.4 and no new cultures. Abx as above. Getting TPN * Asystole during abscess drainage attempt 12/31. No reported CPR- may have been vagal-mediated. * Afib- now in NSR. No rate control at the moment * Essential tremor- previously on propranolol, but held 2/2 BP * * critical care time 45 minutes over the course of the day (visited at least 3 times, with extensive records review, discussion with family, etc) for critically ill patient. Subjective: Mostly non-verbal, s/p extubation 01/05. Objective: Vital Signs Temp Pulse Resp BP Pulse Ox 36.9 C 80 18 126/50 H 94 01/06/17 04:00 01/06/17 11:19 01/06/17 11:19 01/06/17 09:03 01/06/17 11:19 Microbiology 01/02/17 Unknown Gram Stain - Final Pelvis - Aspirate Laboratory Results 01/06/17 04:00 01/06/17 04:00 01/05/17 01/06/17 01/07/17 05:59 05:59 05:59 Intake Total 3656 3362.7 Output Total 3370 2590 Balance 286 772.7 PT 16.5 SEC (12.0-15.0) H 01/06/17 04:00 INR 1.33 (0.83-1.16) H 01/06/17 04:00 Physical Exam - Physical Exam General Appearance: moderate distress, obtunded, other (intermittenyl awake, but non-verbal and confused) EENT: PERRL/EOMI Neck: supple Respiratory: respiratory distress (moderate), decreased breath sounds, retractions, No wheezing Cardiac/Chest: regular rate, rhythm, No edema Abdomen: non-tender, soft, other (wound vac), No distended Skin: normal color, warm/dry Lymphatic: no adenopathy Extremities: No calf tenderness Neuro/Psych: cognition abnormalities ICD10 Worksheet Patient Problems: Problems Problem Status Onset Appendiceal tumor Acute
--- NOTE | 2017-01-06 16:27 | SOAPPROG ---
SOAP Progress Note Assessment/Plan: Assessment: 86yo F with complicated hospital course, including right hemicolectomy, left hemicolectomy, a-fib, and cardiac arrest requiring CPR Extubated yesterday Midline wound dehiscence with fat necrosis. Fascia intact. Initiated veraflo today. Ostomy with no output visible VITOR min serous fluid IV Zosyn, Micafungin, vanco Appreciate intensivists, cardiology, ID, hospitalists Dispo: cont ICU. wound vac change MWF. discussed c Dr. Wallace S: laying in bed, at bedside, resting comfortably O: Lying in bed, comfortable, opens eyes to sound of voices and moves extremities No increased WOB Hypoactive bowel sounds throughout, softly distended. Midline wound appx 11 x 5 x 4.5c, with thick slough and fat necrosis in the base. No purulence. fascia intact. Veraflo applied by wound care RNs Ostomy pink mucosa, no gas or stool in appliance VITOR Drain with scant serous fluid Landry clear yellow urine 01/06/17 16:58 Objective: Vital Signs Temp Pulse Resp BP Pulse Ox 36.9 C 80 18 126/50 H 94 01/06/17 04:00 01/06/17 11:19 01/06/17 11:19 01/06/17 09:03 01/06/17 11:19 Microbiology 01/02/17 Unknown Gram Stain - Final Pelvis - Aspirate Laboratory Results 01/06/17 04:00 01/06/17 04:00 01/05/17 01/06/17 01/07/17 05:59 05:59 05:59 Intake Total 3656 3362.7 Output Total 3370 2590 Balance 286 772.7 PT 16.5 SEC (12.0-15.0) H 01/06/17 04:00 INR 1.33 (0.83-1.16) H 01/06/17 04:00 ICD10 Worksheet Patient Problems: Problems Problem Status Onset Appendiceal tumor Acute
[2017-01-06] MEDS ORDERED: LEVALBUTEROL 0.63 MG/3 ML DEYVIAL IH SCH (18:00)
--- NOTE | 2017-01-06 18:18 | PCMIDPN ---
Assessment/Plan: Assessment: Septic shock-peritonitis status post ischemic colitis in the left side following right hemicolectomy for appendiceal neoplasm. Currently covered on Vanco, Zosyn and micafungin. White blood cell count trending down. Pelvic collection drained and cultures not revealing of infection. None the less she is now extubated as of yesterday. Unclear significance of bacillus from the wound culture. Plan: 1. Continue Vancomycin, Zosyn and micafungin. 2. Follow clinical course. 01/02/17 17:11 01/06/17 22:55 01/06/17 22:55 01/06/17 23:02 Subjective: Patient is recently extubated. Family in the room. Overall improved. Objective: Vancomycin # 3 Zosyn # 12 micafungin # 13 Vital Signs Temp Pulse Resp BP Pulse Ox 36.9 C 80 18 126/50 H 94 01/06/17 04:00 01/06/17 11:19 01/06/17 11:19 01/06/17 09:03 01/06/17 11:19 Microbiology 01/02/17 Unknown Gram Stain - Final Pelvis - Aspirate Laboratory Results 01/06/17 04:00 01/06/17 04:00 01/05/17 01/06/17 01/07/17 05:59 05:59 05:59 Intake Total 3656 3362.7 Output Total 3370 2590 Balance 286 772.7 - Physical Exam General Appearance: WD/WN, alert, apparent distress (mild), non-toxic Respiratory: lungs clear, normal breath sounds Cardiac/Chest: regular rate, rhythm, No tachycardia Extremities: non-tender, normal inspection Skin: normal color, warm/dry, No rash Neuro/Psych: alert, normal mood/affect, oriented x 3 ICD10 Worksheet Patient Problems: Problems Problem Status Onset Appendiceal tumor Acute
--- NOTE | 2017-01-06 20:00 | SOAPPROG ---
SOAP Progress Note Assessment/Plan: Assessment: VS STABLE/ ANEMIC/ AFEBRILE/ UO OK/ WOUND VAC IN PLACE/ MINIMAL GI FUNCTION SO FAR MODERATE RESP FAILURE Plan:CONTINUE NPO 01/06/17 19:59 Objective: Vital Signs Temp Pulse Resp BP Pulse Ox 36.2 C 69 18 95/42 L 100 01/06/17 16:00 01/06/17 18:00 01/06/17 18:00 01/06/17 18:00 01/06/17 18:00 Microbiology 01/02/17 Unknown Gram Stain - Final Pelvis - Aspirate Laboratory Results 01/06/17 04:00 01/06/17 04:00 01/05/17 01/06/17 01/07/17 05:59 05:59 05:59 Intake Total 3656 3362.7 1759 Output Total 3370 2590 1930 Balance 286 772.7 -171 PT 16.5 SEC (12.0-15.0) H 01/06/17 04:00 INR 1.33 (0.83-1.16) H 01/06/17 04:00 ICD10 Worksheet Patient Problems: Problems Problem Status Onset Appendiceal tumor Acute
[2017-01-06] MEDS: VANCOMYCIN 1.5 GM in D5W 250 ML IV SCH (20:41)
[2017-01-06] MEDS: TPN W/ FAMOTIDINE 1 EA BAG IV SCH (20:41)
[2017-01-06] MEDS: TRAVOPROST Z 0.004% 2.5 ML OPHT.BTL EACHEYE SCH (20:43)
[2017-01-06] MEDS: ALTEPLASE 2 MG VIAL IVP PRN (20:50)
[2017-01-07] MEDS: INSULIN REGULAR HUMAN 100 UNIT/ML SC SCH ×5 (01:43→23:34)
[2017-01-07] MEDS: DEXMEDETOMIDINE IN 0.9 % NACL 100 ML IV SCH ×6 (02:53→23:00)
[2017-01-07] MEDS: HEPARIN/DEXTROSE 500 ML IV SCH ×2 (02:53→14:25)
[2017-01-07 05:06] LABS: PLATELET COUNT 703 10^3/uL (150-400)
[2017-01-07] MEDS: PIPERACILLIN/TAZO 3.375 GM/DEX 50 ML IV SCH ×4 (05:52→23:34)
[2017-01-07] MEDS: METOCLOPRAMIDE 10 MG/2 ML VIAL IVP SCH ×4 (05:52→23:35)
[2017-01-07] MEDS: fentaNYL/NACL 100 ML IV SCH ×2 (08:18→20:06)
[2017-01-07] MEDS: SODIUM HYPOCHLORITE (DAKINS 1/4 STR) 120 ML BTL TP SCH ×2 (08:45→20:14)
[2017-01-07] MEDS ORDERED: AMIODARONE HCL 200 ML IV ONE ×2 (09:29→10:00)
[2017-01-07] MEDS ORDERED: AMIODARONE HCL 100 ML IV ONE (09:29)
[2017-01-07] MEDS ORDERED: AMIODARONE HCL 540 MG in D5W 300 ML IV ONE (09:29)
[2017-01-07] MEDS ORDERED: AMIODARONE HCL 200 ML IV SCH ×2 (09:45→10:00)
[2017-01-07] MEDS: BRIMONIDINE 0.15% 5 ML OPHT.BTL EACHEYE SCH ×2 (10:15→21:11)
[2017-01-07] MEDS: MICAFUNGIN NA 100 MG in NS 100 ML IV SCH (10:19)
--- NOTE | 2017-01-07 13:30 | PCMIDPN ---
Assessment/Plan: Assessment/Plan: 1. Sepsis secondary to peritonitis/left ischemic colitis: - s/p ileostomy -posterior collection s/p drain. -wbc down a little. -currently on vanco, zosyn, micafungin -recent cx with E. coli, bacillus, and GPc -previous abd cx had 1 colony of E. fecium -Will continue to follow cx and adjust atbx accordingly. Micro: 12/24: blood cx ngtd 12/29: abdominal wound cx: 1+ GPR on GS, culture with ngtd Meds zosyn 3.375mg q6-12/25/16 micafungin 100mg daily- 12/25/16 -vanco 1.5gm daily- 01/05/17 s/p cefoxitin 3 bas 12/20-12/21 invanz 12/23-12/25 Subjective: afebrile. on bibap now. restless but saturations are 97%. daughter at bedside. Objective: Vital Signs Temp Pulse Resp BP Pulse Ox 36.8 C 129 H 28 H 119/53 L 95 01/07/17 04:00 01/07/17 11:57 01/07/17 11:57 01/07/17 08:30 01/07/17 11:57 Microbiology 01/02/17 Unknown Gram Stain - Final Pelvis - Aspirate Laboratory Results 01/07/17 04:50 01/07/17 04:50 01/06/17 01/07/17 01/08/17 05:59 05:59 05:59 Intake Total 3362.7 3894 Output Total 2590 3880 Balance 772.7 14 - Physical Exam General Appearance: alert, other (anxious) EENT: other (bipap) Respiratory: coarse breath sounds Cardiac/Chest: tachycardia Extremities: No swelling Abdomen: normal bowel sounds, distended, other (wound vac on midline incision noted. mariaelena drain with minimal bloody drainage noted.) ICD10 Worksheet Patient Problems: Problems Problem Status Onset Appendiceal tumor Acute
--- NOTE | 2017-01-07 14:09 | HOSPPROG ---
Hospitalist Progress Note Assessment/Plan: 86 yo F w resection of cecal mass. hosp course c/b cardiac arrest, L colon perforation, AF and picc asociated DVT sepsis: off pressors peritonitis: 2/2 left colon perforation on zosyn/micafungin abscess w enterococcus w no sensitivities suspected nosocomial pneumonia: cxr w pulm edema and possible RUL infiltrate vanc added 04/07 afebrile, white count trending down pulm edema: I suspect she is mobilizing fluid start daily lasix wound infection: lang sens e coli R picc associated clot: heparin gtt I have written to repeat u/s (01/07) as it seems a picc line should be removed if it has a clot associated with it apparently, it was DISTAL to PICC and IR felt picc should remain re-eval after repeat ultrasound AF: last episode last evening on propranolol. heparion gtt physiologic stress related respiratory failure: multifactorial extubated give 40 of lasix today repeat cxr in AM code: dnr proph: anticoagulated dispo: inpt Subjective: case d/w dr blanco. transfused this AM. rapid AF this AM Objective: Vital Signs Temp Pulse Resp BP Pulse Ox 36.8 C 129 H 28 H 119/53 L 95 01/07/17 04:00 01/07/17 11:57 01/07/17 11:57 01/07/17 08:30 01/07/17 11:57 Microbiology 01/02/17 Unknown Gram Stain - Final Pelvis - Aspirate Laboratory Results 01/07/17 04:50 01/07/17 04:50 01/06/17 01/07/17 01/08/17 05:59 05:59 05:59 Intake Total 3362.7 3894 Output Total 2590 3880 Balance 772.7 14 PT 16.5 SEC (12.0-15.0) H 01/06/17 04:00 INR 1.33 (0.83-1.16) H 01/06/17 04:00 - Physical Exam Constitutional: no apparent distress, appears nourished Eyes: PERRL, anicteric sclera Ears, Nose, Mouth, Throat: moist mucous membranes, hearing normal Cardiovascular: regular rate and rhythym, no murmur, rub, or gallop Respiratory: no respiratory distress, other (thonchorous anterolat) Gastrointestinal: guarding, No normoactive bowel sounds, No rebound Genitourinary: no bladder fullness, bishop in urethra Skin: warm, normal color Musculoskeletal: No full muscle strength Neurologic: No AAOx3 Psychiatric: interacting appropriately, not anxious ICD10 Worksheet Patient Problems: Problems Problem Status Onset Appendiceal tumor Acute
[2017-01-07] MEDS: FUROSEMIDE 40 MG/4 ML VIAL IVP SCH (14:26)
--- NOTE | 2017-01-07 15:18 | SOAPPROG ---
SOLISA Progress Note Assessment/Plan: Assessment: 86-year-old female currently hospitalized with complications related to a recent hemicolectomy. Apparently, she suffered a bradycardic arrest and has subsequently experienced intermittent episodes of atrial fibrillation. She has been treated with intermittent boluses of amiodarone and most recently is in sinus rhythm. She has reverted back to atrial fibrillation. She remains on heparin in light of her upper extremity DVT is off pressor therapy however continues to require CPAP. Plan: We will plan to start amiodarone. She was given a bolus. A drip was started. She will continue on intravenous heparin. I anticipate that she will revert back to sinus rhythm. She has been given Lasix earlier. We will follow along. 01/07/17 15:17 Subjective: Notified earlier that the patient reverted into atrial fibrillation. In atrial fibrillation heart rates were noted to be in the 120s and 130s. She has been hemodynamically stable. She is currently on CPAP. Objective: Vital Signs Temp Pulse Resp BP Pulse Ox 36.2 C 67 18 157/74 H 96 01/07/17 12:00 01/07/17 14:00 01/07/17 14:00 01/07/17 14:00 01/07/17 14:00 Microbiology 01/02/17 Unknown Gram Stain - Final Pelvis - Aspirate Laboratory Results 01/07/17 04:50 01/07/17 04:50 01/06/17 01/07/17 01/08/17 05:59 05:59 05:59 Intake Total 3362.7 3894 Output Total 2590 3880 Balance 772.7 14 PT 16.5 SEC (12.0-15.0) H 01/06/17 04:00 INR 1.33 (0.83-1.16) H 01/06/17 04:00 Physical Exam - Physical Exam General Appearance: other (On CPAP) Neck: non-tender Respiratory: lungs clear (Anterior exam) Cardiac/Chest: tachycardia, irregularly irregular Peripheral Pulses: 2+: carotid (R), carotid (L) ICD10 Worksheet Patient Problems: Problems Problem Status Onset Appendiceal tumor Acute
[2017-01-07] MEDS: AMIODARONE HCL 200 ML IV SCH (15:36)
--- NOTE | 2017-01-07 16:14 | SOAPPROG ---
SOAP Progress Note Assessment/Plan: Assessment: 86yo F with complicated hospital course, including right hemicolectomy, left hemicolectomy, a-fib, and cardiac arrest requiring CPR Extubated yesterday Midline wound dehiscence with fat necrosis. Fascia intact. Veraflo Ostomy with no output visible VITOR min serous fluid IV Zosyn, Micafungin, vanco Appreciate intensivists, cardiology, ID, hospitalists Dispo: cont ICU. wound vac change MWF. seen c Dr. Pratt S: laying in bed, daughter at bedside, resting comfortably O: Lying in bed, comfortable, opens eyes to sound of voices and moves extremities No increased WOB Tachy, a fib on monitor Hypoactive bowel sounds throughout, softly distended. Midline wound vac intact. Ostomy with overlying slough, but pink mucosa beneath, no gas or stool in appliance VITOR Drain with scant serous fluid Landry clear yellow urine 01/08/17 09:20 Objective: Vital Signs Temp Pulse Resp BP Pulse Ox 36.2 C 67 18 157/74 H 96 01/07/17 12:00 01/07/17 14:00 01/07/17 14:00 01/07/17 14:00 01/07/17 14:00 Microbiology 01/02/17 Unknown Gram Stain - Final Pelvis - Aspirate Laboratory Results 01/07/17 04:50 01/07/17 04:50 01/06/17 01/07/17 01/08/17 05:59 05:59 05:59 Intake Total 3362.7 3894 Output Total 2590 3880 Balance 772.7 14 PT 16.5 SEC (12.0-15.0) H 01/06/17 04:00 INR 1.33 (0.83-1.16) H 01/06/17 04:00 ICD10 Worksheet Patient Problems: Problems Problem Status Onset Appendiceal tumor Acute
--- NOTE | 2017-01-07 16:48 | PDINTPN ---
Administrative Program Specialist Progress Note Assessment/Plan: Assessment/plan: 86 F admitted electively 12/20/16 for resection of large appendiceal mass, complicated by perforation on 12/24 requiring left hemicolectomy and colostomy. Also complicating her stay has been septic shock from peritonitis, atrial fibrillation, a very brief asystolic event, aspieration requiring ETT, and a PICC- associated DVT. She was apparently relatively stable and extubated 01/05 (prior to my involvement). Of note, a family meeting 01/03 resulted in DNR status. * Respiratory failure from witnessed aspiration event. ABG showed CO2 56 so started bipap after discussion with family and re-iterated DNR status. Today's abg a bit better but I think she remains dependent on bipap for now and appears to be tolerating well. Difficult balance with sedation/pain control and respiratory status. * She remains on Zosyn, lupe, and vanco with ID guidance. Beta-agonists not likely to help this situation and may make arrythmia issues worse. OK for PRN only. * Altered MS/delerium- controlled on fentanyl/precedex for now. * Peritonitis- with perforated viscous. WBC is stable and no new cultures. Abx as above. Getting TPN. Wound vac placed * Asystole during abscess drainage attempt 12/31. No reported CPR- may have been vagal-mediated. * Afib- Converted to afib overnight with sinus pauses. Restarted amiodarone. Watch closely. * Essential tremor- previously on propranolol, but held 2/2 BP * * critical care time 35 minutes 01/07/17 16:41 Subjective: required bipap overnight 2/2 CO2 retention and respiratory failure Objective: Vital Signs Temp Pulse Resp BP Pulse Ox 36.2 C 67 18 157/74 H 96 01/07/17 12:00 01/07/17 14:00 01/07/17 14:00 01/07/17 14:00 01/07/17 14:00 Microbiology 01/02/17 Unknown Gram Stain - Final Pelvis - Aspirate Laboratory Results 01/07/17 04:50 01/07/17 04:50 01/06/17 01/07/17 01/08/17 05:59 05:59 05:59 Intake Total 3362.7 3894 Output Total 2590 3880 Balance 772.7 14 PT 16.5 SEC (12.0-15.0) H 01/06/17 04:00 INR 1.33 (0.83-1.16) H 01/06/17 04:00 Physical Exam - Physical Exam General Appearance: obtunded, other (on bipap) EENT: PERRL/EOMI Neck: supple Respiratory: decreased breath sounds, crackles, No wheezing Cardiac/Chest: irregularly irregular Abdomen: non-tender, soft, other (wound vac and colostomy), No distended Skin: normal color, warm/dry Lymphatic: no adenopathy Extremities: No pedal edema Neuro/Psych: cognition abnormalities ICD10 Worksheet Patient Problems: Problems Problem Status Onset Appendiceal tumor Acute
[2017-01-07] MEDS: VANCOMYCIN 1.5 GM in D5W 250 ML IV SCH (20:08)
[2017-01-07] MEDS: ALTEPLASE 2 MG VIAL IVP PRN ×2 (20:52→23:43)
[2017-01-07] MEDS: TPN W/ FAMOTIDINE 1 EA BAG IV SCH (20:54)
[2017-01-07] MEDS: TRAVOPROST Z 0.004% 2.5 ML OPHT.BTL EACHEYE SCH (21:11)
[2017-01-08] MEDS: HEPARIN/DEXTROSE 500 ML IV SCH ×2 (01:53→13:05)
[2017-01-08] MEDS: DEXMEDETOMIDINE IN 0.9 % NACL 100 ML IV SCH ×5 (02:30→22:27)
[2017-01-08] MEDS: AMIODARONE HCL 200 ML IV SCH ×2 (03:41→13:05)
[2017-01-08] MEDS: PIPERACILLIN/TAZO 3.375 GM/DEX 50 ML IV SCH ×4 (05:51→23:55)
[2017-01-08] MEDS: METOCLOPRAMIDE 10 MG/2 ML VIAL IVP SCH (05:51)
[2017-01-08] MEDS: INSULIN REGULAR HUMAN 100 UNIT/ML SC SCH ×4 (06:50→23:53)
[2017-01-08] MEDS ORDERED: fentaNYL 100 MCG/2 ML INJ IV PRN (08:18)
[2017-01-08] MEDS: MICAFUNGIN NA 100 MG in NS 100 ML IV SCH (08:28)
[2017-01-08 08:50] LABS: PLATELET COUNT 559 10^3/uL (150-400)
[2017-01-08] MEDS: FUROSEMIDE 40 MG/4 ML VIAL IVP SCH (08:54)
[2017-01-08] MEDS: BRIMONIDINE 0.15% 5 ML OPHT.BTL EACHEYE SCH ×2 (08:58→20:45)
--- NOTE | 2017-01-08 09:26 | SOAPPROG ---
SOAP Progress Note Assessment/Plan: Assessment: 86yo F with complicated hospital course, including right hemicolectomy, left hemicolectomy, a-fib, and cardiac arrest requiring CPR Midline wound dehiscence with fat necrosis. Fascia intact. Veraflo Ostomy with no output visible VITOR min serous fluid IV Zosyn, Micafungin, vanco Appreciate intensivists, cardiology, ID, hospitalists Dispo: cont ICU. wound vac change MWF. seen c Dr. Pratt, discussed with Dr. Varner S: laying in bed, resting comfortably O: Lying in bed, comfortable, Increased WOB Tachy Hypoactive bowel sounds throughout, softly distended. Midline wound vac intact. Ostomy with overlying slough, but pink mucosa beneath, no gas or stool in appliance VITOR Drain with scant serous fluid Landry clear yellow urine Objective: Vital Signs Temp Pulse Resp BP Pulse Ox 36.3 C 89 25 H 155/70 H 96 01/08/17 06:00 01/08/17 08:00 01/08/17 08:00 01/08/17 08:00 01/08/17 08:00 Microbiology 01/02/17 Unknown Gram Stain - Final Pelvis - Aspirate Laboratory Results 01/08/17 08:40 01/07/17 01/08/17 01/09/17 05:59 05:59 05:59 Intake Total 3894 4547 Output Total 3880 2210 Balance 14 2337 PT 16.5 SEC (12.0-15.0) H 01/06/17 04:00 INR 1.33 (0.83-1.16) H 01/06/17 04:00 ICD10 Worksheet Patient Problems: Problems Problem Status Onset Appendiceal tumor Acute
[2017-01-08] MEDS ORDERED: hydrALAZINE 20 MG/ML VIAL IVP ONE (09:30)
--- NOTE | 2017-01-08 09:38 | PCMIDPN ---
Assessment/Plan: # Septic shock due to peritonitis status post ischemic colitis in the left side following right hemicolectomy for appendiceal neoplasm. Polymicrobial peritonitis. White count is trending down but patient continues to have significant respiratory distress which may be related to volume and or cardiac issues. Still with no output from ostomy. Appears overall prognosis very poor. --currently on vancomycin for anaerobic GPC, enterococcus - both from wound --check vancomycin --await palliative --zosyn/micafungin for general GI organism coverage medication zosyn 3.375gm IV q6h, # 14 micafungin 100mg IV daily, # 15 vancomycin IV # 5 microbiology blood cx 12/24 (2) NGTD sputum cx: gordon wound aspirate 12/29 1+ GPR; Enterococcus Faecium wound swab 12/31: 1+ GNR; Escherichia Coli and Bacillus Not Anthracis/Cereus pelvic abscess 01/02: Anaerobic Gram Positive Cocci Subjective: R VITOR drain pulled by surgery resp distress Objective: Vital Signs Temp Pulse Resp BP Pulse Ox 36.3 C 89 25 H 155/70 H 96 01/08/17 06:00 01/08/17 08:00 01/08/17 08:00 01/08/17 08:00 01/08/17 08:00 Microbiology 01/02/17 Unknown Gram Stain - Final Pelvis - Aspirate Laboratory Results 01/08/17 08:40 01/07/17 01/08/17 01/09/17 05:59 05:59 05:59 Intake Total 3894 4547 Output Total 3880 2210 500 Balance 14 2337 -500 - Physical Exam General Appearance: alert, apparent distress Respiratory: accessory muscle use, coarse breath sounds Neck: supple Cardiac/Chest: tachycardia Extremities: pedal edema (anasarca) Abdomen: distended, other (ostomy pink but no output; midline wound vac), No normal bowel sounds Pelvic Exam: bishop Skin: pallor, other (mottling) Neuro/Psych: alert, other (following simple commands) - Line/s RUE PICC Lines: No drainage, No erythema LUE PICC Lines: No drainage, No erythema - Time Spent With Patient Time Spent with Patient: greater than 35 minutes Time Spent with Patient: Greater than 35 minutes spent on this patients care, greater than 50% of time spent counseling, educating, and coordinating care regarding the above mentioned plan. ICD10 Worksheet Patient Problems: Problems Problem Status Onset Appendiceal tumor Acute
[2017-01-08] MEDS ORDERED: SODIUM HYPOCHLORITE (DAKINS 1/4 STR) 120 ML BTL IRR SCH (09:45)
[2017-01-08] MEDS ORDERED: fentaNYL/NACL 100 ML IV SCH (10:00)
--- NOTE | 2017-01-08 11:09 | WOCRNPDOC ---
WOCRPillo Advanced Assessment Note - Skin Integrity Problem, Advanced Assess Medial Abdomen Surgical Wound/Incision Dressing Type: Black Vac Foam (x4), Wound Vac Dressing Description: Clean/Dry, Intact Closure Description: Retention Sutures Exudate Amount: Minimal Exudate Characteristic(s): Serosanguinous Integumentary Issue Intervention: Dressing Changed Wound Bed Color: Red, Yellow Wound Edges: Attached Site Odor: Strong, Foul Skin Integrity Problem Comment: Dressing removed with Alexandra FREY. Wound cleansed with ns and gauze. Mastisol applied noel wound and then two pieces of veraflo cleanse applied to wound bed (malagasy cheese layer first and then one thick layer). Vac seal was checked and a small leak was fixed. Decision was made to change instillation to 1/4 strength dakins to address possible infection as evidenced by increased odor. Fascia is intact. Veraflo started with NS while waiting for pharmacy tosend 1/4 strenght Dakins to floor. RN's Elizabeth and Jessica in room for care. Settings modified: to instill 50 ml every 4 hours into wound with a 3 min dwell time.
--- NOTE | 2017-01-08 11:09 | WOCRNPDOC ---
WOCRPillo Advanced Assessment Note - Skin Integrity Problem, Advanced Assess Medial Abdomen Surgical Wound/Incision Dressing Type: Black Vac Foam (x4), Wound Vac Dressing Description: Clean/Dry, Intact Closure Description: Retention Sutures Exudate Amount: Minimal Exudate Characteristic(s): Serosanguinous Integumentary Issue Intervention: Dressing Changed Wound Bed Color: Red, Yellow Wound Edges: Attached Site Odor: Strong, Foul Skin Integrity Problem Comment: Dressing removed with Alexandra FREY. Wound cleansed with ns and gauze. Mastisol applied noel wound and then two pieces of veraflo cleanse applied to wound bed (cymraes cheese layer first and then one thick layer). Vac seal was checked and a small leak was fixed. Decision was made to change instillation to 1/4 strength dakins to address possible infection as evidenced by increased odor. Fascia is intact. Veraflo started with NS while waiting for pharmacy tosend 1/4 strenght Dakins to floor. RN's Elizabeth and Jessica in room for care. Settings modified: to instill 50 ml every 4 hours into wound with a 3 min dwell time.
--- NOTE | 2017-01-08 11:09 | WOCRNPDOC ---
WOCRPillo Advanced Assessment Note - Skin Integrity Problem, Advanced Assess Medial Abdomen Surgical Wound/Incision Dressing Type: Black Vac Foam (x4), Wound Vac Dressing Description: Clean/Dry, Intact Closure Description: Retention Sutures Exudate Amount: Minimal Exudate Characteristic(s): Serosanguinous Integumentary Issue Intervention: Dressing Changed Wound Bed Color: Red, Yellow Wound Edges: Attached Site Odor: Strong, Foul Skin Integrity Problem Comment: Dressing removed with Alexandra FREY. Wound cleansed with ns and gauze. Mastisol applied noel wound and then two pieces of veraflo cleanse applied to wound bed (tristanian cheese layer first and then one thick layer). Vac seal was checked and a small leak was fixed. Decision was made to change instillation to 1/4 strength dakins to address possible infection as evidenced by increased odor. Fascia is intact. Veraflo started with NS while waiting for pharmacy tosend 1/4 strenght Dakins to floor. RN's Elizabeth and Jessica in room for care. Settings modified: to instill 50 ml every 4 hours into wound with a 3 min dwell time.
[2017-01-08] MEDS ORDERED: SODIUM HYPOCHLORITE IRR SCH ×2 (11:45→12:00)
--- NOTE | 2017-01-08 12:52 | HOSPPROG ---
Hospitalist Progress Note Assessment/Plan: Discussed with family. Family would like to move toward comfort measures. Will not totally deescalate measures today. DNR. - morphine IV and ativan IV added # acute resp failure - extubated; multifactorial; very dyspneic today, on bipap # pneumonia, HCAP - vanc, zosyn # pulm edema - diuresed # atrial fib with RVR - amiodarone gtt # peritonitis - zosyn, vanc, micafungin; abscess with enterococcus # L hemicolectomy, c/b R ischemic colitis s/p total colectomy # wound infection, e. coli # sepsis - off pressors # picc associated DVT - heparin gtt 45 minutes critical care time; critically ill d/t peritonitis and resp failure Subjective: patient clearly stating that she is ready to ; i discussed at length with her, her sister (by phone), her daughter and Objective: Vital Signs Temp Pulse Resp BP Pulse Ox 36.0 C 117 H 23 H 126/57 H 100 01/08/17 12:00 01/08/17 12:00 01/08/17 12:00 01/08/17 12:00 01/08/17 12:00 Microbiology 01/02/17 Unknown Gram Stain - Final Pelvis - Aspirate Laboratory Results 01/08/17 08:40 01/08/17 10:15 01/07/17 01/08/17 01/09/17 05:59 05:59 05:59 Intake Total 3894 4547 Output Total 3880 2210 750 Balance 14 2337 -750 PT 16.5 SEC (12.0-15.0) H 01/06/17 04:00 INR 1.33 (0.83-1.16) H 01/06/17 04:00 - Physical Exam Constitutional: other (uncomfortable, dyspneic) ICD10 Worksheet Patient Problems: Problems Problem Status Onset Appendiceal tumor Acute
[2017-01-08] MEDS: LORazepam 2 MG/ML INJ IVP PRN ×3 (13:05→23:37)
[2017-01-08] MEDS ORDERED: MAGNESIUM SULF 1 GM/DEXTROSE 100 ML IV ONE (13:52)
--- NOTE | 2017-01-08 14:14 | PDINTPN ---
Senior Technical Support Engineer Progress Note Assessment/Plan: Assessment/plan: 86 F admitted electively 12/20/16 for resection of large appendiceal mass, complicated by perforation on 12/24 requiring left hemicolectomy and colostomy. Also complicating her stay has been septic shock from peritonitis, atrial fibrillation, a very brief asystolic event, aspieration requiring ETT, and a PICC- associated DVT. She was apparently relatively stable and extubated 01/05 (prior to my involvement). Of note, a family meeting 01/03 resulted in DNR status. * Respiratory failure from witnessed aspiration event. ABG showed CO2 56 so started bipap 01/06 after discussion with family and re-iterated DNR status. Attempted to dc bipap this am but CO2 quickly up to 70 and WOB unchanged (never improved despite intervention). After lengthy discussion with family and multiple visits at bedside, she has opted for comfort care only, which is not an unreasonable option, as she apparently stated prior to hospitalization that she was unsure about procedure in the first place. At this point we are holding at "no escalation" of thersapy with the exception of anxiolytics and narcotics for comfort. Will reassess in AM for active wd support, as I believe she is suffering now with ongoing support. She has clearly verbalized, in no-uncertain- terms, that she prefers to rather than continue resuscitative efforts. * She remains on Zosyn, lupe, and vanco with ID guidance. Beta-agonists not likely to help this situation and may make arrythmia issues worse. OK for PRN only. * Altered MS/delerium- controlled on fentanyl/precedex for now. * Peritonitis- with perforated viscous. WBC is stable and no new cultures. Abx as above. Getting TPN. Wound vac placed * Asystole during abscess drainage attempt 12/31. No reported CPR- may have been vagal-mediated. * Afib- Converted to afib overnight with sinus pauses. Restarted amiodarone. Watch closely. * Essential tremor- previously on propranolol, but held 2/2 BP * * critical care time 35 minutes Subjective: continues with mild confusion and respiratory distress Objective: Vital Signs Temp Pulse Resp BP Pulse Ox 36.0 C 117 H 23 H 126/57 H 100 01/08/17 12:00 01/08/17 12:00 01/08/17 12:00 01/08/17 12:00 01/08/17 12:00 Microbiology 01/02/17 Unknown Gram Stain - Final Pelvis - Aspirate Laboratory Results 01/08/17 08:40 01/08/17 10:15 01/07/17 01/08/17 01/09/17 05:59 05:59 05:59 Intake Total 3894 4547 Output Total 3880 2210 1500 Balance 14 2337 -1500 PT 16.5 SEC (12.0-15.0) H 01/06/17 04:00 INR 1.33 (0.83-1.16) H 01/06/17 04:00 Physical Exam - Physical Exam General Appearance: moderate distress, obtunded EENT: PERRL/EOMI Neck: supple Respiratory: respiratory distress, accessory muscle use, decreased breath sounds , rales Cardiac/Chest: tachycardia, irregularly irregular Abdomen: soft, other (colostomy and wound vac OK), No normal bowel sounds, No distended Skin: normal color, warm/dry Lymphatic: no adenopathy Extremities: pedal edema Neuro/Psych: cognition abnormalities (mild) ICD10 Worksheet Patient Problems: Problems Problem Status Onset Appendiceal tumor Acute
--- NOTE | 2017-01-08 14:18 | ASMTCMCOM ---
CM Note CM Note Notes: Palliative care team met with patient and some family members today. Per their conversation, family is not ready to move to full comfort measures despite patient's wishes to do so. Hospitalist has added add'l pain management medications today, and family wishes to reassess treatment plan in a few days. CM available for any discharge/coordination needs that may arise. Date Signed: 01/08/2017 02:17 PM Electronically Signed By:Lori Diego RN
[2017-01-08] MEDS: SODIUM HYPOCHLORITE (DAKINS 1/4 STR) 120 ML BTL TP SCH (14:37)
--- NOTE | 2017-01-08 18:32 | PDPCPN ---
Palliative Care Progress Note Assessment/Plan: Referring provider: Dr Noble Reason for consult: Complex medical decision making Symptom control HPI: Ilana Long is a 86 yo admitted to the hospital for elective resection of large appendiceal mass. Hospitalization complicated by perforation requiring hemicolectomy and colostomy, septic shock 2/2 peritonitis, aspiration PNA, and continued respiratory failure. Recently extubated now dependent on bipap. Palliative care consulted for complex medical decision making. Met with Eze and daughter Dolores outside of the room. Ilana had just received some morphine and ativan and was resting. Eze stated he feels Ilana is dying and there is not much else to say/discuss. Dolores states she feels she may improve and wants to see how Ilana does over the next couple of days. THey both spoke of Ilana's wishes. Ilana today has stated to multiple people "I just want to ". Her family states Ilana has never wanted to live in a dependent state. 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 Her family states Ilana is a very active and independent person who would not want "this existence". We discussed comfort care only and what that might look like. Her family is always hopeful for recovery but also realistic in Ilana's decisions and wishes. Assessment: Physical: - Pain: occasional abdominal pain - morphine IV PRN - Dyspnea: severe at times - on bipap- management per pul - morphine as above - on Precedex drip - constipation - at risk while on opiates - senna and colace if able to take in PO - dulcolax supp daily PRN for NPO Emotional/psychological: - Anxiety - ativan PRN Advanced Care Planning: Is patient decisional?: Yes, at present sleeping due to medications Code Status: DNR POA: Eze is MDPOA, daughter Dolores is secondary Plan: Ilana does not want to suffer or have life prolonging measures with a poor quality of life. She is very independent and active at baseline. Family is coping with her decline and have requested 48 hours to see how she does and whether she will improve. Subjective: sleeping on bipap Objective: Social History: to Eze. They have 2 children daughter Dolores and a son who lives in [place]. 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 Enjoys learning and being active. Medication list reviewed ROS: General: fatigue, weakness ENT: negative Resp: dyspnea GI: abdominal pain : negative MS: negative Skin: abdominal wound Neuro: negative Psych: anxiety Functional assessment: PPS: 30% Functional status: dependent on ADLs, IADLs Vital Signs Temp Pulse Resp BP Pulse Ox 36.0 C 82 28 H 131/64 H 99 01/08/17 12:00 01/08/17 16:40 01/08/17 16:40 01/08/17 16:00 01/08/17 16:00 Microbiology 01/02/17 Unknown Gram Stain - Final Pelvis - Aspirate Laboratory Results 01/08/17 08:40 01/08/17 10:15 01/07/17 01/08/17 01/09/17 05:59 05:59 05:59 Intake Total 3894 4547 2040 Output Total 3880 2210 2100 Balance 14 2337 -60 PT 16.5 SEC (12.0-15.0) H 01/06/17 04:00 INR 1.33 (0.83-1.16) H 01/06/17 04:00 Physical Exam - Physical Exam General Appearance: no apparent distress, other (sleeping) Respiratory: No respiratory distress, No accessory muscle use Skin: normal color, warm/dry Extremities: No pedal edema Neuro/Psych: other (sleeping, awakens to name) ICD10 Worksheet Patient Problems: Problems Problem Status Onset Appendiceal tumor Acute Palliative care encounter Acute - ICD10 Problem Qualifiers (1) Palliative care encounter
[2017-01-08] MEDS: TRAVOPROST Z 0.004% 2.5 ML OPHT.BTL EACHEYE SCH (20:45)
[2017-01-08] MEDS: VANCOMYCIN 1.5 GM in D5W 250 ML IV SCH (20:59)
[2017-01-09] MEDS: HEPARIN/DEXTROSE 500 ML IV SCH ×2 (02:24→14:08)
[2017-01-09] MEDS: AMIODARONE HCL 200 ML IV SCH (05:52)
[2017-01-09] MEDS: PIPERACILLIN/TAZO 3.375 GM/DEX 50 ML IV SCH ×3 (05:52→16:58)
[2017-01-09 05:53] LABS: PLATELET COUNT 561 10^3/uL (150-400)
[2017-01-09] MEDS: DEXMEDETOMIDINE IN 0.9 % NACL 100 ML IV SCH (06:18)
[2017-01-09] MEDS: INSULIN REGULAR HUMAN 100 UNIT/ML SC SCH ×3 (06:38→16:57)
[2017-01-09] MEDS: LORazepam 2 MG/ML INJ IVP PRN ×5 (08:15→21:32)
[2017-01-09] MEDS: FUROSEMIDE 40 MG/4 ML VIAL IVP SCH (08:18)
[2017-01-09] MEDS: MICAFUNGIN NA 100 MG in NS 100 ML IV SCH (08:19)
[2017-01-09] MEDS: BRIMONIDINE 0.15% 5 ML OPHT.BTL EACHEYE SCH (08:19)
--- NOTE | 2017-01-09 09:16 | PCMIDPN ---
Assessment/Plan: Assessment/Plan: * Septic shock associated with peritonitis post ischemic colitis: Cultures of serosanguineous fluid removed from repeat percutaneous drainage with growth of anaerobic gram-positive cocci. Prior culture bacillus from wound of unclear significance. Continue antibiotics while family deciding regarding palliative care measures. Anticipate stopping vancomycin at 7 days of therapy (# 6/7) 01/09/17 09:13 Subjective: The patient unresponsive to voice. Palliative care consultation reviewed and noted. Objective: Vital Signs Temp Pulse Resp BP Pulse Ox 37 C 74 36 H 134/89 H 100 01/09/17 04:00 01/09/17 08:37 01/09/17 08:37 01/09/17 06:00 01/09/17 08:37 Microbiology 01/02/17 Unknown Gram Stain - Final Pelvis - Aspirate Laboratory Results 01/09/17 05:44 01/09/17 06:00 01/08/17 01/09/17 01/10/17 05:59 05:59 05:59 Intake Total 4547 3503 Output Total 2210 3050 Balance 2337 453 Zosyn # 15 Micafungin # 16 Vancomycin # 6 Pelvic cultures with growth of anaerobic gram-positive cocci Laboratory Tests 01/08/17 19:35 Vancomycin Trough 7.2 - Physical Exam General Appearance: non-toxic, other (No response to verbal stimuli) EENT: No scleral icterus Respiratory: coarse breath sounds, other (Tachypneic) Cardiac/Chest: regular rate, rhythm Abdomen: non-tender, other (Wound VAC in place with no surrounding erythema), No distended - Line/s RUE PICC Lines: No drainage, No erythema LUE PICC Lines: No drainage, No erythema ICD10 Worksheet Patient Problems: Problems Problem Status Onset Appendiceal tumor Acute Palliative care encounter Acute
[2017-01-09] MEDS ORDERED: MAGNESIUM SULF 1 GM/DEXTROSE 100 ML IV ONE (09:45)
--- NOTE | 2017-01-09 11:20 | SOAPPROG ---
SOAP Progress Note Assessment/Plan: Assessment: Assessment: 86yo F with complicated hospital course, including right hemicolectomy, left hemicolectomy, a-fib, and cardiac arrest requiring CPR Midline wound dehiscence with fat necrosis. Fascia intact. Veraflo Ostomy with gas but no stool VITOR min serous fluid IV Zosyn, Micafungin, vanco Appreciate intensivists, cardiology, ID, hospitalists Family considering comfort care - pt stated yesterday that she wanted to Respiratory continues to be the biggest issue Dispo: cont ICU. S: laying in bed, bipap in place, calm but somewhat uncomfortable Increased WOB Tachy Hypoactive bowel sounds throughout, softly distended. Midline wound vac intact. Ostomy pink mucosa with gas in bag VITOR Drain with scant serous fluid Landry clear yellow urine Plan: 01/09/17 11:18 Objective: Vital Signs Temp Pulse Resp BP Pulse Ox 37 C 76 34 H 134/89 H 100 01/09/17 04:00 01/09/17 11:12 01/09/17 11:12 01/09/17 06:00 01/09/17 11:12 Microbiology 01/02/17 Unknown Gram Stain - Final Pelvis - Aspirate Laboratory Results 01/09/17 05:44 01/09/17 06:00 01/08/17 01/09/17 01/10/17 05:59 05:59 05:59 Intake Total 4547 3503 Output Total 2210 3050 Balance 2337 453 PT 16.5 SEC (12.0-15.0) H 01/06/17 04:00 INR 1.33 (0.83-1.16) H 01/06/17 04:00 ICD10 Worksheet Patient Problems: Problems Problem Status Onset Appendiceal tumor Acute Palliative care encounter Acute
--- NOTE | 2017-01-09 14:00 | PDINTPN ---
[employer] Progress Note Assessment/Plan: Assessment/plan: 86 F admitted electively 12/20/16 for resection of large appendiceal mass, complicated by perforation on 12/24 requiring left hemicolectomy and colostomy. Also complicating her stay has been septic shock from peritonitis, atrial fibrillation, a very brief asystolic event, aspieration requiring ETT, and a PICC- associated DVT. She was apparently relatively stable and extubated 01/05 (prior to my involvement). Of note, a family meeting 01/03 resulted in DNR status. * Respiratory failure from witnessed aspiration event. ABG showed CO2 56 so started bipap 01/06 after discussion with family and re-iterated DNR status. Attempted to dc bipap 01/08, but CO2 quickly up to 70 and WOB unchanged (never improved despite intervention). She is much more comfortable now after MSO4, but her rising serum HCO3 may indicate worsening CO2 retention. After lengthy discussion with family and multiple visits at bedside, she has opted for comfort care only, which is not an unreasonable option, as she apparently stated prior to hospitalization that she was unsure about procedure in the first place. At this point we are holding at "no escalation" of therapy with the exception of anxiolytics and narcotics for comfort. She has clearly verbalized, in [id number], that she prefers to rather than continue resuscitative efforts. Planning family meeting again today to clarify goals. Given patient's stated wishes both prior to her original surgery as well multiple times since, I would advocate wd of support to minimize suffering, which was the rationale behind holding TPN * She remains on Zosyn, lupe, and vanco with ID guidance. Beta-agonists not likely to help this situation and may make arrythmia issues worse. OK for PRN only. * Altered MS/delerium- controlled on fentanyl/precedex for now. * Peritonitis- with perforated viscous. WBC is stable and no new cultures. Abx as above. Wound vac placed * Asystole during abscess drainage attempt 12/31. No reported CPR- may have been vagal-mediated. * Afib- Converted to afib 01/07with sinus pauses. Restarted amiodarone. Now in NSR * Essential tremor- previously on propranolol, but held 2/2 BP * * critical care time 45 minutes 01/09/17 13:51 Subjective: Stable overnight with decreased WOB after treatment with Morphine. Family upset about holding TPN overnight. Objective: Vital Signs Temp Pulse Resp BP Pulse Ox 36.6 C 80 34 H 143/69 H 100 01/09/17 12:00 01/09/17 12:00 01/09/17 11:12 01/09/17 12:00 01/09/17 11:12 Microbiology 01/02/17 Unknown Gram Stain - Final Pelvis - Aspirate Laboratory Results 01/09/17 05:44 01/09/17 06:00 01/08/17 01/09/17 01/10/17 05:59 05:59 05:59 Intake Total 4547 3503 Output Total 2210 3050 1350 Balance 2337 453 -1350 PT 16.5 SEC (12.0-15.0) H 01/06/17 04:00 INR 1.33 (0.83-1.16) H 01/06/17 04:00 Physical Exam - Physical Exam General Appearance: no apparent distress, obtunded EENT: PERRL/EOMI Neck: supple Respiratory: lungs clear, No respiratory distress, No accessory muscle use, No wheezing Cardiac/Chest: regular rate, rhythm, No edema Abdomen: non-tender, soft, other (wound vac and colostomy), No distended Skin: normal color, warm/dry Lymphatic: no adenopathy Extremities: No pedal edema Neuro/Psych: cognition abnormalities ICD10 Worksheet Patient Problems: Problems Problem Status Onset Appendiceal tumor Acute Palliative care encounter Acute
--- NOTE | 2017-01-09 14:58 | HOSPPROG ---
Hospitalist Progress Note Assessment/Plan: Long discussion with family. There had been some misunderstanding of comfort care and comfort measures, specifically regarding morphine worsening respiratory status. I think that everything is clear now regarding her respiratory prognosis which is poor. Without intubation her status will worsen. Family is considering removing bipap and discontinue therapies. She is DNR/DNI - she was very clear about that. She also clearly expressed yesterday that she was ready to . Today she is more obtunded. # acute resp failure - extubated; multifactorial; bipap dependent # pneumonia, HCAP - vanc, zosyn # pulm edema - diuresed # atrial fib with RVR - amiodarone gtt # peritonitis - zosyn, vanc, micafungin; abscess with enterococcus # L hemicolectomy, c/b R ischemic colitis s/p total colectomy # wound infection, e. coli # sepsis - off pressors # picc associated DVT - heparin gtt 40 minutes critical care time; critically ill d/t peritonitis and resp failure Subjective: family meeting with Dr Varner, patient's daughter, and sister ; very uncomfortable on BiPAP Objective: Vital Signs Temp Pulse Resp BP Pulse Ox 36.6 C 80 34 H 143/69 H 100 01/09/17 12:00 01/09/17 12:00 01/09/17 11:12 01/09/17 12:00 01/09/17 11:12 Microbiology 01/02/17 Unknown Gram Stain - Final Pelvis - Aspirate Laboratory Results 01/09/17 05:44 01/09/17 06:00 01/08/17 01/09/17 01/10/17 05:59 05:59 05:59 Intake Total 4547 3503 Output Total 2210 3050 1350 Balance 2337 453 -1350 PT 16.5 SEC (12.0-15.0) H 01/06/17 04:00 INR 1.33 (0.83-1.16) H 01/06/17 04:00 - Physical Exam Constitutional: unkempt, other (uncomfortable; not responding; groaning; CPAP on face) ICD10 Worksheet Patient Problems: Problems Problem Status Onset Appendiceal tumor Acute Palliative care encounter Acute
[2017-01-10] MEDS: LORazepam 2 MG/ML INJ IVP PRN ×6 (01:19→17:13)
--- NOTE | 2017-01-10 09:24 | SOAPPROG ---
SOAP Progress Note Assessment/Plan: Assessment: 86yo F with complicated hospital course, including right hemicolectomy, left hemicolectomy, a-fib, and cardiac arrest requiring CPR Midline wound dehiscence with fat necrosis. Fascia intact. wound vac Ostomy with gas but no stool VITOR min serous fluid IV Zosyn, Micafungin, vanco Appreciate intensivists, cardiology, ID, hospitalists Palliative care per family S: laying in bed,calm but somewhat uncomfortable Increased WOB, shallow breaths Tachy Midline wound vac intact. Ostomy pink mucosa with gas in bag VITOR Drain with scant serous fluid Landry clear yellow urine Objective: Vital Signs Temp Pulse Resp BP Pulse Ox 36.6 C 155 H 32 H 158/82 H 99 01/09/17 12:00 01/10/17 07:57 01/10/17 07:57 01/09/17 23:00 01/10/17 07:57 Microbiology 01/02/17 Unknown Gram Stain - Final Pelvis - Aspirate Laboratory Results 01/09/17 05:44 01/09/17 06:00 01/09/17 01/10/17 01/11/17 05:59 05:59 05:59 Intake Total 3503 Output Total 3050 1875 Balance 453 -1875 PT 16.5 SEC (12.0-15.0) H 01/06/17 04:00 INR 1.33 (0.83-1.16) H 01/06/17 04:00 ICD10 Worksheet Patient Problems: Problems Problem Status Onset Appendiceal tumor Acute Palliative care encounter Acute
[2017-01-10] MEDS ORDERED: SODIUM HYPOCHLORITE IRR SCH (10:00)
--- NOTE | 2017-01-10 12:51 | HOSPPROG ---
Hospitalist Progress Note Assessment/Plan: Seen with today with family. Continue comfort measures. See note from 01/09 for full details. Problem list: # acute resp failure # pneumonia, HCAP # pulm edema # atrial fib with RVR # peritonitis # L hemicolectomy, c/b R ischemic colitis s/p total colectomy # wound infection, e. coli # sepsis - off pressors # picc associated DVT Subjective: not responsive; off BIPAP mask Objective: Vital Signs Temp Pulse Resp BP Pulse Ox 36.6 C 155 H 32 H 158/82 H 99 01/09/17 12:00 01/10/17 07:57 01/10/17 07:57 01/09/17 23:00 01/10/17 07:57 Microbiology 01/02/17 Unknown Gram Stain - Final Pelvis - Aspirate Laboratory Results 01/09/17 05:44 01/09/17 06:00 01/09/17 01/10/17 01/11/17 05:59 05:59 05:59 Intake Total 3503 Output Total 3050 1875 Balance 453 -1875 PT 16.5 SEC (12.0-15.0) H 01/06/17 04:00 INR 1.33 (0.83-1.16) H 01/06/17 04:00 - Physical Exam Constitutional: other (no waking up; frequent shallow breaths; appears comfortable) ICD10 Worksheet Patient Problems: Problems Problem Status Onset Appendiceal tumor Acute Palliative care encounter Acute
--- NOTE | 2017-01-10 15:42 | PDPCPN ---
Palliative Care Progress Note Assessment/Plan: HPI: Ilana Long is a 86 yo admitted to the hospital for elective resection of large appendiceal mass. Hospitalization complicated by perforation requiring hemicolectomy and colostomy, septic shock 2/2 peritonitis, aspiration PNA, and continued respiratory failure. Recently extubated now dependent on bipap. Palliative care consulted for complex medical decision making. Ilana seen this morning with her family at the bedside. Changed to comfort care only yesterday evening and taken off of bipap. Appears comfortable with no pain. Some increased work of breathing and receiving morphine and ativan PRN. Family feels supported and did not have any additional questions. Assessment: Physical: - Pain: occasional abdominal pain - morphine IV PRN - Dyspnea: severe at times - oxygen as needed for comfort only - morphine as above - constipation - dulcolax supp daily PRN for NPO Emotional/psychological: - Anxiety - ativan PRN Advanced Care Planning: Is patient decisional?: no Code Status: DNR POA: Eze is MDPOA, daughter Dolores is secondary Plan: On comfort care only. Prognosis hours to days. Subjective: minimally responsive Objective: Vital Signs Temp Pulse Resp BP Pulse Ox 36.6 C 155 H 32 H 158/82 H 99 01/09/17 12:00 01/10/17 07:57 01/10/17 07:57 01/09/17 23:00 01/10/17 07:57 Microbiology 01/02/17 Unknown Gram Stain - Final Pelvis - Aspirate Laboratory Results 01/09/17 05:44 01/09/17 06:00 01/09/17 01/10/17 01/11/17 05:59 05:59 05:59 Intake Total 3503 Output Total 3050 1875 Balance 453 -1875 PT 16.5 SEC (12.0-15.0) H 01/06/17 04:00 INR 1.33 (0.83-1.16) H 01/06/17 04:00 Physical Exam - Physical Exam General Appearance: no apparent distress, other (minimally responsive) Respiratory: No respiratory distress, No accessory muscle use Skin: normal color, warm/dry Extremities: pedal edema Neuro/Psych: other (minmally responsive) ICD10 Worksheet Patient Problems: Problems Problem Status Onset Appendiceal tumor Acute Palliative care encounter Acute - ICD10 Problem Qualifiers (1) Palliative care encounter
[2017-01-10 16:46] VITALS: BP 134/99; PULSE 156; RESP 20; TEMP 98.1; O2SAT 95
--- NOTE | 2017-01-11 08:37 | GDS ---
[f rep st] DISCHARGE SUMMARY DATE AND TIME OF : 01/10/2017, at 6:05 p.m. Trauma Program Manager notified, body released. ALL DIAGNOSES: 1. Acute hypoxic respiratory failure. 2. Pneumonia, healthcare associated. 3. Pulmonary edema. 4. Atrial fibrillation with rapid ventricular response. 5. Right hemicolectomy for appendiceal tumor. 6. Left-sided ischemic colitis, status post total colectomy. 7. Peritonitis. 8. Septic shock. 9. 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 HOSPITAL COURSE: This is an 86-year-old female who was admitted for resection of an appendiceal tumo r. 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 Her course was complicated by perit onitis and left-sided ischemic colitis. This required a total colectomy with an ostomy, further comp licated by respiratory failure due to pneumonia, as well as pulmonary edema, requiring ventilatory kessler pport. Also complicated by septic shock, requiring multiple pressors. She was eventually extubated on 01/05/2017. She did not do very well post extubation and became BiPAP dependent. At that point, it was decided to make her do not resuscitate. Long conversations were had with family, as well as the patient. She clearly stated that she did not want to continue aggressive care and "wanted to ." She understood what this meant and had capaci ty. Because of this, we transitioned to comfort care. Initially, she received additional comfort me dications but continued BiPAP. This was clearly very uncomfortable for her. We then discontinued Bi PAP, in addition to all of her other medications. She on 01/10 at 6:05 p.m. /[id number]/MODL
== END 2017-01-10 20:08 | disposition expired | DRG 329 ==
LOC: F3N 09:05 → F1N 15:08 → F2W 12-23 08:30 → F2N 12-23 21:30
PROVIDERS: ADMIT Surgery; ATTEND Surgery
PROC: 0DTF4ZZ Resection of Right Large Intestine, Percutaneous Endoscopic Approach (ICD-10-PCS; principal; 2016-12-20 10:30)
PROC: 0W9G0ZZ Drainage of Peritoneal Cavity, Open Approach (ICD-10-PCS; 2016-12-22)
PROC: 5A1955Z Respiratory Ventilation, Greater than 96 Consecutive Hours (ICD-10-PCS; 2016-12-22)
PROC: 0D1L0Z4 Bypass Transverse Colon to Cutaneous, Open Approach (ICD-10-PCS; 2016-12-22)
PROC: 0DTG0ZZ Resection of Left Large Intestine, Open Approach (ICD-10-PCS; 2016-12-22)
PROC: 02HV33Z Insertion of Infusion Device into Superior Vena Cava, Percutaneous Approach (ICD-10-PCS; 2016-12-23)
PROC: 02HV33Z Insertion of Infusion Device into Superior Vena Cava, Percutaneous Approach (ICD-10-PCS; 2016-12-26)
PROC: 0B918ZZ Drainage of Trachea, Via Natural or Artificial Opening Endoscopic (ICD-10-PCS; 2016-12-28)
PROC: 0B978ZZ Drainage of Left Main Bronchus, Via Natural or Artificial Opening Endoscopic (ICD-10-PCS; 2016-12-28)
PROC: 0B938ZZ Drainage of Right Main Bronchus, Via Natural or Artificial Opening Endoscopic (ICD-10-PCS; 2016-12-28)
PROC: 30233N1 Transfusion of Nonautologous Red Blood Cells into Peripheral Vein, Percutaneous Approach (ICD-10-PCS; 2016-12-29)
PROC: 0W9J30Z Drainage of Pelvic Cavity with Drainage Device, Percutaneous Approach (ICD-10-PCS; 2017-01-02)
DX: K38.8 Other specified diseases of appendix (principal); J96.01 Acute respiratory failure with hypoxia; J18.8 Other pneumonia, unspecified organism; J18.1 Lobar pneumonia, unspecified organism; A41.9 Sepsis, unspecified organism; R65.21 Severe sepsis with septic shock; K65.9 Peritonitis, unspecified; D62 Acute posthemorrhagic anemia; E87.1 Hypo-osmolality and hyponatremia; K51.50 Left sided colitis without complications; L89.152 Pressure ulcer of sacral region, stage 2; I48.91 Unspecified atrial fibrillation; T85.868A Thrombosis due to other internal prosthetic devices, implants and grafts, initial encounter; E78.00 Pure hypercholesterolemia, unspecified; I10 Essential (primary) hypertension; Z51.5 Encounter for palliative care; Z66 Do not resuscitate
CPT/HCPCS: 82947-QW; 85520-90; C1751; J0282; J0360; J0461; J0694; J0697; J1160; J1170; J1335; J1644; J1650; J1815; J1940; J2060; J2248; J2405; J2543; J2704; J2765; J2997; J3010; J3370; J3475; P9016; P9041; Q9967